=== PATIENT | female | born 1930 | race Caucasian/White ===

== ENCOUNTER 2017-01-19 06:49 | Observation (INO) | payer MEDICARE, OTHER ==
[~2017-01-19] VITALS: Ht 160 cm; Wt 58.8 kg
[~2017-01-19 06:49] MED LIST: /DILT60TAB PO; /MOXI40TA PO; /WARF25TA PO; ALB2.5NEB INH; BUDE180INH INH; BYST10TA PO; BYST20TA PO; CART120C PO; DOXY100T16 PO; EUCECRE3 TOP; FURO20TA2 PO; FURO40TA2 PO; HYDR7.5T30 PO; LASI20TA PO; LASI40TA PO; LASIX PO; LEVA250T PO; LEVA500T PO; LEVOTHYROXINE PO; MICR10CA PO; POTA20VL PO; PRAD150C PO; PRED10TA PO; PRED10TA2 PO; PRIL20TA2 PO; PROA1AER INH; PROAAER IN; SING10TA32 PO; SYNT75TA PO; TYLE325T5 PD; TYLE325T5 PO; ULTR50TA PO; WARF5TAB66 PO; XARE20TA PO
[2017-01-19] MEDS ORDERED: SYMB80INH INH (07:20)
[2017-01-19] MEDS ORDERED: XARE20TA PO (07:20)
[2017-01-19] MEDS ORDERED: ALBUTEROL SULFATE 2.5 MG/0.5 ML INH NEB SOLN NEB ONE (07:30)
[2017-01-19] MEDS ORDERED: IPRATROPIUM 0.5MG/ALBUTEROL 2.5MG INH SOL UD 3ML (DUONEB)(J7620) NEB ONE (07:30)
[2017-01-19] MEDS ORDERED: methylPREDNISolone INJ 125 MG/2 ML VIAL (J2930) IV ONE (07:30)
[2017-01-19 07:41] LABS: BASO # 0.1 K/mm3 (0.0-0.2); BASO % 0.9 % (0.0-1.0); EOS # 1.5 K/mm3 (0.0-0.50); LARGE UNSTAINED CELL # 0.1 K/mm3 (0.0-0.4); LARGE UNSTAINED CELL % 1.3 % (0.0-4.0); LYMPH # 0.8 K/mm3 (1.5-4.5); LYMPH % 10.7 % (24.0-44.0); MEAN CORPUSCULAR HEMOGLOBIN 25.9 pg (27.0-33.0); MEAN CORPUSCULAR HGB CONC 31.5 g/dl (32.0-36.5); MEAN CORPUSCULAR VOLUME 82.2 fl (80.0-96.0); MONO # 0.3 K/mm3 (0.0-0.8); MONO % 4.9 % (0.0-5.0); NEUTROPHILS # 4.1 K/mm3 (1.8-7.7); NEUTROPHILS % 60.2 % (36.0-66.0); PLATELET COUNT, AUTOMATED 213 k/mm3 (150-450); RED CELL DISTRIBUTION WIDTH 15.4 % (11.5-14.5); WHITE BLOOD COUNT 6.9 K/mm3 (4.0-10.0)
[2017-01-19 08:00] LABS: CALCIUM LEVEL 8.8 MG/DL (8.8-10.2); CREATININE FOR GFR 0.98 MG/DL (0.55-1.02); GLOMERULAR FILTRATION RATE 57.3 (>32); POTASSIUM SERUM 3.5 MEQ/L (3.5-5.1)
--- NOTE | 2017-01-19 08:46 | REP ---
Portable chest, 01/19/2017, 20, 03:00 a.m., single AP view, patient sitting: Comparison is 09/02/2015. There is chronic cardiomegaly. Lung reid are clear. The khoa, mediastinum, and bony thorax are unremarkable. Impression: Chronic cardiomegaly. No acute cardiopulmonary findings. Signed by Familia Leahy MD 01/19/2017 08:38 A
[2017-01-19] MEDS ORDERED: FUROSEMIDE 80 MG TAB PO SCH (09:00)
[2017-01-19] MEDS ORDERED: FURO40TA2 PO (09:19)
[2017-01-19] MEDS ORDERED: FURO1TAB15 PO (09:19)
[2017-01-19] MEDS ORDERED: ALB2.5NEB INH (09:19)
[2017-01-19] MEDS ORDERED: ALBUTEROL SULFATE 2.5 MG/0.5 ML INH NEB SOLN NEB PRN (10:45)
[2017-01-19] MEDS ORDERED: ACETAMINOPHEN TAB 650MG DOSE (2X325MG) PO PRN (10:45)
[2017-01-19] MEDS ORDERED: ONDANSETRON 4MG/2ML VIAL (J2405) IV PRN (10:45)
[2017-01-19] MEDS ORDERED: BISACODYL 10 MG SUPP PR PRN (10:45)
[2017-01-19] MEDS ORDERED: BUDESONIDE 0.5 MG/2 ML INHALATION SUSPENSION INH ONE (11:15)
[2017-01-19 12:25] VITALS: BP 138/79
--- NOTE | 2017-01-19 13:26 | HPE ---
DATE OF ADMISSION: 01/19/2017 PRIMARY CARE PROVIDER: Dr. Buckley TRANSFORMER BUILDER: Dr. Roberts CHIEF COMPLAINT: Increasing shortness of breath, wheezing, cough for the past three days. PAST MEDICAL HISTORY: 1. Asthma. 2. Atrial fibrillation 3. Congestive heart failure. 4. Hypothyroidism. 5. Aortic stenosis. 6. Chronic anemia. 7. Pulmonary hypertension. HISTORY OF PRESENT ILLNESS: This is an 86-year-old female who lives at home with her daughter, who has been feeling sick for the past seven days, mostly had some cough, cold, congestion and some difficulty in breathing, for which inhaler and nebulizer was helping; however, for the past three days, it has worsened and she felt that her nebulizers and inhalers were no longer helping. She was also feeling extremely week and tired and her family noted her to be sleeping more, so she was brought to the emergency room for evaluation. In the emergency department (ED), patient was found to be tachypneic and breathing at around 24-26, could not talk in full sentences, had to break for breath after about five or six words. Though she was not hypoxic on presentation, however, after ambulation, she became very symptomatic and could hardly talk. Patient had an x-ray done in the emergency room, which did not show any acute cardiopulmonary process. Patient's brain natriuretic peptide (BNP) was normal and there were no signs of fluid overload. Patient was diagnosed with asthma exacerbation and admitted for observation. Patient received Solu-Medrol and nebulizers in the emergency room, with some improvement of her symptoms; however, they were still not back to baseline. PAST SURGICAL HISTORY: 1. Hysterectomy. 2. Ear surgery. 3. Left hip replacement. ALLERGIES: No known drug allergies. HOME MEDICATIONS: - diltiazem 120 mg daily - Xarelto 20 mg daily - Synthroid 75 mcg daily - Lasix 40 mg and 80 mg on alternate days - albuterol sulfate inhaler every 6 hours as needed for shortness of breath - albuterol sulfate nebulizer four times a day SOCIAL HISTORY: Patient does not smoke, was never a smoker. Does not abuse alcohol or recreational drugs. FAMILY HISTORY: Nothing significant. REVIEW OF SYSTEMS: Patient denied any fever or chills. Denied any chest pain. Denied any abdominal pain, nausea, vomiting or diarrhea. Does have cough and bringing up mucoid and yellow-colored phlegm. Does have shortness of breath and wheezing. PHYSICAL EXAMINATION: VITAL SIGNS: Temperature 96.8, pulse 100, respiratory rate 16, blood pressure 1336/72, pulse oximetry 94% on room air. GENERAL: Patient awake, alert, oriented times three. Is a little hard of hearing. In no acute distress. HEENT: Normocephalic, atraumatic. Moist mucous membranes. Anicteric eyes. CHEST: Bilateral diffuse wheezing. Good breath sounds. CARDIOVASCULAR: S2, S2. Irregular. No rub, murmur or gallop appreciated. ABDOMEN: Soft, nontender. Bowel sounds present. EXTREMITIES: 1-2+ bipedal edema, but seems to be improving. There are chronic venous stasis changes. LABORATORY DATA: WBC 6.9, hemoglobin 9.9, platelets 213. Sodium 141, potassium 3.5, chloride 103, bicarbonate 30, BUN 26, creatinine 0.9, glucose 119, lactic acid 0.9. Cardiac enzymes are negative. Brain natriuretic peptide (BNP) 129. RADIOLOGY: A chest x-ray was reviewed; does not have any acute cardiopulmonary process. Shows chronic cardiomegaly. ASSESSMENT AND PLAN: This is an 86-year-old female admitted for asthma exacerbation. PLAN: 1. For asthma exacerbation, we will continue with albuterol nebulizers and methylprednisone. 2. Atrial fibrillation. We will continue with diltiazem and Xarelto. Rate is controlled. 3. Congestive heart failure, most probably diastolic. Has good ejection fraction in the last echocardiogram reviewed. We will continue with Lasix 40 mg and 80 mg on alternate days. 4. Aortic stenosis. Stable. 5. Pulmonary hypertension. Chronic, stable. We will continue with diuresis. 6. Hypothyroidism. We will continue with Synthroid. 7. Deep venous thrombosis (DVT) prophylaxis. Patient is on Xarelto.
[2017-01-19 14:00] VITALS: BP 113/71
[2017-01-19] MEDS: methylPREDNISolone INJ 40 MG/1 ML VIAL (J2920) IV SCH ×2 (17:08→23:57)
[2017-01-19 17:29] VITALS: BP 113/71
[2017-01-19] MEDS: IPRATROPIUM 0.5MG/ALBUTEROL 2.5MG INH SOL UD 3ML (DUONEB)(J7620) NEB SCH (17:29)
[2017-01-19] MEDS ORDERED: RIVAROXABAN 20 MG TAB (XARELTO) PO SCH (18:00)
--- NOTE | 2017-01-19 19:32 | ECGEPIP ---
Stationary ECG Study [facility] - ED Test Date: 2017-01-19 Pat Name: JOSIAH MARTÍNEZ Department: Room: [place] [address] Gender: F Tip Bander: alvaro : 1930 Requested By: FABIOLA Garcia Order Number: [id number] Reading MD: Merna Thomson Measurements Intervals [place] Rate: 98 P: RI: 0 QRS: 71 QRSD: 86 T: -21 QT: 360 QTc: 460 Interpretive Statements ATRIAL FIBRILLATION WITH ABERRANT CONDUCTION OR VENTRICULAR PREMATURE COMPLEXES LOW QRS VOLTAGE IN EXTREMITY LEADS ANTEROSEPTAL MYOCARDIAL INFARCTION, PROBABLY OLD SIMILAR 10/13/15 Electronically Signed On 01-19-2017 19:31:51 EDT by Merna Thomson
[2017-01-19 20:21] VITALS: BP 115/80
[2017-01-19] MEDS: SENOKOT S TAB PO SCH (20:21)
[2017-01-19 22:00] VITALS: BP 115/80
[2017-01-20] MEDS: BUDESONIDE 0.5 MG/2 ML INHALATION SUSPENSION INH SCH ×2 (00:10→07:46)
[2017-01-20] MEDS: IPRATROPIUM 0.5MG/ALBUTEROL 2.5MG INH SOL UD 3ML (DUONEB)(J7620) NEB SCH ×2 (00:10→07:46)
[2017-01-20 06:00] VITALS: BP 122/75
[2017-01-20] MEDS ORDERED: LEVOTHYROXINE 75MCG TABLET (0.075MG) PO SCH (06:00)
[2017-01-20 06:10] LABS: EOS % 0.2 % (0.0-3.0); LARGE UNSTAINED CELL % 0.2 % (0.0-4.0); LYMPH # 0.4 K/mm3 (1.5-4.5); LYMPH % 3.9 % (24.0-44.0); MEAN CORPUSCULAR HEMOGLOBIN 25.9 pg (27.0-33.0); MEAN CORPUSCULAR HGB CONC 31.6 g/dl (32.0-36.5); MEAN CORPUSCULAR VOLUME 82.1 fl (80.0-96.0); MONO # 0.2 K/mm3 (0.0-0.8); MONO % 1.9 % (0.0-5.0); NEUTROPHILS # 9.3 K/mm3 (1.8-7.7); NEUTROPHILS % 93.7 % (36.0-66.0); PLATELET COUNT, AUTOMATED 237 k/mm3 (150-450); RED CELL DISTRIBUTION WIDTH 15.5 % (11.5-14.5); WHITE BLOOD COUNT 9.9 K/mm3 (4.0-10.0)
[2017-01-20 06:41] LABS: CALCIUM LEVEL 8.7 MG/DL (8.8-10.2); CREATININE FOR GFR 1.1 MG/DL (0.55-1.02); GLOMERULAR FILTRATION RATE 50.1 (>32); POTASSIUM SERUM 3.2 MEQ/L (3.5-5.1)
[2017-01-20] MEDS ORDERED: POTASSIUM CHLORIDE 10 MEQ SR TABLET PO ONE (07:45)
[2017-01-20 07:47] VITALS: O2SAT 96
[2017-01-20] MEDS: methylPREDNISolone INJ 40 MG/1 ML VIAL (J2920) IV SCH (08:22)
[2017-01-20] MEDS: SENOKOT S TAB PO SCH (08:22)
[2017-01-20] MEDS ORDERED: FUROSEMIDE 40 MG TAB PO SCH (09:00)
[2017-01-20] MEDS ORDERED: BUDE0.5S6 INH (10:32)
[2017-01-20] MEDS ORDERED: PRED20TA PO (10:33)
--- NOTE | 2017-01-24 08:00 | DSES ---
DATE OF ADMISSION: 01/19/2017 DATE OF DISCHARGE: 01/20/2017 PRIMARY CARE PROVIDER: Dr. Buckley ENVIRONMENTAL LAWYER: Dr. Roberts DISCHARGE DIAGNOSES: Asthma exacerbation. Atrial fibrillation. Congestive heart failure. Hypothyroidism. Aortic stenosis. Chronic anemia. Pulmonary hypertension. Diastolic congestive heart failure with preserved systolic function. Hepatic cyst. DISCHARGE MEDICATIONS: - albuterol sulfate nebulizer 1 such four times a day as needed shortness of breath - budesonide inhalation by nebulizer 0.5 mcg twice a day - prednisone 40 mg by mouth daily for 4 days - diltiazem 120 mg every evening - furosemide 80 mg and 40 mg on alternate days - Synthroid 75 mcg daily - Xarelto 20 mg daily - albuterol MDI two puffs inhalation every 6 hours as needed shortness of breath HOSPITAL COURSE: This is an 86-year-old female, presented to the hospital with a 1 week history of feeling sick at home with cough, cold, congestion, and then worsening difficulty of breathing for the past 3 days. In the emergency room, she was diagnosed with asthma exacerbation. She received multiple nebulizers and intravenous (IV) steroid; however, still continued to be tachypneic on mild exertion and unable to complete talking in full sentences, so the patient was admitted under the hospitalist's service for observation. Patient was continued with IV steroids for 24 hours with frequent nebulizations. . Patient's symptoms improved significantly. The patient, on the day of discharge had stable vitals, functionally was at baseline with mostly resolved symptoms, so the patient was discharged home. PHYSICAL EXAMINATION: VITAL SIGNS: Temperature 98.7, pulse 90, respiratory rate 18, blood pressure 122/75, pulse oximetry 96% on room air. GENERAL: Patient awake, alert, oriented times three. Sitting up in bed, in no acute distress. HEENT: Normocephalic, atraumatic. Moist mucous membranes. Anicteric eyes. CHEST: There is mild bilateral wheezing present; however, there is very good air entry. CARDIOVASCULAR: S2, S2. Irregular rate, normal. There is a short systolic murmur present. ABDOMEN: Soft, nontender. Bowel sounds present. EXTREMITIES: No edema. LABORATORY DATA: WBC 9.9, hemoglobin 10.5, platelets 237. Sodium 139, potassium 3.2, replaced, chloride 101, bicarbonate 28, BUN 24, creatinine 1.1, glucose 152, calcium 8.7, BNP 129, lactic 0.9. Chest x-ray; cardiomegaly no acute cardiopulmonary findings. DISPOSITION: Patient is discharged home in stable condition. DISCHARGE INSTRUCTIONS: Patient to follow with primary care provider in 1 week, regular diet, activity as tolerated. MTDD
== END 2017-01-20 12:30 | disposition home or self-care (01) ==
LOC: M ED 07:50 → M ED INP 10:38 → M MSPAV 12:19
PROVIDERS: ADMIT Internal Medicine Nephrology; ATTEND Internal Medicine Nephrology
DX: J45.901 Unspecified asthma with (acute) exacerbation (principal); I48.91 Unspecified atrial fibrillation; I50.32 Chronic diastolic (congestive) heart failure; E03.9 Hypothyroidism, unspecified; I35.0 Nonrheumatic aortic (valve) stenosis; D53.9 Nutritional anemia, unspecified; I27.0 Primary pulmonary hypertension; K76.89 Other specified diseases of liver; Z79.899 Other long term (current) drug therapy; Z79.01 Long term (current) use of anticoagulants
CPT/HCPCS: 36415; 71010; 80048; 82550; 82553; 83605; 83880; 84484; 85025; 93005; 93041; 94640; 94760; 96374; 96376; 99285; G0378; J2920; J2930

== ENCOUNTER 2017-04-22 18:12 | Inpatient (IN) | payer OTHER, MEDICARE ==
[~2017-04-22] VITALS: Ht 160 cm; Wt 55.3 kg
[~2017-04-22 18:12] MED LIST changes: +BUDE0.5S6 INH; +FURO80TA2 PO; +LEVA1TAB PO; +LEVA1TAB2 PO; -LEVA250T PO; -LEVA500T PO; +PRED20TA PO; -PROA1AER INH; +PROAAER10 INH; +SYMB80INH INH
[2017-04-22] MEDS ORDERED: FUROSEMIDE 40 MG/4 ML VIAL (J1940) IV ONE (18:30)
[2017-04-22] MEDS ORDERED: methylPREDNISolone INJ 125 MG/2 ML VIAL (J2930) IV ONE (18:30)
[2017-04-22] MEDS ORDERED: POTA20TA6 (18:32)
[2017-04-22] MEDS ORDERED: ALBU17IN (18:32)
[2017-04-22 18:42] LABS: BASO % 0.5 % (0.0-1.0); EOS # 0.7 K/mm3 (0.0-0.50); EOS % 7.4 % (0.0-3.0); LARGE UNSTAINED CELL # 0.1 K/mm3 (0.0-0.4); LARGE UNSTAINED CELL % 0.9 % (0.0-4.0); LYMPH # 0.7 K/mm3 (1.5-4.5); MEAN CORPUSCULAR HEMOGLOBIN 26.3 pg (27.0-33.0); MEAN CORPUSCULAR HGB CONC 31.4 g/dl (32.0-36.5); MEAN CORPUSCULAR VOLUME 83.7 fl (80.0-96.0); MONO # 0.5 K/mm3 (0.0-0.8); MONO % 5.1 % (0.0-5.0); NEUTROPHILS # 7.3 K/mm3 (1.8-7.7); NEUTROPHILS % 79.1 % (36.0-66.0); PLATELET COUNT, AUTOMATED 337 k/mm3 (150-450); RED CELL DISTRIBUTION WIDTH 15.3 % (11.5-14.5); WHITE BLOOD COUNT 9.2 K/mm3 (4.0-10.0)
[2017-04-22] MEDS: IPRATROPIUM 0.5MG/ALBUTEROL 2.5MG INH SOL UD 3ML (DUONEB)(J7620) NEB PRN ×3 (18:49→19:04)
[2017-04-22 18:52] LABS: ABG BASE EXCESS 0.5 (-2.0-2.0); ABG HCO3 24.5 MEQ/L (22.0-26.0); ABG PARTIAL PRESSURE O2 76.6 mmHg (75.0-100.0); ABG STANDARD HCO3 24.9 MEQ/L (22.0-26.0); ABG TOTAL CO2 25.6 MEQ/L (23.0-31.0); ABG pH (ARTERIAL) 7.438 UNITS (7.350-7.450)
--- NOTE | 2017-04-22 19:01 | REP ---
Clinical: Cough and dyspnea. Comparison: 01/19/2017. Findings: Stable cardiomegaly. Rounded opacity in the superior mediastinum likely represents thyroid gland. The lung reid demonstrate chronic changes without acute consolidation, effusion, or pneumothorax. Skeletal structures are intact. Impression: Chronic stable cardiomegaly and interstitial changes. No acute cardiopulmonary process appreciated. Signed by Virgil Mckinnon MD 04/22/2017 06:53 P
[2017-04-22 19:27] LABS: ANION GAP 9 MEQ/L (8-16); BLOOD UREA NITROGEN 20 MG/DL (7-18); CARBON DIOXIDE LEVEL 26 MEQ/L (21-32); CHLORIDE LEVEL 103 MEQ/L (98-107); CREATININE FOR GFR 0.88 MG/DL (0.55-1.02); FREE T4 1.38 NG/DL (0.76-1.46); GLOMERULAR FILTRATION RATE > 60.0 (>32); GLUCOSE, FASTING 135 MG/DL (83-110); POTASSIUM SERUM 4.2 MEQ/L (3.5-5.1); SODIUM LEVEL 138 MEQ/L (136-145)
[2017-04-22] MEDS ORDERED: TYLE500T78 PO (20:32)
[2017-04-22] MEDS ORDERED: ALBU83IN INH ×2 (20:32)
[2017-04-22] MEDS ORDERED: ACETAMINOPHEN TAB 650MG DOSE (2X325MG) PO PRN (20:45)
[2017-04-22] MEDS: RIVAROXABAN 20 MG TAB (XARELTO) PO SCH (21:02)
[2017-04-22] MEDS: AZITHROMYCIN INJ 500 MG, VIAL MATE ADAPTER 1 EACH in D5W 250 ML IV SCH (22:14)
--- NOTE | 2017-04-22 22:20 | REPUSA ---
Clinical history: Pain, swelling. Findings: The common femoral, superficial femoral, popliteal, and other deep venous structures compre ss normally and demonstrate normal color Doppler flow. Normal venous waveforms with augmentation are seen. Impression: No evidence of deep vein thrombosis in the femoral popliteal venous system.
[2017-04-22 23:15] VITALS: BP 107/79
[2017-04-22] MEDS: cefTRIAXone SOD 2 GM in D5W MINI-BAG PLUS 50 ML IV SCH (23:36)
[2017-04-23] VITALS (10 sets, daily range): BP systolic 118–151; BP diastolic 73–96
[2017-04-23] MEDS: LEVALBUTEROL 1.25 MG/0.5 ML CONCENTRATE NEB INH PRN ×3 (04:58→20:15)
[2017-04-23] MEDS: LEVOTHYROXINE 75MCG TABLET (0.075MG) PO SCH (05:58)
[2017-04-23] MEDS: methylPREDNISolone INJ 125 MG/2 ML VIAL (J2930) IV SCH ×2 (05:58→17:03)
[2017-04-23] MEDS ORDERED: HEPARIN SOD (PORCINE) 5000 UNITS/ML VIAL SC SCH (06:00)
[2017-04-23 07:24] LABS: MEAN CORPUSCULAR HEMOGLOBIN 25.8 pg (27.0-33.0); MEAN CORPUSCULAR HGB CONC 31.1 g/dl (32.0-36.5); RED CELL DISTRIBUTION WIDTH 15.3 % (11.5-14.5); WHITE BLOOD COUNT 5.4 K/mm3 (4.0-10.0)
[2017-04-23 07:49] LABS: ANION GAP 8 MEQ/L (8-16); BLOOD UREA NITROGEN 21 MG/DL (7-18); CALCIUM LEVEL 8.8 MG/DL (8.8-10.2); CARBON DIOXIDE LEVEL 28 MEQ/L (21-32); CHLORIDE LEVEL 101 MEQ/L (98-107); CREATININE FOR GFR 0.82 MG/DL (0.55-1.02); GLOMERULAR FILTRATION RATE > 60.0 (>32); GLUCOSE, FASTING 157 MG/DL (83-110); SODIUM LEVEL 137 MEQ/L (136-145)
--- NOTE | 2017-04-23 08:14 | HPE ---
DATE OF ADMISSION: 04/22/2017 PRIMARY CARE PROVIDER: Dr. Buckley OUTPATIENT POULTRY FEED SUPERVISOR: Dr. Roberts HISTORY OF PRESENT ILLNESS: This patient is an 86-year-old female with a past medical history significant for asthma, atrial fibrillation with rapid ventricular response (RVR), diastolic congestive heart failure, hypothyroidism, aortic stenosis, chronic anemia, and pulmonary hypertension who presented to [facility] on 04/22/2017 with acute worsening of shortness of breath. The patient stated that since one week ago the patient started to notice having increased shortness of breath, initially most significant during exertion. However, the breathing symptoms continued to get worse. At approximately 4:00 p.m. today, the patient had severe shortness of breath that she could not maintain her normal respiration and the patient was brought to the emergency room for further evaluation. For the past week, the patient also noted to have an increased cough and also noted to have yellowish sputum production which is not normal for her. The patient denies any recent sick contact. Denied any fever or chills. The patient also noted to have increased bilateral lower extremity swelling and generalized ache. The patient has been having difficulty with ambulation due to bilateral lower extremity achy discomfort. Denies any associated symptoms. ALLERGIES: No known drug allergies. PAST MEDICAL HISTORY: 1. Asthma. 2. Atrial fibrillation with rapid ventricular response (RVR). 3. Diastolic congestive heart failure. 4. Hypothyroidism. 5. Aortic stenosis. 6. Chronic anemia. 7. Pulmonary hypertension. PAST SURGICAL HISTORY: 1. Hysterectomy. 2. Left hip replacement. SOCIAL HISTORY: Denies smoking. Denies recreational drug use. Denies alcohol use. The patient is a full code. HOME MEDICATIONS: - Tylenol 100 mg by mouth every six hours as needed - albuterol two puff inhalation four times a day as needed - albuterol nebulizer 2.5 mg inhalation four times a day - diltiazem 120 mg by mouth every evening - Lasix 40 mg by mouth every two days alternating with 80 mg - Lasix 80 mg by mouth every two days alternating with 40 mg - Synthroid 75 mcg by mouth daily - Xarelto 20 mg by mouth every evening REVIEW OF SYSTEMS: GENERAL: Denied any fever or chills. HEENT: No vision changes. No auditory changes. CARDIOVASCULAR: Denied any chest pain. Complains about palpitation with rapid heart rate RESPIRATORY: The patient does have progressive worsening shortness of breath since a week ago and had acute worsening since 4 p.m. today. Having increased wheeze, increased cough, and also new yellowish sputum production. GASTROINTESTINAL (GI): No nausea. No vomiting. No diarrhea. MUSCULOSKELETAL: Worsening bilateral lower extremity swelling and some generalized ache which interferes with her normal ambulation. NEUROLOGICAL: No numbness. No tingling. OBJECTIVE: VITAL SIGNS: Temperature is 98, pulse is 154, respirations 24, blood pressure is 132/86, pulse oximetry is 95% with two liters nasal cannula. GENERAL: Mild to moderate distress secondary to respiratory distress, alert and oriented times three. HEENT: Normocephalic, atraumatic. Extraocular motor grossly intact. CARDIOVASCULAR: Irregularly irregular, tachycardic. Heart rate running between 140 and 160 at the time of examination. RESPIRATORY: Significant wheezes throughout, positive crackles noted most significant bilateral base. ABDOMEN: Soft, nontender, nondistended. Bowel sounds present. EXTREMITIES: 3+ pitting edema bilaterally. No sign of cyanosis. LABORATORY DATA: WBC 9.2, hemoglobin 10.6, hematocrit 33.9, platelet count is 337. Sodium is 138, potassium 4.2, chloride is 103, carbon dioxide 26, BUN 20, creatinine 0.88, GFR greater than 60, fasting glucose 135, lactic acid 1.6, calcium 9, total CK is 116, troponin I is 0.03, BNP is 439, TSH 4.6, free T4 is 1.38. ABG shows pH of 7.438, pCO2 is 37, pO2 is 76.7, HCO3 is 24.5. MICROBIOLOGY: Blood cultures are pending times two sets. IMAGING STUDIES: Chest x-ray shows chronic stable cardiomegaly and interstitial changes. No acute cardiopulmonary process appreciated. ASSESSMENT AND PLAN: 1. Acute respiratory failure, most likely secondary to congestive heart failure (CHF) exacerbation combined with asthma exacerbation. The patient will be admitted to the progressive care unit (PCU) under inpatient status. The patient had one extra dose of IV Lasix in the emergency room. We will monitor input and output and daily weights. The patient will be on fluid restriction. For the patient's asthma exacerbation, the patient will be on the IV Solu-Medrol. We will obtain the respiratory panel and sputum culture to rule out any viral or bacterial cause of the patient's asthma exacerbation. Empirically, the patient will be placed on Rocephin and azithromycin. 2. Diastolic congestive heart failure. Currently, the patient is in fluid overload and we will continue with the diuresis. 3. Asthma exacerbation. Treatment as above. 4. Hypothyroidism, on Synthroid. Normal free T4. Continue the current dose. 5. History of chronic anemia. Continue monitoring hemoglobin and hematocrit. 6. Atrial fibrillation with rapid ventricular response (RVR). The patient's atrial fibrillation is not controlled. The emergency room has contacted Dr. Solares and one urgent dose of Cardizem was give IV. Due to acute respiratory distress, the patient missed her home Cardizem for the past 24 hours. We will resume her home medications. Also, the patient will be monitored on telemetry. The patient will continue on Xarelto. 7. Bilateral lower extremity swelling with discomfort, most likely secondary to congestive heart failure exacerbation. We will follow with bilateral lower extremity Doppler. 8. Deep vein thrombosis (DVT) prophylaxis. The patient is on Xarelto. MTDD
[2017-04-23] MEDS ORDERED: FUROSEMIDE 40 MG TAB PO SCH (09:00)
[2017-04-23] MEDS: FUROSEMIDE 80 MG TAB PO SCH (09:03)
[2017-04-23] MEDS: cefTRIAXone SOD 2 GM in D5W MINI-BAG PLUS 50 ML IV SCH ×2 (10:28→23:27)
--- NOTE | 2017-04-23 10:38 | IPN ---
DATE: 04/23/2017 Ms. Lee is complaining of palpitations this morning. No complaints of chest pain. She does have shortness of breath, but her major complaint is uncomfortable sensation of her heart beating in her chest. She has been tachycardic overnight. Currently, temperature is 97.5, pulse 124, respiratory rate 26, blood pressure 140/90, 92% on 2 liters. Negative fluid status of -850 yesterday. She is awake, appropriately interactive, somewhat anxious. Daughter at bedside. Mucous membranes are moist. Neck is supple. Breathing is symmetrical. I:E ratio is 1:4. Poor aeration throughout. Some upper airway sounds are noted. HEART: Regular rate and rhythm. Tachycardic. ABDOMEN: Soft, doughy, nontender. EXTREMITIES: No significant lower extremities edema. White count 5.4, hemoglobin 10.5, platelets of 305, BUN 21, creatinine 0.82, TSH is 4.6 with a free T4 of 1.38. Respiratory panel is pending. Blood culture pending. Lower extremity Doppler negative. ASSESSMENT: This is an 86-year-old with atrial fibrillation with rapid ventricular response and potential acute hypoxic respiratory failure, most likely related to chronic obstructive pulmonary disease (COPD) plus/minus decompensated congestive heart failure (CHF). PLAN: 1. The patient has atrial fibrillation with rapid ventricular response and is given another IV dose of Cardizem, given oral along with it in an attempt to control her heart rate. Beta blockade in this setting would be fraught with peril. We will add digoxin to the Cardizem should rate not be easily controlled. 2. The patient has chronic obstructive pulmonary disease (COPD)/asthma exacerbation. Steroids, aggressive pulmonary toilet. She is on Xopenex in an attempt to limit her tachycardia, which may or may not be useful. Respiratory panel is pending. The patient is on empiric antibiotics. 3. The patient was treated for decompensated diastolic congestive heart failure (CHF). Currently there is no further role for diuresis. The patient would appear to be euvolemic. 4. The patient has a history of hypothyroidism. TSH and free T4 are acceptable at the current setting. 5. The patient has chronic anemia. 6. The patient has atrial fibrillation and is on Xarelto for anticoagulation. 7. Deep vein thrombosis (DVT) prophylaxis. Xarelto. MTDD
--- NOTE | 2017-04-23 10:42 | ECGEPIP ---
Stationary ECG Study [facility] Test Date: 2017-04-23 Pat Name: JOSIAH MARTÍNEZ Department: Room: [place] [address] Gender: F Carburetor Mechanic: : 1930 Requested By: KT Orosco Order Number: [id number] Reading MD: Kt Orosco Measurements Intervals [place] Rate: 125 P: MA: 0 QRS: 68 QRSD: 85 T: 0 QT: 318 QTc: 459 Interpretive Statements ATRIAL FIBRILLATION WITH RAPID VENTRICULAR RESPONSE WITH ABERRANT CONDUCTION OR VENTRICULAR PREMATURE COMPLEXES LOW QRS VOLTAGE IN EXTREMITY LEADS ANTEROSEPTAL MYOCARDIAL INFARCTION, OF INDETERMINATE AGE Rate decreased from 04-22-17 tracing Electronically Signed On 04-23-2017 10:42:37 EDT by Kt Orosco
[2017-04-23] MEDS: RIVAROXABAN 20 MG TAB (XARELTO) PO SCH (17:03)
[2017-04-23] MEDS: AZITHROMYCIN INJ 500 MG, VIAL MATE ADAPTER 1 EACH in D5W 250 ML IV SCH (21:57)
[2017-04-23] MEDS ORDERED: FUROSEMIDE 20 MG/2 ML VIAL (J1940) IV ONE (23:45)
[2017-04-24] VITALS: BP 115/85
[2017-04-24] MEDS: LEVALBUTEROL 1.25 MG/0.5 ML CONCENTRATE NEB INH PRN (00:09)
[2017-04-24 04:00] VITALS: BP 120/60
[2017-04-24 05:53] LABS: MEAN CORPUSCULAR HEMOGLOBIN 26.2 pg (27.0-33.0); MEAN CORPUSCULAR HGB CONC 32.5 g/dl (32.0-36.5); MEAN CORPUSCULAR VOLUME 80.6 fl (80.0-96.0); RED CELL DISTRIBUTION WIDTH 15.1 % (11.5-14.5); WHITE BLOOD COUNT 9.4 K/mm3 (4.0-10.0)
[2017-04-24 06:09] LABS: ANION GAP 10 MEQ/L (8-16); BLOOD UREA NITROGEN 29 MG/DL (7-18); CALCIUM LEVEL 8.2 MG/DL (8.8-10.2); CARBON DIOXIDE LEVEL 29 MEQ/L (21-32); CHLORIDE LEVEL 97 MEQ/L (98-107); CREATININE FOR GFR 0.88 MG/DL (0.55-1.02); GLOMERULAR FILTRATION RATE > 60.0 (>32); GLUCOSE, FASTING 138 MG/DL (83-110); POTASSIUM SERUM 3.5 MEQ/L (3.5-5.1); SODIUM LEVEL 136 MEQ/L (136-145)
[2017-04-24] MEDS: methylPREDNISolone INJ 125 MG/2 ML VIAL (J2930) IV SCH ×2 (06:28→17:09)
[2017-04-24] MEDS: LEVOTHYROXINE 75MCG TABLET (0.075MG) PO SCH (06:29)
--- NOTE | 2017-04-24 07:12 | ECGEPIP ---
Stationary ECG Study [facility] - ED Test Date: 2017-04-22 Pat Name: JOSIAH MARTÍNEZ Department: Room: [place] [address] Gender: F Senior Project Coordinator: leslie : 1930 Requested By: Henri Dimas Order Number: [id number] Reading MD: Merna Thomson Measurements Intervals [place] Rate: 151 P: [place]: 0 QRS: 86 QRSD: 80 T: -11 QT: 267 QTc: 424 Interpretive Statements ATRIAL FIBRILLATION WITH RAPID VENTRICULAR RESPONSE LOW QRS VOLTAGE IN EXTREMITY LEADS NSTTW ABNORMALITY ANTEROSEPTAL MYOCARDIAL INFARCTION, PROBABLY OLD INCREASED RATE 01/19/17 Electronically Signed On 04-24-2017 7:12:30 EDT by Merna Thomson
[2017-04-24] MEDS: FUROSEMIDE 80 MG TAB PO SCH (08:25)
[2017-04-24 08:27] VITALS: BP 114/82
[2017-04-24] MEDS ORDERED: FUROSEMIDE 80 MG TAB PO SCH (09:00)
[2017-04-24] MEDS: IPRATROPIUM 0.5MG/ALBUTEROL 2.5MG INH SOL UD 3ML (DUONEB)(J7620) NEB SCH ×3 (10:25→19:39)
[2017-04-24] MEDS: cefTRIAXone SOD 2 GM in D5W MINI-BAG PLUS 50 ML IV SCH ×2 (10:29→22:29)
[2017-04-24 12:00] VITALS: BP 118/76
--- NOTE | 2017-04-24 12:51 | IPN ---
DATE: 04/24/2017 Ms. Lee is feeling better today. She is breathing a little more easily, did not sleep well last night though. Has been coughing. PHYSICAL EXAMINATION: VITAL SIGNS: Temperature 98, pulse 86, respiratory rate 22, blood pressure 114/82, 97% on 3 liters. Input and output notable for a negative fluid balance of -1790, Body Mass Index (BMI) of 22.8. She is awake, appropriately interactive , sitting in a chair at bedside. Daughter is sitting on the bed. Mucous membranes are moist. Neck is supple. She is relatively thin appearing. Breathing is symmetrical. I:E ratio is 1:4. Diffuse polyphonic wheeze, improved aeration from yesterday. HEART: Regular rate and rhythm. Rate controlled. She has multiple premature ventricular contractions (PVCs) on monitor. ABDOMEN: Soft, doughy, nontender. EXTREMITIES: No lower extremity edema. White count 9.4, hemoglobin 9.5, platelets of 317, BUN 29, creatinine 0.88. Respiratory panel grew human rhinovirus/enterovirus. Sputum is pending. ASSESSMENT: This is an 86-year-old with atrial fibrillation with rapid ventricular response and acute hypoxia, most likely related to chronic obstructive pulmonary disease (COPD) with or without decompensated congestive heart failure (CHF) and found to have likely viral etiology. PLAN: 1. The patient has atrial fibrillation with rapid ventricular response, relatively regular on monitor. At this time, there is a lot of noise on her telemetry and she does have PVC. Rate is well controlled with Cardizem. 2. The patient has chronic obstructive pulmonary disease (COPD)/asthma exacerbation, viral etiology. Continue steroids, aggressive pulmonary toilet. At this point, I have liberalized her respiratory therapy as her rate is controlled and breathing is improving. The patient is on empiric antibiotics. I think that if her sputum is negative that we can likely discontinue those based on the fact that she has positive respiratory panel 3. The patient has congestive heart failure (CHF), which appears to be compensated at this point. She had received diuresis earlier in her stay. 4. The patient has a history of hypothyroidism. 5. The patient has chronic anemia. 6. The patient has atrial fibrillation and has been on Xarelto for anticoagulation. 7. Deep vein thrombosis (DVT) prophylaxis. Xarelto. MTDD
[2017-04-24] MEDS: RIVAROXABAN 20 MG TAB (XARELTO) PO SCH (17:09)
[2017-04-24] MEDS ORDERED: SLF 3 ML SYR IV PRN (18:45)
[2017-04-24 20:00] VITALS: BP 110/81
[2017-04-24] MEDS: AZITHROMYCIN INJ 500 MG, VIAL MATE ADAPTER 1 EACH in D5W 250 ML IV SCH (22:15)
[2017-04-24] MEDS: SLF 3 ML SYR IV SCH (22:17)
[2017-04-25] VITALS: BP 114/69
[2017-04-25] MEDS: ALBUTEROL SULFATE 2.5 MG/0.5 ML INH NEB SOLN INH PRN ×2 (00:59→03:33)
[2017-04-25 04:00] VITALS: BP 128/62
[2017-04-25] MEDS: methylPREDNISolone INJ 125 MG/2 ML VIAL (J2930) IV SCH ×2 (05:35→18:10)
[2017-04-25] MEDS: LEVOTHYROXINE 75MCG TABLET (0.075MG) PO SCH (05:37)
[2017-04-25] MEDS: SLF 3 ML SYR IV SCH ×3 (05:51→20:15)
[2017-04-25] MEDS: IPRATROPIUM 0.5MG/ALBUTEROL 2.5MG INH SOL UD 3ML (DUONEB)(J7620) NEB SCH ×4 (07:01→19:54)
[2017-04-25 07:36] VITALS: BP 112/70
[2017-04-25] MEDS: FUROSEMIDE 80 MG TAB PO SCH (08:48)
[2017-04-25 09:05] LABS: MEAN CORPUSCULAR HGB CONC 32.2 g/dl (32.0-36.5); MEAN CORPUSCULAR VOLUME 80.8 fl (80.0-96.0); RED CELL DISTRIBUTION WIDTH 15.2 % (11.5-14.5); WHITE BLOOD COUNT 9.6 K/mm3 (4.0-10.0)
[2017-04-25 09:22] LABS: CALCIUM LEVEL 8.5 MG/DL (8.8-10.2); CREATININE FOR GFR 0.96 MG/DL (0.55-1.02); GLOMERULAR FILTRATION RATE 58.7 (>32); POTASSIUM SERUM 3.2 MEQ/L (3.5-5.1)
[2017-04-25] MEDS ORDERED: POTASSIUM CHLORIDE 10 MEQ SR TABLET PO ONE (11:15)
[2017-04-25] MEDS: cefTRIAXone SOD 2 GM in D5W MINI-BAG PLUS 50 ML IV SCH (11:44)
[2017-04-25 12:00] VITALS: BP 106/66
[2017-04-25] MEDS: CEFDINIR 300 MG CAP (OMNICEF) PO SCH ×2 (13:35→20:15)
[2017-04-25] MEDS: AZITHROMYCIN 250 MG TAB PO SCH (13:35)
[2017-04-25 14:05] VITALS: BP 99/58
[2017-04-25] MEDS: RIVAROXABAN 20 MG TAB (XARELTO) PO SCH (18:10)
--- NOTE | 2017-04-25 18:22 | IPN ---
DATE: 04/25/2017 Ms. Lee is feeling better today. She has no complaints of pain, chest pain, is still short of breath, has been out of bed. Temperature is 97.4, pulse 83, respiratory rate 20, blood pressure 106/66, 93% on room air. Input and output are notable for a negative fluid balance of -920. Body Mass Index (BMI) 23. She is awake, appropriately interactive. Mucous membranes are moist. Neck is supple. Breathing is symmetrical. I:E ratio is 1:4. Heart is distant sounding. Radial pulses 2+. Abdomen is soft, doughy, nontender. LABORATORY DATA: White count 9.6, hemoglobin 10.3. BUN 33, creatinine 0.96, potassium 3.2. ASSESSMENT: This is an 86-year-old with atrial fibrillation and rapid ventricular response related to acute hypoxia and chronic obstructive pulmonary disease (COPD) exacerbation with or without decompensated congestive heart failure with a viral etiology for her COPD exacerbation. PLAN: 1. For atrial fibrillation with rapid ventricular response (RVR), the patient's rate is well-controlled. She is relatively regular on my examination. Continue to monitor her clinically. 2. The patient has chronic obstructive pulmonary disease (COPD)/asthma exacerbation with viral etiology. Continue with steroids, aggressive pulmonary toilet. We have focused her antibiotics to oral at this point based on the severity of her presentation. We can likely discontinue them when sputum is negative. 3. The patient has congestive heart failure, which appears to be compensated. 4. The patient has hypothyroidism. 5. The patient has chronic anemia. 6. The patient has atrial fibrillation and is on Xarelto for anticoagulation. 7. Deep vein thrombosis (DVT) prophylaxis is Xarelto.
[2017-04-25 22:00] VITALS: BP 109/66
[2017-04-26] MEDS: methylPREDNISolone INJ 125 MG/2 ML VIAL (J2930) IV SCH ×2 (05:43→18:56)
[2017-04-26] MEDS: SLF 3 ML SYR IV SCH ×3 (05:43→22:10)
[2017-04-26] MEDS: LEVOTHYROXINE 75MCG TABLET (0.075MG) PO SCH (05:44)
[2017-04-26] MEDS: ALBUTEROL SULFATE 2.5 MG/0.5 ML INH NEB SOLN INH PRN (05:46)
[2017-04-26 06:00] VITALS: BP 114/67
[2017-04-26 06:19] LABS: CALCIUM LEVEL 8.2 MG/DL (8.8-10.2); CREATININE FOR GFR 0.98 MG/DL (0.55-1.02); GLOMERULAR FILTRATION RATE 57.3 (>32); POTASSIUM SERUM 3.1 MEQ/L (3.5-5.1)
[2017-04-26 06:25] LABS: MEAN CORPUSCULAR HEMOGLOBIN 25.8 pg (27.0-33.0); MEAN CORPUSCULAR HGB CONC 31.4 g/dl (32.0-36.5); RED CELL DISTRIBUTION WIDTH 15.2 % (11.5-14.5)
[2017-04-26] MEDS ORDERED: POTASSIUM CHLORIDE 10 MEQ SR TABLET PO ONE ×2 (06:30→07:15)
[2017-04-26] MEDS: IPRATROPIUM 0.5MG/ALBUTEROL 2.5MG INH SOL UD 3ML (DUONEB)(J7620) NEB SCH ×4 (07:41→20:47)
[2017-04-26] MEDS: FUROSEMIDE 80 MG TAB PO SCH (09:58)
[2017-04-26] MEDS: CEFDINIR 300 MG CAP (OMNICEF) PO SCH (09:59)
[2017-04-26] MEDS: AZITHROMYCIN 250 MG TAB PO SCH (09:59)
[2017-04-26 14:00] VITALS: BP 88/54
[2017-04-26] MEDS ORDERED: SODIUM CHLORIDE 0.9% 1000 ML IV ONE (15:15)
[2017-04-26 18:30] VITALS: BP 134/64
--- NOTE | 2017-04-26 18:44 | IPN ---
DATE: 04/26/2017 Ms. Lee is feeling much better today. She is not short of breath. Unfortunately, last evening she did pass some bright red blood with urine, which was more than the previous day. Has been coughing. The cough has improved. Temperature is 98, pulse 84, respiratory rate 18, blood pressure this afternoon is 88/54, 95% on room air with systolic 90, which is lower than it has been previously. Intake and output notable for a negative fluid balance of -350. White cell count 8, hemoglobin 9.5, platelets of 300. Sodium 139, potassium 3.1, BUN 33, creatinine 0.98. ASSESSMENT: This is an 86-year-old with presentation for atrial fibrillation with rapid ventricular response (RVR) in the setting of chronic obstructive pulmonary disease (COPD) exacerbation. PLAN: 1. RVR. Rate has improved, and she is regular on exam today. Would benefit from continued rate control, but blood pressure is somewhat low. For the moment we will discontinue her Lasix. She does have congestive heart failure, which appears to be compensated. At this point, she is probably dry. We will give her some intravenous (IV) fluid. 2. Patient has asthma exacerbation, viral etiology. At this point could likely discontinue her antibiotics. 3. Patient has hypothyroidism. 4. Patient has chronic anemia. 5. Patient's family is at bedside. Case is discussed.
[2017-04-26 22:00] VITALS: BP 120/91
[2017-04-27] MEDS: SLF 3 ML SYR IV SCH ×3 (05:49→21:38)
[2017-04-27] MEDS: methylPREDNISolone INJ 125 MG/2 ML VIAL (J2930) IV SCH ×2 (05:49→17:34)
[2017-04-27] MEDS: LEVOTHYROXINE 75MCG TABLET (0.075MG) PO SCH (05:49)
[2017-04-27 06:00] VITALS: BP 132/60
[2017-04-27 06:17] LABS: MEAN CORPUSCULAR HEMOGLOBIN 26.2 pg (27.0-33.0); MEAN CORPUSCULAR HGB CONC 32.7 g/dl (32.0-36.5); MEAN CORPUSCULAR VOLUME 80.2 fl (80.0-96.0); RED CELL DISTRIBUTION WIDTH 14.9 % (11.5-14.5); WHITE BLOOD COUNT 7.2 K/mm3 (4.0-10.0)
[2017-04-27 06:27] LABS: CALCIUM LEVEL 7.8 MG/DL (8.8-10.2); CREATININE FOR GFR 0.99 MG/DL (0.55-1.02); GLOMERULAR FILTRATION RATE 56.6 (>32); POTASSIUM SERUM 2.7 MEQ/L (3.5-5.1)
[2017-04-27] MEDS: IPRATROPIUM 0.5MG/ALBUTEROL 2.5MG INH SOL UD 3ML (DUONEB)(J7620) NEB SCH ×4 (08:23→19:42)
[2017-04-27] MEDS ORDERED: POTASSIUM CHLORIDE 10 MEQ SR TABLET PO ONE ×2 (09:00→12:00)
[2017-04-27 14:00] VITALS: BP 99/62
--- NOTE | 2017-04-27 16:34 | IPN ---
DATE: 04/27/2017 Ms. Lee has been feeling well overnight. She did have low blood pressure noted yesterday which has resolved. Unfortunately, overnight, she was noted to have elevated heart rate. She had an EKG done which showed her to be in sinus rhythm. Intake and output notable for a positive fluid balance of 390. No bowel movements noted yesterday. Body mass index 21.4. She is awake, appropriately interactive, pleasantly conversant, has many family members at bedside. Mucous membranes are moist. Neck is supple. Breathing is symmetrical. I:E ratio is 1:3. Decreased aeration. Scattered polyphonic wheeze. Heart is in a regular rate and rhythm, is not tachycardic. Abdomen is soft, doughy, nontender. LABORATORY DATA: White cell count 7.2, hemoglobin 10.2, and platelets of 305. Potassium 2.7, creatinine 0.99. ASSESSMENT: This is an 86-year-old who presented with atrial fibrillation with rapid ventricular response in the setting of chronic obstructive pulmonary disease (COPD) exacerbation. PLAN: 1. Rapid ventricular response (RVR). The patient is in sinus rhythm. She is not anticoagulated. She did experience some hematuria. She is in sinus rhythm, pushed into atrial fibrillation with RVR based on a respiratory illness. It is unclear to me that she would actually benefit from anticoagulation. 2. The patient has an asthma exacerbation with a viral etiology. Sputum likely represents either colonizers or insignificant findings. Continue with aggressive pulmonary toilet and steroids as ordered. 3. The patient has hypothyroidism. 4. The patient has chronic anemia. 5. The patient's family is at bedside.
[2017-04-27 22:00] VITALS: BP 126/84
[2017-04-28 00:19] VITALS: BP 132/89
[2017-04-28] MEDS: LEVOTHYROXINE 75MCG TABLET (0.075MG) PO SCH (05:46)
[2017-04-28] MEDS: methylPREDNISolone INJ 125 MG/2 ML VIAL (J2930) IV SCH (05:47)
[2017-04-28] MEDS: SLF 3 ML SYR IV SCH ×2 (05:47→13:45)
[2017-04-28 06:00] VITALS: BP 140/78
[2017-04-28 06:13] LABS: MEAN CORPUSCULAR HEMOGLOBIN 25.1 pg (27.0-33.0); MEAN CORPUSCULAR HGB CONC 30.6 g/dl (32.0-36.5); RED CELL DISTRIBUTION WIDTH 14.8 % (11.5-14.5); WHITE BLOOD COUNT 8.6 K/mm3 (4.0-10.0)
[2017-04-28 06:21] LABS: ANION GAP 9 MEQ/L (8-16); BLOOD UREA NITROGEN 33 MG/DL (7-18); CARBON DIOXIDE LEVEL 32 MEQ/L (21-32); CHLORIDE LEVEL 101 MEQ/L (98-107); CREATININE FOR GFR 0.93 MG/DL (0.55-1.02); GLOMERULAR FILTRATION RATE > 60.0 (>32); GLUCOSE, FASTING 126 MG/DL (83-110); POTASSIUM SERUM 3.8 MEQ/L (3.5-5.1); SODIUM LEVEL 142 MEQ/L (136-145)
[2017-04-28] MEDS: IPRATROPIUM 0.5MG/ALBUTEROL 2.5MG INH SOL UD 3ML (DUONEB)(J7620) NEB SCH ×3 (07:12→15:36)
[2017-04-28 08:53] VITALS: BP 129/85
[2017-04-28 08:55] VITALS: BP 129/85
--- NOTE | 2017-04-28 15:05 | IPN ---
DATE: 04/28/2017 Ms. Lee is feeling better today. She has not been out of bed very much, but is breathing easier. Still coughing. Temperature 97.5, pulse 97, respiration 18, blood pressure 129/85, 93% on room air. Intake and output notable for a positive fluid balance of 660. No bowel movements noted yesterday. Awake, appropriately interactive. Mucous membranes are moist. Neck is supple. Breathing is symmetrical. I:E ratio is 1:4. Speaking in complete sentences. No accessory muscle use. Scattered polyphonic wheeze with some upper airway noises noted. Heart is in a regular rate and rhythm. Abdomen is soft, doughy, nontender. LABORATORY DATA: White cell count 8.2, hemoglobin 10.2, BUN 33, creatinine 0.93. ASSESSMENT: An 86-year-old who atrial fibrillation with rapid ventricular response (RVR) which is paroxysmal and resolving in the setting of chronic obstructive pulmonary disease (COPD) exacerbation. PLAN: 1. Rapid ventricular response (RVR). The patient is currently in a regular rhythm. She is not anticoagulated. She was experiencing hematuria, it is unclear to me whether or not she needs to be anticoagulated at all. 2. The patient has an asthma exacerbation with a viral etiology. Patient is improving, but has yet to pass physical therapy. 3. The patient has hypothyroidism. 4. The patient has chronic anemia. 5. The patient's family is at bedside.
[2017-04-28] MEDS ORDERED: PRED10TA2 PO (15:13)
[2017-04-28 16:00] VITALS: BP 135/81
--- NOTE | 2017-04-28 16:01 | DSES ---
DATE OF ADMISSION: 04/22/2017 DATE OF DISCHARGE: SPECIALISTS: No specialists involved in her care. COMPLICATIONS: No complications during her stay. PROCEDURES: No procedures performed during her stay. DISCHARGE DIAGNOSIS: Chronic obstructive pulmonary disease (COPD) exacerbation related to human rhinovirus and Enterovirus viral infection. SECONDARY DIAGNOSES: 1. Atrial fibrillation with rapid ventricular rate. 2. Acute on chronic diastolic CHF on admission, treated with IV Lasix 3. Hypothyroidism. 4. Chronic anemia. 5. Atrial fibrillation, on Xarelto for anticoagulation. 6. Hematuria from traumatic Mercer catheter placement. SUMMARY OF PRESENTATION: This is an 86-year-old who presented with atrial fibrillation with RVR, COPD exacerbation and was found to have a viral etiology. Was treated empirically with antibiotics until cultures were negative. Improved slowly during the course of her stay. Did go on to develop some hematuria from Mercer catheter. Xarelto was held, which is being held on the day of discharge. On the day of discharge, she is feeling well. She is breathing more easily. She feels much closer to her baseline and she has passed physical therapy (PT). Temperature 97.5, pulse 97, respiratory rate 18, blood pressure 129/85, 93% on room air. Please see today's progress note for condition at discharge. DISCHARGE INSTRUCTIONS: Include the following: Followup with Dr. Buckley within 1 week. Diet and activity as tolerated. MEDICATIONS: Include: - prednisone taper starting at 40 mg twice a day for 2 days and dropping by half every 2 days - Tylenol as needed for pain - albuterol as needed for shortness of breath - diltiazem 120 mg XR by mouth every evening - Lasix alternating doses as written, 40 and 80 - Synthroid 75 mcg daily Recommend restarting Xarelto on 05/05/2017. MTDD
== END 2017-04-28 16:55 | disposition home or self-care (01) | DRG 190 ==
LOC: M ED 18:12 → M ED INP 20:39 → M PCU 04-23 14:39 → M MSPAV 04-25 14:00
PROVIDERS: ADMIT Internal Medicine; ATTEND Internal Medicine
DX: J44.1 Chronic obstructive pulmonary disease with (acute) exacerbation (principal); I50.33 Acute on chronic diastolic (congestive) heart failure; J45.901 Unspecified asthma with (acute) exacerbation; B97.89 Other viral agents as the cause of diseases classified elsewhere; B97.10 Unspecified enterovirus as the cause of diseases classified elsewhere; I11.0 Hypertensive heart disease with heart failure; I48.0 Paroxysmal atrial fibrillation; E03.9 Hypothyroidism, unspecified; R31.9 Hematuria, unspecified; I35.0 Nonrheumatic aortic (valve) stenosis; D64.9 Anemia, unspecified; R09.02 Hypoxemia; I27.2 Other secondary pulmonary hypertension; Z96.642 Presence of left artificial hip joint; Z90.710 Acquired absence of both cervix and uterus; Z79.01 Long term (current) use of anticoagulants; Z79.899 Other long term (current) drug therapy

== ENCOUNTER → 2017-06-27 | Outpatient (CLI) | payer OTHER ==
[~2017-06-27] MED LIST changes: +ALBU17IN; +ALBU83IN INH; +POTA20TA6; +TYLE500T78 PO
[2017-06-27 13:32] LABS: BASO # 0.1 10^3/uL (0.0-0.2); BASO % 0.8 % (0.0-1.0); EOS # 0.4 10^3/uL (0.0-0.50); EOS % 4.3 % (0.0-3.0); IMMATURE GRANULOCYTE % 0.3 % (0-0); LYMPH # 1.2 10^3/uL (1.5-4.5); LYMPH % 13.2 % (24.0-44.0); MEAN CORPUSCULAR HEMOGLOBIN 26.6 pg (27.0-33.0); MEAN CORPUSCULAR HGB CONC 30.5 g/dl (32.0-36.5); MONO # 0.7 10^3/uL (0.0-0.8); MONO % 7.4 % (0.0-5.0); NEUTROPHILS # 6.5 10^3/uL (1.8-7.7); PLATELET COUNT, AUTOMATED 252 10^3/uL (150-450); RED CELL DISTRIBUTION WIDTH 18.9 % (11.5-14.5); WHITE BLOOD COUNT 8.8 10^3/uL (4.0-10.0)
[2017-06-27 14:37] LABS: ALBUMIN 2.8 GM/DL (3.2-5.2); ALBUMIN/GLOBULIN RATIO 0.85 (1.00-1.93); ALKALINE PHOSPHATASE 108 U/L (45-117); ALT/SGPT 12 U/L (12-78); ANION GAP 7 MEQ/L (8-16); AST/SGOT 17 U/L (7-37); BILIRUBIN,TOTAL 0.3 MG/DL (0.2-1.0); BLOOD UREA NITROGEN 19 MG/DL (7-18); CALCIUM LEVEL 8.4 MG/DL (8.8-10.2); CARBON DIOXIDE LEVEL 32 MEQ/L (21-32); CHLORIDE LEVEL 101 MEQ/L (98-107); CREATININE FOR GFR 0.75 MG/DL (0.55-1.02); GLOMERULAR FILTRATION RATE > 60.0 (>32); GLUCOSE, FASTING 90 MG/DL (83-110); POTASSIUM SERUM 3.8 MEQ/L (3.5-5.1); SODIUM LEVEL 140 MEQ/L (136-145); THYROXINE (T4) 12.2 UG/DL (4.5-12.0); TOTAL PROTEIN 6.1 GM/DL (6.4-8.2)
== END ==
LOC: M WUC 09:51
PROVIDERS: ATTEND Family Medicine
DX: D64.9 Anemia, unspecified (principal)

== ENCOUNTER 2017-09-21 19:20 | Inpatient (IN) | payer OTHER ==
[2017-09-21 20:08] LABS: BASO # 0.1 10^3/uL (0.0-0.2); BASO % 1.4 % (0.0-1.0); EOS % 13.5 % (0.0-3.0); HEMATOCRIT 38.9 % (36.0-47.0); HEMOGLOBIN 12.1 g/dl (12.0-16.0); IMMATURE GRANULOCYTE % 0.3 % (0-3.0); LYMPH # 1.2 10^3/uL (1.5-4.5); LYMPH % 15.5 % (24.0-44.0); MEAN CORPUSCULAR HGB CONC 31.1 g/dl (32.0-36.5); MEAN CORPUSCULAR VOLUME 83.5 fl (80.0-96.0); MONO # 0.6 10^3/uL (0.0-0.8); MONO % 7.2 % (0.0-5.0); NEUTROPHILS # 4.7 10^3/uL (1.8-7.7); NEUTROPHILS % 62.1 % (36.0-66.0); PLATELET COUNT, AUTOMATED 232 10^3/uL (150-450); RED BLOOD COUNT 4.66 10^6/uL (4.00-5.40); RED CELL DISTRIBUTION WIDTH 15.9 % (11.5-14.5); WHITE BLOOD COUNT 7.6 10^3/uL (4.0-10.0)
[2017-09-21] MEDS: IPRATROPIUM 0.5MG/ALBUTEROL 2.5MG INH SOL UD 3ML (DUONEB)(J7620) NEB ×4 (20:10→23:20)
[2017-09-21] MEDS: dexameTHASONE 20 MG/5 ML VIAL (J1100) IV (20:12)
[2017-09-21 20:18] LABS: ANION GAP 7 MEQ/L (8-16); BLOOD UREA NITROGEN 22 MG/DL (7-18); CALCIUM LEVEL 9.1 MG/DL (8.8-10.2); CARBON DIOXIDE LEVEL 31 MEQ/L (21-32); CHLORIDE LEVEL 99 MEQ/L (98-107); CREATININE FOR GFR 0.89 MG/DL (0.55-1.30); GLOMERULAR FILTRATION RATE > 60.0 (>32); GLUCOSE, FASTING 113 MG/DL (70-100); POTASSIUM SERUM 3.7 MEQ/L (3.5-5.1); SODIUM LEVEL 137 MEQ/L (136-145)
[2017-09-21 22:43] LABS: INFLUENZA A AMPLIFICATION NEGATIVE (NEGATIVE); INFLUENZA B AMPLIFICATION NEGATIVE (NEGATIVE)
[2017-09-22] MEDS: IPRATROPIUM 0.5MG/ALBUTEROL 2.5MG INH SOL UD 3ML (DUONEB)(J7620) NEB (00:45)
[2017-09-22] MEDS ORDERED: ACETAMINOPHEN TAB 650MG DOSE (2X325MG) PO (00:45)
[2017-09-22] MEDS ORDERED: IPRATROPIUM 0.5MG/ALBUTEROL 2.5MG INH SOL UD 3ML (DUONEB)(J7620) NEB (00:45)
[2017-09-22] MEDS ORDERED: SLF 3 ML SYR IV (02:45)
[2017-09-22] MEDS: METOPROLOL 5 MG/5 ML VIAL IV (02:48)
[2017-09-22] MEDS: DOXYCYCLINE HYCLATE 100 MG in D5W MINI-BAG PLUS 100 ML IV ×2 (03:06→15:37)
[2017-09-22] MEDS: methylPREDNISolone INJ 40 MG/1 ML VIAL (J2920) IV ×3 (03:06→17:23)
[2017-09-22] MEDS ORDERED: LEVALBUTEROL 1.25 MG/0.5 ML CONCENTRATE NEB INH (04:15)
[2017-09-22] MEDS: LEVALBUTEROL 1.25 MG/0.5 ML CONCENTRATE NEB INH ×4 (05:03→19:30)
[2017-09-22] MEDS: SLF 3 ML SYR IV ×3 (06:07→21:46)
[2017-09-22] MEDS: LEVOTHYROXINE 100MCG TABLET (0.1MG) PO (06:07)
[2017-09-22] MEDS: diltiaZEM 125 MG in NS 100 ML IV (08:25)
[2017-09-22] MEDS: FUROSEMIDE 40 MG TAB PO (08:25)
[2017-09-22] MEDS: FERROUS GLUCONATE 324 MG TAB PO (08:25)
[2017-09-22 09:00] LABS: HEMATOCRIT 34.8 % (36.0-47.0); HEMOGLOBIN 10.8 g/dl (12.0-16.0); MEAN CORPUSCULAR HEMOGLOBIN 25.6 pg (27.0-33.0); MEAN CORPUSCULAR VOLUME 82.5 fl (80.0-96.0); PLATELET COUNT, AUTOMATED 193 10^3/uL (150-450); RED BLOOD COUNT 4.22 10^6/uL (4.00-5.40); RED CELL DISTRIBUTION WIDTH 15.7 % (11.5-14.5); WHITE BLOOD COUNT 3.1 10^3/uL (4.0-10.0)
[2017-09-22 09:27] LABS: ANION GAP 9 MEQ/L (8-16); BLOOD UREA NITROGEN 20 MG/DL (7-18); CALCIUM LEVEL 8.7 MG/DL (8.8-10.2); CARBON DIOXIDE LEVEL 29 MEQ/L (21-32); CHLORIDE LEVEL 100 MEQ/L (98-107); CREATININE FOR GFR 0.85 MG/DL (0.55-1.30); GLOMERULAR FILTRATION RATE > 60.0 (>32); GLUCOSE, FASTING 170 MG/DL (70-100); POTASSIUM SERUM 4.1 MEQ/L (3.5-5.1); SODIUM LEVEL 138 MEQ/L (136-145)
[2017-09-22] MEDS: RIVAROXABAN 20 MG TAB (XARELTO) PO (21:36)
[2017-09-23] MEDS: LEVALBUTEROL 1.25 MG/0.5 ML CONCENTRATE NEB INH ×4 (01:20→18:19)
[2017-09-23] MEDS: methylPREDNISolone INJ 40 MG/1 ML VIAL (J2920) IV ×3 (02:25→18:01)
[2017-09-23] MEDS: DOXYCYCLINE HYCLATE 100 MG in D5W MINI-BAG PLUS 100 ML IV (02:26)
[2017-09-23] MEDS: LEVOTHYROXINE 100MCG TABLET (0.1MG) PO (05:47)
[2017-09-23] MEDS: SLF 3 ML SYR IV ×3 (05:48→20:55)
[2017-09-23 06:05] LABS: HEMATOCRIT 31.1 % (36.0-47.0); HEMOGLOBIN 9.7 g/dl (12.0-16.0); MEAN CORPUSCULAR HEMOGLOBIN 25.3 pg (27.0-33.0); MEAN CORPUSCULAR HGB CONC 31.2 g/dl (32.0-36.5); MEAN CORPUSCULAR VOLUME 81.2 fl (80.0-96.0); PLATELET COUNT, AUTOMATED 188 10^3/uL (150-450); RED BLOOD COUNT 3.83 10^6/uL (4.00-5.40); RED CELL DISTRIBUTION WIDTH 15.8 % (11.5-14.5); WHITE BLOOD COUNT 9.9 10^3/uL (4.0-10.0)
[2017-09-23 06:17] LABS: ANION GAP 8 MEQ/L (8-16); BLOOD UREA NITROGEN 30 MG/DL (7-18); CALCIUM LEVEL 8.2 MG/DL (8.8-10.2); CARBON DIOXIDE LEVEL 29 MEQ/L (21-32); CHLORIDE LEVEL 102 MEQ/L (98-107); CREATININE FOR GFR 0.89 MG/DL (0.55-1.30); GLOMERULAR FILTRATION RATE > 60.0 (>32); GLUCOSE, FASTING 158 MG/DL (70-100); POTASSIUM SERUM 3.6 MEQ/L (3.5-5.1); SODIUM LEVEL 139 MEQ/L (136-145)
[2017-09-23 06:24] LABS: MAGNESIUM LEVEL 2.5 MG/DL (1.8-2.4)
[2017-09-23] MEDS: DIGOXIN 0.25 MG TAB PO ×2 (09:01→10:42)
[2017-09-23] MEDS: FERROUS GLUCONATE 324 MG TAB PO (09:01)
[2017-09-23] MEDS: FUROSEMIDE 40 MG TAB PO (09:01)
[2017-09-23] MEDS: RIVAROXABAN 20 MG TAB (XARELTO) PO (20:55)
[2017-09-24] MEDS: LEVALBUTEROL 1.25 MG/0.5 ML CONCENTRATE NEB INH ×2 (02:00→07:28)
[2017-09-24] MEDS: methylPREDNISolone INJ 40 MG/1 ML VIAL (J2920) IV (02:01)
[2017-09-24 05:41] LABS: HEMATOCRIT 30.4 % (36.0-47.0); HEMOGLOBIN 9.3 g/dl (12.0-16.0); MEAN CORPUSCULAR HEMOGLOBIN 25.4 pg (27.0-33.0); MEAN CORPUSCULAR HGB CONC 30.6 g/dl (32.0-36.5); MEAN CORPUSCULAR VOLUME 83.1 fl (80.0-96.0); PLATELET COUNT, AUTOMATED 171 10^3/uL (150-450); RED BLOOD COUNT 3.66 10^6/uL (4.00-5.40); RED CELL DISTRIBUTION WIDTH 15.8 % (11.5-14.5); WHITE BLOOD COUNT 9.1 10^3/uL (4.0-10.0)
[2017-09-24 05:58] LABS: ANION GAP 6 MEQ/L (8-16); BLOOD UREA NITROGEN 38 MG/DL (7-18); CALCIUM LEVEL 7.8 MG/DL (8.8-10.2); CARBON DIOXIDE LEVEL 30 MEQ/L (21-32); CHLORIDE LEVEL 104 MEQ/L (98-107); GLUCOSE, FASTING 141 MG/DL (70-100); POTASSIUM SERUM 3.8 MEQ/L (3.5-5.1); SODIUM LEVEL 140 MEQ/L (136-145)
[2017-09-24] MEDS: SLF 3 ML SYR IV (06:13)
[2017-09-24] MEDS: LEVOTHYROXINE 100MCG TABLET (0.1MG) PO (06:13)
[2017-09-24] MEDS: FUROSEMIDE 40 MG TAB PO (09:01)
[2017-09-24] MEDS: predniSONE 20 MG TAB PO (09:01)
[2017-09-24] MEDS: FERROUS GLUCONATE 324 MG TAB PO (09:01)
== END 2017-09-24 12:25 | disposition home or self-care (01) | DRG 189 ==
LOC: M ED INP 09-22 00:32 → M ED 19:20 → M PCU 09-22 02:04
DX: J96.01 Acute respiratory failure with hypoxia (principal); J45.901 Unspecified asthma with (acute) exacerbation; I50.32 Chronic diastolic (congestive) heart failure; I48.2 Chronic atrial fibrillation; E03.9 Hypothyroidism, unspecified; Z90.710 Acquired absence of both cervix and uterus; Z96.642 Presence of left artificial hip joint; Z79.899 Other long term (current) drug therapy; Z79.01 Long term (current) use of anticoagulants

== ENCOUNTER → 2017-10-24 | Outpatient (REF) | payer OTHER ==
[2017-10-24 17:06] LABS: BASO # 0.1 10^3/uL (0.0-0.2); BASO % 0.9 % (0.0-1.0); EOS # 0.1 10^3/uL (0.0-0.50); EOS % 1.9 % (0.0-3.0); HEMATOCRIT 35.9 % (36.0-47.0); HEMOGLOBIN 10.9 g/dl (12.0-16.0); IMMATURE GRANULOCYTE % 0.4 % (0-3.0); LYMPH # 1.1 10^3/uL (1.5-4.5); LYMPH % 15.9 % (24.0-44.0); MEAN CORPUSCULAR HEMOGLOBIN 25.5 pg (27.0-33.0); MEAN CORPUSCULAR HGB CONC 30.4 g/dl (32.0-36.5); MEAN CORPUSCULAR VOLUME 84.1 fl (80.0-96.0); MONO # 0.6 10^3/uL (0.0-0.8); MONO % 9.4 % (0.0-5.0); NEUTROPHILS # 4.9 10^3/uL (1.8-7.7); NEUTROPHILS % 71.5 % (36.0-66.0); PLATELET COUNT, AUTOMATED 264 10^3/uL (150-450); RED BLOOD COUNT 4.27 10^6/uL (4.00-5.40); RED CELL DISTRIBUTION WIDTH 16.9 % (11.5-14.5); WHITE BLOOD COUNT 6.8 10^3/uL (4.0-10.0)
[2017-10-24 17:32] LABS: ANION GAP 8 MEQ/L (8-16); BLOOD UREA NITROGEN 17 MG/DL (7-18); CALCIUM LEVEL 8.3 MG/DL (8.8-10.2); CARBON DIOXIDE LEVEL 32 MEQ/L (21-32); CHLORIDE LEVEL 100 MEQ/L (98-107); GLOMERULAR FILTRATION RATE > 60.0 (>32); GLUCOSE, FASTING 73 MG/DL (70-100); IRON (FE) 41 UG/DL (50-170); SODIUM LEVEL 140 MEQ/L (136-145); THYROID STIMULATING HORMONE 0.469 uIU/ML (0.358-3.740)
== END ==
LOC: M SFHCCLAY 13:18
DX: D64.9 Anemia, unspecified (principal); E03.9 Hypothyroidism, unspecified; I48.91 Unspecified atrial fibrillation
CPT/HCPCS: 83540

== ENCOUNTER → 2018-07-09 | Outpatient (REF) | payer OTHER ==
[2018-07-09 11:47] LABS: BASO # 0.1 10^3/uL (0.0-0.2); BASO % 1.2 % (0.0-1.0); HEMATOCRIT 30.8 % (36.0-47.0); HEMOGLOBIN 9.1 g/dl (12.0-15.5); IMMATURE GRANULOCYTE % 0.3 % (0-3.0); LYMPH % 13.3 % (24.0-44.0); MEAN CORPUSCULAR HEMOGLOBIN 23.6 pg (27.0-33.0); MEAN CORPUSCULAR HGB CONC 29.5 g/dl (32.0-36.5); MONO # 0.5 10^3/uL (0.0-0.8); NEUTROPHILS # 4.3 10^3/uL (1.8-7.7); NEUTROPHILS % 57.4 % (36.0-66.0); PLATELET COUNT, AUTOMATED 250 10^3/uL (150-450); RED BLOOD COUNT 3.85 10^6/uL (4.00-5.40); RED CELL DISTRIBUTION WIDTH 16.6 % (11.5-14.5); WHITE BLOOD COUNT 7.5 10^3/uL (4.0-10.0)
[2018-07-09 12:12] LABS: POSITIVE DIFF POS FLAG
[2018-07-09 12:13] LABS: EOS # 1.6 10^3/uL (0.0-0.50); EOS % 20.8 % (0.0-3.0)
[2018-07-09 14:24] LABS: ALBUMIN 3.5 GM/DL (3.2-5.2); ALBUMIN/GLOBULIN RATIO 1.06 (1.00-1.93); ALKALINE PHOSPHATASE 121 U/L (45-117); ALT/SGPT 16 U/L (12-78); ANION GAP 5 MEQ/L (8-16); AST/SGOT 17 U/L (7-37); BILIRUBIN,TOTAL 0.7 MG/DL (0.2-1.0); BLOOD UREA NITROGEN 22 MG/DL (7-18); CALCIUM LEVEL 8.5 MG/DL (8.8-10.2); CARBON DIOXIDE LEVEL 34 MEQ/L (21-32); CHLORIDE LEVEL 101 MEQ/L (98-107); GLOMERULAR FILTRATION RATE 55.8 (>32); GLUCOSE, FASTING 104 MG/DL (70-100); IRON (FE) 28 UG/DL (50-170); POTASSIUM SERUM 3.4 MEQ/L (3.5-5.1); SODIUM LEVEL 140 MEQ/L (136-145); THYROID STIMULATING HORMONE 0.806 uIU/ML (0.358-3.740); TOTAL PROTEIN 6.8 GM/DL (6.4-8.2)
== END ==
LOC: M SFHCCLAY 07:48
DX: D64.9 Anemia, unspecified (principal); E03.9 Hypothyroidism, unspecified; Z23 Encounter for immunization
CPT/HCPCS: 83540

== ENCOUNTER 2018-08-05 16:00 | Inpatient (IN) | payer OTHER ==
[~2018-08-05] VITALS: Ht 165.1 cm; Wt 55.6 kg
[~2018-08-05 16:00] MED LIST changes: +AZIT500T2; +FERR325T16 PO; -LASI20TA PO; +LASI20TA3 PO; +LASI40TA9 PO; -LEVA1TAB PO; +LEVA250T13 PO; +LEVO100T5 PO
--- NOTE | 2018-08-05 16:44 | REP ---
CT brain without contrast: History: Head injury. Patient on Xarelto. No comparison study. Findings: Preliminary digital commercial loan closer radiograph is unremarkable. The patient appears to be edentulous. Bone window settings demonstrate partial opacification of the ethmoid air cells bilaterally consistent with paranasal sinus disease. The other visualized paranasal sinuses are clear. Vascular calcifications noted in the distal carotid arteries bilaterally. No skull fractures seen. No significant scalp hematoma is noted. There is no evidence of intracranial hemorrhage. There is moderate diffuse volume loss. Periventricular low density pattern in the supratentorial brain is seen consistent with small vessel atherosclerotic disease. This is fairly extensive. There is no evidence of acute infarction. No hemorrhage, mass, extra-axial fluid collection or midline shift is seen. Impression: Diffuse moderate atrophy and small vessel changes. Vascular calcification. No acute intracranial abnormality. Electronically Signed by Kilo Hammer MD 08/05/2018 05:07 P
[2018-08-05] MEDS: IPRATROPIUM 0.5MG/ALBUTEROL 2.5MG INH SOL UD 3ML (DUONEB)(J7620) NEB PRN ×3 (17:02→17:17)
[2018-08-05 17:03] LABS: BASO # 0.1 10^3/uL (0.0-0.2); BASO % 0.8 % (0.0-1.0); EOS # 0.3 10^3/uL (0.0-0.50); EOS % 4.4 % (0.0-3.0); HEMATOCRIT 33.4 % (36.0-47.0); HEMOGLOBIN 10.2 g/dl (12.0-15.5); LYMPH # 0.8 10^3/uL (1.5-4.5); MEAN CORPUSCULAR HEMOGLOBIN 24.5 pg (27.0-33.0); MEAN CORPUSCULAR HGB CONC 30.5 g/dl (32.0-36.5); MEAN CORPUSCULAR VOLUME 80.1 fl (80.0-96.0); MONO # 0.6 10^3/uL (0.0-0.8); MONO % 7.8 % (0.0-5.0); NEUTROPHILS # 5.8 10^3/uL (1.8-7.7); NEUTROPHILS % 76.5 % (36.0-66.0); PLATELET COUNT, AUTOMATED 213 10^3/uL (150-450); RED BLOOD COUNT 4.17 10^6/uL (4.00-5.40); WHITE BLOOD COUNT 7.5 10^3/uL (4.0-10.0)
[2018-08-05 17:15] LABS: BLOOD UREA NITROGEN 15 MG/DL (7-18); CALCIUM LEVEL 8.4 MG/DL (8.8-10.2); CARBON DIOXIDE LEVEL 32 MEQ/L (21-32); CHLORIDE LEVEL 96 MEQ/L (98-107); CPK CREATINE PHOSPHOKINASE 84 U/L (26-192); CREATININE FOR GFR 0.89 MG/DL (0.55-1.30); GLOMERULAR FILTRATION RATE > 60.0 (>32); GLUCOSE, FASTING 117 MG/DL (70-100); MB/CK RELATIVE INDEX 2.02 (< OR =4); NT-PRO BNP 3700 PG/ML (<450); POTASSIUM SERUM 3.1 MEQ/L (3.5-5.1); SODIUM LEVEL 134 MEQ/L (136-145); THYROID STIMULATING HORMONE 0.236 uIU/ML (0.358-3.740); THYROXINE (T4) 14.9 UG/DL (4.5-12.0); TROPONIN I 0.03 NG/ML (< 0.10)
--- NOTE | 2018-08-05 17:28 | REP ---
Clinical: Cough and dyspnea. Comparison: 09/21/2017. Findings: Stable cardiomegaly and diffuse chronic interstitial changes. No focal consolidation, effusion, or pneumothorax. Skeletal structures intact. Impression: Cardiomegaly and chronic interstitial changes. Electronically Signed by Virgil Mckinnon MD 08/05/2018 05:19 P
[2018-08-05] MEDS ORDERED: FUROSEMIDE 40 MG/4 ML VIAL (J1940) IV ONE (17:45)
[2018-08-05] MEDS ORDERED: ALBUTEROL 90 MCG/ACT 8GM HFA INHALER INH PRN (19:30)
[2018-08-05] MEDS ORDERED: RIVAROXABAN 20 MG TAB (XARELTO) PO SCH (21:00)
[2018-08-06] VITALS (7 sets, daily range): BP systolic 109–126; BP diastolic 57–73
[2018-08-06] MEDS: ACETAMINOPHEN TAB 650MG DOSE (2X325MG) PO PRN ×2 (00:13→21:15)
--- NOTE | 2018-08-06 04:52 | ECGEPIP ---
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
[2018-08-06 05:59] LABS: BASO % 0.3 % (0.0-1.0); EOS # 0.1 10^3/uL (0.0-0.50); EOS % 1.8 % (0.0-3.0); HEMOGLOBIN 8.9 g/dl (12.0-15.5); LYMPH # 0.6 10^3/uL (1.5-4.5); LYMPH % 8.6 % (24.0-44.0); MEAN CORPUSCULAR HGB CONC 30.7 g/dl (32.0-36.5); MEAN CORPUSCULAR VOLUME 78.2 fl (80.0-96.0); MONO # 0.5 10^3/uL (0.0-0.8); MONO % 6.5 % (0.0-5.0); NEUTROPHILS # 6.1 10^3/uL (1.8-7.7); NEUTROPHILS % 82.4 % (36.0-66.0); PLATELET COUNT, AUTOMATED 165 10^3/uL (150-450); RED BLOOD COUNT 3.71 10^6/uL (4.00-5.40); WHITE BLOOD COUNT 7.4 10^3/uL (4.0-10.0)
[2018-08-06] MEDS ORDERED: LEVOTHYROXINE 100MCG TABLET (0.1MG) PO SCH (06:00)
[2018-08-06 06:29] LABS: BLOOD UREA NITROGEN 14 MG/DL (7-18); CALCIUM LEVEL 7.8 MG/DL (8.8-10.2); CARBON DIOXIDE LEVEL 33 MEQ/L (21-32); CHLORIDE LEVEL 95 MEQ/L (98-107); CREATININE FOR GFR 0.88 MG/DL (0.55-1.30); GLOMERULAR FILTRATION RATE > 60.0 (>32); GLUCOSE, FASTING 110 MG/DL (70-100); MAGNESIUM LEVEL 2.1 MG/DL (1.8-2.4); POTASSIUM SERUM 2.4 MEQ/L (3.5-5.1); SODIUM LEVEL 135 MEQ/L (136-145)
[2018-08-06] MEDS ORDERED: POTASSIUM CHLORIDE 10 MEQ SR TABLET PO ONE ×2 (07:00→11:30)
[2018-08-06] MEDS: KCL 10MEQ/100ML SWI (KRUN) 10 MEQ in APPROPRIATE DILUENT 1 EA IV SCH ×2 (07:05→08:19)
--- NOTE | 2018-08-06 07:13 | HPE ---
DATE OF ADMISSION: 08/05/2018 This is an 87-year-old female with past medical history of chronic diastolic heart failure, chronic atrial fibrillation, hypothyroidism, aortic stenosis who presents to the emergency room after having a fall at home. Daughter got her back up and then realized she was not acting herself so she was brought to ER for evaluation. CT head did not show any acute intracranial bleed or mass effect. However upon questioning, the ER attending found out that the patient has been short of breath for roughly a week and no paroxysmal nocturnal dyspnea or paroxysmal nocturnal orthopnea. She has been having TV dinners though, although has been taking her medications at the same time. She sees Dr. Roberts as an outpatient for cardiology. Was given 40 of Lasix and she felt much better. Chest x-ray did show cephalization consistent for congestive heart failure (CHF). First troponin was negative. 12-lead EKG showed no acute ST abnormality. She will be admitted for further management. Patient currently has no chest pain or shortness of breath or diaphoresis or palpitations. PAST MEDICAL HISTORY: Asthma. Chronic atrial fibrillation. History of chronic diastolic heart failure. Hypothyroidism. Aortic stenosis. PAST SURGICAL HISTORY: Hysterectomy. Left hip replacement. She has no known drug allergies. FAMILY HISTORY: Noncontributory. SOCIAL HISTORY: Patient denies tobacco, alcohol, elicit drugs. MEDICATIONS AT HOME: - albuterol inhaled as needed - diltiazem 120 mg orally in the evening - Lasix 40 mg orally every 2 days and then Lasix 80 mg orally on alternate days - Synthroid 100 mcg orally daily - Xarelto 20 mg orally in the evening REVIEW OF SYSTEMS: Negative of all ten major systems except for what is mentioned in the history of present illness. VITALS: Blood pressure is 139/84, heart rate is 97 and regular, respiratory rate is 17, temperature 98.5, oxygen saturation 98% on room air. Head: Atraumatic, normocephalic. Neck supple. No jugular venous distention. Lungs: Clear to auscultation. S1, S2 audible. No murmurs appreciated. Abdomen: Soft, positive bowel sounds, no edema. Skin: Intact. Neurological examination: Patient awake and alert times three. LABS: Sodium 134, potassium 3.1, chloride 96, CO2 32. BUN 15, creatinine 0.89. TSH 0.236, troponin 0.03 first set. WBC is 7.5, hemoglobin 10.2, hematocrit 33.4, platelets are 213,000. IMPRESSION: 1. Acute diastolic heart failure. 2. Debility. 3. Hyperkalemia. PLAN: Patient will be admitted to the progressive care unit (PCU). We will get a second troponin to rule out acute coronary syndrome. I will also get a TSH level. Dr. Roberts has been informed and will be seeing the patient in the morning. I want to continue the Lasix IV at 60 mg daily and will order an echocardiogram for the morning. Otherwise continue all of her other pre-admission medications.
[2018-08-06] MEDS: POTASSIUM CHLORIDE 10 MEQ SR TABLET PO SCH (08:19)
[2018-08-06] MEDS ORDERED: FUROSEMIDE 100 MG/10 ML VIAL (J1940) IV SCH (09:00)
[2018-08-06] MEDS ORDERED: ISOVUE-370 76% 100ML VIAL (Q9967) As Ordered ONE (09:48)
--- NOTE | 2018-08-06 10:22 | REP ---
CT study of the cervical spine without contrast: History: Neck pain after a fall. Technique: Helical scanning is acquired and overlapping 2 mm high resolution axial images were generated and reviewed at bone and soft tissue window settings. Coronal and sagittal multiplanar re-formations images are generated. CT findings: There is no evidence of cervical spine element fracture. No skull base fracture is seen. Cervical vertebral body heights are preserved. There is reversal of the normal cervical lordosis. A degenerative grade 1, the millimeter C3-4 spondylolisthesis is seen due to degenerative disc and facet disease. Alignment is otherwise normal. Facet joints are normally aligned bilaterally at each cervical level on multiplanar re-formations images. There is no evidence of intraspinal or paraspinal hematoma. No extra vertebral abnormality is seen. There is fairly advanced degenerative disc disease at C4-5, C5-6 and C6-7. There is osteoarthritis at the articulation between the dens and the anterior arch of C1 and there is cyst formation within the left lateral aspect of the dens. There is a levoconvex curve in the cervical spine on the coronal MPR images. Impression: Fairly advanced degenerative spondylosis changes, otherwise negative CT study of the cervical spine without contrast. No fracture seen. Electronically Signed by Kilo Hammer MD 08/06/2018 10:14 A
--- NOTE | 2018-08-06 10:28 | REP ---
Clinical: Abnormal weight loss. Rule out malignancy. Technique: Axial contrast enhanced images from the lung bases to the pubic symphysis using oral and 100 ml Isovue intravenous contrast material with coronal and sagittal re-formations. Findings: Lung bases demonstrate cardiomegaly with chronic interstitial changes and mild basilar atelectasis (right greater than left). Liver demonstrates scattered hypodensities compatible with cysts including a large cyst dominating the left lobe which measures approximately 13.6 x 10.0 x 11.7 cm and demonstrating element of mass effect on the upper abdomen. Spleen, pancreas, and bilateral adrenal glands are normal. Gallbladder demonstrates small layering gallstones without wall thickening or pericholecystic fluid. Kidneys demonstrate cortical atrophic changes and scattered scarring without perinephric stranding or hydronephrosis. The enteric system is without obstruction or acute inflammatory process. Diverticulosis noted without acute diverticulitis. Evaluation of the pelvis is limited due to metallic streak artifact from left hip prosthesis and a Mercer catheter in collapsed bladder is identified along with suspected prior hysterectomy. No ascites. No free air. No adenopathy. Atherosclerotic changes of the aorta and vasculature noted without aneurysm. Musculoskeletal structures demonstrate degenerative changes without focal osseous abnormality. Impression: 1. Multiple hepatic cysts including a single significantly enlarged cyst dominating the liver and left lobe causing some element of mass effect on the abdomen. 2. Chronic renal disease. 3. Cholelithiasis. 4. Diverticulosis without acute diverticulitis. Electronically Signed by Virgil Mckinnon MD 08/06/2018 10:20 A
--- NOTE | 2018-08-06 10:31 | REP ---
Clinical: Abnormal weight loss. Rule out malignancy. Technique: Axial contrast enhanced images from the thoracic inlet to the upper abdomen coronal and sagittal re-formations using 100 ml Isovue 370 intravenous contrast material. Comparison: 07/19/2013. Findings: Atherosclerotic changes to the thoracic aorta and coronary arteries noted along with cardiomegaly. No evidence for aortic aneurysm or dissection. No pericardial effusion. Lung reid demonstrate age-related interstitial changes along with minimal lingular scarring and mild bibasilar atelectasis (right greater than left). No discrete focal consolidation, significant nodule or mass lesion. No pleural effusion. No pneumothorax. Tracheobronchial tree is patent. No significant adenopathy identified. The surrounding musculoskeletal structures demonstrate age-related changes without focal osseous abnormality. Limited upper abdomen demonstrates markedly enlarged left hepatic cyst incompletely evaluated but measuring at least 13.2 cm transverse diameter. Impression: 1. Atherosclerotic disease and cardiomegaly. 2. Minimal bibasilar atelectasis (right greater than left) 3. No further acute mediastinal or pleuroparenchymal process. 4. Markedly enlarged hepatic cyst measuring greater than 13.2 cm transverse diameter. Electronically Signed by Virgil Mckinnon MD 08/06/2018 10:23 A
[2018-08-06] MEDS: ALBUTEROL SULFATE 2.5 MG/0.5 ML INH NEB SOLN INH PRN (12:27)
[2018-08-06] MEDS: ALBUTEROL SULFATE 2.5 MG/0.5 ML INH NEB SOLN NEB SCH ×2 (12:41→20:40)
--- NOTE | 2018-08-06 16:20 | IPNPDOC ---
Text Note Date of Service The patient was seen on 08/06/18. NOTE Subjective: Patient family notes a mechanical fall 3 days ago. Patient has since been confused. Had mild neck pain after the fall. Had slurred speech as well. No dysuria. No Shortness of breath. No chest pain. Objective: Vitals: (see below) General: No acute distress, laying comfortably in bed. HEENT: Moist mucous membranes. Neck: No JVD or lymphadenopathy Cardiac: RRR, No murmurs Pulm: Clear to auscultation b/l. No wheezing, rhonchi Abd: NT/ND + BS Ext: No edema or cyanosis Neuro: Strength 5/5 BUE and BLE. CN 2-12 intact. F to N intact Alert and oriented to person only. Labs (see below) Images: CT head on 08/06/18 Impression: Diffuse moderate atrophy and small vessel changes. Vascular calcification. No acute intracranial abnormality. Assessment/Plan 1. Altered mental status- ? Etiology. Patient did have left her lab abnormalities with hypokalemia, as well as elevated T4 on levothyroxin. Potassium replaced, and Synthroid was decreased. We will rule out CVA with MRI brain. If MRI negative and symptoms persist, discussed with family who are agreeable to a lumbar puncture at that time. In the meantime, we'll hold patient's Xarelto. 2. Fever 102.1. no source of infection at this time. Blood cultures sent. Chest x-ray with no infiltrate. We will continue to monitor. Respiratory panel negative. No leukocytosis. 3. History of chronic atrial fibrillation on Xarelto. Rate controlled. 4. History of aortic stenosis - will need outpatient follow-up. 5. Acute decompensated diastolic heart failure. Compensated at this time. We'll hold diuretics at this time. Denies dyspnea. 6. Deconditioning- physical therapy consulted. 7. Hypokalemia- replaced DVT prophy: SCDs Overall prognosis guarded. VS,Fishbone, I+O VS, Fishbone, I+O Laboratory Tests 08/05/18 16:15 Red Blood Count 4.17, Mean Corpuscular Volume 80.1, Mean Corpuscular Hemoglobin 24.5 L, Mean Corpuscular Hemoglobin Concent 30.5 L, Red Cell Distribution Width 17.7 H, Neutrophils (%) (Auto) 76.5 H, Lymphocytes (%) (Auto) 10.0 L, Monocytes (%) (Auto) 7.8 H, Eosinophils (%) (Auto) 4.4 H, Basophils (%) (Auto) 0.8, Neutrophils # (Auto) 5.8, Lymphocytes # (Auto) 0.8 L, Monocytes # (Auto) 0.6, Eosinophils # (Auto) 0.3, Basophils # (Auto) 0.1, Calcium Level 8.4 L, Total Creatine Kinase 84 08/06/18 05:29 Red Blood Count 3.71 L, Mean Corpuscular Volume 78.2 L, Mean Corpuscular Hemoglobin 24.0 L, Mean Corpuscular Hemoglobin Concent 30.7 L, Red Cell Distribution Width 17.6 H, Neutrophils (%) (Auto) 82.4 H, Lymphocytes (%) (Auto) 8.6 L, Monocytes (%) (Auto) 6.5 H, Eosinophils (%) (Auto) 1.8, Basophils (%) (Auto) 0.3, Neutrophils # (Auto) 6.1, Lymphocytes # (Auto) 0.6 L, Monocytes # (Auto) 0.5, Eosinophils # (Auto) 0.1, Basophils # (Auto) 0.0, Calcium Level 7.8 L Vital Signs Date Time Temp Pulse Resp B/P (MAP) Pulse Ox O2 Delivery O2 Flow Rate FiO2 08/06/18 12:00 98.2 101 18 115/68 (84) 95 Room Air I&O- Last 24 Hours up to 6 AM 08/06/18 06:00 Intake Total 360 ml Output Total 330 ml Balance 30 ml ALEX KEN MD Aug 06, 2018 16:20
[2018-08-06 19:01] LABS: HEMATOCRIT 31.5 % (36.0-47.0); HEMOGLOBIN 9.5 g/dl (12.0-15.5); MEAN CORPUSCULAR HEMOGLOBIN 24.2 pg (27.0-33.0); MEAN CORPUSCULAR HGB CONC 30.2 g/dl (32.0-36.5); MEAN CORPUSCULAR VOLUME 80.2 fl (80.0-96.0); PLATELET COUNT, AUTOMATED 186 10^3/uL (150-450); RED BLOOD COUNT 3.93 10^6/uL (4.00-5.40); WHITE BLOOD COUNT 6.7 10^3/uL (4.0-10.0)
--- NOTE | 2018-08-06 19:15 | REP ---
MRI brain without contrast: History: Confusion. Slurred speech. Rule out CVA. Technique: Axial and sagittal imaging planes are utilized for T1 and T2-weighted scans. Sequences include spin-echo, fast spin echo, FLAIR, and diffusion weighted sequences. MRI findings: No bony calvarial lesion is seen. Craniocervical junction is unremarkable. No intraorbital abnormality is seen. There is mucosal thickening in the ethmoid air cells bilaterally and a mucous retention cyst is seen in the right maxillary sinus. There is diffuse moderate cerebral atrophy. Periventricular white matter hyperintensity is seen diffusely consistent with small vessel changes. Diffusion weighted images demonstrate several areas of restricted diffusion in the distribution of the left superior cerebellar artery with foci of restricted diffusion in the left katy, and the left superior cerebellum. These are consistent with foci of acute ischemia. There is no evidence to suggest intracranial hemorrhage. No restricted diffusion is seen above the tentorium. Impression: Multiple foci of restricted diffusion in the left side of the katy and in the left superior cerebellar hemisphere consistent with acute ischemia. No hemorrhage is seen. Advanced diffuse atrophy and small vessel changes. Electronically Signed by Kilo Hammer MD 08/06/2018 07:23 P
[2018-08-06 19:46] LABS: ALBUMIN 2.7 GM/DL (3.2-5.2); BILIRUBIN,TOTAL 0.5 MG/DL (0.2-1.0); CALCIUM LEVEL 8.2 MG/DL (8.8-10.2); GLOMERULAR FILTRATION RATE 55.8 (>32); MAGNESIUM LEVEL 2.2 MG/DL (1.8-2.4); POTASSIUM SERUM 4.2 MEQ/L (3.5-5.1); TOTAL PROTEIN 6.7 GM/DL (6.4-8.2)
[2018-08-06] MEDS: ROSUVASTATIN 10 MG TAB (CRESTOR) PO SCH (21:14)
--- NOTE | 2018-08-06 23:31 | ECHO ---
DATE OF PROCEDURE: 08/06/2018 REFERRING PROVIDER: Dr. Abdias Kyle PATIENT LOCATION: Room 3229. REASON FOR THE ECHOCARDIOGRAM: 1. Congestive heart failure. 2. Atrial fibrillation. 2D MEASUREMENTS: IVS: 1.5 cm LV: 3.4 cm LA: 4.3 cm Aorta: 2.9 cm IVC: Not well visualized. DOPPLER MEASUREMENTS: Peak velocity across the aortic valve: 3.4 m/s Peak velocity across the LVOT: 0.82 m/s Peak gradient across the aortic valve: 45 mmHg Mean gradient across the aortic valve: 27 mmHg Mitral E: 1.4 Maximum tricuspid valve velocity: 2.8 m/s 2D COMMENTS: 1. Normal left ventricular size with moderately increased left ventricular wall thickness. Left ventricular systolic function is normal, estimated at 60-65%. 2. Mildly enlarged left atrium. The right atrium also is enlarged, moderate. Normal right ventricle. There were findings consistent with right ventricular hypertrophy. 3. The atrial septum appeared to be normal without evidence of defect or shunt. 4. Normal aortic root. 5. Trace pericardial effusion noted; no evidence of cardiac tamponade. 6. Mildly to moderately calcified aortic valve with decrease in leaflet excursion. Mildly calcified mitral annulus with normal anterior mitral valve leaflet motion. Normal tricuspid valve and pulmonic valve. The proximal pulmonary artery branches were not well visualized. 7. The inferior vena cava was not well visualized. DOPPLER: It detects trace aortic regurgitation, mild to moderate mitral regurgitation, moderate tricuspid regurgitation. The calculated pulmonary artery systolic pressure varied between 30 to 40 mmHg. Assessment of the left ventricular diastolic function was limited in view of the underlying atrial fibrillation. IMPRESSION: 1. Normal global left ventricular systolic function. 2. Aortic valve sclerosis with trace aortic regurgitation and probably moderate aortic stenosis. 3. Mitral annulus calcification with mildly enlarged left atrium and mild to moderate mitral regurgitation. 4. Moderate tricuspid regurgitation with mild pulmonary hypertension and dilated right atrium. Assessment of the pulmonary artery pressure is probably underestimated. 5. Trace pericardial effusion; no evidence of cardiac tamponade. 6. Not mentioned above, a liver cyst was noted and this was compared with prior echocardiogram; no remarkable changes. MTDD
[2018-08-07 04:45] VITALS: BP 108/78
[2018-08-07 04:52] LABS: APPEARANCE, URINE HAZY (CLEAR); BACTERIA, URINE AUTO NEGATIVE (NEGATIVE); BILIRUBIN, URINE AUTO NEGATIVE (NEGATIVE); BLOOD, URINE BLOOD 2+ (NEGATIVE); COLOR, URINE YELLOW (YELLOW); GLUCOSE, URINE (UA) AUTO NEGATIVE (NEGATIVE); KETONE, URINE AUTO NEGATIVE (NEGATIVE); LEUKOCYTE ESTERASE, URINE AUTO TRACE (NEGATIVE); NITRITE, URINE AUTO NEGATIVE (NEGATIVE); PROTEIN, URINE AUTO 2+ mg/dL (NEGATIVE); RBC, URINE AUTO TNTC /HPF (0-3); SPECIFIC GRAVITY URINE AUTO 1.049 (1.002-1.035); SQUAMOUS EPITHELIAL CELL UR AU 0 /HPF (0-6); WBC, URINE AUTO 13 /HPF (0-3)
[2018-08-07 05:54] VITALS: BP 120/72
[2018-08-07] MEDS: ACETAMINOPHEN TAB 650MG DOSE (2X325MG) PO PRN (05:55)
[2018-08-07] MEDS: LEVOTHYROXINE 50MCG TABLET (0.05MG) PO SCH (05:55)
[2018-08-07 06:04] LABS: HEMATOCRIT 32.6 % (36.0-47.0); MEAN CORPUSCULAR HEMOGLOBIN 24.6 pg (27.0-33.0); MEAN CORPUSCULAR HGB CONC 30.7 g/dl (32.0-36.5); MEAN CORPUSCULAR VOLUME 80.1 fl (80.0-96.0); PLATELET COUNT, AUTOMATED 172 10^3/uL (150-450); RED BLOOD COUNT 4.07 10^6/uL (4.00-5.40); WHITE BLOOD COUNT 8.3 10^3/uL (4.0-10.0)
[2018-08-07 06:28] LABS: BLOOD UREA NITROGEN 15 MG/DL (7-18); CALCIUM LEVEL 8.4 MG/DL (8.8-10.2); CARBON DIOXIDE LEVEL 28 MEQ/L (21-32); CHLORIDE LEVEL 100 MEQ/L (98-107); CREATININE FOR GFR 0.84 MG/DL (0.55-1.30); GLOMERULAR FILTRATION RATE > 60.0 (>32); GLUCOSE, FASTING 106 MG/DL (70-100); MAGNESIUM LEVEL 2.4 MG/DL (1.8-2.4); POTASSIUM SERUM 4.4 MEQ/L (3.5-5.1); SODIUM LEVEL 136 MEQ/L (136-145)
[2018-08-07] MEDS ORDERED: DIGOXIN INJ 0.5 MG/2 ML AMP (J1160) IV ONE (06:45)
[2018-08-07] MEDS: ALBUTEROL SULFATE 2.5 MG/0.5 ML INH NEB SOLN NEB SCH ×3 (07:30→20:24)
[2018-08-07 08:00] VITALS: BP 102/60
[2018-08-07 08:12] LABS: CK-MB VALUE MASS < 1.0 NG/ML (<3.6); CPK CREATINE PHOSPHOKINASE 49 U/L (26-192); MB/CK RELATIVE INDEX 2.04 (< OR =4); TROPONIN I 0.04 NG/ML (< 0.10)
--- NOTE | 2018-08-07 09:23 | REP ---
MR angiography the brain without contrast: History: CVA. Technique: 3-D [id number] MR angiography of the brain is acquired in the usual fashion and maximal intensity projection images were generated in rotational format about the vertical and horizontal axes. In addition, source axial T1-weighted images are viewed in cine mode. MR angiographic findings: The distal vertebral arteries are patent and co-dominant. Basilar artery is a little tortuous but widely patent. 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 This is a segmental duplication variant. The duplicated segments rejoining into a single posterior cerebral artery. There is no evidence of stenosis or occlusion on MR angiographic images. The distal internal carotid arteries are unremarkable. Anterior and middle cerebral arteries appear intact. There is no visible mason aneurysm or arteriovenous malformation. 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 Otherwise negative MR angiography the brain. Electronically Signed by Kilo Hammer MD 08/07/2018 09:14 A
--- NOTE | 2018-08-07 09:34 | REP ---
CAROTID ULTRASOUND: Real-time ultrasound evaluation and duplex Doppler interrogation of the extracranial carotid vasculature is performed. There is mild to moderate plaquing and narrowing in both carotid bulbs extending into the internal and external carotid arteries. Luminal narrowing is less than 50%. There is no evidence of hemodynamically significant stenosis of either internal carotid artery. Normal flow velocities are seen. The vertebral arteries demonstrate normal direction of flow. RIGHT LEFT Peak systolic velocity ICA 47.8 cm/s 49.8 cm/s End diastolic velocity ICA 9.9 cm/s 24.5 cm/s Peak systolic velocity CCA 51.3 cm/s 44.4 cm/s Peak systolic velocity ECA 98.5 cm/s 37.6 cm/s ICA/CCA ratio 0.93 1.12 IMPRESSION: Bilateral luminal narrowing of the internal carotid arteries less than 50%. No evidence of hemodynamically significant stenosis. Arrhythmia incidentally noted. Electronically Signed by Familia Tello MD 08/07/2018 09:25 A
[2018-08-07] MEDS: cefTRIAXone SOD 1 GM in D5W MINI-BAG PLUS 50 ML IV SCH (09:56)
--- NOTE | 2018-08-07 09:56 | ECGEPIP ---
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
[2018-08-07] MEDS: POTASSIUM CHLORIDE 10 MEQ SR TABLET PO SCH (09:57)
[2018-08-07] MEDS: ASPIRIN 81 MG ENTERIC TAB PO SCH (09:57)
[2018-08-07] MEDS ORDERED: SLF 3 ML SYR IV PRN (10:45)
[2018-08-07 12:00] VITALS: BP 100/57
[2018-08-07] MEDS ORDERED: DIGOXIN INJ 0.5 MG/2 ML AMP (J1160) IV STA (13:17)
--- NOTE | 2018-08-07 13:23 | IPNPDOC ---
Subjective Date Seen The patient was seen on 08/07/18. Subjective Chief Complaint/HPI ams General: Reports: Fatigue; Denies: Chills, Night Sweats, Malaise Constitutional: Denies: Weakness ENT: Denies: Head Aches Skin: Denies: Rash Pulmonary: Denies: Dyspnea, Cough Cardiovascular: Denies: Chest Pain, Palpitations Gastrointestinal: Denies: Nausea, Vomiting, Abdominal Pain, Diarrhea, Constipation Genitourinary: Denies: Dysuria Musculoskeletal: Reports: Neck Pain Neurological: Reports: Weakness Psych: Reports: Mood Normal Objective Physical Examination General Exam: Positive: Alert, Cooperative, No Acute Distress Eye Exam: Positive: PERRLA, Conjunctiva & lids normal, EOMI; Negative: Sclera icteric ENT Exam: Positive: Pharynx Normal, Other ENT (white film on lips and mouth suggestive of oral candidiasis ) Neck Exam: Positive: Supple Chest Exam: Positive: Clear to auscultation, Normal air movement; Negative: Rales, Rhonchi, Wheezing, Diminished Heart Exam: Positive: Rate Normal, Normal S1, Normal S2; Negative: Gallops, Murmurs Abdomen Exam: Positive: Normal bowel sounds, Soft; Negative: Tenderness, Hepatospenomegaly Extremity Exam: Positive: Normal pulses, Other (Strenght 5/5 BUE/BLE); Negative: Clubbing, Cyanosis, Edema, Tenderness, Swelling Psych Exam: Negative: Oriented x 3 (orientated only to person, not place or time ) Assessment /Plan Assessment 1. Altered mental status- secondary to acute ischemic stroke -patient is orientated to person, thinks she is at [facility] and the year is 2079. She is eating her breakfast and is alert. 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 Otherwise negative MR angiography the brain. -neuro checks q4h -patient on telemetry chronic a. fib rates into 140's continues on diltiazem, cardiology has been consulted, appreciate their help -bedside swallow eval pending 2. Fever 100.4 today -second u/a suspicious for infection, urine cx pending -second set blood cultures pending, first set blood cx neg -no neck pain/stiffness, will hold on spinal tap as less likely meningitis -cxr with no infiltrate, ct chest without intra-thoracic source of infection as well as ct ab/pelvis except for liver cyst as discussed below -resp. 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 [id number] cm, 2012 ct showed cyst was 10.5x9 cm has grown, may warrant further work up 3. History of chronic atrial fibrillation -Was on Xarelto, patient continues to have rates into 140's overnight, card iology has been consulted, appreciate their help, patient continues on diltiazem and we will give one additional dose of digoxin .25 now -likely tachycardia secondary to stroke and concomitant UTI 4. History of aortic stenosis -will need outpatient follow-up 5. Acute decompensated diastolic heart failure -appears euvolemic on exam - Compensated at this time -holding diuretics at this time -patient is not dyspneic 6. Deconditioning -patient will need PT 7. Hypokalemia -4.4 today -has been replaced 8. Oral thrush -patient will be given magic mouthwash 9. DVT prophy - SCDs Overall prognosis guarded. Plan/VTE VTE Prophylaxis Ordered?: Yes VS, I&O, 24H, Fishbone Vital Signs/I&O Vital Signs Date Time Temp Pulse Resp B/P (MAP) Pulse Ox O2 Delivery O2 Flow Rate FiO2 08/07/18 08:00 97.8 91 18 102/60 (74) 97 Nasal Cannula 1.0 I&O- Last 24 Hours up to 6 AM 08/07/18 05:59 Intake Total 960 ml Output Total 1275 ml Balance -315 ml Laboratory Data 24H LABS Laboratory Tests 2 08/06/18 18:41: Nucleated Red Blood Cells % (auto) 0.0, Anion Gap 7L, Glomerular Filtration Rate 55.8, Blood Urea Nitrogen 14, Creatinine 1.00, Sodium Level 135L, Potassium Level 4.2#, Chloride Level 98, Carbon Dioxide Level 30, Calcium Level 8.2L, Aspartate Amino Transf (AST/SGOT) 17, Alanine Aminotransferase (ALT/SGPT) 11L, Alkaline Phosphatase 106, Total Bilirubin 0.5, Total Protein 6.7, Albumin 2.7L, Magnesium Level 2.2, Albumin/Globulin Ratio 0.68L 08/07/18 04:25: Urine Appearance HAZY, Urine Color YELLOW, Urine pH 7.0, Urine Specific [place] 1.049, Urine Protein 2+H, Urine Glucose (UA) NEGATIVE, Urine Ketones NEGATIVE, Urine Urobilinogen 4.0H, Urine Bilirubin NEGATIVE, Urine Leukocyte Esterase TRACEH, Urine Blood 2+H, Urine Nitrite NEGATIVE, Urine WBC (Auto) 13H, Urine RBC (Auto) TNTCH, Urine Hyaline Casts (Auto) 0, Urine Bacteria (Auto) NEGATIVE, Urine Squamous Epithelial Cells 0, Urine Sperm (Auto) 08/07/18 05:45: Nucleated Red Blood Cells % (auto) 0.0, Anion Gap 8, Glomerular Filtration Rate > 60.0, Blood Urea Nitrogen 15, Creatinine 0.84, Sodium Level 136, Potassium Level 4.4, Chloride Level 100, Carbon Dioxide Level 28, Calcium Level 8.4L, Magnesium Level 2.4, Total Creatine Kinase 49, Creatine Kinase MB < 1.0, Creatine Kinase MB Relative Index 2.04, Troponin I 0.04 08/07/18 10:17: C-Reactive Protein, Quantitative 6.56H CBC/BMP Laboratory Tests 08/06/18 18:41 Red Blood Count 3.93 L, Mean Corpuscular Volume 80.2, Mean Corpuscular Hemoglobin 24.2 L, Mean Corpuscular Hemoglobin Concent 30.2 L, Red Cell Distribution Width 18.0 H, Calcium Level 8.2 L, Aspartate Amino Transf (AST/SGOT) 17, Alanine Aminotransferase (ALT/SGPT) 11 L, Alkaline Phosphatase 106, Total Bilirubin 0.5, Total Protein 6.7, Albumin 2.7 L 08/07/18 05:45 Red Blood Count 4.07, Mean Corpuscular Volume 80.1, Mean Corpuscular Hemoglobin 24.6 L, Mean Corpuscular Hemoglobin Concent 30.7 L, Red Cell Distribution Width 17.9 H, Calcium Level 8.4 L, Total Creatine Kinase 49 Microbiology Microbiology 12/28/18 Blood Culture, Received Pending 08/07/18 Blood Culture, Received Pending 08/05/18 Blood Culture - Preliminary, Resulted No growth after 24 hours . All specim... 08/05/18 Blood Culture - Preliminary, Resulted No growth after 24 hours . All specim... 08/06/18 Respiratory Virus Panel (PCR) (PACO) - Final, Complete 08/07/18 Urine Culture, Received Pending GME ATTESTATION GME ATTESTATION My faculty preceptor for this patient encounter was physically present during the encounter and was fully available. All aspects of the patient interview, examination, medical decision making process, and medical care plan development were reviewed and approved by the faculty preceptor. The faculty preceptor is aware and concurs with the plan as stated in the body of this note and will attest to such by his/her cosignature. ELIZA ASHRAF DO Aug 07, 2018 13:23 ALEX KEN MD Aug 20, 2018 20:51
[2018-08-07] MEDS ORDERED: MAGIC MOUTHWASH SUSPENSION BTL SS PRN (13:30)
[2018-08-07] MEDS: SLF 3 ML SYR IV SCH ×2 (14:00→21:12)
--- NOTE | 2018-08-07 15:14 | NUR ---
Pt seen this date for clinical swallow evaluation d/t CVA. Pt presented without s/s of aspiration/penetration with thin liquids, puree, soft texture and dry cracker. Nursing reports that she is tolerating her meds whole in puree assist. Please continue regular solids and thin liquids. Speech therapy services are not warranted at this time. Addendum: 08/07/18 at 1515 by VINNY BRYAN [facility] Amended: Links added.
[2018-08-07 16:00] VITALS: BP 100/58
[2018-08-07] MEDS: NYSTATIN 500,000 U/5 ML SUSP UDC SS SCH ×2 (16:00→21:07)
[2018-08-07] MEDS: RIVAROXABAN 20 MG TAB (XARELTO) PO SCH (19:21)
[2018-08-07 20:00] VITALS: BP 102/60
[2018-08-07] MEDS: ROSUVASTATIN 10 MG TAB (CRESTOR) PO SCH (21:07)
[2018-08-08] VITALS (7 sets, daily range): BP systolic 100–116; BP diastolic 58–68
[2018-08-08] MEDS: ALBUTEROL SULFATE 2.5 MG/0.5 ML INH NEB SOLN NEB SCH ×3 (01:11→21:10)
[2018-08-08 05:24] LABS: HEMATOCRIT 29.3 % (36.0-47.0); HEMOGLOBIN 8.9 g/dl (12.0-15.5); MEAN CORPUSCULAR HEMOGLOBIN 24.5 pg (27.0-33.0); MEAN CORPUSCULAR HGB CONC 30.4 g/dl (32.0-36.5); MEAN CORPUSCULAR VOLUME 80.7 fl (80.0-96.0); PLATELET COUNT, AUTOMATED 173 10^3/uL (150-450); RED BLOOD COUNT 3.63 10^6/uL (4.00-5.40); WHITE BLOOD COUNT 6.2 10^3/uL (4.0-10.0)
[2018-08-08] MEDS: SLF 3 ML SYR IV SCH ×3 (05:32→21:57)
[2018-08-08] MEDS: LEVOTHYROXINE 50MCG TABLET (0.05MG) PO SCH (05:32)
[2018-08-08 05:45] LABS: BLOOD UREA NITROGEN 18 MG/DL (7-18); CALCIUM LEVEL 7.9 MG/DL (8.8-10.2); CARBON DIOXIDE LEVEL 28 MEQ/L (21-32); CHLORIDE LEVEL 103 MEQ/L (98-107); CREATININE FOR GFR 0.77 MG/DL (0.55-1.30); GLOMERULAR FILTRATION RATE > 60.0 (>32); GLUCOSE, FASTING 94 MG/DL (70-100); MAGNESIUM LEVEL 2.1 MG/DL (1.8-2.4); POTASSIUM SERUM 4.8 MEQ/L (3.5-5.1); SODIUM LEVEL 135 MEQ/L (136-145)
[2018-08-08] MEDS: ALBUTEROL SULFATE 2.5 MG/0.5 ML INH NEB SOLN INH PRN (07:18)
--- NOTE | 2018-08-08 08:45 | CR ---
DATE OF CONSULTATION: 08/07/2018 REFERRING PHYSICIAN: Dr. Dameon Peng REASON FOR CONSULTATION: Imbalance and falls. HISTORY OF PRESENT ILLNESS: Ava Lee is a 87-year-old woman with history of chronic diastolic heart failure, atrial fibrillation, aortic valvular stenosis who came to emergency department after she fell at home on [address]. Her daughter helped her to get back up and realized that she was not acting herself. She had slurred speech. She felt dizzy and off balance. She has a walker at home which she uses periodically. She denies any headache, neck or back pain. She denies any dysphagia, dysarthria, diplopia or urinary incontinence. After she fell she felt as if her legs were not cooperating. She also felt shortness of breath. She was brought to [facility] for further evaluation. Her MRI scan of the brain was reviewed and showed a left posterior, lateral pontine and left superior cerebellar ischemic acute stroke. MRA brain was unremarkable except a normal variant of [employer]. Carotid ultrasound showed less than 50% bilateral carotid artery stenosis. PAST MEDICAL HISTORY: Asthma, atrial fibrillation, diastolic heart failure, hypothyroidism, aortic valvular stenosis. Hysterectomy, left hip replacement. ALLERGIES: None. FAMILY HISTORY: Noncontributory. SOCIAL HISTORY: She denies smoking, alcohol or illicit drugs. HOME MEDICATIONS: Xarelto 20 mg by mouth daily, Synthroid 1 mcg by mouth daily, Lasix 40 mg every 2 days and 80 mg on alternate days, albuterol inhaler, diltiazem extended release 120 mg by mouth daily. REVIEW OF SYSTEMS All systems were reviewed and found to be noncontributory except as mentioned history present illness. PHYSICAL EXAMINATION: Blood pressure 139/84, 97% saturation on room air. Heart rate 97, respiratory 17, temperature 98.5. Heart irregularly irregular. Lungs clear to auscultation. Abdomen soft, nontender, nondistended. No pedal edema. No musculoskeletal abnormalities. No rash. No signs of meningeal irritation. No tremor or dysmetria. The patient is awake, alert, oriented to place, person and year. Normal speech comprehension and repetition. Extraocular muscles are intact. Recent and distant memory is intact. No facial weakness. Tongue and uvula are midline. 5/5 strength in all four extremities. Deep tendon reflexes are 1+ throughout. Gait is unsteady and slightly ataxic. ASSESSMENT: 1. Left posterior, lateral pontine and left superior cerebellar acute ischemic stroke. 2. Less than 50% carotid artery stenosis. 3. Atrial fibrillation. PLAN: 1. Check fasting lipid profile. 2. Aspirin 81 mg by mouth daily and continue Xarelto 20 mg by mouth daily. 3. Crestor 20 mg by mouth daily and this dose can be adjusted based on her, LDL and HDL. 4. Physical and occupational therapy. 5. Follow with our office in 1 month after hospital discharge. ANNIKA
[2018-08-08] MEDS: NYSTATIN 500,000 U/5 ML SUSP UDC SS SCH ×3 (08:48→21:57)
[2018-08-08] MEDS: ASPIRIN 81 MG ENTERIC TAB PO SCH (08:48)
[2018-08-08] MEDS: cefTRIAXone SOD 1 GM in D5W MINI-BAG PLUS 50 ML IV SCH (08:48)
[2018-08-08] MEDS: DIGOXIN 0.125 MG TAB PO SCH (08:48)
[2018-08-08] MEDS: POTASSIUM CHLORIDE 10 MEQ SR TABLET PO SCH (08:49)
--- NOTE | 2018-08-08 15:31 | IPNPDOC ---
Subjective Date Seen The patient was seen on 08/08/18. Subjective Chief Complaint/HPI . General: Reports: Fatigue; Denies: Chills Constitutional: Reports: Weakness Pulmonary: Denies: Dyspnea, Cough Cardiovascular: Denies: Chest Pain, Palpitations Gastrointestinal: Denies: Nausea, Vomiting Genitourinary: Denies: Dysuria Neurological: Reports: Weakness; Denies: Numbness, Incoordination, Change in speech, Confusion Psych: Reports: Mood Normal Objective Physical Examination General Exam: Positive: Alert, Cooperative, No Acute Distress Eye Exam: Positive: PERRLA, Conjunctiva & lids normal, EOMI; Negative: Sclera icteric ENT Exam: Positive: Pharynx Normal, Other ENT (white film on lips and mouth suggestive of oral candidiasis seems improved today) Neck Exam: Positive: Supple Chest Exam: Positive: Clear to auscultation, Normal air movement; Negative: Rales, Rhonchi, Wheezing, Diminished Heart Exam: Positive: Rate Normal, Normal S1, Normal S2; Negative: Gallops, Murmurs Abdomen Exam: Positive: Normal bowel sounds, Soft; Negative: Tenderness, Hepatospenomegaly Extremity Exam: Positive: Normal pulses; Negative: Clubbing, Cyanosis, Edema, Tenderness, Swelling Neuro Exam: Positive: Normal Speech, Strength at 5/5 X4 ext, Normal Tone, Sensation Intact, Cranial Nerves 3-12 NL, Reflexes 2+ (b/l upper and lower ex termities) Psych Exam: Positive: Mental status NL; Negative: Oriented x 3 (orientated only to person & place, thinks its August and dinner time, does know she is at [facility] in [facility]) Assessment /Plan Assessment 1. Altered mental status- secondary to acute ischemic stroke -patient is orientated to person and place, but thinks its dinner time and August, seems improved from one day ago -MRI did demonstrate left sided katy and superior cerebellar ischemic stroke -Patient did have a stroke while on xarelto, xarelto had been held due to possibility of spinal tap for febrile workup-resumed now -Neurology has been consulted, appreciate their help-xarelto resumed, continue with aspirin 81 mg daily and current statin therapy-lipid panel pending -allow permissive hypertension -carotid u/s demonstrated less than 50 % stenosis b/l no hemodynamically significant stenosis -MRA brain showed Segmental duplication, aka fenestration, 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 Otherwise negative MR angiography the brain. -neuro checks q4h -patient on telemetry chronic a. fib rates into 140's continues on diltiazem but now also digoxin added as per cardiology- appreciate their help, rates seem more controlled now -bedside swallow eval ordered 2. Fever 100.4 over 24 hours ago -second u/a suspicious for infection, urine cx pending -second set blood cultures neg, first set blood cx neg -no neck pain/stiffness, will hold on spinal tap as less likely meningitis -cxr with no infiltrate, ct chest without intra-thoracic source of infection as well as ct ab/pelvis except for liver cyst as discussed below -resp. 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 [id number] cm, 2012 ct showed cyst was 10.5x9 cm has grown, may warrant further work up outpt 3. History of chronic atrial fibrillation -Was on Xarelto, patients rates seem more controlled, cardiology has been consulted and scheduled digoxin, appreciate their help, patient continues on diltiazem -likely tachycardia secondary to stroke and concomitant UTI 4. History of aortic stenosis -will need outpatient follow-up 5. Acute decompensated diastolic heart failure -appears euvolemic on exam - Compensated at this time -holding diuretics -patient is not dyspneic 6. Deconditioning/weakness -patient will need PT 7. Hypokalemia -resolved -4.8 today -has been replaced 8. Oral thrush -patient continues on nystatin swish/swallow 9. DVT prophy - SCDs Plan/VTE VTE Prophylaxis Ordered?: Yes VS, I&O, 24H, Fishbone Vital Signs/I&O Vital Signs Date Time Temp Pulse Resp B/P (MAP) Pulse Ox O2 Delivery O2 Flow Rate FiO2 08/08/18 13:21 90 116/68 08/08/18 12:00 98.2 18 98 Room Air 08/07/18 08:00 1.0 I&O- Last 24 Hours up to 6 AM 08/08/18 05:59 Intake Total 290 ml Output Total 350 ml Balance -60 ml Laboratory Data 24H LABS Laboratory Tests 2 08/08/18 04:56: Nucleated Red Blood Cells % (auto) 0.0, Anion Gap 4L, Glomerular Filtration Rate > 60.0, Blood Urea Nitrogen 18, Creatinine 0.77, Sodium Level 135L, Potassium Level 4.8, Chloride Level 103, Carbon Dioxide Level 28, Calcium Level 7.9L, Magnesium Level 2.1 CBC/BMP Laboratory Tests 08/08/18 04:56 Red Blood Count 3.63 L, Mean Corpuscular Volume 80.7, Mean Corpuscular Hemoglobin 24.5 L, Mean Corpuscular Hemoglobin Concent 30.4 L, Red Cell Distribution Width 17.8 H, Calcium Level 7.9 L Microbiology Microbiology 08/07/18 Blood Culture - Preliminary, Resulted No growth after 24 hours . All specim... 08/07/18 Blood Culture - Preliminary, Resulted No growth after 24 hours . All specim... 08/05/18 Blood Culture - Preliminary, Resulted No Growth after 48 hours. All Specime... 08/05/18 Blood Culture - Preliminary, Resulted No Growth after 48 hours. All Specime... 08/06/18 Respiratory Virus Panel (PCR) (PACO) - Final, Complete 08/07/18 Urine Culture, Received Pending GME ATTESTATION GME ATTESTATION My faculty preceptor for this patient encounter was physically present during the encounter and was fully available. All aspects of the patient interview, examination, medical decision making process, and medical care plan development were reviewed and approved by the faculty preceptor. The faculty preceptor is aware and concurs with the plan as stated in the body of this note and will a ttest to such by his/her cosignature. ELIZA ASHRAF DO Aug 08, 2018 15:30
[2018-08-08] MEDS: RIVAROXABAN 20 MG TAB (XARELTO) PO SCH (17:00)
--- NOTE | 2018-08-08 21:29 | CR ---
DATE OF CONSULTATION: 08/06/2018 REFERRING PROVIDER: Dr. Peng REASON FOR CONSULTATION: Atrial fibrillation, congestive heart failure. 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 Has been doing fairly well, but for about 1 week prior to the hospitalization she had developed increasing weakness, and she has not been eating. She also has been leaning to the right side and has developed altered mental status. She was brought to the emergency room (ER). Then she was admitted for further management and monitoring. Cardiology consult was called in view of her underlying atrial fibrillation, and she was found to have findings consistent with congestive heart failure. When I saw Mrs. Ava Lee on the evening of 08/06/2018, she was supine in bed in no acute distress at rest, and her mental status seems to be holding its own. Four of her children were at bedside. Patient's history was not quite reliable, because she was confused. She denied any chest pain, shortness of breath, palpitations, pedal edema. She denied any headache or neck pain. She did, however, complain of shortness of breath. There was no report of vomiting, diarrhea, melena, or hematemesis. There was no polydipsia or polyuria. mentioned above, according to one of her daughters who sees her regularly, she has been getting weaker, and her mental status has been deteriorating. She also has had a couple falls but no loss of consciousness. There is no report of vomiting or diarrhea. 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 There is no history of obstructive coronary artery disease (CAD), myocardial infarction, prior history of cerebrovascular accident (CVA)/transient ischemic attack (TIA), liver disease. She does have underlying chronic kidney disease, but that was thought to be related to her medications, and this readily improved after cutting back on her diuretics. PAST SURGICAL HISTORY: Positive for: 1. Bladder suspension surgery. 2. Partial hysterectomy. 3. In 2013 she had left hip replacement at [facility]. FAMILY HISTORY: Noncontributory. SOCIAL HISTORY: Patient currently lives alone, but her children check on her regularly. She does not smoke or abuse alcohol. ALLERGIES: There are no known drug allergies. HOME MEDICATIONS: - Xarelto 20 mg by mouth daily - levothyroxine 100 mcg by mouth daily - Lasix 40 mg tablet one tablet in the morning and two tablets in the evening - Celebrex as needed for arthritis, 200 mg daily - Cartia XT 120 mg by mouth daily - ProAir HFA 108 one puff four times a day as needed PHYSICAL EXAMINATION: Patient is alert and oriented in no acute distress at rest. VITAL SIGNS: When I saw her revealed a blood pressure of 109/65 with a pulse 94, respirations 18, and the maximum temperature was 102.6 degrees Fahrenheit with an oxygen saturation of 96% on room air. She had a negative fluid balance of 230 mL. HEAD: Atraumatic. NECK: Supple. No jugular venous distention (JVD) appreciated. LUNGS: Revealed minimal crackles at the bases. HEART: Revealed irregularly irregular heart sounds without gallops. The point of maximal impulse (PMI) is displaced inferiorly. There is no rub. There is a systolic murmur, grade 1-2 over 6, at the lower left sternal border without any significant radiation. ABDOMEN: Unremarkable. EXTREMITIES: Reveal trace bilateral pedal and lower leg edema. NEUROLOGIC: Grossly did not reveal any focal deficit, but the right upper extremity seems to be slightly weaker. LABORATORY DATA: CBC on 08/06/2018 revealed a WBC of 6.7, hemoglobin 9.5, hematocrit 31.5, and platelets 186,000. On admission, hemoglobin and hematocrit were 10.2 and 33.4, respectively. BMP on 08/06/2018 revealed a sodium of 135, potassium 4.2, chloride 98, CO2 of 30, BUN 14, creatinine 1.0, GFR 55.8, fasting glucose 128, calcium 8.2, and magnesium 2.2. Liver enzymes revealed a total bilirubin of 0.5, AST 17, ALT 11, alkaline phosphatase 106, total protein 6.7, albumin 2.7. During the morning, serum potassium was 2.4, and on admission it was 3.1. Serum proBNP on admission was 2700. Serum troponin has been negative. Thyroid function tests revealed a TSH of 0.2 with a T4 of 14.6. Electrocardiogram on admission, 08/05/2018, in the ER revealed atrial fibrillation at 83 basic metabolic panel, low-voltage QRS complexes within the limb leads, and possible prior septal infarct. Electrocardiogram on 08/06/2018 revealed an left ventricular ejection fraction (LVEF) estimated at 60-65% with a mildly enlarged left atrium. The right atrium also was enlarged, and there was a maximum velocity across the aortic valve of 3.4 meter per second. Trace pericardial effusion was noted. Moderate mitral regurgitation also noted. CT of the head on admission revealed diffuse moderate atrophy, otherwise no acute disease process. Vascular calcification noted. Chest x-ray on admission revealed cardiomegaly and chronic interstitial changes. MRI of the brain on 08/06/2018 revealed multiple foci of restriction diffusion in the left side of katy and the left superior cerebral hemisphere, consistent with acute ischemia. No bleeding. There was advanced diffuse atrophy and small-vessel changes. Chest CT of 08/06/2018 revealed atherosclerotic disease and cardiomegaly and bibasilar atelectasis. No acute disease process. IMPRESSION: 1. Congestive heart failure, diastolic in nature. Patient seems to be compensated at this present time without any acute manifestation of heart failure after her initial treatment during this hospitalization. Will continue current management with diuretics and control of her atrial fibrillation. We need to monitor closely her BUN, creatinine, and serum potassium. 2. Atrial fibrillation has been chronic and persistent. Currently not on the Xarelto but on aspirin. She was febrile in the ER, and the initial thought was to proceed with a spinal tap, and for this reason the Xarelto was discontinued. The MRI of the brain done today revealed findings consistent with cerebrovascular accident (CVA) that is new for her, and neurology consult is pending. 3. Hypertension, under control. 4. Hypothyroidism, and this is being addressed. Her Synthroid was decreased. 5. Fever in the setting of nausea and poor appetite. Most likely related to an urinary tract infection (UTI) and probably urosepsis. Urinalysis reported in the chart was benign, and this will be repeated. It was ordered for her with a culture and sensitivity (C and S). 6. Altered mental status, and this is being addressed. It is probably related to her UTI/urosepsis. 7. Acute ischemia, multiple foci on the left side of the katy and in the left superior cerebral hemisphere, currently on aspirin, and neurology consult is pending. It was a pleasure to participate in the care of Mrs. Ava Lee for her underlying cardiac condition. I will continue to monitor along with you in the hospital. Because her heart rate was under control and her blood pressure was running low, I have changed her Cardizem from long-acting form at 120 mg by mouth daily to short-acting Cardizem at 30 mg by mouth every 8 hours.
[2018-08-08] MEDS: ROSUVASTATIN 10 MG TAB (CRESTOR) PO SCH (21:56)
[2018-08-09] VITALS: BP 130/70
[2018-08-09 04:00] VITALS: BP 130/80
[2018-08-09 05:26] LABS: CHOLESTEROL LEVEL 133 MG/DL (<200); CHOLESTEROL RISK RATIO 3.594 (<5); HDL CHOLESTEROL 37 MG/DL (>40); LDL CHOLESTEROL 81 MG/DL (<100); NON-HDL-C 96 MG/DL; TRIGLYCERIDES LEVEL 75 MG/DL (<150)
[2018-08-09] MEDS: LEVOTHYROXINE 50MCG TABLET (0.05MG) PO SCH (05:43)
[2018-08-09] MEDS: SLF 3 ML SYR IV SCH ×3 (05:44→21:43)
[2018-08-09] MEDS: ALBUTEROL SULFATE 2.5 MG/0.5 ML INH NEB SOLN NEB SCH ×2 (07:12→20:22)
[2018-08-09 08:00] VITALS: BP 115/68
[2018-08-09 08:40] LABS: BASO # 0.1 10^3/uL (0.0-0.2); BASO % 1.2 % (0.0-1.0); EOS # 0.9 10^3/uL (0.0-0.50); EOS % 14.3 % (0.0-3.0); HEMATOCRIT 29.6 % (36.0-47.0); LYMPH # 1.3 10^3/uL (1.5-4.5); LYMPH % 20.6 % (24.0-44.0); MEAN CORPUSCULAR HEMOGLOBIN 24.5 pg (27.0-33.0); MEAN CORPUSCULAR HGB CONC 30.4 g/dl (32.0-36.5); MEAN CORPUSCULAR VOLUME 80.4 fl (80.0-96.0); MONO # 0.6 10^3/uL (0.0-0.8); MONO % 9.4 % (0.0-5.0); NEUTROPHILS # 3.3 10^3/uL (1.8-7.7); NEUTROPHILS % 54.2 % (36.0-66.0); PLATELET COUNT, AUTOMATED 196 10^3/uL (150-450); RED BLOOD COUNT 3.68 10^6/uL (4.00-5.40); WHITE BLOOD COUNT 6.1 10^3/uL (4.0-10.0)
[2018-08-09] MEDS: NYSTATIN 500,000 U/5 ML SUSP UDC SS SCH ×3 (09:44→20:29)
[2018-08-09] MEDS: ASPIRIN 81 MG ENTERIC TAB PO SCH (09:44)
[2018-08-09] MEDS: POTASSIUM CHLORIDE 10 MEQ SR TABLET PO SCH (09:44)
[2018-08-09] MEDS: DIGOXIN 0.125 MG TAB PO SCH (09:45)
[2018-08-09] MEDS: cefTRIAXone SOD 1 GM in D5W MINI-BAG PLUS 50 ML IV SCH (09:45)
[2018-08-09 09:58] LABS: ALBUMIN 2.4 GM/DL (3.2-5.2); ALT/SGPT 13 U/L (12-78); BILIRUBIN,TOTAL 0.3 MG/DL (0.2-1.0); BLOOD UREA NITROGEN 13 MG/DL (7-18); CALCIUM LEVEL 8.3 MG/DL (8.8-10.2); CARBON DIOXIDE LEVEL 25 MEQ/L (21-32); CHLORIDE LEVEL 104 MEQ/L (98-107); CREATININE FOR GFR 0.76 MG/DL (0.55-1.30); GLOMERULAR FILTRATION RATE > 60.0 (>32); GLUCOSE, FASTING 88 MG/DL (70-100); POTASSIUM SERUM 5.2 MEQ/L (3.5-5.1); SODIUM LEVEL 137 MEQ/L (136-145); TOTAL PROTEIN 6.1 GM/DL (6.4-8.2)
[2018-08-09 12:00] VITALS: BP 123/71
--- NOTE | 2018-08-09 12:06 | IPNPDOC ---
Text Note Date of Service The patient was seen on 08/09/18. NOTE Subjective: Feels well today. Denies CP/SOB/palpitations. No N/V/Abd pain. Objective: Vitals: (see below) General: No acute distress, laying comfortably in bed. HEENT: Moist mucous membranes. Neck: No JVD or lymphadenopathy Cardiac: RRR, No murmurs Pulm: Clear to auscultation b/l. No wheezing, rhonchi Abd: NT/ND + BS Ext: No edema or cyanosis Neuro: Strength 5/5 BUE and BLE. CN 2-12 intact. F to N intact Alert and oriented Labs (see below) Images: CT head on 08/06/18 Impression: Diffuse moderate atrophy and small vessel changes. Vascular calcification. No acute intracranial abnormality. Assessment/Plan 1. Acute CVA - on ASA/xarleto per neuro. cont statin. No focal neuro deficits on exam today. No CP/SOB. Feels well. PT on board. 2. UTI - improved. Cont Abx. 3. History of chronic atrial fibrillation on Xarelto. Rate controlled. 4. History of aortic stenosis - will need outpatient follow-up. 5. H/o diastolic heart failure. Compensated at this time. We'll hold diuretics at this time. Denies dyspnea. 6. Deconditioning- physical therapy consulted. 7. Hyperkalemia - d/c K supplementation DVT prophy: SCDs Overall prognosis guarded. VS,Fishbone, I+O VS, Fishbone, I+O Laboratory Tests 08/09/18 04:27 Red Blood Count 3.68 L, Mean Corpuscular Volume 80.4, Mean Corpuscular Hemoglobin 24.5 L, Mean Corpuscular Hemoglobin Concent 30.4 L, Red Cell Distribution Width 17.8 H, Neutrophils (%) (Auto) 54.2, Lymphocytes (%) (Auto) 20.6 L, Monocytes (%) (Auto) 9.4 H, Eosinophils (%) (Auto) 14.3 H, Basophils (%) (Auto) 1.2 H, Neutrophils # (Auto) 3.3, Lymphocytes # (Auto) 1.3 L, Monocytes # (Auto) 0.6, Eosinophils # (Auto) 0.9 H, Basophils # (Auto) 0.1, Calcium Level 8.3 L, Aspartate Amino Transf (AST/SGOT) 22, Alanine Aminotransferase (ALT/SGPT) 13, Alkaline Phosphatase 95, Total Bilirubin 0.3, Triglycerides Level 75, LDL Cholesterol 81, Total Protein 6.1 L, Albumin 2.4 L Vital Signs Date Time Temp Pulse Resp B/P (MAP) Pulse Ox O2 Delivery O2 Flow Rate FiO2 08/09/18 09:45 70 08/09/18 08:00 97.9 20 115/68 (84) 96 Room Air 08/07/18 08:00 1.0 I&O- Last 24 Hours up to 6 AM 08/09/18 06:00 Intake Total 360 ml Output Total 570 ml Balance -210 ml ALEX KEN MD Aug 09, 2018 12:06
[2018-08-09 14:32] LABS: BLOOD UREA NITROGEN 13 MG/DL (7-18); CALCIUM LEVEL 8.4 MG/DL (8.8-10.2); CARBON DIOXIDE LEVEL 26 MEQ/L (21-32); CHLORIDE LEVEL 106 MEQ/L (98-107); CREATININE FOR GFR 0.79 MG/DL (0.55-1.30); GLOMERULAR FILTRATION RATE > 60.0 (>32); GLUCOSE, FASTING 117 MG/DL (70-100); POTASSIUM SERUM 5.6 MEQ/L (3.5-5.1); SODIUM LEVEL 137 MEQ/L (136-145)
[2018-08-09 16:00] VITALS: BP 109/60
[2018-08-09] MEDS ORDERED: SOD POLYSTYRENE SULFONATE SUSP 15 GM/60 ML UD PO ONE (17:00)
[2018-08-09] MEDS: RIVAROXABAN 20 MG TAB (XARELTO) PO SCH (18:52)
[2018-08-09] MEDS: ROSUVASTATIN 10 MG TAB (CRESTOR) PO SCH (20:29)
[2018-08-09 20:40] VITALS: BP 124/78
[2018-08-10 06:00] VITALS: BP 126/72
[2018-08-10] MEDS: LEVOTHYROXINE 50MCG TABLET (0.05MG) PO SCH (06:10)
[2018-08-10] MEDS: SLF 3 ML SYR IV SCH ×3 (06:10→21:35)
[2018-08-10 06:24] LABS: HEMATOCRIT 31.2 % (36.0-47.0); HEMOGLOBIN 9.4 g/dl (12.0-15.5); MEAN CORPUSCULAR HEMOGLOBIN 24.5 pg (27.0-33.0); MEAN CORPUSCULAR HGB CONC 30.1 g/dl (32.0-36.5); MEAN CORPUSCULAR VOLUME 81.3 fl (80.0-96.0); PLATELET COUNT, AUTOMATED 223 10^3/uL (150-450); RED BLOOD COUNT 3.84 10^6/uL (4.00-5.40); WHITE BLOOD COUNT 6.8 10^3/uL (4.0-10.0)
[2018-08-10 07:00] LABS: ALBUMIN 2.3 GM/DL (3.2-5.2); ALT/SGPT 16 U/L (12-78); BILIRUBIN,TOTAL 0.3 MG/DL (0.2-1.0); BLOOD UREA NITROGEN 14 MG/DL (7-18); CALCIUM LEVEL 7.9 MG/DL (8.8-10.2); CARBON DIOXIDE LEVEL 24 MEQ/L (21-32); CHLORIDE LEVEL 108 MEQ/L (98-107); CREATININE FOR GFR 0.83 MG/DL (0.55-1.30); GLOMERULAR FILTRATION RATE > 60.0 (>32); GLUCOSE, FASTING 78 MG/DL (70-100); POTASSIUM SERUM 5.3 MEQ/L (3.5-5.1); SODIUM LEVEL 137 MEQ/L (136-145); TOTAL PROTEIN 6.1 GM/DL (6.4-8.2)
[2018-08-10] MEDS: ALBUTEROL SULFATE 2.5 MG/0.5 ML INH NEB SOLN NEB SCH ×3 (08:05→22:22)
[2018-08-10] MEDS: NYSTATIN 500,000 U/5 ML SUSP UDC SS SCH ×3 (08:12→20:19)
[2018-08-10] MEDS: CEFDINIR 300 MG CAP (OMNICEF) PO SCH ×2 (08:12→20:19)
[2018-08-10] MEDS: DIGOXIN 0.125 MG TAB PO SCH (08:13)
[2018-08-10] MEDS: ASPIRIN 81 MG ENTERIC TAB PO SCH (08:13)
[2018-08-10] MEDS ORDERED: SOD POLYSTYRENE SULFONATE SUSP 15 GM/60 ML UD PO ONE (09:00)
[2018-08-10 14:00] VITALS: BP 129/77
--- NOTE | 2018-08-10 16:37 | IPNPDOC ---
Subjective Date Seen The patient was seen on 08/10/18. Subjective Chief Complaint/HPI . General: Reports: Fatigue; Denies: Chills, Night Sweats Constitutional: Reports: Weakness Pulmonary: Denies: Dyspnea, Cough Cardiovascular: Denies: Chest Pain, Palpitations, Edema, Lt Headedness Gastrointestinal: Denies: Nausea, Vomiting, Abdominal Pain, Diarrhea, Constipation Neurological: Reports: Weakness Psych: Reports: Mood Normal Objective Physical Examination General Exam: Positive: Alert, Cooperative, No Acute Distress Eye Exam: Positive: PERRLA, Conjunctiva & lids normal, EOMI; Negative: Sclera icteric ENT Exam: Positive: Pharynx Normal Neck Exam: Positive: Supple Chest Exam: Positive: Clear to auscultation, Normal air movement; Negative: Rales, Rhonchi, Wheezing, Diminished Heart Exam: Positive: Rate Normal, Normal S1, Normal S2; Negative: Gallops, Murmurs Abdomen Exam: Positive: Normal bowel sounds, Soft; Negative: Tenderness, Hepatospenomegaly Extremity Exam: Positive: Normal pulses; Negative: Clubbing, Cyanosis, Edema, Tenderness, Swelling Neuro Exam: Positive: Normal Speech, Strength at 5/5 X4 ext, Normal Tone, Sensation Intact, Cranial Nerves 3-12 NL, Reflexes 2+ (b/l upper and lower extermities) Psych Exam: Positive: Mental status NL Assessment /Plan Assessment 1. Altered mental status- secondary to acute ischemic stroke -patient appears back to baseline mentation -MRI did demonstrate left sided katy and superior cerebellar ischemic stroke -Patient did have a stroke while on xarelto, xarelto had been held due to possibility of spinal tap for febrile workup-however this has since been resumed -Neurology has been consulted, appreciate their help-c/w xarelto, continue with aspirin 81 mg daily and current statin therapy-lipid panel WNL no change in statin therapy at this time -carotid u/s demonstrated less than 50 % stenosis b/l no hemodynamically signi ficant stenosis -MRA brain showed Segmental duplication, aka fenestration, 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 Otherwise negative MR angiography the brain. -neuro checks q4h -s/p chronic a. fib rates into 140's-rate controlled now, c/w diltiazem & digoxin added as per cardiology- appreciate their help -bedside swallow eval ordered 2. past fever 100.4 -second u/a suspicious for infection, urine cx neg -second set blood cultures neg, first set blood cx neg -no neck pain/stiffness, spinal tap held as less likely meningitis -cxr with no infiltrate, ct chest without intra-thoracic source of infection as well as ct ab/pelvis except for liver cyst as discussed below -resp. 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 13.3d51x14.7 cm, 2012 ct showed cyst was 10.5x9 cm has grown, may warrant further work up outpt 3. History of chronic atrial fibrillation -C/w Xarelto, patients rates more controlled, cardiology has been consulted and scheduled digoxin, appreciate their help, patient continues on diltiazem -likely tachycardia was secondary to stroke and concomitant UTI 4. History of aortic stenosis -will need outpatient follow-up 5. Acute decompensated diastolic heart failure -appears euvolemic on exam - Compensated at this time -holding diuretics -patient is not dyspneic 6. Deconditioning/weakness -patient will need to continue to work with PT on gait 7. Hypokalemia -resolved -5.3 today -had been replaced 8. Oral thrush -improved -patient continues on nystatin swish/swallow 9. DVT prophy - SCDs Plan/VTE VTE Prophylaxis Ordered?: Yes VS, I&O, 24H, Fishbone Vital Signs/I&O Vital Signs Date Time Temp Pulse Resp B/P (MAP) Pulse Ox O2 Delivery O2 Flow Rate FiO2 08/10/18 14:46 61 129/77 08/10/18 14:00 97.8 20 97 Room Air 08/07/18 08:00 1.0 I&O- Last 24 Hours up to 6 AM 08/10/18 06:00 Intake Total 300 ml Output Total 550 ml Balance -250 ml Laboratory Data 24H LABS Laboratory Tests 2 08/10/18 05:55: Nucleated Red Blood Cells % (auto) 0.0, Anion Gap 5L, Glomerular Filtration Rate > 60.0, Blood Urea Nitrogen 14, Creatinine 0.83, Sodium Level 137, Potassium Level 5.3H, Chloride Level 108H, Carbon Dioxide Level 24, Calcium Level 7.9L, Aspartate Amino Transf (AST/SGOT) 24, Alanine Aminotransferase (ALT/SGPT) 16, Alkaline Phosphatase 101, Total Bilirubin 0.3, Total Protein 6.1L, Albumin 2.3L, Albumin/Globulin Ratio 0.61L CBC/BMP Laboratory Tests 08/10/18 05:55 Red Blood Count 3.84 L, Mean Corpuscular Volume 81.3, Mean Corpuscular Hemoglobin 24.5 L, Mean Corpuscular Hemoglobin Concent 30.1 L, Red Cell Distribution Width 17.7 H, Calcium Level 7.9 L, Aspartate Amino Transf (AST/SGOT) 24, Alanine Aminotransferase (ALT/SGPT) 16, Alkaline Phosphatase 101, Total Bilirubin 0.3, Total Protein 6.1 L, Albumin 2.3 L Microbiology Microbiology 08/07/18 Blood Culture - Preliminary, Resulted No Growth after 72 hours. All specime... 08/07/18 Blood Culture - Preliminary, Resulted No Growth after 72 hours. All specime... 08/05/18 Blood Culture - Preliminary, Resulted No Growth after 72 hours. All specime... 08/05/18 Blood Culture - Preliminary, Resulted No Growth after 72 hours. All specime... 08/06/18 Respiratory Virus Panel (PCR) (PACO) - Final, Complete 08/07/18 Urine Culture - Final, Complete GME ATTESTATION GME ATTESTATION My faculty preceptor for this patient encounter was physically present during the encounter and was fully available. All aspects of the patient interview, examination, medical decision making process, and medical care plan development were reviewed and approved by the faculty preceptor. The faculty preceptor is aware and concurs with the plan as stated in the body of this note and will attest to such by his/her cosignature. ELIZA ASHRAF DO Aug 10, 2018 16:37
[2018-08-10] MEDS: RIVAROXABAN 20 MG TAB (XARELTO) PO SCH (17:10)
[2018-08-10 20:00] VITALS: BP 112/61
[2018-08-10] MEDS: ROSUVASTATIN 10 MG TAB (CRESTOR) PO SCH (20:20)
[2018-08-11 04:00] VITALS: BP 124/62
[2018-08-11] MEDS: ALBUTEROL SULFATE 2.5 MG/0.5 ML INH NEB SOLN INH PRN (05:10)
[2018-08-11] MEDS: LEVOTHYROXINE 50MCG TABLET (0.05MG) PO SCH (05:57)
[2018-08-11] MEDS: SLF 3 ML SYR IV SCH ×3 (05:58→22:00)
[2018-08-11 07:14] LABS: HEMATOCRIT 30.3 % (36.0-47.0); MEAN CORPUSCULAR HEMOGLOBIN 24.1 pg (27.0-33.0); MEAN CORPUSCULAR HGB CONC 29.7 g/dl (32.0-36.5); PLATELET COUNT, AUTOMATED 236 10^3/uL (150-450); RED BLOOD COUNT 3.74 10^6/uL (4.00-5.40); WHITE BLOOD COUNT 6.2 10^3/uL (4.0-10.0)
[2018-08-11 07:19] LABS: ALBUMIN 2.4 GM/DL (3.2-5.2); ALT/SGPT 17 U/L (12-78); BILIRUBIN,TOTAL 0.3 MG/DL (0.2-1.0); BLOOD UREA NITROGEN 14 MG/DL (7-18); CARBON DIOXIDE LEVEL 26 MEQ/L (21-32); CHLORIDE LEVEL 109 MEQ/L (98-107); CREATININE FOR GFR 0.69 MG/DL (0.55-1.30); GLOMERULAR FILTRATION RATE > 60.0 (>32); GLUCOSE, FASTING 80 MG/DL (70-100); POTASSIUM SERUM 4.6 MEQ/L (3.5-5.1); SODIUM LEVEL 140 MEQ/L (136-145); TOTAL PROTEIN 5.5 GM/DL (6.4-8.2)
[2018-08-11] MEDS: ALBUTEROL SULFATE 2.5 MG/0.5 ML INH NEB SOLN NEB SCH ×3 (07:37→21:11)
[2018-08-11] MEDS: ASPIRIN 81 MG ENTERIC TAB PO SCH (08:18)
[2018-08-11] MEDS: CEFDINIR 300 MG CAP (OMNICEF) PO SCH ×2 (08:18→21:10)
[2018-08-11] MEDS: NYSTATIN 500,000 U/5 ML SUSP UDC SS SCH ×3 (08:18→21:09)
[2018-08-11] MEDS: DIGOXIN 0.125 MG TAB PO SCH (08:18)
--- NOTE | 2018-08-11 11:19 | IPNPDOC ---
Subjective Date Seen The patient was seen on 08/11/18. Subjective Chief Complaint/HPI . General: Reports: Fatigue; Denies: Chills Constitutional: Reports: Weakness Pulmonary: Denies: Dyspnea, Cough Cardiovascular: Denies: Chest Pain, Palpitations Gastrointestinal: Denies: Nausea, Vomiting Neurological: Reports: Weakness Psych: Reports: Mood Normal Objective Physical Examination General Exam: Positive: Alert, Cooperative, No Acute Distress Eye Exam: Positive: PERRLA, Conjunctiva & lids normal, EOMI; Negative: Sclera icteric ENT Exam: Positive: Pharynx Normal Neck Exam: Positive: Supple Chest Exam: Positive: Clear to auscultation, Normal air movement; Negative: Rales, Rhonchi, Wheezing, Diminished Heart Exam: Positive: Rate Normal, Normal S1, Normal S2; Negative: Gallops, Murmurs Abdomen Exam: Positive: Normal bowel sounds, Soft; Negative: Tenderness, Hepatospenomegaly Extremity Exam: Positive: Normal pulses; Negative: Clubbing, Cyanosis, Edema, Tenderness, Swelling Neuro Exam: Positive: Normal Speech, Strength at 5/5 X4 ext, Normal Tone, Sensation Intact, Cranial Nerves 3-12 NL, Reflexes 2+ (b/l upper and lower extermities) Psych Exam: Positive: Mental status NL Assessment /Plan Assessment 1. Altered mental status- secondary to acute ischemic stroke -patient appears back to baseline mentation-son is at bedside today and agrees she is at her baseline or very close to it -MRI did demonstrate left sided katy and superior cerebellar ischemic stroke -Patient did have a stroke while on xarelto, xarelto had been held due to possibility of spinal tap for febrile workup-however this has since been resumed -Neurology has been consulted, appreciate their help-c/w xarelto, continue with aspirin 81 mg daily and current statin therapy-lipid panel WNL no change in statin therapy at this time -carotid u/s demonstrated less than 50 % stenosis b/l no hemodynamically signi ficant stenosis -MRA brain showed Segmental duplication, aka fenestration, 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 Otherwise negative MR angiography the brain. -neuro checks q4h -s/p chronic a. fib rates into 140's-rate controlled now, c/w diltiazem & digoxin added as per cardiology- appreciate their help -bedside swallow eval ordered -no deficits again on neurological exam today 2. past fever 100.4 -second u/a suspicious for infection, urine cx neg -second set blood cultures neg, first set blood cx neg -no neck pain/stiffness, spinal tap held as less likely meningitis -cxr with no infiltrate, ct chest without intra-thoracic source of infection as well as ct ab/pelvis except for liver cyst as discussed below -resp. 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 [id number] cm, 2013 ct showed cyst was 10.5x9 cm has grown, may warrant further work up outpt 3. History of chronic atrial fibrillation -C/w Xarelto, patients rates more controlled, cardiology has been consulted and scheduled digoxin, appreciate their help, patient continues on diltiazem -likely tachycardia was secondary to stroke and concomitant UTI 4. History of aortic stenosis -will need outpatient follow-up 5. Acute decompensated diastolic heart failure -appears euvolemic on exam - Compensated at this time -holding diuretics -patient is not dyspneic 6. Deconditioning/weakness -patient will need to continue to work with PT on gait-worked with them today, still needs to work with them 7. Hypokalemia -resolved -4.6 today -had been replaced 8. Oral thrush -improved -patient continues on nystatin swish/swallow 9. DVT prophy - SCDs Plan/VTE VTE Prophylaxis Ordered?: Yes VS, I&O, 24H, Fishbone Vital Signs/I&O Vital Signs Date Time Temp Pulse Resp B/P (MAP) Pulse Ox O2 Delivery O2 Flow Rate FiO2 08/11/18 08:18 70 08/11/18 05:57 122/66 08/11/18 04:00 98.2 18 96 Room Air 08/07/18 08:00 1.0 I&O- Last 24 Hours up to 6 AM 08/11/18 06:00 Intake Total 540 ml Output Total 650 ml Balance -110 ml Laboratory Data 24H LABS Laboratory Tests 2 08/11/18 06:23: Nucleated Red Blood Cells % (auto) 0.0, Anion Gap 5L, Glomerular Filtration Rate > 60.0, Blood Urea Nitrogen 14, Creatinine 0.69, Sodium Level 140, Potassium Level 4.6, Chloride Level 109H, Carbon Dioxide Level 26, Calcium Level 8.0L, Aspartate Amino Transf (AST/SGOT) 26, Alanine Aminotransferase (ALT/SGPT) 17, Alkaline Phosphatase 104, Total Bilirubin 0.3, Total Protein 5.5L, Albumin 2.4L, Albumin/Globulin Ratio 0.77L CBC/BMP Laboratory Tests 08/11/18 06:23 Red Blood Count 3.74 L, Mean Corpuscular Volume 81.0, Mean Corpuscular Hemoglobin 24.1 L, Mean Corpuscular Hemoglobin Concent 29.7 L, Red Cell Distribution Width 17.6 H, Calcium Level 8.0 L, Aspartate Amino Transf (AST/SGOT) 26, Alanine Aminotransferase (ALT/SGPT) 17, Alkaline Phosphatase 104, Total Bilirubin 0.3, Total Protein 5.5 L, Albumin 2.4 L Microbiology Microbiology 08/07/18 Blood Culture - Preliminary, Resulted No Growth after 72 hours. All specime... 08/07/18 Blood Culture - Preliminary, Resulted No Growth after 72 hours. All specime... 08/05/18 Blood Culture - Final, Complete NO GROWTH AFTER 5 DAYS 08/05/18 Blood Culture - Final, Complete NO GROWTH AFTER 5 DAYS 08/06/18 Respiratory Virus Panel (PCR) (PACO) - Final, Complete 08/07/18 Urine Culture - Final, Complete GME ATTESTATION GME ATTESTATION My faculty preceptor for this patient encounter was physically present during the encounter and was fully available. All aspects of the patient interview, examination, medical decision making process, and medical care plan development were reviewed and approved by the faculty preceptor. The faculty preceptor is aware and concurs with the plan as stated in the body of this note and will attest to such by his/her cosignature. ELIZA ASHRAF DO Aug 11, 2018 11:19
[2018-08-11 13:30] VITALS: BP_SYST 101; BP_SYST 99; BP_DIAS 70
[2018-08-11 14:46] VITALS: BP 114/63
[2018-08-11] MEDS: RIVAROXABAN 20 MG TAB (XARELTO) PO SCH (17:06)
[2018-08-11 20:20] VITALS: BP 115/60
[2018-08-11] MEDS: ROSUVASTATIN 10 MG TAB (CRESTOR) PO SCH (21:10)
[2018-08-12 04:00] VITALS: BP 124/65
[2018-08-12] MEDS: LEVOTHYROXINE 50MCG TABLET (0.05MG) PO SCH (05:27)
[2018-08-12] MEDS: SLF 3 ML SYR IV SCH ×3 (05:28→21:05)
[2018-08-12 06:26] LABS: HEMATOCRIT 29.4 % (36.0-47.0); MEAN CORPUSCULAR HEMOGLOBIN 24.4 pg (27.0-33.0); MEAN CORPUSCULAR HGB CONC 30.6 g/dl (32.0-36.5); MEAN CORPUSCULAR VOLUME 79.7 fl (80.0-96.0); PLATELET COUNT, AUTOMATED 244 10^3/uL (150-450); RED BLOOD COUNT 3.69 10^6/uL (4.00-5.40); WHITE BLOOD COUNT 7.3 10^3/uL (4.0-10.0)
[2018-08-12 06:48] LABS: ALBUMIN 2.4 GM/DL (3.2-5.2); ALT/SGPT 18 U/L (12-78); BILIRUBIN,TOTAL 0.3 MG/DL (0.2-1.0); BLOOD UREA NITROGEN 15 MG/DL (7-18); CALCIUM LEVEL 7.9 MG/DL (8.8-10.2); CARBON DIOXIDE LEVEL 26 MEQ/L (21-32); CHLORIDE LEVEL 107 MEQ/L (98-107); CREATININE FOR GFR 0.78 MG/DL (0.55-1.30); GLOMERULAR FILTRATION RATE > 60.0 (>32); GLUCOSE, FASTING 80 MG/DL (70-100); POTASSIUM SERUM 4.5 MEQ/L (3.5-5.1); SODIUM LEVEL 138 MEQ/L (136-145); TOTAL PROTEIN 5.9 GM/DL (6.4-8.2)
--- NOTE | 2018-08-12 08:19 | IPN ---
DATE: 08/07/2018 Mrs. Ava Lee was seen in the morning prior to undergoing MRA of the brain and also in the evening. When I saw her, she was doing better and it seemed that her mental status has improved. One of her children, a daughter, was at bedside. She appears to be more alert and awake. She denies any chest pain, dizziness, shortness of breath, palpitations. Her heart rate was going fast earlier today, and we have been giving her IV dose of digoxin, which is keeping it under control. She was seen by neurology, and she was restarted on the Xarelto and a baby aspirin was added. There is no report of bleeding. PHYSICAL EXAMINATION: Patient is alert and oriented, in no acute distress at rest, and her vital signs when I saw her on that evening revealed a blood pressure 102/60 with a pulse of 91, respirations 18, and her maximum temperature was 98.6 degrees Fahrenheit with an oxygen saturation of 93% on room air. Examination of the head: Atraumatic. Neck is supple; no jugular venous distension (JVD). The lungs did not reveal any wheezing or crackles. The heart examination revealed an irregularly irregular heart sound without gallops. The point of maximal impulse (PMI) is displaced inferiorly. There is no rub. I could not appreciate any murmurs. Abdomen is unremarkable. Extremities revealed trace bilateral lower leg edema. Neurological examination is negative for focal deficit. LABS: BMP on 08/07/2018 revealed a sodium of 136, potassium 4.0, chloride 100, CO2 of 28, BUN 15, creatinine 0.84, GFR more than 60, fasting glucose 106, calcium 8.5, serum magnesium 2.4. Serum troponin is negative. CBC on 08/07/2018 revealed a WBC of 8.3, hemoglobin 10.0, hematocrit 32.6, and platelets 172,000. Urinalysis on 08/07/2018 revealed +2 protein, +2 blood, trace leukocyte esterase, WBCs and RBCs also noted. Blood cultures have been negative. Urine culture is pending. Respiratory virus panel is negative. Telemetry revealed atrial fibrillation with a controlled ventricular rate. Carotid Doppler on 08/07/2018 revealed less than 50% stenosis in the internal carotid arteries. MRA of the brain was a negative study. Mrs. Ava Larson seems to be stable from a cardiac point of view with controlled atrial fibrillation, on digoxin and Cardizem. She is back on the Xarelto, and I have decreased her aspirin to 81 mg by mouth daily. She also was started on a statin with Crestor, and she will continue the same. Her mental status has improved significantly. Her thyroid supplement is being addressed; this was decreased on hospitalization. She is also on antibiotics for a urinary tract infection (UTI). She will now benefit from physical therapy, and this was discussed with her daughter as well as with her hospitalist.
[2018-08-12] MEDS: ALBUTEROL SULFATE 2.5 MG/0.5 ML INH NEB SOLN NEB SCH ×3 (08:40→20:00)
--- NOTE | 2018-08-12 09:14 | IPNPDOC ---
Subjective Date Seen The patient was seen on 08/12/18. Subjective Chief Complaint/HPI . General: Reports: Fatigue; Denies: Chills Constitutional: Reports: Weakness Pulmonary: Denies: Dyspnea, Cough Cardiovascular: Denies: Chest Pain, Palpitations Gastrointestinal: Denies: Nausea, Vomiting Neurological: Reports: Weakness Psych: Reports: Mood Normal Objective Physical Examination General Exam: Positive: Alert, Cooperative, No Acute Distress Eye Exam: Positive: PERRLA, Conjunctiva & lids normal, EOMI; Negative: Sclera icteric ENT Exam: Positive: Pharynx Normal Neck Exam: Positive: Supple Chest Exam: Positive: Clear to auscultation, Normal air movement; Negative: Rales, Rhonchi, Wheezing, Diminished Heart Exam: Positive: Rate Normal, Normal S1, Normal S2; Negative: Gallops, Murmurs Abdomen Exam: Positive: Normal bowel sounds, Soft; Negative: Tenderness, Hepatospenomegaly Extremity Exam: Positive: Normal pulses; Negative: Clubbing, Cyanosis, Edema, Tenderness, Swelling Neuro Exam: Positive: Normal Speech, Strength at 5/5 X4 ext, Normal Tone, Sensation Intact, Cranial Nerves 3-12 NL, Reflexes 2+ (b/l upper and lower extermities) Psych Exam: Positive: Mental status NL Assessment /Plan Assessment 1. Altered mental status- secondary to acute ischemic stroke -patient is back to baseline mentation-son who was at bedside yesterday agreed -MRI did demonstrate left sided katy and superior cerebellar ischemic stroke -Patient did have a stroke while on xarelto, xarelto had been held due to possibility of spinal tap for febrile workup-however this has since been resumed -Neurology has been consulted, appreciate their help-c/w xarelto, continue with aspirin 81 mg daily and current statin therapy-lipid panel WNL no change in statin therapy at this time -carotid u/s demonstrated less than 50 % stenosis b/l no hemodynamically significant stenosis -MRA brain showed Segmental duplication, aka fenestration, 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 Otherwise negative MR angiography the brain. -neuro checks q4h -s/p chronic a. fib rates into 140's-rate controlled now, c/w diltiazem & digoxin added as per cardiology- appreciate their help -no deficits again on neurological exam today 2. past fever 100.4 -second u/a suspicious for infection, urine cx neg -second set blood cultures neg, first set blood cx neg -no neck pain/stiffness, spinal tap held as less likely meningitis -cxr with no infiltrate, ct chest without intra-thoracic source of infection as well as ct ab/pelvis except for liver cyst as discussed below -resp. 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 [id number] cm, 2012 ct showed cyst was 10.5x9 cm has grown, may warrant further work up outpt 3. History of chronic atrial fibrillation -C/w Xarelto, patients rates controlled, cardiology has been consulted and scheduled digoxin, appreciate their help, patient continues on diltiazem -likely tachycardia was secondary to stroke and concomitant UTI 4. History of aortic stenosis -will need outpatient follow-up 5. Acute decompensated diastolic heart failure -appears euvolemic on exam - Compensated at this time -holding diuretics -patient is not dyspneic 6. Deconditioning/weakness -patient will need to continue to work with PT on gait-worked with them today, still needs to work with them-likely d/c tomorrow if cleared by PT 7. Hypokalemia -resolved -4.5 today -had been replaced 8. Oral thrush -improved -patient continues on nystatin swish/swallow 9. DVT prophy - SCDs Plan/VTE VTE Prophylaxis Ordered?: Yes VS, I&O, 24H, Fishbone Vital Signs/I&O Vital Signs Date Time Temp Pulse Resp B/P (MAP) Pulse Ox O2 Delivery O2 Flow Rate FiO2 08/12/18 05:28 77 125/62 08/12/18 04:00 99.0 19 94 Room Air 08/07/18 08:00 1.0 I&O- Last 24 Hours up to 6 AM 08/12/18 05:59 Intake Total 540 ml Output Total 425 ml Balance 115 ml Laboratory Data 24H LABS Laboratory Tests 2 08/12/18 06:16: Nucleated Red Blood Cells % (auto) 0.0, Anion Gap 5L, Glomerular Filtration Rate > 60.0, Blood Urea Nitrogen 15, Creatinine 0.78, Sodium Level 138, Potassium Le lurdes 4.5, Chloride Level 107, Carbon Dioxide Level 26, Calcium Level 7.9L, Aspartate Amino Transf (AST/SGOT) 23, Alanine Aminotransferase (ALT/SGPT) 18, Alkaline Phosphatase 107, Total Bilirubin 0.3, Total Protein 5.9L, Albumin 2.4L, Albumin/Globulin Ratio 0.69L CBC/BMP Laboratory Tests 08/12/18 06:16 Red Blood Count 3.69 L, Mean Corpuscular Volume 79.7 L, Mean Corpuscular Hemo globin 24.4 L, Mean Corpuscular Hemoglobin Concent 30.6 L, Red Cell Distribution Width 17.2 H, Calcium Level 7.9 L, Aspartate Amino Transf (AST/SGOT) 23, Alanine Aminotransferase (ALT/SGPT) 18, Alkaline Phosphatase 107, Total Bilirubin 0.3, Total Protein 5.9 L, Albumin 2.4 L Microbiology Microbiology 08/07/18 Blood Culture - Preliminary, Resulted No Growth after 72 hours. All specime... 08/07/18 Blood Culture - Preliminary, Resulted No Growth after 72 hours. All specime... 08/05/18 Blood Culture - Final, Complete NO GROWTH AFTER 5 DAYS 08/05/18 Blood Culture - Final, Complete NO GROWTH AFTER 5 DAYS 08/06/18 Respiratory Virus Panel (PCR) (PACO) - Final, Complete 08/07/18 Urine Culture - Final, Complete GME ATTESTATION GME ATTESTATION My faculty preceptor for this patient encounter was physically present during the encounter and was fully available. All aspects of the patient interview, examination, medical decision making process, and medical care plan development were reviewed and approved by the faculty preceptor. The faculty preceptor is aware and concurs with the plan as stated in the body of this note and will attest to such by his/her cosignature. ELIZA ASHRAF DO Aug 12, 2018 09:14
[2018-08-12] MEDS: DIGOXIN 0.125 MG TAB PO SCH (09:17)
[2018-08-12] MEDS: NYSTATIN 500,000 U/5 ML SUSP UDC SS SCH ×3 (09:17→21:04)
[2018-08-12] MEDS: ASPIRIN 81 MG ENTERIC TAB PO SCH (09:17)
[2018-08-12 09:30] VITALS: BP 121/58
[2018-08-12 12:00] VITALS: BP 125/65
[2018-08-12] MEDS: RIVAROXABAN 20 MG TAB (XARELTO) PO SCH (17:49)
[2018-08-12 20:00] VITALS: BP 106/58
[2018-08-12] MEDS: ROSUVASTATIN 10 MG TAB (CRESTOR) PO SCH (21:05)
[2018-08-12 22:00] VITALS: BP 106/58
[2018-08-12] MEDS: ALBUTEROL SULFATE 2.5 MG/0.5 ML INH NEB SOLN INH PRN (23:27)
[2018-08-13 04:00] VITALS: BP 119/64
[2018-08-13] MEDS: LEVOTHYROXINE 50MCG TABLET (0.05MG) PO SCH (05:24)
[2018-08-13] MEDS: SLF 3 ML SYR IV SCH ×2 (05:27→13:51)
[2018-08-13] MEDS: ALBUTEROL SULFATE 2.5 MG/0.5 ML INH NEB SOLN INH PRN (05:52)
[2018-08-13 06:42] LABS: HEMOGLOBIN 8.7 g/dl (12.0-15.5); MEAN CORPUSCULAR HEMOGLOBIN 24.3 pg (27.0-33.0); PLATELET COUNT, AUTOMATED 241 10^3/uL (150-450); RED BLOOD COUNT 3.58 10^6/uL (4.00-5.40); WHITE BLOOD COUNT 7.3 10^3/uL (4.0-10.0)
[2018-08-13 07:07] LABS: ALBUMIN 2.4 GM/DL (3.2-5.2); ALT/SGPT 16 U/L (12-78); BILIRUBIN,TOTAL 0.3 MG/DL (0.2-1.0); BLOOD UREA NITROGEN 10 MG/DL (7-18); CARBON DIOXIDE LEVEL 25 MEQ/L (21-32); CHLORIDE LEVEL 106 MEQ/L (98-107); CREATININE FOR GFR 0.77 MG/DL (0.55-1.30); GLOMERULAR FILTRATION RATE > 60.0 (>32); GLUCOSE, FASTING 84 MG/DL (70-100); POTASSIUM SERUM 4.2 MEQ/L (3.5-5.1); SODIUM LEVEL 139 MEQ/L (136-145); TOTAL PROTEIN 5.9 GM/DL (6.4-8.2)
[2018-08-13] MEDS: ALBUTEROL SULFATE 2.5 MG/0.5 ML INH NEB SOLN NEB SCH ×2 (07:54→13:42)
[2018-08-13] MEDS: NYSTATIN 500,000 U/5 ML SUSP UDC SS SCH ×2 (08:51→16:07)
[2018-08-13] MEDS: DIGOXIN 0.125 MG TAB PO SCH (08:52)
[2018-08-13] MEDS: ASPIRIN 81 MG ENTERIC TAB PO SCH (08:52)
--- NOTE | 2018-08-13 09:19 | IPNPDOC ---
Subjective Date Seen The patient was seen on 08/13/18. Subjective Chief Complaint/HPI . General: Reports: Fatigue; Denies: Chills, Night Sweats Constitutional: Reports: Weakness Cardiovascular: Denies: Chest Pain, Palpitations Gastrointestinal: Denies: Nausea, Vomiting Genitourinary: Denies: Dysuria Neurological: Reports: Weakness Psych: Reports: Mood Normal Objective Physical Examination General Exam: Positive: Alert, Cooperative, No Acute Distress Eye Exam: Positive: PERRLA, Conjunctiva & lids normal, EOMI; Negative: Sclera icteric ENT Exam: Positive: Pharynx Normal Neck Exam: Positive: Supple Chest Exam: Positive: Clear to auscultation, Normal air movement; Negative: Rales, Rhonchi, Wheezing, Diminished Heart Exam: Positive: Rate Normal, Normal S1, Normal S2; Negative: Gallops, Murmurs Abdomen Exam: Positive: Normal bowel sounds, Soft; Negative: Tenderness, Hepatospenomegaly Extremity Exam: Positive: Normal pulses; Negative: Clubbing, Cyanosis, Edema, Tenderness, Swelling Neuro Exam: Positive: Normal Speech, Strength at 5/5 X4 ext, Normal Tone, Sensation Intact, Cranial Nerves 3-12 NL, Reflexes 2+ (b/l upper and lower exter mities) Psych Exam: Positive: Mental status NL Assessment /Plan Assessment 1. Altered mental status- secondary to acute ischemic stroke -patient states she feels a bit weak today all over, fatigued -patient is back to her baseline mentation-son who was at bedside two days ago agreed -MRI did demonstrate left sided katy and superior cerebellar ischemic stroke -Patient did have a stroke while on xarelto, xarelto had been held due to possi bility of spinal tap for febrile workup-however this has since been resumed -Neurology has been consulted, appreciate their help-c/w xarelto, continue with aspirin 81 mg daily and current statin therapy-lipid panel WNL no change in statin therapy at this time -carotid u/s demonstrated less than 50 % stenosis b/l no hemodynamically significant stenosis -MRA brain showed Segmental duplication, aka fenestration, 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 Otherwise negative MR angiography the brain. -neuro checks q4h -s/p chronic a. fib rates into 140's-rate controlled now, c/w diltiazem & digoxin added as per cardiology- appreciate their help -no deficits again on neurological exam today 2. past fever 100.4 -second u/a suspicious for infection, urine cx neg -second set blood cultures neg, first set blood cx neg -no neck pain/stiffness, spinal tap held as less likely meningitis -cxr with no infiltrate, ct chest without intra-thoracic source of infection as well as ct ab/pelvis except for liver cyst as discussed below -resp. 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 [id number] cm, 2013 ct showed cyst was 10.5x9 cm has grown, may warrant further work up outpt 3. History of chronic atrial fibrillation -C/w Xarelto, patients rates controlled, cardiology has been consulted and scheduled digoxin, appreciate their help, patient continues on diltiazem -likely tachycardia was secondary to stroke and concomitant UTI 4. History of aortic stenosis -will need outpatient follow-up 5. Acute decompensated diastolic heart failure -appears euvolemic on exam - Compensated at this time -holding diuretics -patient is not dyspneic 6. Deconditioning/weakness -patient will need to continue to work with PT on gait-worked with them today, still needs to work with them-likely d/c tomorrow if cleared by PT-PT last note recommended at least 2-3 more PT sessions 7. Hypokalemia -resolved -4.2 today -had been replaced 8. Oral thrush -resolved -patient continues on nystatin swish/swallow 9. DVT prophy - SCDs Plan/VTE VTE Prophylaxis Ordered?: Yes VS, I&O, 24H, [facility] Vital Signs/I&O Vital Signs Date Time Temp Pulse Resp B/P (MAP) Pulse Ox O2 Delivery O2 Flow Rate FiO2 08/13/18 08:52 76 08/13/18 05:25 119/64 08/13/18 04:00 96.7 18 94 Room Air 08/07/18 08:00 1.0 I&O- Last 24 Hours up to 6 AM 08/13/18 06:00 Intake Total 780 ml Output Total 1250 ml Balance -470 ml Laboratory Data 24H LABS Laboratory Tests 2 08/13/18 06:25: Nucleated Red Blood Cells % (auto) 0.0, Anion Gap 8, Glomerular Filtration Rate > 60.0, Blood Urea Nitrogen 10, Creatinine 0.77, Sodium Level 139, Potassium Level 4.2, Chloride Level 106, Carbon Dioxide Level 25, Calcium Level 8.0L, Aspartate Amino Transf (AST/SGOT) 22, Alanine Aminotransferase (ALT/SGPT) 16, Alkaline Phosphatase 112, Total Bilirubin 0.3, Total Protein 5.9L, Albumin 2.4L, Albumin/Globulin Ratio 0.69L CBC/BMP Laboratory Tests 08/13/18 06:25 Red Blood Count 3.58 L, Mean Corpuscular Volume 81.0, Mean Corpuscular Hemoglobin 24.3 L, Mean Corpuscular Hemoglobin Concent 30.0 L, Red Cell Distribution Width 17.5 H, Calcium Level 8.0 L, Aspartate Amino Transf (AST /SGOT) 22, Alanine Aminotransferase (ALT/SGPT) 16, Alkaline Phosphatase 112, Total Bilirubin 0.3, Total Protein 5.9 L, Albumin 2.4 L Microbiology Microbiology 08/07/18 Blood Culture - Final, Complete NO GROWTH AFTER 5 DAYS 08/07/18 Blood Culture - Final, Complete NO GROWTH AFTER 5 DAYS 08/05/18 Blood Culture - Final, Complete NO GROWTH AFTER 5 DAYS 08/05/18 Blood Culture - Final, Complete NO GROWTH AFTER 5 DAYS 08/06/18 Respiratory Virus Panel (PCR) (PACO) - Final, Complete 08/07/18 Urine Culture - Final, Complete GME ATTESTATION GME ATTESTATION My faculty preceptor for this patient encounter was physically present during the encounter and was fully available. All aspects of the patient interview, examination, medical decision making process, and medical care plan development were reviewed and approved by the faculty preceptor. The faculty preceptor is a blanchard and concurs with the plan as stated in the body of this note and will attest to such by his/her cosignature. ELIZA ASHRAF DO Aug 13, 2018 09:19
[2018-08-13 12:30] VITALS: BP 134/71
[2018-08-13 13:56] VITALS: BP 134/71
[2018-08-13] MEDS ORDERED: DIGO0.12 PO (15:22)
[2018-08-13] MEDS ORDERED: ASPI81TAEC PO (15:22)
[2018-08-13] MEDS ORDERED: DILT30TA PO (15:22)
[2018-08-13] MEDS ORDERED: LEVO50TA5 PO (15:22)
[2018-08-13] MEDS ORDERED: LASI40TA9 PO (15:22)
[2018-08-13] MEDS ORDERED: CRES10TA32 PO (15:22)
[2018-08-13 16:28] LABS: FERRITIN 71 NG/ML (8-252); IRON (FE) 22 UG/DL (50-170); PERCENT SATURATION 9.8 % (13.2-45.0); TOTAL IRON BINDING CAPACITY 224 UG/DL (250-450)
--- NOTE | 2018-08-14 09:43 | DS.PDOC ---
Discharge Summary General Date of Admission Aug 05, 2018 at 21:30 Date of Discharge 08/13/17 Discharge Summary PROCEDURES PERFORMED DURING STAY: None ADMITTING DIAGNOSES: . 1. Acute diastolic heart failure. 2. Debility. 3. Hyperkalemia. DISCHARGE DIAGNOSES: 1. 1. Altered mental status- secondary to acute ischemic stroke 2. past fever 100.4 3. History of chronic atrial fibrillation 4. History of aortic stenosis 5. Acute decompensated diastolic heart failure 6. Deconditioning/weakness 7. Hypokalemia 8. Oral thrush COMPLICATIONS/CHIEF COMPLAINT: Congestive Heart Failure. HISTORY OF PRESENT ILLNESS: Patient admitted on 08/05/18 with the complaint of fall at home and SOB with some slurred speech. HOSPITAL COURSE: During the course of the patients hospital stay she had undergone MRI, which had shown ischemic area in the left side of the katy and superior cerebellar hemisphere. She was seen by neurology, and maintained on aspirin, home xarelto and statin therapy. She was also seen by cardiology in house for uncontrolled atrial fibrillation rates, and started on digoxin in addition to cardizem which did end up working well for her rate control The patient did well during her stay and was seen and worked with physical therapy to work on her gait dysfunction. She was eventually cleared by PT for safe discharge home. DISCHARGE MEDICATIONS: Please see below. ALLERGIES: Please see below. PHYSICAL EXAMINATION ON DISCHARGE: VITAL SIGNS: Please see below. GENERAL: pleasant, NAD, sitting in bedside chair HEENT: EOMI, nares patent b/l, moist mucus membranes NECK: supple CARDIOVASCULAR EXAMINATION: normal s1 and s2., no murmurs, rubs or gallops RESPIRATORY EXAMINATION: CTA b/l, no rales, rhonchi or wheezing ABDOMINAL EXAMINATION: soft, non distended, nabsx4, no distension, no rebound no guarding, no hepatosplenomegaly, no pain to palpitation EXTREMITIES: no cyanosis, swelling or mottling SKIN: intact NEUROLOGICAL EXAMINATION: without focal deficit PSYCHIATRIC EXAMINATION: affect is appropriate LABORATORY DATA: Please see below. IMAGING: HEAD CT 08.05.18 Impression: Diffuse moderate atrophy and small vessel changes. Vascular calcification. No acute intracranial abnormality. CXR 08.05.18 Impression: Cardiomegaly and chronic interstitial changes. C-spine CT 08.06.18 Impression: Fairly advanced degenerative spondylosis changes, otherwise negative CT study of the cervical spine without contrast. No fracture seen. [facility] MRI 08.06.18 Impression: Multiple foci of restricted diffusion in the left side of the katy and in the left superior cerebellar hemisphere consistent with acute ischemia. No hemorrhage is seen. Advanced diffuse atrophy and small vessel changes. Chest CT 08.06.18 Impression: 1. Atherosclerotic disease and cardiomegaly. 2. Minimal bibasilar atelectasis (right greater than left) 3. No further acute mediastinal or pleuroparenchymal process. 4. Markedly enlarged hepatic cyst measuring greater than 13.2 cm transverse diameter. Ab/pelvis CT 08.06.18 Impression: 1. Multiple hepatic cysts including a single significantly enlarged cyst dominating the liver and left lobe causing some element of mass effect on the abdomen. 2. Chronic renal disease. 3. Cholelithiasis. 4. Diverticulosis without acute diverticulitis. Vascular u/s carotid duplex 08.07.18 IMPRESSION: Bilateral luminal narrowing of the internal carotid arteries less than 50%. No evidence of hemodynamically significant stenosis. Arrhythmia incidentally noted. 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 Otherwise negative MR angiography the brain. PROGNOSIS: stable ACTIVITY: As tolerated DIET: regular DISCHARGE PLAN: home DISPOSITION: Home Health Service. DISCHARGE INSTRUCTIONS: 1. follow up with pcp and neurology within 7-10 days of d/c. DISCHARGE CONDITION: Stable TIME SPENT ON DISCHARGE: Greater than 45 minutes. Vital Signs/I&Os Vital Signs Date Time Temp Pulse Resp B/P (MAP) Pulse Ox O2 Delivery O2 Flow Rate FiO2 08/13/18 13:56 64 134/71 08/13/18 12:30 98.4 18 98 Room Air I&O- Last 24 Hours up to 6 AM 08/14/18 06:00 Intake Total 300 ml Output Total 200 ml Balance 100 ml Microbiology Microbiology 08/07/18 Blood Culture - Final, Complete NO GROWTH AFTER 5 DAYS 08/07/18 Blood Culture - Final, Complete NO GROWTH AFTER 5 DAYS 08/05/18 Blood Culture - Final, Complete NO GROWTH AFTER 5 DAYS 08/05/18 Blood Culture - Final, Complete NO GROWTH AFTER 5 DAYS 08/06/18 Respiratory Virus Panel (PCR) (PACO) - Final, Complete 08/07/18 Urine Culture - Final, Complete Discharge Medications Scheduled (Digoxin) 125 Mcg Tab, 0.125 MG PO DAILY Aspirin (Aspirin EC) 81 Mg Tabec, 81 MG PO DAILY Diltiazem HCl (Diltiazem HCl) 30 Mg Tab, 30 MG PO Q8H Furosemide (Lasix) 40 Mg Tab, 40 MG PO DAILY Levothyroxine Sodium (Synthroid) 50 Mcg Tab, 50 MCG PO DAILY@0600 Rivaroxaban (Xarelto) 20 Mg Tab, 20 MG PO QPM, (Reported) Rosuvastatin (Crestor) 10 Mg Tab, 20 MG PO QHS Scheduled PRN Albuterol Sulfate (Proair Hfa) 108 Mcg/Act Aer, 2 PUFFS INH QID PRN for SHORTNESS OF BREATH, (Reported) Albuterol Sulfate (Albuterol Sulfate) 2.5 Mg/3 Ml Nebu, 1 INH INH QID PRN for SHORTNESS OF BREATH, (Reported) Allergies Coded Allergies: No Known Drug Allergy (Verified Allergy, Unknown, 09/21/17) GME ATTESTATION GME ATTESTATION My faculty preceptor for this patient encounter was physically present during the encounter and was fully available. All aspects of the patient interview, examination, medical decision making process, and medical care plan development were reviewed and approved by the faculty preceptor. The faculty preceptor is aware and concurs with the plan as stated in the body of this note and will attest to such by his/her cosignature. ELIZA ASHRAF DO Aug 14, 2018 09:43
== END 2018-08-13 16:29 | disposition home health service (06) | DRG 64 ==
LOC: M ED 16:00 → M ED INP 21:30 → M PCU 23:54 → M MS4PR 08-09 20:40
PROVIDERS: ADMIT Internal Medicine; ATTEND Internal Medicine Nephrology
DX: I63.542 Cerebral infarction due to unspecified occlusion or stenosis of left cerebellar artery (principal); I50.33 Acute on chronic diastolic (congestive) heart failure; B37.0 Candidal stomatitis; I48.1 Persistent atrial fibrillation; R50.9 Fever, unspecified; R53.81 Other malaise; E87.6 Hypokalemia; I48.2 Chronic atrial fibrillation; E87.5 Hyperkalemia; E03.9 Hypothyroidism, unspecified; I35.0 Nonrheumatic aortic (valve) stenosis; J45.909 Unspecified asthma, uncomplicated; Z96.642 Presence of left artificial hip joint; Z90.710 Acquired absence of both cervix and uterus; Z79.01 Long term (current) use of anticoagulants; Z79.899 Other long term (current) drug therapy

== ENCOUNTER → 2019-01-25 | Outpatient (REF) | payer MEDICARE ==
[~2019-01-25] MED LIST changes: -/DILT60TAB PO; -/MOXI40TA PO; -/WARF25TA PO; +ASPI81TAEC PO; +AVEL1TAB2 PO; +COUM1TAB18 PO; +CRES10TA PO; +DIGO0.12 PO; +DILT1TAB12 PO; +DILT30TA PO; +LEVO50TA5 PO; -POTA20VL PO; +POTA2INJ30 PO; -PRAD150C PO; +PRAD150C6 PO; +PRED-351 PO; -PRED10TA PO
[2019-01-26 12:00] LABS: BASO # 0.1 10^3/uL (0.0-0.2); BASO % 0.9 % (0.0-1.0); EOS # 0.8 10^3/uL (0.0-0.50); EOS % 9.7 % (0.0-3.0); HEMATOCRIT 32.7 % (36.0-47.0); HEMOGLOBIN 9.8 g/dl (12.0-15.5); LYMPH # 1.2 10^3/uL (1.5-4.5); LYMPH % 14.1 % (24.0-44.0); MEAN CORPUSCULAR HEMOGLOBIN 25.5 pg (27.0-33.0); MEAN CORPUSCULAR VOLUME 85.2 fl (80.0-96.0); MONO # 0.6 10^3/uL (0.0-0.8); MONO % 6.9 % (0.0-5.0); NEUTROPHILS # 5.7 10^3/uL (1.8-7.7); NEUTROPHILS % 67.9 % (36.0-66.0); PLATELET COUNT, AUTOMATED 217 10^3/uL (150-450); RED BLOOD COUNT 3.84 10^6/uL (4.00-5.40); WHITE BLOOD COUNT 8.5 10^3/uL (4.0-10.0)
[2019-01-26 12:35] LABS: ALBUMIN 3.3 GM/DL (3.2-5.2); BILIRUBIN,TOTAL 0.4 MG/DL (0.2-1.0); CREATININE FOR GFR 1.02 MG/DL (0.55-1.30); GLOMERULAR FILTRATION RATE 54.4 (>32); POTASSIUM SERUM 3.8 MEQ/L (3.5-5.1); THYROID STIMULATING HORMONE 6.47 uIU/ML (0.358-3.740); TOTAL PROTEIN 6.8 GM/DL (6.4-8.2)
== END ==
LOC: M SFHCCLAY 15:50
PROVIDERS: ATTEND Family Medicine
DX: D64.9 Anemia, unspecified (principal); E03.9 Hypothyroidism, unspecified; I50.32 Chronic diastolic (congestive) heart failure
CPT/HCPCS: 80053; 83540; 84443; 85025; G0463

== ENCOUNTER 2019-05-10 09:08 | Inpatient (IN) | payer MEDICARE ==
[~2019-05-10] VITALS: Ht 160 cm; Wt 52.3 kg
[2019-05-10] MEDS ORDERED: IPRATROPIUM 0.5MG/ALBUTEROL 2.5MG INH SOL UD 3ML (DUONEB)(J7620) NEB ONE ×2 (09:45→13:45)
[2019-05-10 10:06] LABS: VENOUS BASE EXCESS 7.1 (-2.0-2.0); VENOUS HCO3 33.2 MEQ/L (23.0-27.0); VENOUS O2 SATURATION 83.6 % (60.0-80.0); VENOUS PARTIAL PRESSURE CO2 55.4 mmHg (38.0-50.0); VENOUS PARTIAL PRESSURE O2 52.4 mmHg (30.0-50.0); VENOUS PH 7.395 UNITS (7.330-7.430); VENOUS STANDARD HCO3 30.7 MEQ/L; VENOUS TOTAL CO2 34.9 MEQ/L (24.0-28.0)
[2019-05-10 10:12] LABS: BASO # 0.1 10^3/uL (0.0-0.2); EOS # 0.4 10^3/uL (0.0-0.5); EOS % 5.6 % (0.0-3.0); HEMATOCRIT 30.9 % (36.0-47.0); LYMPH # 0.5 10^3/uL (1.5-5.0); LYMPH % 6.8 % (24.0-44.0); MEAN CORPUSCULAR HEMOGLOBIN 23.6 pg (27.0-33.0); MEAN CORPUSCULAR HGB CONC 29.1 g/dl (32.0-36.5); MEAN CORPUSCULAR VOLUME 80.9 fl (80.0-96.0); MONO # 0.6 10^3/uL (0.0-0.8); MONO % 8.9 % (0.0-5.0); NEUTROPHILS # 5.5 10^3/uL (1.5-8.5); NEUTROPHILS % 77.6 % (36.0-66.0); PLATELET COUNT, AUTOMATED 189 10^3/uL (150-450); RED BLOOD COUNT 3.82 10^6/uL (4.00-5.40); WHITE BLOOD COUNT 7.1 10^3/uL (4.0-10.0)
[2019-05-10 10:27] LABS: INR 1.31
[2019-05-10] MEDS ORDERED: ELIQ2.5T PO (10:53)
[2019-05-10] MEDS ORDERED: FURO40TA2 (10:53)
[2019-05-10] MEDS ORDERED: LEVO112T2 PO (10:53)
[2019-05-10] MEDS ORDERED: ROSU20TA5 PO (10:53)
--- NOTE | 2019-05-10 10:55 | REP ---
Portable chest x-ray: Single view. History: Dyspnea and cough. Comparison chest x-ray: August 05, 2018. Findings: EKG monitoring electrodes overlie the chest. The heart is markedly enlarged unchanged from the comparison study. Pleural angles are sharp. No infiltrate is seen. Pulmonary vasculature is not increased. There is no evidence of pulmonary edema. Impression: Marked cardiomegaly again noted. Otherwise no acute disease. Electronically Signed by Kilo Hammer MD 05/10/2019 11:47 A
[2019-05-10 10:57] LABS: ALBUMIN 3.3 GM/DL (3.2-5.2); ALT/SGPT 14 U/L (12-78); BILIRUBIN,DIRECT 0.2 MG/DL (0.0-0.2); BILIRUBIN,TOTAL 0.6 MG/DL (0.2-1.0); BLOOD UREA NITROGEN 20 MG/DL (7-18); CALCIUM LEVEL 8.6 MG/DL (8.8-10.2); CARBON DIOXIDE LEVEL 34 MEQ/L (21-32); CHLORIDE LEVEL 99 MEQ/L (98-107); CK-MB VALUE MASS 2.4 NG/ML (<3.6); CPK CREATINE PHOSPHOKINASE 71 U/L (26-192); CREATININE FOR GFR 0.87 MG/DL (0.55-1.30); GLOMERULAR FILTRATION RATE > 60.0 (>32); GLUCOSE, FASTING 104 MG/DL (70-100); MB/CK RELATIVE INDEX 3.38 (< OR =4); NT-PRO BNP 4991 PG/ML (<450); POTASSIUM SERUM 3.1 MEQ/L (3.5-5.1); SODIUM LEVEL 138 MEQ/L (136-145); THYROID STIMULATING HORMONE 0.055 uIU/ML (0.358-3.740); THYROXINE (T4) 16.5 UG/DL (4.5-12.0); TOTAL PROTEIN 6.2 GM/DL (6.4-8.2)
[2019-05-10] MEDS ORDERED: TUSSICAPS ER 10/8MG CAPSULE PO ONE (12:45)
[2019-05-10 12:52] LABS: TROPONIN I 0.14 NG/ML (< 0.10)
[2019-05-10] MEDS ORDERED: POTASSIUM CHLORIDE 10 MEQ SR TABLET PO ONE (13:00)
[2019-05-10] MEDS ORDERED: ISOVUE-370 76% 100ML VIAL (Q9967) As Ordered ONE (13:20)
[2019-05-10] MEDS ORDERED: predniSONE 20 MG TAB PO ONE (14:45)
[2019-05-10 15:19] LABS: CK-MB VALUE MASS 2.8 NG/ML (<3.6); MB/CK RELATIVE INDEX 3.78 (< OR =4); TROPONIN I 0.14 NG/ML (< 0.10)
[2019-05-10 16:25] VITALS: O2SAT 91
[2019-05-10] MEDS ORDERED: DIGO0.12 PO (17:12)
[2019-05-10] MEDS ORDERED: ASPI-161 PO (17:12)
--- NOTE | 2019-05-10 17:14 | REP ---
CT of the chest with IV contrast, CT pulmonary angiography: Comparison is 08/06/2018. There are no emboli in the pulmonary trunk or central pulmonary arteries. There are no pulmonary artery lobe or segment branch emboli. There are no infiltrates. No pleural effusions. There are no masses or nodules. The cardiac size is enlarged. There is no mediastinal, hilar or axillary lymph node enlargement. The thoracic aorta is unremarkable except for calcified atheroma. There is calcified atheroma in the coronary arteries. Upper abdomen: There is a large cyst occupying almost the entire left lobe of the liver, similar to the prior study. This cyst today measures up to 13.1 cm transversely by 8.0 cm AP. Previously this cyst measured 13.2 cm transversely. There is no adrenal mass. Impression: There are no pulmonary emboli. There are no acute cardiopulmonary findings. There is cardiomegaly, unchanged. Large hepatic cyst, unchanged. Electronically Signed by Familia Leahy MD 05/10/2019 05:06 P
[2019-05-10] MEDS ORDERED: ACETAMINOPHEN TAB 650MG DOSE (2X325MG) PO PRN (17:15)
[2019-05-10] MEDS ORDERED: IPRATROPIUM 0.5MG/ALBUTEROL 2.5MG INH SOL UD 3ML (DUONEB)(J7620) NEB PRN (17:30)
--- NOTE | 2019-05-10 17:52 | HPEPDOC ---
General Date of Admission 05/10/2019 Date of Service: May 10, 2019 Chief Complaint The patient is a 88-year-old female Who presented to the ER with complaints that she is breath History of Present Illness Patient is an 88-year-old female with PMHx of A. fib (on Eliquis), Possible CHF, Hx of CVA (07/2018), DLP, Hypothyroidism, Pulmonary HTN, COPD (not on Home O2), who presents to the ER with complaint of short of breath. Patient has reported that her shortness of breath started yesterday and progressed into today. She notes that she has an associated productive cough with mucus production described as yellowish to light orange without any blood tinge. Patient denies chest pain but does report palpitations with movement. Patient denies nausea, vomiting, abdominal pain, consultation, diarrhea, or urinary discomfort. Patient has not expense any fevers or chills with the last 2 weeks. . She denies any lower extremity swelling, however, does report a prior history of this in the past. Patient reports a poor appetite and has reported a weight loss of approximately 13 pounds over the last 2-3 weeks. Patient does not have a history of heart attacks, but has reported history of stroke last year. Home Medications Scheduled Albuterol Sulf (Albuterol Sulfate) 2.5 Mg/3 Ml Nebu, 1 INH INH QID, (Reported) Apixaban (Eliquis) 2.5 Mg Tablet, 2.5 MG PO BID, (Reported) Aspirin (Aspirin EC) 81 Mg Tablet.dr, 81 MG PO DAILY, (Reported) Digoxin (Digoxin) 125 Mcg Tablet, 125 MCG PO DAILY, (Reported) Levothyroxine Sodium (Levothyroxine Sodium) 112 Mcg Tablet, 112 MCG PO DAILY, (Reported) Rosuvastatin Calcium (Rosuvastatin Calcium) 20 Mg Tablet, 20 MG PO DAILY, (Reported) Scheduled PRN Albuterol Sulfate (Proair Hfa) 108 Mcg/Act Aer, 2 PUFFS INH QID PRN for SHORTNESS OF BREATH, (Reported) Miscellaneous Medications Furosemide (Furosemide) 40 Mg Tablet, (Reported) Allergies Coded Allergies: No Known Allergies (Unverified , 05/10/19) Past Medical History Medical History A. 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 Bilateral upper and lower lung reid. No evidence of rhonchi or crackles - Abdomen: Soft, Non-distended, Non-tender - Extremities: No lower extremity edema, No calf tenderness - Neuro: No focal motor or sensory deficit - Skin: No visible rashes Laboratory Data Labs 24H Laboratory Tests 2 05/10/19 09:34: Immature Granulocyte % (Auto) 0.1, White Blood Count 7.1, Red Blood Count 3.82L, Hemoglobin 9.0L, Hematocrit 30.9L, Mean Corpuscular Volume 80.9, Mean Corpuscu lar Hemoglobin 23.6L, Mean Corpuscular Hemoglobin Concent 29.1L, Red Cell Distribution Width 17.0H, Platelet Count 189, Neutrophils (%) (Auto) 77.6H, Lymphocytes (%) (Auto) 6.8L, Monocytes (%) (Auto) 8.9H, Eosinophils (%) (Auto) 5.6H, Basophils (%) (Auto) 1.0, Neutrophils # (Auto) 5.5, Lymphocytes # (Auto) 0.5L, Monocytes # (Auto) 0.6, Eosinophils # (Auto) 0.4, Basophils # (Auto) 0.1, Nucleated Red Blood Cells % (auto) 0.0, Blood Gas Bicarbonate Standard 30.7, Venous Blood pH 7.395, Venous Blood Partial Pressure CO2 55.4H, Venous Blood Partial Pressure O2 52.4H, Venous Blood Total Carbon Dioxide 34.9H, Venous Blood HCO3 33.2H, Venous Blood Oxygen Saturation 83.6H, Venous Blood Base Excess 7.1H, Anion Gap 5L, Glomerular Filtration Rate > 60.0, Lactic Acid Level 1.1, Calcium Level 8.6L, Aspartate Amino Transf (AST/SGOT) 17, Alanine Aminotransferase (ALT/SGPT) 14, Alkaline Phosphatase 98, Total Bilirubin 0.6, Direct Bilirubin 0.2, Total Creatine Kinase 71, Creatine Kinase MB 2.4, Creatine Kinase MB Relative Index 3.38, Troponin I 0.14H, PW-Orf-U-Type Natriuretic Peptide 4991H, Total Protein 6.2L, Albumin 3.3, Albumin/Globulin Ratio 1.14, Thyroid Stimulating Hormone (TSH) 0.055L, Thyroxine (T4) 16.5H, Digoxin Level 1.0 05/10/19 09:59: Prothrombin Time 16.0H, Prothromb Time International Ratio 1.31 05/10/19 14:37: Total Creatine Kinase 74, Creatine Kinase MB 2.8, Creatine Kinase MB Relative Index 3.78, Troponin I 0.14H CBC/BMP Laboratory Tests 05/10/19 09:34 Red Blood Count 3.82 L, Mean Corpuscular Volume 80.9, Mean Corpuscular Hemoglobin 23.6 L, Mean Corpuscular Hemoglobin Concent 29.1 L, Red Cell Distribution Width 17.0 H, Neutrophils (%) (Auto) 77.6 H, Lymphocytes (%) (Auto) 6.8 L, Monocytes (%) (Auto) 8.9 H, Eosinophils (%) (Auto) 5.6 H, Basophils (%) (Auto) 1.0, Neutrophils # (Auto) 5.5, Lymphocytes # (Auto) 0.5 L, Monocytes # (Auto) 0.6, Eosinophils # (Auto) 0.4, Basophils # (Auto) 0.1 Microbiology Microbiology 05/10/19 Respiratory Virus Panel (PCR) (PACO) - Final, Complete Human Rhinovirus/Enterovirus 05/10/19 Blood Culture, Received Pending Echocardiogram - ECHO 07/2018: 1. Normal global left ventricular systolic function. 2. Aortic valve sclerosis with trace aortic regurgitation and probably moderate aortic stenosis. 3. Mitral annulus calcification with mildly enlarged left atrium and mild to moderate mitral regurgitation. 4. Moderate tricuspid regurgitation with mild pulmonary hypertension and dilated right atrium. Assessment of the pulmonary artery pressure is probably underestimated. 5. Trace pericardial effusion; no evidence of cardiac tamponade. 6. Not mentioned above, a liver cyst was noted and this was compared with prior echocardiogram; no remarkable changes. RAD Interpretation STUDY: CXR (- CXR 05/10: Marked cardiomegaly again noted. Otherwise no acute disease.) STUDY: CT Chest (- CTA Chest 05/10: There are no pulmonary emboli. There are no acute cardiopulmonary findings. There is cardiomegaly, unchanged. Large hepatic cyst, unchanged.) Plan / VTE VTE Prophylaxis Ordered?: Yes Plan Plan Short of breath - likely 2/2 acute exacerbation of COPD - likely 2/2 Rhinovirus - Patient has presented to the emergency room with a one-day history of shortness of breath, associate with a productive cough - His ago reveals diffuse wheezing at bilateral lung reid - Respiratory panel. 05/10: Positive for rhinovirus - Venous blood gas noted with mild elevation of PCO2; PTH is within normal limits - CXR / CTA without any infiltrates / emboli - Will start DuoNeb and Solu-Medrol Elevated troponin - Currently patient denies any chest pain or palpitations. She notes that her shortness of breath has improved from the point arrival to the emergency room - Troponin was elevated at 934; repeat at 1437 was the same - Well continue to trend troponin - EKG was reviewed and does indicate some ischemic change - Discussed EKG findings with Dr. Solares; prior EKGs from 02/2019 revealed deep T-wave inversions in leads V4-6 and down-slopping ST segment depressions - Will continue to trend EKGs - c/w telemetry monitoring A. fib - Digoxin level was noted to be appropriate - c/w rate / rhythm control with Digoxin - c/w full anticoagulation with Eliquis) Compensated CHF, Possibly diastolic / Pulmonary HTN - Currently, patient does not exhibit any signs of fluid overload - BNP is noted to be elevated - Imaging is without any signs of fluid overload - ECHO 07/2018: noted above; preserved EF, unable to evaluate diastolic function - Will verify and continue with diuretic therapy Hx of CVA (07/2018) - c/w ASA 81 and Rosuvastatin DLP - c/w Rosuvastatin Hypothyroidism - Thyroid function was appreciated; TSH suppressed - Will reduce dose of levothyroxine DVT prophylaxis - c/w full anticoagulation with MARYANN Shaw MD May 10, 2019 17:51
[2019-05-10] MEDS ORDERED: methylPREDNISolone INJ 125 MG/2 ML VIAL (J2930) IV ONE (18:00)
[2019-05-10 20:24] VITALS: BP 165/83
--- NOTE | 2019-05-10 20:54 | ECGEPIP ---
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
[2019-05-10] MEDS ORDERED: SLF 3 ML SYR IV PRN (21:00)
--- NOTE | 2019-05-10 21:01 | ECGEPIP ---
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
[2019-05-10] MEDS: IPRATROPIUM 0.5MG/ALBUTEROL 2.5MG INH SOL UD 3ML (DUONEB)(J7620) NEB SCH (21:10)
[2019-05-10] MEDS: APIXABAN 2.5 MG TAB (ELIQUIS) PO SCH (21:16)
[2019-05-10] MEDS: SLF 3 ML SYR IV SCH (21:17)
[2019-05-10 21:40] LABS: CK-MB VALUE MASS 2.8 NG/ML (<3.6); MB/CK RELATIVE INDEX 3.46 (< OR =4); TROPONIN I 0.13 NG/ML (< 0.10)
[2019-05-10 23:59] VITALS: BP 135/78
[2019-05-11] MEDS ORDERED: methylPREDNISolone INJ 40 MG/1 ML VIAL (J2920) IV SCH (02:00)
[2019-05-11 03:24] LABS: HEMATOCRIT 28.8 % (36.0-47.0); HEMOGLOBIN 8.5 g/dl (12.0-15.5); LYMPH % 5.7 % (24.0-44.0); MEAN CORPUSCULAR HEMOGLOBIN 23.6 pg (27.0-33.0); MEAN CORPUSCULAR HGB CONC 29.5 g/dl (32.0-36.5); MONO # 0.1 10^3/uL (0.0-0.8); MONO % 1.4 % (0.0-5.0); NEUTROPHILS # 3.9 10^3/uL (1.5-8.5); NEUTROPHILS % 92.7 % (36.0-66.0); PLATELET COUNT, AUTOMATED 184 10^3/uL (150-450); WHITE BLOOD COUNT 4.2 10^3/uL (4.0-10.0)
[2019-05-11 03:28] LABS: LYMPH # 0.2 10^3/uL (1.5-5.0)
[2019-05-11 03:57] LABS: CK-MB VALUE MASS 2.6 NG/ML (<3.6); CPK CREATINE PHOSPHOKINASE 59 U/L (26-192); MB/CK RELATIVE INDEX 4.41 (< OR =4); TROPONIN I 0.11 NG/ML (< 0.10)
[2019-05-11 04:00] VITALS: BP 132/65
[2019-05-11 04:42] LABS: BLOOD UREA NITROGEN 21 MG/DL (7-18); CALCIUM LEVEL 8.6 MG/DL (8.8-10.2); CARBON DIOXIDE LEVEL 31 MEQ/L (21-32); CHLORIDE LEVEL 102 MEQ/L (98-107); CREATININE FOR GFR 0.84 MG/DL (0.55-1.30); GLOMERULAR FILTRATION RATE > 60.0 (>32); GLUCOSE, FASTING 168 MG/DL (70-100); MAGNESIUM LEVEL 2.5 MG/DL (1.8-2.4); POTASSIUM SERUM 3.7 MEQ/L (3.5-5.1); SODIUM LEVEL 141 MEQ/L (136-145)
[2019-05-11] MEDS: SLF 3 ML SYR IV SCH ×3 (06:07→21:28)
[2019-05-11] MEDS: LEVOTHYROXINE 88MCG TABLET (0.088 MG) PO SCH (06:07)
[2019-05-11] MEDS: IPRATROPIUM 0.5MG/ALBUTEROL 2.5MG INH SOL UD 3ML (DUONEB)(J7620) NEB SCH ×4 (07:17→21:04)
[2019-05-11] MEDS: ROSUVASTATIN 10 MG TAB (CRESTOR) PO SCH (07:59)
[2019-05-11] MEDS: ASPIRIN 81 MG ENTERIC TAB PO SCH (07:59)
[2019-05-11 08:00] VITALS: BP 143/91
[2019-05-11] MEDS: DIGOXIN 0.125 MG TAB PO SCH (08:00)
[2019-05-11] MEDS: APIXABAN 2.5 MG TAB (ELIQUIS) PO SCH ×2 (08:00→21:28)
[2019-05-11 12:00] VITALS: BP 122/58
--- NOTE | 2019-05-11 12:25 | IPNPDOC ---
Text Note Date of Service The patient was seen on 05/11/19. NOTE Subjective: Patient is an 88-year-old female with PMHx of A. fib (on Eliquis), Possible CHF, Hx of CVA (07/2018), DLP, Hypothyroidism, Pulmonary HTN, COPD (not on Home O2), who presents to the ER with complaint of short of breath. Patient has reported that her shortness of breath started yesterday and progressed into today. She notes that she has an associated productive cough with mucus production described as yellowish to light orange without any blood tinge. Patient denies chest pain but does report palpitations with movement. Patient was seen and examined at the bedside. Notes that she is feeling significantly better. She reports no significant SOB, CP or palpitations. Denies N/V, abdominal pain, diarrhea or dysuria. Still reports wheezing. Objective: Vitals (See below) General: Lying in bed, no acute distress, comfortable, AAOx3 HEENT: NC, AT CVS: RRR, +S1S2 Lungs: Fair air entry b/l, + wheezing b/l, no rhonchi / rales Abdomen: Soft, ND, NT Extremities: No evidence of LE edema, - Calf tenderness Imaging: - ECHO 07/2018: 1. Normal global left ventricular systolic function. 2. Aortic valve sclerosis with trace aortic regurgitation and probably moderate aortic stenosis. 3. Mitral annulus calcification with mildly enlarged left atrium and mild to moderate mitral regurgitation. 4. Moderate tricuspid regurgitation with mild pulmonary hypertension and dilated right atrium. Assessment of the pulmonary artery pressure is probably underestimated. 5. Trace pericardial ef fusion; no evidence of cardiac tamponade. 6. Not mentioned above, a liver cyst was noted and this was compared with prior echocardiogram; no remarkable changes. - CXR 05/10: Marked cardiomegaly again noted. Otherwise no acute disease. - CTA Chest 05/10: There are no pulmonary emboli. There are no acute cardiopulmonary findings. There is cardiomegaly, unchanged. Large hepatic cyst, unchanged. Assessment and plan: Short of breath - likely 2/2 acute exacerbation of COPD - likely 2/2 Rhinovirus - Clinically patient reports improvement in breathing - Physical with persistent wheezing noted - Respiratory panel. 05/10: Positive for rhinovirus - Venous blood gas noted with mild elevation of PCO2; PTH is within normal limits - CXR / CTA without any infiltrates / emboli - c/w DuoNeb and Solu-Medrol; will reduce dose and frequency Elevated troponin - Denies CP, SOB or palpitations - Troponin has remained stable - highest at 0.14 - EKG was reviewed and does indicate some ischemic change - Discussed EKG findings with Dr. Solares; prior EKGs from 02/2019 revealed deep T-wave inversions in leads V4-6 and down-slopping ST segment depressions - c/w telemetry monitoring A. fib - Digoxin level was noted to be appropriate - c/w rate / rhythm control with Digoxin - c/w full anticoagulation with Eliquis Compensated CHF, Possibly diastolic / Pulmonary HTN - Currently, patient does not exhibit any signs of fluid overload - BNP is noted to be elevated - Imaging is without any signs of fluid overload - ECHO 07/2018: noted above; preserved EF, unable to evaluate diastolic function - c/w diuretic therapy Hx of CVA (07/2018) - c/w ASA 81 and Rosuvastatin DLP - c/w Rosuvastatin Hypothyroidism - Thyroid function was appreciated; TSH suppressed - c/w reduced dose of levothyroxine DVT prophylaxis - c/w full anticoagulation with Eliquis VS,Fishbone, I+O VS, Fishbone, I+O Laboratory Tests 05/11/19 03:17 Red Blood Count 3.60 L, Mean Corpuscular Volume 80.0, Mean Corpuscular Hemoglobin 23.6 L, Mean Corpuscular Hemoglobin Concent 29.5 L, Red Cell Distribution Width 16.8 H, Neutrophils (%) (Auto) 92.7 H, Lymphocytes (%) (Auto) 5.7 L, Monocytes (%) (Auto) 1.4, Eosinophils (%) (Auto) 0.0, Basophils (%) (Auto) 0.0, Neutrophils # (Auto) 3.9, Lymphocytes # (Auto) 0.2 L, Monocytes # (Auto) 0.1, Eosinophils # (Auto) 0.0, Basophils # (Auto) 0.0, Calcium Level 8.6 L, Total Creatine Kinase 59 Vital Signs Date Time Temp Pulse Resp B/P (MAP) Pulse Ox O2 Delivery O2 Flow Rate FiO2 05/11/19 08:00 97.0 86 20 143/91 (108) 96 05/10/19 19:54 Room Air I&O- Last 24 Hours up to 6 AM 05/11/19 06:00 Intake Total 120 ml Output Total 230 ml Balance -110 ml MARYANN FERREIRA MD May 11, 2019 12:25
[2019-05-11] MEDS: methylPREDNISolone INJ 40 MG/1 ML VIAL (J2920) IV SCH (14:15)
[2019-05-11 16:00] VITALS: BP 129/86
[2019-05-11 20:00] VITALS: BP 128/84
[2019-05-12] VITALS: BP 120/59
--- NOTE | 2019-05-12 00:29 | ECGEPIP ---
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
[2019-05-12] MEDS: methylPREDNISolone INJ 40 MG/1 ML VIAL (J2920) IV SCH (03:21)
[2019-05-12 04:00] VITALS: BP 122/58
[2019-05-12] MEDS: SLF 3 ML SYR IV SCH ×2 (05:22→12:45)
[2019-05-12] MEDS: LEVOTHYROXINE 88MCG TABLET (0.088 MG) PO SCH (05:22)
[2019-05-12 05:38] LABS: BASO % 0.1 % (0.0-1.0); HEMATOCRIT 28.2 % (36.0-47.0); HEMOGLOBIN 8.5 g/dl (12.0-15.5); LYMPH # 0.3 10^3/uL (1.5-5.0); LYMPH % 2.7 % (24.0-44.0); MEAN CORPUSCULAR HEMOGLOBIN 23.8 pg (27.0-33.0); MEAN CORPUSCULAR HGB CONC 30.1 g/dl (32.0-36.5); MONO # 0.5 10^3/uL (0.0-0.8); MONO % 4.1 % (0.0-5.0); NEUTROPHILS # 11.6 10^3/uL (1.5-8.5); NEUTROPHILS % 92.5 % (36.0-66.0); PLATELET COUNT, AUTOMATED 202 10^3/uL (150-450); RED BLOOD COUNT 3.57 10^6/uL (4.00-5.40); WHITE BLOOD COUNT 12.5 10^3/uL (4.0-10.0)
[2019-05-12 05:53] LABS: CALCIUM LEVEL 8.6 MG/DL (8.8-10.2); CREATININE FOR GFR 0.94 MG/DL (0.55-1.30); GLOMERULAR FILTRATION RATE 59.8 (>32); MAGNESIUM LEVEL 2.6 MG/DL (1.8-2.4); POTASSIUM SERUM 3.6 MEQ/L (3.5-5.1)
[2019-05-12 07:49] VITALS: BP 145/78
[2019-05-12] MEDS: DIGOXIN 0.125 MG TAB PO SCH (07:59)
[2019-05-12] MEDS: ROSUVASTATIN 10 MG TAB (CRESTOR) PO SCH (07:59)
[2019-05-12] MEDS: ASPIRIN 81 MG ENTERIC TAB PO SCH (07:59)
[2019-05-12] MEDS: APIXABAN 2.5 MG TAB (ELIQUIS) PO SCH (07:59)
[2019-05-12] MEDS: IPRATROPIUM 0.5MG/ALBUTEROL 2.5MG INH SOL UD 3ML (DUONEB)(J7620) NEB SCH ×2 (08:17→11:50)
[2019-05-12] MEDS ORDERED: FLUBLOK(EGG FREE)(QUAD)INFLUENZA VACC 0.5ML SYRINGE (90682)18YRS&OLDER IM ONE (09:00)
[2019-05-12] MEDS ORDERED: FUROSEMIDE 40 MG TAB PO SCH (09:00)
[2019-05-12] MEDS ORDERED: PRED10TA2 PO (10:08)
[2019-05-12] MEDS ORDERED: SYNT88TA2 PO (10:08)
--- NOTE | 2019-05-12 11:08 | DS.PDOC ---
Discharge Summary General Date of Admission May 10, 2019 at 17:12 Date of Discharge 05/12/2019 Discharge Summary PROCEDURES PERFORMED DURING STAY: [None]. ADMITTING DIAGNOSES / DISCHARGE DIAGNOSES: Short of breath - likely 2/2 acute exacerbation of COPD - likely 2/2 Rhinovirus Elevated troponin - possibly 2/2 demand ischemia (NSTEMI Type II) A. fib Compensated CHF, Possibly diastolic / Pulmonary HTN Hx of CVA (07/2018) DLP Hypothyroidism DVT prophylaxis COMPLICATIONS/CHIEF COMPLAINT: Shortness Of Breath HISTORY OF PRESENT ILLNESS: Patient is an 88-year-old female with PMHx of A. fib (on Eliquis), Possible CHF, Hx of CVA (07/2018), DLP, Hypothyroidism, Pulmonary HTN, COPD (not on Home O2), who presents to the ER with complaint of short of breath. Patient has reported that her shortness of breath started yesterday and progressed into today. She notes that she has an associated productive cough with mucus production described as yellowish to light orange without any blood tinge. Patient denies chest pain but does report palpitations with movement. HOSPITAL COURSE: Short of breath - likely 2/2 acute exacerbation of COPD - likely 2/2 Rhinovirus - Patient reports that her breathing is doing significantly better, has cleared evaluation - Physical with improvement in wheezing noted - Respiratory panel. 05/10: Positive for rhinovirus - Venous blood gas noted with mild elevation of PCO2; PTH is within normal limits - CXR / CTA without any infiltrates / emboli - Will start Prednisone and continue with the taper as an outpatient; s/p Solumedrol - c/w DuoNeb and Solu-Medrol Elevated troponin - possibly 2/2 demand ischemia (NSTEMI Type II) - Denies CP, SOB or palpitations - Troponin has remained stable - highest at 0.14 - EKG was reviewed and does indicate some ischemic change - Discussed EKG findings with Dr. Solares; prior EKGs from 02/2019 revealed deep T-wave inversions in leads V4-6 and down-slopping ST segment depressions - c/w telemetry monitoring - c/w ASA 81 A. fib - Digoxin level was noted to be appropriate - c/w rate / rhythm control with Digoxin - c/w full anticoagulation with Eliquis Compensated CHF, Possibly diastolic / Pulmonary HTN - Currently, patient does not exhibit any signs of fluid overload - BNP is noted to be elevated - Imaging is without any signs of fluid overload - ECHO 07/2018: noted above; preserved EF, unable to evaluate diastolic function - c/w diuretic therapy Hx of CVA (07/2018) - c/w ASA 81 and Rosuvastatin DLP - c/w Rosuvastatin Hypothyroidism - Thyroid function was appreciated; TSH suppressed - c/w reduced dose of levothyroxine - will continue with reduced dose as an outpatient DVT prophylaxis - c/w full anticoagulation with Eliquis DISCHARGE MEDICATIONS: Please see below. ALLERGIES: Please see below. PHYSICAL EXAMINATION ON DISCHARGE: Vitals (See below) General: Lying in bed, no acute distress, comfortable, AAOx3 HEENT: NC, AT CVS: +S1S2 Lungs: Fair air entry b/l, appreciable rhonchi or crackles. Mild wheezing appreciated bilaterally Abdomen: Soft, nondistended and nontender Extremities: LE are without any edema, - Calf tenderness LABORATORY DATA: Please see below. IMAGING: - ECHO 07/2018: 1. Normal global left ventricular systolic function. 2. Aortic valve sclerosis with trace aortic regurgitation and probably moderate aortic stenosis. 3. Mitral annulus calcification with mildly enlarged left atrium and mild to moderate mitral regurgitation. 4. Moderate tricuspid regurgitation with mild pulmonary hypertension and dilated right atrium. Assessment of the pulmonary artery pressure is probably underestimated. 5. Trace pericardial effusion; no evidence of cardiac tamponade. 6. Not mentioned above, a liver cyst was noted and this was compared with prior echocardiogram; no remarkable changes. - CXR 05/10: Marked cardiomegaly again noted. Otherwise no acute disease. - CTA Chest 05/10: There are no pulmonary emboli. There are no acute cardiopulmonary findings. There is cardiomegaly, unchanged. Large hepatic cyst, unchanged. ACTIVITY: [As tolerated]. DISCHARGE PLAN: Please follow-up with Dr. Panfilo Buckley and Dr. Roberts within the next 7 days Remain compliant with treatment plan and medications Return to the ER if you experience any problems DISPOSITION: Home DISCHARGE CONDITION: [Stable]. TIME SPENT ON DISCHARGE: 35 minutes Vital Signs/I&Os Vital Signs Date Time Temp Pulse Resp B/P (MAP) Pulse Ox O2 Delivery O2 Flow Rate FiO2 05/12/19 08:17 Room Air 05/12/19 07:59 84 05/12/19 07:49 97.5 18 145/78 (100) 95 I&O- Last 24 Hours up to 6 AM 05/12/19 06:00 Intake Total 750 ml Output Total 550 ml Balance 200 ml Laboratory Data Labs 24H Laboratory Tests 2 05/12/19 05:22: Immature Granulocyte % (Auto) 0.6, White Blood Count 12.5H, Red Blood Count 3.57L, Hemoglobin 8.5L, Hematocrit 28.2L, Mean Corpuscular Volume 79.0L, Mean Corpuscular Hemoglobin 23.8L, Mean Corpuscular Hemoglobin Concent 30.1L, Red Cell Distribution Width 17.1H, Platelet Count 202, Neutrophils (%) (Auto) 92.5H, Lymphocytes (%) (Auto) 2.7L, Monocytes (%) (Auto) 4.1, Eosinophils (%) (Auto) 0.0, Basophils (%) (Auto) 0.1, Neutrophils # (Auto) 11.6H, Lymphocytes # (Auto) 0.3L, Monocytes # (Auto) 0.5, Eosinophils # (Auto) 0.0, Basophils # (Auto) 0.0, Nucleated Red Blood Cells % (auto) 0.0, Anion Gap 6L, Glomerular Filtration Rate 59.8, Blood Urea Nitrogen 28H, Creatinine 0.94, Sodium Level 138, Potassium Level 3.6, Chloride Level 102, Carbon Dioxide Level 30, Calcium Level 8.6L, Magnesium Level 2.6H CBC/BMP Laboratory Tests 05/12/19 05:22 Red Blood Count 3.57 L, Mean Corpuscular Volume 79.0 L, Mean Corpuscular Hemoglobin 23.8 L, Mean Corpuscular Hemoglobin Concent 30.1 L, Red Cell Distribution Width 17.1 H, Neutrophils (%) (Auto) 92.5 H, Lymphocytes (%) (Auto) 2.7 L, Monocytes (%) (Auto) 4.1, Eosinophils (%) (Auto) 0.0, Basophils (%) (Auto) 0.1, Neutrophils # (Auto) 11.6 H, Lymphocytes # (Auto) 0.3 L, Monocytes # (Auto) 0.5, Eosinophils # (Auto) 0.0, Basophils # (Auto) 0.0, Calcium Level 8.6 L Microbiology Microbiology 05/10/19 Respiratory Virus Panel (PCR) (PACO) - Final, Complete Human Rhinovirus/Enterovirus 05/10/19 Blood Culture - Preliminary, Resulted No Growth after 48 hours. All Specime... Discharge Medications Scheduled Albuterol Sulf (Albuterol Sulfate) 2.5 Mg/3 Ml Nebu, 1 INH INH QID, (Reported) Apixaban (Eliquis) 2.5 Mg Tablet, 2.5 MG PO BID, (Reported) Aspirin (Aspirin EC) 81 Mg Tablet.dr, 81 MG PO DAILY, (Reported) Digoxin (Digoxin) 125 Mcg Tablet, 125 MCG PO DAILY, (Reported) Levothyroxine Sodium (Synthroid) 88 Mcg Tablet, 88 MCG PO DAILY@06 Prednisone (Prednisone) 10 Mg Tablet, 10 MG PO TAPER Take 4 tabs daily x 3 days, then 3 tabs daily x 3 days, then 2 tabs daily x 3 days, then 1 tab daily x 3 days and stop Rosuvastatin Calcium (Rosuvastatin Calcium) 20 Mg Tablet, 20 MG PO DAILY, (Reported) Scheduled PRN Albuterol Sulfate (Proair Hfa) 108 Mcg/Act Aer, 2 PUFFS INH QID PRN for SHORTNESS OF BREATH, (Reported) Miscellaneous Medications Furosemide (Furosemide) 40 Mg Tablet, (Reported) Allergies Coded Allergies: No Known Allergies (Unverified , 05/10/19) MARYANN FERREIRA MD May 12, 2019 11:08
== END 2019-05-12 12:53 | disposition home or self-care (01) | DRG 190 ==
LOC: M ED 09:08 → M ED INP 17:12 → M PCU 20:03
PROVIDERS: ADMIT Internal Medicine; ATTEND Internal Medicine
DX: J44.1 Chronic obstructive pulmonary disease with (acute) exacerbation (principal); I21.A1 Myocardial infarction type 2; I50.32 Chronic diastolic (congestive) heart failure; I48.91 Unspecified atrial fibrillation; E03.9 Hypothyroidism, unspecified; I27.20 Pulmonary hypertension, unspecified; E78.5 Hyperlipidemia, unspecified; B34.8 Other viral infections of unspecified site; Z86.73 Personal history of transient ischemic attack (TIA), and cerebral infarction without residual deficits; Z79.01 Long term (current) use of anticoagulants; Z79.82 Long term (current) use of aspirin; Z79.899 Other long term (current) drug therapy; Z96.642 Presence of left artificial hip joint; Z98.41 Cataract extraction status, right eye; Z98.42 Cataract extraction status, left eye; Z90.710 Acquired absence of both cervix and uterus; Z87.891 Personal history of nicotine dependence

== ENCOUNTER → 2019-05-27 | Outpatient (REF) | payer MEDICARE ==
[~2019-05-27] MED LIST changes: +ASPI-161 PO; -AZIT500T2; +AZIT500T5; -DOXY100T16 PO; +DOXY100T27 PO; +ELIQ2.5T PO; +FURO40TA2; +LEVO112T2 PO; +ROSU20TA5 PO; +SYNT88TA2 PO
[2019-05-27 12:16] LABS: BASO % 0.2 % (0.0-1.0); EOS # 0.1 10^3/uL (0.0-0.5); EOS % 0.7 % (0.0-3.0); HEMATOCRIT 36.2 % (36.0-47.0); HEMOGLOBIN 10.9 g/dl (12.0-15.5); LYMPH # 0.9 10^3/uL (1.5-5.0); LYMPH % 9.7 % (24.0-44.0); MEAN CORPUSCULAR HGB CONC 30.1 g/dl (32.0-36.5); MEAN CORPUSCULAR VOLUME 79.7 fl (80.0-96.0); MONO # 0.7 10^3/uL (0.0-0.8); NEUTROPHILS # 7.9 10^3/uL (1.5-8.5); PLATELET COUNT, AUTOMATED 245 10^3/uL (150-450); RED BLOOD COUNT 4.54 10^6/uL (4.00-5.40); WHITE BLOOD COUNT 9.7 10^3/uL (4.0-10.0)
[2019-05-27 12:40] LABS: FOLATE 9.1 NG/ML (>5.4)
== END ==
LOC: M SFHCCLAY 08:17
PROVIDERS: ATTEND Family Medicine
DX: D64.9 Anemia, unspecified (principal)

== ENCOUNTER 2019-06-09 15:38 | Inpatient (IN) | payer MEDICARE ==
[~2019-06-09] VITALS: Ht 162.6 cm; Wt 54.1 kg
[~2019-06-09 15:38] MED LIST changes: -FURO40TA2
[2019-06-09] MEDS ORDERED: NS 500 ML IV ONE ×2 (16:30→18:15)
[2019-06-09 17:01] LABS: BASO % 0.2 % (0.0-1.0); EOS % 0.1 % (0.0-3.0); HEMATOCRIT 41.5 % (36.0-47.0); HEMOGLOBIN 12.7 g/dl (12.0-15.5); LYMPH # 0.5 10^3/uL (1.5-5.0); LYMPH % 5.3 % (24.0-44.0); MEAN CORPUSCULAR HEMOGLOBIN 24.6 pg (27.0-33.0); MEAN CORPUSCULAR HGB CONC 30.6 g/dl (32.0-36.5); MEAN CORPUSCULAR VOLUME 80.3 fl (80.0-96.0); MONO # 0.8 10^3/uL (0.0-0.8); MONO % 8.1 % (0.0-5.0); NEUTROPHILS # 8.3 10^3/uL (1.5-8.5); NEUTROPHILS % 85.9 % (36.0-66.0); PLATELET COUNT, AUTOMATED 229 10^3/uL (150-450); RED BLOOD COUNT 5.17 10^6/uL (4.00-5.40); WHITE BLOOD COUNT 9.6 10^3/uL (4.0-10.0)
[2019-06-09 17:27] LABS: INFLUENZA A AMPLIFICATION NEGATIVE (NEGATIVE); INFLUENZA B AMPLIFICATION NEGATIVE (NEGATIVE)
[2019-06-09 17:49] LABS: ALBUMIN 3.1 GM/DL (3.2-5.2); BILIRUBIN,DIRECT 0.3 MG/DL (0.0-0.2); BILIRUBIN,TOTAL 0.8 MG/DL (0.2-1.0); CALCIUM LEVEL 8.2 MG/DL (8.8-10.2); CK-MB VALUE MASS 15.2 NG/ML (<3.6); CREATININE FOR GFR 2.84 MG/DL (0.55-1.30); DIGOXIN LEVEL 2.5 NG/ML (0.5-2.0); GLOMERULAR FILTRATION RATE 16.7 (>32); MB/CK RELATIVE INDEX 10.78 (< OR =4); POTASSIUM SERUM 2.8 MEQ/L (3.5-5.1); THYROID STIMULATING HORMONE 0.107 uIU/ML (0.358-3.740); TROPONIN I 2.57 NG/ML (< 0.10)
--- NOTE | 2019-06-09 17:56 | REP ---
Portable chest x-ray: Sitting AP view. History: Dyspnea and cough. Comparison chest x-ray: May 10, 2019. Findings: There is moderate to marked cardiomegaly again noted unchanged. EKG electrodes are seen. Pulmonary vasculature is not increased. No pleural effusion seen. Impression: Moderate to marked cardiomegaly. Otherwise no acute disease. Electronically Signed by Kilo Hammer MD 06/09/2019 06:01 P
[2019-06-09] MEDS ORDERED: POTASSIUM CHLORIDE 10 MEQ SR TABLET PO ONE (18:30)
[2019-06-09] MEDS ORDERED: SYNT88TA2 PO (18:44)
[2019-06-09] MEDS ORDERED: FURO40TA2 PO (18:44)
[2019-06-09] MEDS ORDERED: COMMENTS (18:58)
[2019-06-09] MEDS ORDERED: ACETAMINOPHEN TAB 650MG DOSE (2X325MG) PO PRN (19:15)
[2019-06-09] MEDS: KCL 40MEQ in NS 1000ML 1,000 ML IV SCH (19:50)
[2019-06-09] MEDS: ALBUTEROL SULFATE 2.5 MG/0.5 ML INH NEB SOLN INH SCH (20:00)
[2019-06-09] MEDS ORDERED: HEPARIN DRIP 25,000 UNITS in IV 1 EA IV SCH (20:14)
[2019-06-09] MEDS ORDERED: HEPARIN SOD (PORCINE) 5000 UNITS/ML VIAL IV STA (20:14)
--- NOTE | 2019-06-09 20:14 | HPEPDOC ---
General Date of Admission Jun 09, 2019 at 18:19 Date of Service: Jun 09, 2019 Primary Care Physician: Panfilo Buckley Chief Complaint The patient is a 88-year-old female admitted with a reason for visit of Afib Chronic Diastolic Heart Failure Hypokalemia. Source: Patient, Family, Old records Exam Limitations: No limitations Timing/Duration: Week(s), Getting worse Severity: Severe Associated Symptoms: Loss of appetite History of Present Illness This is an 88-year-old female who was brought into the hospital by family out of concern for her lack of eating and drinking. This has actually been going on for quite some time. She has become weaker and weaker and is intolerant of ambulation today. They state she did not drink anything today until she came to the ER. The patient denies any nausea, vomiting or abdominal pain. She does not have difficulty swallowing and has not had any choking episodes. She states that at times her mouth is dry. She states that she simply does not have an appetite. Family member states that at times she makes comments about "getting fat". Family notes a weight loss, at least over the past year of about 23 pounds. Although the patient was not eating and drinking, she was taking her medications fairly consistently. Home Medications Scheduled Albuterol Sulf (Albuterol Sulfate) 2.5 Mg/3 Ml Nebu, 1 INH INH QID, (Reported) Apixaban (Eliquis) 2.5 Mg Tablet, 2.5 MG PO DAILY, (Reported) Digoxin (Digoxin) 125 Mcg Tablet, 125 MCG PO DAILY, (Reported) AFTERNOON Furosemide (Furosemide) 40 Mg Tablet, 40 MG PO Q2D, (Reported) Furosemide (Furosemide) 40 Mg Tablet, 80 MG PO Q2D, (Reported) alternate with 40mg Levothyroxine Sodium (Synthroid) 88 Mcg Tablet, 88 MCG PO DAILY, (Reported) Rosuvastatin Calcium (Rosuvastatin Calcium) 20 Mg Tablet, 20 MG PO QPM, (Reported) Scheduled PRN Albuterol Sulfate (Proair Hfa) 108 Mcg/Act Aer, 2 PUFFS INH QID PRN for SHORTNESS OF BREATH, (Reported) Miscellaneous Medications [Comments] , (Reported) PT'S DAUGHTER DOES MEDS AND SEEMS CONFUSED ABOUT THE MEDICATIONS THE PT IS ON. WHEN ASKED DIRECTLY DAUGHTER STATES THAT ELIQUIS IS GIVEN DAILY NOT TWICE A DAY. PT'S LAST HEALTH CLINIC FOLLOW UP STATES SHE TAKES DILTIAZEM BUT PT'S DAUGHTER SAYS SHE WAS TAKEN OFF THAT MEDICATION. Allergies Coded Allergies: No Known Allergies (Unverified , 05/10/19) Past Medical History Medical History Past medical history includes chronic atrial fibrillation, chronic diastolic congestive heart failure with pulmonary hypertension, history of stroke, dyslipidemia, hypothyroidism, COPD, iron deficiency anemia Surgical History Surgical history includes tonsillectomy, hysterectomy, left total hip arthroplasty, bilateral cataract surgery Family History There is paternal history of alcoholism. Maternal history of psychotic disorder associated with organic brain injury, then there are multiple family members with Alzheimer's. Social History * Smoker: former Smoker (the patient has a 24-bcmm-grbz history. 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 A-FIB/CHADSVASC A-FIB History Current/History of A-Fib/PAF?: Yes Current PO Anticoag Therapy: Yes (Eliquis) Review of Systems Other systems 10 system review is otherwise negative except as stated in the HPI; the patient is not forthcoming and family knowledge is limited. Physical Examination General Exam: Positive: Alert, Other (the patient states she is nervous about being asked questions. She is visibly cachectic and has bitemporal wasting.) Eye Exam: Positive: PERRLA, Conjunctiva & lids normal, EOMI; Negative: Sclera icteric ENT Exam: Positive: Other ENT (lip, oral and teeth mucosa are all dry) Neck Exam: Positive: Supple, Other (cervical strap muscles are predominant); Negative: JVD, thyromegaly Chest Exam: Positive: Clear to auscultation, Normal air movement Heart Exam: Positive: Rate Normal, Regular Rhythm, Normal S1, Normal S2; Negative: Murmurs, Rubs Telemetry: Positive: No significant arrhythmia Abdomen Exam: Positive: Normal bowel sounds, Soft; Negative: Tenderness, Hepatospenomegaly Extremity Exam: Positive: Normal pulses, Other (she does have 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 hands and fingers); Negative: Clubbing, Cyanosis, Edema Skin Exam: Positive: Other skin issue (skin is extremely dry and loose) Neuro Exam: Positive: Normal Speech, Cranial Nerves 3-12 NL Psych Exam: Positive: Anxiety, Oriented x 3, Other (cognition, judgment and insight are impaired) Vital Signs Vital Signs Date Time Temp Pulse Resp B/P (MAP) Pulse Ox O2 Delivery O2 Flow Rate FiO2 06/09/19 19:43 60 18 106/58 (74) 99 Room Air Laboratory Data Labs 24H Laboratory Tests 2 06/09/19 16:43: Immature Granulocyte % (Auto) 0.4, Neutrophils (%) (Auto) 85.9H, Lymphocytes (%) (Auto) 5.3L, Monocytes (%) (Auto) 8.1H, Eosinophils (%) (Auto) 0.1, Basophils (%) (Auto) 0.2, Neutrophils # (Auto) 8.3, Lymphocytes # (Auto) 0.5L, Monocytes # (Auto) 0.8, Eosinophils # (Auto) 0.0, Basophils # (Auto) 0.0, Nucleated Red Blood Cells % (auto) 0.0, Anion Gap 13, Glomerular Filtration Rate 16.7L, Calcium Level 8.2L, Total Bilirubin 0.8, Direct Bilirubin 0.3H, Aspartate Amino Transf (AST/SGOT) 53H, Alanine Aminotransferase (ALT/SGPT) 21, Alkaline Phosphatase 124H, Total Creatine Kinase 141, Creatine Kinase MB 15.2H, Creatine Kinase MB Relative Index 10.78H, Troponin I 2.57*H, Total Protein 6.0L, Albumin 3.1L, Albumin/Globulin Ratio 1.07, Thyroid Stimulating Hormone (TSH) 0.107L, Digoxin Level 2.5H 06/09/19 16:46: Influenza Type A (RT-PCR) NEGATIVE, Influenza Type B (RT-PCR) NEGATIVE CBC/BMP Laboratory Tests 06/09/19 16:43 Assessment/Plan 1. Acute kidney injury The patient has a creatinine of 2.84. This likely represents prerenal azotemia from poor fluid intake while continuing to take her diuretics. Patient will be aggressively hydrated with normal saline. Her diuretics of course will be held. 2. Hypokalemia. This is also likely due to her poor fluid intake while continuing to take her diuretics. Her diuretics are held and potassium will be given intravenously with her IV fluids. She has already had an oral dose of 40 mEq that she swallowed with some difficulty. 3. Elevated troponin. Troponin is 2.57. The patient has not had any symptoms such as chest pain and has no EKG changes. 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 Roberts, who stopped her daily aspirin and her Cardizem. The patient is on digoxin for rate control. She has some dig toxicity from poor intake and diuretics and so her digoxin will be held for now. Her heart rate will not tolerate beta byron. We can start a heparin drip for now and monitor her troponins. 4. Hypothyroidism. We will check thyroid studies as hypo-or hyperthyroidism could be contributory to her current condition. 5. Malnutrition. This is protein calorie malnutrition, which I would classify as severe. We will have her assessed as soon as possible by nutrition services. Plan / VTE VTE Prophylaxis Ordered?: No VTE Exclusion Mechanical Proph: Other (she is already on Eliquis) VTE Exclusion Pharmacological: Other (she is already on Eliquis) Plan IVF: Initiate Diet: Continue Current Activity: Encourage Ambulation Therapy: PT, OT, Other Therapy (nutrition consult) Medications: Replete Electrolytes IV Diagnostics: Check Labs, Repeat Labs in AM Anticipated Discharge: [facility]fp NATHALIA RODRIGUEZ MD Jun 09, 2019 20:14
[2019-06-09] MEDS ORDERED: HEPARIN SOD (PORCINE) 5000 UNITS/ML VIAL IV PRN (20:15)
[2019-06-09 21:05] VITALS: BP 102/50
[2019-06-09] MEDS: ROSUVASTATIN 10 MG TAB (CRESTOR) PO SCH (22:33)
[2019-06-09] MEDS: HEPARIN DRIP 25,000 UNITS in IV 1 EA IV SCH (22:47)
[2019-06-10] VITALS (7 sets, daily range): BP systolic 86–108; BP diastolic 50–60
[2019-06-10] MEDS: KCL 40MEQ in NS 1000ML 1,000 ML IV SCH ×2 (05:33→16:11)
[2019-06-10 05:54] LABS: ALBUMIN 2.6 GM/DL (3.2-5.2); BILIRUBIN,TOTAL 0.6 MG/DL (0.2-1.0); CALCIUM LEVEL 7.5 MG/DL (8.8-10.2); CREATININE FOR GFR 2.42 MG/DL (0.55-1.30); FREE T4 2.17 NG/DL (0.76-1.46); GLOMERULAR FILTRATION RATE 20.1 (>32); MAGNESIUM LEVEL 2.6 MG/DL (1.8-2.4); THYROID STIMULATING HORMONE 0.072 uIU/ML (0.358-3.740); TOTAL PROTEIN 5.4 GM/DL (6.4-8.2); TROPONIN I 2.33 NG/ML (< 0.10)
[2019-06-10] MEDS ORDERED: LEVOTHYROXINE 88MCG TABLET (0.088 MG) PO SCH (06:00)
--- NOTE | 2019-06-10 06:58 | ECGEPIP ---
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
[2019-06-10] MEDS: ALBUTEROL SULFATE 2.5 MG/0.5 ML INH NEB SOLN INH SCH ×4 (07:02→20:00)
[2019-06-10] MEDS ORDERED: APIXABAN 2.5 MG TAB (ELIQUIS) PO SCH (09:00)
[2019-06-10 09:10] LABS: HEMATOCRIT 34.9 % (36.0-47.0); MEAN CORPUSCULAR HEMOGLOBIN 24.8 pg (27.0-33.0); MEAN CORPUSCULAR HGB CONC 30.7 g/dl (32.0-36.5); PLATELET COUNT, AUTOMATED 196 10^3/uL (150-450); RED BLOOD COUNT 4.31 10^6/uL (4.00-5.40); WHITE BLOOD COUNT 9.2 10^3/uL (4.0-10.0)
[2019-06-10 09:23] LABS: HEMOGLOBIN 10.7 g/dl (12.0-15.5)
--- NOTE | 2019-06-10 16:53 | ECGEPIP ---
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 Indeterminate QRS axis ANTEROSEPTAL MYOCARDIAL INFARCTION, OF INDETERMINATE AGE MARKED ST DEPRESSION, CONSIDER SUBENDOCARDIAL INJURY No PVCs compared with 06/09/2019 at 1640 hrs. Electronically Signed on 06-10-2019 16:52:58 EDT by Kt Banuelos
--- NOTE | 2019-06-10 17:12 | IPNPDOC ---
Text Note Date of Service The patient was seen on 06/10/19. NOTE SUBJECTIVE: Ms. Lee appears to be responding to IV hydration. She is more alert and conversant. She is producing urine. Patient was admitted with very poor intake of food and fluids and acute kidney injury. Patient is felt to have moderate to severe protein calorie malnutrition. OBJECTIVE: Please see vital signs below Physical exam: HENT: She has bitemporal wasting and sunken eyes, oral mucosa is now moist, she still has extremely prominent cervical strap muscles. Cardiovascular: Regular rate and rhythm. I do not appreciate a murmur today. Respiratory: Clear to auscultation with no cough. Abdomen: Soft and nondistended, nontender, bowel tones are present. Extremities: No peripheral edema or lesions, pulses are palpable, she has joint changes especially to her hands and fingers consistent with arthritis ASSESSMENT/PLAN: 1. Acute kidney injury. Creatinine has improved to 2.42 with IV hydration, which we will continue. Diuretics are held. 2. Hypokalemia. Serum potassium has increased from 2.8 to 3.0; she is receiving IV fluids containing 40 mEq of potassium chloride. We will add additional potassium chloride as needed. 3. Elevated troponin. Troponin was elevated to 2.57. It is now down to 2.33. The patient has not been at all symptomatic and has not had EKG changes. The patient has been placed on a heparin drip. If she continues with a downward trend we will stop the heparin drip. 4. Chronic atrial fibrillation. The patient is maintained on digoxin for rate control. She had mild dig toxicities. Her digoxin was held. We can likely resume it at this point. We will need to continue to check levels. She remains on chronic anticoagulation with Eliquis. 5. Hyperthyroidism The patient was thought to have hypothyroidism as she has been on levothyroxine for at least a year. TSH of 0.072 and free T4 of 2.17 are more consistent with hyperthyroidism. Plans are to stop her levothyroxine. She has not had typical symptoms. 6. Protein calorie malnutrition. Given her weight loss and physical appearances to be classified as severe. Patient has been assessed by nutrition services. We will attempt to meet her goal calorie requirement of 1600 per day. VS,Raeann, I+O VS, Fishbone, I+O Laboratory Tests 06/10/19 03:37 06/10/19 04:41 Vital Signs Date Time Temp Pulse Resp B/P (MAP) Pulse Ox O2 Delivery O2 Flow Rate FiO2 06/10/19 16:00 98.6 55 16 99/57 (71) 99 Room Air I&O- Last 24 Hours up to 6 AM 06/10/19 06:00 Intake Total 1620 ml Output Total 250 ml Balance 1370 ml NATHALIA RODRIGUEZ MD Jun 10, 2019 17:12
[2019-06-10] MEDS: ROSUVASTATIN 10 MG TAB (CRESTOR) PO SCH (20:43)
[2019-06-11] VITALS (7 sets, daily range): BP systolic 94–120; BP diastolic 52–55
[2019-06-11] MEDS: KCL 40MEQ in NS 1000ML 1,000 ML IV SCH ×3 (02:19→19:45)
[2019-06-11 06:29] LABS: CALCIUM LEVEL 7.7 MG/DL (8.8-10.2); POTASSIUM SERUM 3.6 MEQ/L (3.5-5.1); TROPONIN I 1.05 NG/ML (< 0.10)
[2019-06-11] MEDS: ALBUTEROL SULFATE 2.5 MG/0.5 ML INH NEB SOLN INH SCH ×4 (08:00→19:54)
[2019-06-11] MEDS: HEPARIN DRIP 25,000 UNITS in IV 1 EA IV SCH (10:29)
[2019-06-11] MEDS: ROSUVASTATIN 10 MG TAB (CRESTOR) PO SCH (19:45)
--- NOTE | 2019-06-11 19:45 | IPNPDOC ---
Text Note Date of Service The patient was seen on 06/11/19. NOTE SUBJECTIVE: Ms. Lee is responding to IV hydration. She is more alert and conversant. She is producing urine. Patient was admitted with very poor intake of food and fluids and acute kidney injury. Patient is felt to have moderate to severe protein calorie malnutrition. OBJECTIVE: Please see vital signs below Physical exam: HENT: She has bitemporal wasting, eyes are not as sunken, oral mucosa is now moist, she still has extremely prominent cervical strap muscles. Cardiovascular: Regular rate and rhythm. I do not appreciate a murmur today. Respiratory: Clear to auscultation with no cough. Abdomen: Soft and nondistended, nontender, bowel tones are present. Extremities: No peripheral edema or lesions, pulses are palpable, she has joint changes especially to her hands and fingers consistent with arthritis ASSESSMENT/PLAN: 1. Acute kidney injury. Creatinine has improved to 2.00 with IV hydration, which we will continue. Diuretics are held. 2. Hypokalemia. Serum potassium has increased from 3.0 to 3.6; she is receiving IV fluids containing 40 mEq of potassium chloride. We will add additional potassium chloride as needed. 3. Elevated troponin. Troponin was elevated to 2.57. It is now down to 1.05. The patient has not been at all symptomatic and has not had EKG changes. The patient has been placed on a heparin drip. If she continues with a downward trend we will stop the heparin drip. Nursing staff has been recording bradycardia down to a rate of 40. Recorded vital signs show heart rate ranging from 50-61. Case has been discussed with the cardiology service. We will continue to monitor. Patient remains asymptomatic 4. Chronic atrial fibrillation. The patient is maintained on digoxin for rate control. She had mild dig toxicity. Her digoxin was held. We can likely resume it at this point. We will need to continue to check levels. She remains on chronic anticoagulation with Eliquis. 5. Hyperthyroidism The patient was thought to have hypothyroidism as she has been on levothyroxine for at least a year. TSH of 0.072 and free T4 of 2.17 are more consistent with hyperthyroidism. Plans are to stop her levothyroxine. She has not had typical symptoms. 6. Protein calorie malnutrition. Given her weight loss and physical appearances to be classified as severe. Patient has been assessed by nutrition services. We will attempt to meet her go al calorie requirement of 1600 per day. She has been started on additional meal supplementation in the form of Ensure. VS,Fishbone, I+O VS, Fishbone, I+O Laboratory Tests 06/11/19 05:24 Vital Signs Date Time Temp Pulse Resp B/P (MAP) Pulse Ox O2 Delivery O2 Flow Rate FiO2 06/11/19 16:00 99.2 50 16 120/53 (75) 16 Room Air I&O- Last 24 Hours up to 6 AM 06/11/19 06:00 Intake Total 2650 ml Output Total 500 ml Balance 2150 ml NATHALIA RODRIGUEZ MD Jun 11, 2019 19:45
[2019-06-12 04:00] VITALS: BP 131/56
[2019-06-12] MEDS: KCL 40MEQ in NS 1000ML 1,000 ML IV SCH (05:40)
[2019-06-12 06:50] LABS: CALCIUM LEVEL 7.9 MG/DL (8.8-10.2); CREATININE FOR GFR 1.67 MG/DL (0.55-1.30); DIGOXIN LEVEL 2.1 NG/ML (0.5-2.0); GLOMERULAR FILTRATION RATE 30.8 (>32); POTASSIUM SERUM 4.6 MEQ/L (3.5-5.1); TROPONIN I 0.64 NG/ML (< 0.10)
[2019-06-12] MEDS: HEPARIN SOD (PORCINE) 5000 UNITS/ML VIAL IV PRN (07:52)
[2019-06-12 08:00] VITALS: BP 143/67
[2019-06-12] MEDS ORDERED: SLF 3 ML SYR IV PRN (08:00)
[2019-06-12] MEDS: ALBUTEROL SULFATE 2.5 MG/0.5 ML INH NEB SOLN INH SCH ×4 (08:00→20:00)
[2019-06-12 12:00] VITALS: BP 115/58
[2019-06-12] MEDS: SLF 3 ML SYR IV SCH ×2 (13:29→21:09)
[2019-06-12 16:00] VITALS: BP 112/78
--- NOTE | 2019-06-12 16:10 | IPNPDOC ---
Text Note Date of Service The patient was seen on 06/12/19. NOTE SUBJECTIVE: Ms. Lee remains medically stable. Her oral intake continues to improve daily. Patient was admitted with severe protein calorie malnutrition, hypokalemia and acute kidney injury due to prerenal azotemia from poor intake of fluids. OBJECTIVE: Please see vital signs below--weight today is 51.6 kg from 45.6 at admission. Physical exam: HENT: She has bitemporal wasting, eyes are not as sunken, oral mucosa is now moist, she still has extremely prominent cervical strap muscles. Cardiovascular: Regular rate and rhythm. I do not appreciate a murmur today. Respiratory: Clear to auscultation with no cough. Abdomen: Soft and nondistended, nontender, bowel tones are present. Extremities: No peripheral edema or lesions, pulses are palpable, she has joint changes especially to her hands and fingers consistent with arthritis Neuro: She is weak ASSESSMENT/PLAN: 1. Acute kidney injury. Creatinine has improved to 1.67 with IV hydration, which we will stop and see how she does on her own. Diuretics are held. 2. Hypokalemia. Serum potassium has increased from 3.6 - 4.6; she recently IV fluids containing 40 mEq of potassium chloride. These have now been stopped. 3. Elevated troponin. Troponin was elevated to 2.57. It is now down to 0.64. The patient has not been at all symptomatic and has not had EKG changes. The patient has been placed on a heparin drip. If she continues with a downward trend we will stop the heparin drip. Nursing staff has been recording bradycardia down to a rate of 40. Recorded vital signs show heart rate ranging from 57 - 68. Case has been discussed with the cardiology service; suspect there was lingering digoxin toxicity effect. We will continue to monitor. Patient remains asymptomatic. She likely does not require a pacemaker. 4. Chronic atrial fibrillation. The patient was maintained on digoxin for rate control. She had dig toxicity. Her digoxin was held. We will need to continue to check levels. She remains on chronic anticoagulation with Eliquis. 5. Hyperthyroidism The patient was thought to have hypothyroidism as she has been on levothyroxine for at least a year. TSH of 0.072 and free T4 of 2.17 are more consistent with hyperthyroidism. Plans are to stop her levothyroxine. She has not had typical symptoms. 6. Protein calorie malnutrition. Given her weight loss and physical appearance to be classified as severe. Patient has been assessed by nutrition services. We will attempt to meet her goal calorie requirement of 1600 per day. She has been started on additional meal supplementation in the form of Ensure. She has weight gain since admission, but this may be primarily water weight. VS,Fishbone, I+O VS, Fishbone, I+O Laboratory Tests 06/12/19 05:42 Vital Signs Date Time Temp Pulse Resp B/P (MAP) Pulse Ox O2 Delivery O2 Flow Rate FiO2 06/12/19 12:00 97.4 57 16 115/58 (77) 99 Room Air I&O- Last 24 Hours up to 6 AM 06/12/19 06:00 Intake Total 3054 ml Output Total 300 ml Balance 2754 ml NATHALIA RODRIGUEZ MD Jun 12, 2019 16:10
[2019-06-12 20:00] VITALS: BP 126/61
[2019-06-12] MEDS: ROSUVASTATIN 10 MG TAB (CRESTOR) PO SCH (20:32)
[2019-06-12 21:44] LABS: HEMATOCRIT 34.1 % (36.0-47.0); HEMOGLOBIN 9.7 g/dl (12.0-15.5); MEAN CORPUSCULAR HEMOGLOBIN 24.3 pg (27.0-33.0); MEAN CORPUSCULAR HGB CONC 28.4 g/dl (32.0-36.5); MEAN CORPUSCULAR VOLUME 85.3 fl (80.0-96.0); PLATELET COUNT, AUTOMATED 158 10^3/uL (150-450); WHITE BLOOD COUNT 9.3 10^3/uL (4.0-10.0)
[2019-06-12 23:59] VITALS: BP 112/60
[2019-06-13] MEDS: HEPARIN DRIP 25,000 UNITS in IV 1 EA IV SCH (03:46)
[2019-06-13] MEDS: HEPARIN SOD (PORCINE) 5000 UNITS/ML VIAL IV PRN (03:47)
[2019-06-13 04:00] VITALS: BP 116/55
[2019-06-13 04:06] LABS: CALCIUM LEVEL 7.6 MG/DL (8.8-10.2); CREATININE FOR GFR 1.44 MG/DL (0.55-1.30); DIGOXIN LEVEL 1.5 NG/ML (0.5-2.0); GLOMERULAR FILTRATION RATE 36.6 (>32); POTASSIUM SERUM 4.5 MEQ/L (3.5-5.1)
[2019-06-13] MEDS: SLF 3 ML SYR IV SCH ×3 (05:11→21:06)
[2019-06-13 05:57] LABS: MAGNESIUM LEVEL 2.1 MG/DL (1.8-2.4)
[2019-06-13] MEDS: ALBUTEROL SULFATE 2.5 MG/0.5 ML INH NEB SOLN INH SCH ×4 (07:14→20:00)
[2019-06-13 08:00] VITALS: BP 100/58
[2019-06-13] MEDS: APIXABAN 2.5 MG TAB (ELIQUIS) PO SCH (08:48)
[2019-06-13] MEDS: D5W/0.45% SODIUM CHLORIDE 1,000 ML IV SCH ×2 (08:49→20:01)
[2019-06-13 12:00] VITALS: BP 98/56
--- NOTE | 2019-06-13 15:01 | IPNPDOC ---
Text Note Date of Service The patient was seen on 06/13/19. NOTE SUBJECTIVE: The patient is eating what she can. It is more than what she was doing of admission. It is not yet at goal. She is tolerating her meal supplements. Patient was admitted with severe protein calorie malnutrition with hypoproteinemia, acute renal failure due to prerenal azotemia, hypokalemia and digoxin toxicity. OBJECTIVE: Please see vital signs below Physical exam: HENT: She has bitemporal wasting, eyes are not as sunken, oral mucosa is now moist, she has extremely prominent cervical strap muscles. Cardiovascular: Regular rate and rhythm. I do not appreciate a murmur today. Respiratory: Clear to auscultation with no cough. Abdomen: Soft and nondistended, nontender, bowel tones are present. Extremities: No peripheral edema or lesions, pulses are palpable, she has joint changes especially to her hands and fingers consistent with arthritis Neuro: She is weak, no tremor, she has walked with physical therapy but is limited by fatigue ASSESSMENT/PLAN: 1. Acute kidney injury. Creatinine has improved to 1.44. Diuretics remain held. 2. Hypokalemia. Serum potassium has increased from 3.6 - 4.6; she recently IV fluids containing 40 mEq of potassium chloride. These have now been stopped. 3. Elevated troponin. Troponin was elevated to 2.57. It is now down to 0.64. The patient has not been at all symptomatic and has not had EKG changes. The patient has been placed on a heparin drip. If she continues with a downward trend we will stop the heparin drip. Nursing staff has been recording bradycardia down to a rate of 40. Recorded vital signs show heart rate ranging from 57 - 68. Case has been discussed with the cardiology service; suspect there was lingering digoxin toxicity effect. Digoxin is now down to 1.5; toxicity is resolved. We will continue to monitor. Patient remains asymptomatic. She likely does not require a pacemaker. 4. Chronic atrial fibrillation. The patient was maintained on digoxin for rate control. She had dig toxicity. Her digoxin was held and is now 1.5. She continues with controlled rate; if her rate increases significantly. We will need to consider restarting digoxin or making use of an alternative agent. She remains on chronic anticoagulation with Eliquis. 5. Hyperthyroidism The patient was thought to have hypothyroidism as she has been on levothyroxine for at least a year. TSH of 0.072 and free T4 of 2.17 are more consistent with hyperthyroidism. We have stopped her levothyroxine. She has not had typical symptoms. 6. Protein calorie malnutrition. Given her weight loss and physical appearance to be classified as severe. Patient has been assessed by nutrition services. We will attempt to meet her goal calorie requirement of 1600 per day. She has been started on additional meal supplementation in the form of Ensure. She has weight gain since admission, but this may be primarily water weight. VS,Fishbone, I+O VS, Fishbone, I+O Laboratory Tests 06/12/19 21:31 06/13/19 02:57 Vital Signs Date Time Temp Pulse Resp B/P (MAP) Pulse Ox O2 Delivery O2 Flow Rate FiO2 06/13/19 12:00 98.2 69 20 98/56 (70) 97 Room Air I&O- Last 24 Hours up to 6 AM 06/13/19 06:00 Intake Total 548 ml Output Total 450 ml Balance 98 ml NATHALIA RODRIGUEZ MD Jun 13, 2019 15:01
[2019-06-13 16:00] VITALS: BP 102/58
[2019-06-13 20:00] VITALS: BP 125/60
[2019-06-13] MEDS: ROSUVASTATIN 10 MG TAB (CRESTOR) PO SCH (20:01)
[2019-06-13 23:59] VITALS: BP 127/67
[2019-06-14 04:00] VITALS: BP 132/60
[2019-06-14] MEDS: SLF 3 ML SYR IV SCH ×3 (05:01→20:21)
[2019-06-14 05:49] LABS: BLOOD UREA NITROGEN 18 MG/DL (7-18); CALCIUM LEVEL 7.6 MG/DL (8.8-10.2); CARBON DIOXIDE LEVEL 22 MEQ/L (21-32); CHLORIDE LEVEL 114 MEQ/L (98-107); CREATININE FOR GFR 1.25 MG/DL (0.55-1.30); GLOMERULAR FILTRATION RATE 43.1 (>32); GLUCOSE, FASTING 110 MG/DL (70-100); MAGNESIUM LEVEL 1.8 MG/DL (1.8-2.4); POTASSIUM SERUM 3.6 MEQ/L (3.5-5.1); SODIUM LEVEL 143 MEQ/L (136-145)
[2019-06-14] MEDS ORDERED: diphenhydrAMINE INJ 50MG/ML VIAL (J1200) IV STA (07:18)
[2019-06-14 07:58] LABS: ALBUMIN 2.2 GM/DL (3.2-5.2); ALT/SGPT 15 U/L (12-78); BILIRUBIN,DIRECT < 0.1 MG/DL (0.0-0.2); BILIRUBIN,TOTAL 0.3 MG/DL (0.2-1.0); FERRITIN 36 NG/ML (8-252); IRON (FE) 41 UG/DL (50-170); TOTAL PROTEIN 5.2 GM/DL (6.4-8.2)
[2019-06-14 08:00] VITALS: BP 129/69
[2019-06-14] MEDS: ALBUTEROL SULFATE 2.5 MG/0.5 ML INH NEB SOLN INH SCH ×4 (08:00→20:00)
[2019-06-14] MEDS: D5W/0.45% SODIUM CHLORIDE 1,000 ML IV SCH (08:20)
[2019-06-14] MEDS: APIXABAN 2.5 MG TAB (ELIQUIS) PO SCH (08:20)
--- NOTE | 2019-06-14 08:43 | CR ---
DATE OF SERVICE: 06/11/2019 DATE OF : 1930 AGE: 88 REFERRING PROVIDER: Neelima Mcdonald MD REASON FOR CONSULTATION: Abnormal telemetry, abnormal serum troponin. HISTORY OF PRESENT ILLNESS: 88-year-old woman well known by the practice and the last time she was seen was 03/05/2019 and was stable from a cardiac point of view. Because of low blood pressure, her Cardizem was tapered off and she was kept on digoxin to control her atrial fibrillation. She called the office, her daughter, on the day she went to the ER because of weakness, poor appetite and she was sent to the ER for further evaluation. She was admitted with acute kidney injury and her serum troponin was elevated and she was hypokalemic. She is also was found to have a serum digoxin on 2.5. She was admitted for further management and monitoring and started on IV fluids. On telemetry, she was found to have a less than 3 second pause. Cardiology consult was called. They were concerned that she might need a permanent pacemaker. When I saw Mrs. Ava Lee on the floor, she was laying supine in bed in acute distress at rest and a few family members were at bedside, her sons and a daughter. She denies any chest pain, palpitations, shortness of breath, orthopnea, pedal edema. She stated she is getting stronger and this was corroborated by the family that she is getting a little better. There is no report of bleeding. There is no cough. There is no abdominal pain. She did not have any nausea or vomiting. She did not have any vomiting or diarrhea and denies any nausea, but it is hard to tell because she was not eating well. There is no focal manifestation. PAST MEDICAL HISTORY: She has a past medical history positive for atrial fibrillation that has been permanent. 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 Chronic obstructive pulmonary disease (COPD). Hypothyroidism. Hypertension. Diastolic heart failure. There is no known history of obstructive coronary artery disease, myocardial infarction, cerebrovascular accident (CVA), transient ischemic attack (TIA), diabetes mellitus. She does have a history of anemia and prior history of chronic kidney disease (CKD) that has improved after readjusting her medications. PAST SURGICAL HISTORY: Positive for: Partial hysterectomy. Bladder suspension surgery. Left total hip replacement in 2013. FAMILY HISTORY: Noncontributory. SOCIAL HISTORY: The patient currently prior to coming here was living alone, but has multiple family members in town and they are very supportive. She does not smoke and she does not abuse alcohol. ALLERGIES: NO KNOWN DRUG ALLERGIES. MEDICATIONS PRIOR COMING TO THE HOSPITAL: - apixaban 2.5 mg by mouth twice a day - digoxin 125 mcg by mouth daily - albuterol as needed - Lasix 40 mg alternating with 80 mg every other day - levothyroxine 88 mcg by mouth daily - rosuvastatin 20 mg by mouth daily CURRENT MEDICATIONS: - IV heparin - normal saline - rosuvastatin 20 mg by mouth daily - Tylenol 650 mg every 6 hours as needed for mild pain or fever - albuterol as directed PHYSICAL EXAMINATION: The patient is alert and oriented and in no acute distress at rest. Her vital signs when I saw her revealed a blood pressure of 103/53 with a pulse of 65, respiration 16 and her maximum temperature was 99.3 degrees Fahrenheit with an oxygen saturation of 98% on room air. Examination head atraumatic. Neck is supple and no jugular venous distention (JVD) was appreciated. Lungs did not reveal any wheezing or crackles. Heart examination revealed an irregular without gallops. The point of maximal impulse (PMI) is not displaced. There is no rub. There is a systolic murmur grade 1-2/6 at the lower left sternal border and at the apex without any significant radiation. Abdomen was unremarkable. Extremities revealed no pedal edema. Neurological examination was limited but no focal deficit, the patient was able to move all of her extremities. LABORATORIES: CBC on 06/10/2019 revealed a WBC of 9.2, hemoglobin 10.7, hematocrit 34.9 and platelets 196,000. BMP on 06/11/2019 revealed a sodium of 142, potassium 3.6, chloride 110, CO2 25, BUN 41, creatinine 2.0, GFR 25, fasting glucose 109 and calcium 7.7. Serum magnesium on 06/10 was 2.6. Liver enzymes on 06/10 revealed an AST of 43 and ALT of 15. Serum troponin was 2.57 on admission, 2.49, 2.33 and today, 06/11/2019, 1.05. Serum digoxin on admission was 2.5. PTT on 06/11/2019 was 76.7. Influenza A and B was reported as negative. Electrocardiogram on admission revealed a supraventricular rate at 62 beats per minute, indeterminate axis, poor R wave progression and nonspecific ST-T abnormalities. Echocardiogram on 06/09/2019 was reported to be probably a junctional rhythm with underlying atrial fibrillation and indeterminate axis. Poor R wave progression was noted, also nonspecific ST-T abnormalities. Chest x-ray on 06/09/2019 revealed cardiomegaly, otherwise no acute disease process. Telemetry strips were reviewed. Pauses noted, but less than 3 seconds. IMPRESSION: 1. Atrial fibrillation. Heart rate is under control. She probably had some degree of dig toxicity and this was discontinued and I agree. I will recheck the level in the morning, 06/12/2019. At this present time, there is no need for permanent pacemaker implantation and this was discussed with the family members as well as the hospitalist covering. She will be monitored of the digoxin and if she becomes tachycardic will have to restart an AV blocking agent. Another time will make a determination about the pacemaker or not, if there is any indications. She is currently on IV heparin and she is being monitored. Her apixaban has been on hold. It will be restarted at one point. 2. Abnormal troponin. The patient denies any chest pain. This may be related to type 2 CO, but she probably had some underlying obstructive CAD. She will be monitored on current meds. She is on a statin and anticoagulation therapy. In the past, she was on a beta-byron, but it had to be discontinued and switched sent to a calcium channel byron because of exacerbation of COPD. There is no indication for an angiotension-converting enzyme (CARON) inhibitor or angiotension receptor blockers (ARB) at this present time in view of her underlying CKD and history of hypotension. 3. Hypertension. She can be monitored for now. Blood pressure seems to be good. Most recently, she was on a calcium channel byron with Cardizem and it had to be discontinued because of low blood pressure and weakness. 4. Status post acute kidney injury. This is improving with hydration. 5. Status post hypokalemia. 6. History of hypothyroidism. Levothyroxine is currently on hold because her current thyroid function profile was consistent with hyperthyroidism. It was a pleasure to participate the care of Mrs. Ava Lee for her underlying cardiac condition. I will continue to monitor her along with you as needed. She appears to be stable from a cardiac point of view. Please do not hesitate to call if you have any questions.
[2019-06-14 12:00] VITALS: BP 110/57
[2019-06-14] MEDS: PENCICLOVIR 1% CREAM 5GM TOP SCH ×6 (12:27→22:00)
[2019-06-14 16:00] VITALS: BP 115/61
[2019-06-14 19:49] VITALS: BP 102/50
[2019-06-14] MEDS: ROSUVASTATIN 10 MG TAB (CRESTOR) PO SCH (20:21)
--- NOTE | 2019-06-14 22:23 | IPNPDOC ---
Text Note Date of Service The patient was seen on 06/14/19. NOTE SUBJECTIVE: Was called to the patient's room out of concern for lip swelling. Her lips are not remarkably swollen but she is observed to have considerable cold sores. Patient was admitted with severe protein calorie malnutrition with cachexia. OBJECTIVE: Please see vital signs below Physical exam: OBJECTIVE: Please see vital signs below Physical exam: HENT: She has bitemporal wasting, eyes are not as sunken, oral mucosa is now moist, she has extremely prominent cervical strap muscles, she has herpetic lesions to her lower lip Cardiovascular: Regular rate and rhythm. I do not appreciate a murmur today. Respiratory: Clear to auscultation with no cough. Abdomen: Soft and nondistended, nontender, bowel tones are present. Extremities: Mild peripheral edema, pulses are palpable, she has joint changes especially to her hands and fingers consistent with arthritis Neuro: She is weak, no tremor, she has walked with physical therapy but is limited by fatigue ASSESSMENT/PLAN: 1. Acute kidney injury. Creatinine has improved to 1.25. Diuretics remain held. 2. Hypokalemia. Serum potassium is 3.6. Hypokalemia is resolved. 3. Elevated troponin. Troponin was elevated to 2.57. It is now down to 0.64. The patient has not been at all symptomatic and has not had EKG changes. The patient has been placed on a heparin drip. If she continues with a downward trend we will stop the heparin drip. Nursing staff has been recording bradycardia down to a rate of 40. Rec orded vital signs show heart rate ranging from 57 - 68. Case has been discussed with the cardiology service; suspect there was lingering digoxin toxicity effect. Digoxin is now down to 1.5; toxicity is resolved. We will continue to monitor. Patient remains asymptomatic. She likely does not require a pacemaker. Appreciate input and assistance from the cardiology service. 4. Chronic atrial fibrillation. The patient was maintained on digoxin for rate control. She had dig toxicity. Her digoxin was held and is now 1.5. She continues with controlled rate; if her rate increases significantly we will need to consider restarting digoxin or making use of an alternative agent. She remains on chronic anticoagulation with Eliquis. 5. Hyperthyroidism The patient was thought to have hypothyroidism as she has been on levothyroxine for at least a year. TSH of 0.072 and free T4 of 2.17 are more consistent with hyperthyroidism. We have stopped her levothyroxine. She has not had typical symptoms. 6. Protein calorie malnutrition. Given her weight loss and physical appearance to be classified as severe. Serum protein is 5.2 with a serum albumin of 2.2. She is also iron deficient with a serum iron of 41. Patient has been assessed by nutrition services. We will attempt to meet her goal calorie requirement of 1600 per day. She has been started on additional meal supplementation in the form of Ensure. She has weight gain since admission, but this may be primarily water weight. 7. Patient is receiving penciclovir for the herpetic lesions to her lip. VS,Fishbone, I+O VS, Fishbone, I+O Laboratory Tests 06/14/19 05:13 Vital Signs Date Time Temp Pulse Resp B/P (MAP) Pulse Ox O2 Delivery O2 Flow Rate FiO2 06/14/19 19:49 98.8 56 18 102/50 (67) 97 Room Air I&O- Last 24 Hours up to 6 AM 06/14/19 06:00 Intake Total 1815 ml Output Total 650 ml Balance 1165 ml NATHALIA RODRIGUEZ MD Jun 14, 2019 22:23
[2019-06-15] VITALS: BP 110/56
[2019-06-15] MEDS: PENCICLOVIR 1% CREAM 5GM TOP SCH ×13 (02:00→23:40)
[2019-06-15 04:00] VITALS: BP 120/60
[2019-06-15] MEDS: SLF 3 ML SYR IV SCH ×3 (05:06→20:38)
[2019-06-15 06:45] LABS: CALCIUM LEVEL 7.7 MG/DL (8.8-10.2); CREATININE FOR GFR 1.08 MG/DL (0.55-1.30); POTASSIUM SERUM 3.5 MEQ/L (3.5-5.1)
[2019-06-15] MEDS: ALBUTEROL SULFATE 2.5 MG/0.5 ML INH NEB SOLN INH SCH ×4 (08:00→20:00)
[2019-06-15 08:02] VITALS: BP 107/60
[2019-06-15] MEDS: APIXABAN 2.5 MG TAB (ELIQUIS) PO SCH ×2 (09:46→20:38)
[2019-06-15] MEDS: FERROUS SULFATE 325MG TAB PO SCH (09:47)
[2019-06-15] MEDS: POTASSIUM CHLORIDE 10 MEQ SR TABLET PO SCH (09:47)
[2019-06-15 12:00] VITALS: BP 101/54
[2019-06-15 16:00] VITALS: BP 131/66
--- NOTE | 2019-06-15 18:10 | IPNPDOC ---
Text Note Date of Service The patient was seen on 06/15/19. NOTE Subjective: No acute events overnight. Patient denies fever, chills, nausea, vomiting, palpitations, shortness of breath, diarrhea Objective: HEENT: She has bitemporal wasting, she has herpetic lesions to her lower lip Cardiovascular: Regular rate and rhythm. S1-S2. Respiratory: Clear to auscultation with no cough. Abdomen: Soft and nondistended, nontender, bowel tones are present. Extremities: Mild peripheral edema, pulses are palpable, she has joint changes especially to her hands and fingers consistent with arthritis Neuro: No focal deficiency, cranial nerves intact Assessment and plan Patient is 88 years old female with past medical history of atrial fibrillation, hypertension presented to the hospital with acute kidney injury and profound weakness. Patient was found to have elevated troponin and hypokalemia. Also patient was found to have elevated digoxin level of 2.5 Acute kidney injury. Improved Continue to monitor Hypokalemia. Improved Non-STEMI Continue cardioprotective medication Cardiology team follows patient Elevated troponin. Trended down Patient denies any chest pain Continue to monitor Chronic atrial fibrillation. The patient was maintained on digoxin for rate control. Digoxin was discontinued due to toxicity. Heart rate is under control for now. We'll restart AV blocking agents if patient became tachycardic Hyperthyroidism The patient was thought to have hypothyroidism as she has been on levothyroxine for at least a year. TSH of 0.072 and free T4 of 2.17 are more consistent with hyperthyroidism. We have stopped her levothyroxine. She has not had typical symptoms. Protein calorie malnutrition. Given her weight loss and physical appearance to be classified as severe. Serum protein is 5.2 with a serum albumin of 2.2. She is also iron deficient with a serum iron of 41. Patient has been assessed by nutrition services. We will attempt to meet her goal calorie requirement of 1600 per day. She has been started on additional meal supplementation in the form of Ensure. She has weight gain since admission, but this may be primarily water weight. Microcytic anemia Secondary to iron deficiency We'll check the stool for occult blood Iron supplementation Herpes oralis Patient is receiving penciclovir for the herpetic lesions to her lip. Hypertension Blood pressures under control for now VS,Fishbone, I+O VS, Fishbone, I+O Laboratory Tests 06/15/19 05:48 Vital Signs Date Time Temp Pulse Resp B/P (MAP) Pulse Ox O2 Delivery O2 Flow Rate FiO2 06/15/19 16:00 97.6 77 18 131/66 (87) 98 Room Air I&O- Last 24 Hours up to 6 AM 06/15/19 06:00 Intake Total 520 ml Output Total 1150 ml Balance -630 ml HIMANSHU STOREY DO Jun 15, 2019 18:10
[2019-06-15 19:17] LABS: CALCIUM LEVEL 7.8 MG/DL (8.8-10.2); CREATININE FOR GFR 1.12 MG/DL (0.55-1.30); GLOMERULAR FILTRATION RATE 48.9 (>32); POTASSIUM SERUM 3.7 MEQ/L (3.5-5.1)
[2019-06-15 20:00] VITALS: BP 110/60
[2019-06-15] MEDS: ROSUVASTATIN 10 MG TAB (CRESTOR) PO SCH (20:38)
[2019-06-15] MEDS: NYSTATIN 500,000 U/5 ML SUSP UDC SS SCH (20:38)
[2019-06-15] MEDS ORDERED: IRON POLYSAC (NIFEREX) 150 MG CAP PO SCH (21:00)
[2019-06-16 00:20] LABS: CALCIUM LEVEL 7.5 MG/DL (8.8-10.2); CREATININE FOR GFR 1.02 MG/DL (0.55-1.30); GLOMERULAR FILTRATION RATE 54.4 (>32); POTASSIUM SERUM 3.8 MEQ/L (3.5-5.1)
[2019-06-16] MEDS: PENCICLOVIR 1% CREAM 5GM TOP SCH ×11 (02:00→22:17)
[2019-06-16] MEDS: SLF 3 ML SYR IV SCH ×3 (05:00→22:17)
[2019-06-16 05:51] LABS: HEMATOCRIT 30.9 % (36.0-47.0); HEMOGLOBIN 9.3 g/dl (12.0-15.5); MEAN CORPUSCULAR HEMOGLOBIN 24.6 pg (27.0-33.0); MEAN CORPUSCULAR HGB CONC 30.1 g/dl (32.0-36.5); MEAN CORPUSCULAR VOLUME 81.7 fl (80.0-96.0); PLATELET COUNT, AUTOMATED 143 10^3/uL (150-450); RED BLOOD COUNT 3.78 10^6/uL (4.00-5.40); WHITE BLOOD COUNT 6.5 10^3/uL (4.0-10.0)
[2019-06-16 06:00] VITALS: BP 106/64
[2019-06-16 06:08] LABS: CALCIUM LEVEL 7.9 MG/DL (8.8-10.2); CREATININE FOR GFR 0.96 MG/DL (0.55-1.30); GLOMERULAR FILTRATION RATE 58.4 (>32); MAGNESIUM LEVEL 1.9 MG/DL (1.8-2.4); POTASSIUM SERUM 3.5 MEQ/L (3.5-5.1)
[2019-06-16 08:00] VITALS: BP 96/55
[2019-06-16] MEDS: ALBUTEROL SULFATE 2.5 MG/0.5 ML INH NEB SOLN INH SCH ×4 (08:00→20:00)
[2019-06-16] MEDS: APIXABAN 2.5 MG TAB (ELIQUIS) PO SCH ×2 (08:33→20:58)
[2019-06-16] MEDS: FERROUS SULFATE 325MG TAB PO SCH (08:33)
[2019-06-16] MEDS: NYSTATIN 500,000 U/5 ML SUSP UDC SS SCH ×2 (08:33→20:58)
[2019-06-16] MEDS: POTASSIUM CHLORIDE 10 MEQ SR TABLET PO SCH (08:33)
[2019-06-16 11:13] LABS: CREATININE FOR GFR 1.03 MG/DL (0.55-1.30); GLOMERULAR FILTRATION RATE 53.8 (>32); POTASSIUM SERUM 3.8 MEQ/L (3.5-5.1)
[2019-06-16 11:14] LABS: CALCIUM LEVEL 7.9 MG/DL (8.8-10.2)
[2019-06-16 12:00] VITALS: BP 123/66
--- NOTE | 2019-06-16 12:27 | IPNPDOC ---
Text Note Date of Service The patient was seen on 06/16/19. NOTE Subjective: No acute events overnight. Pt continues to have poor appetite Patient denies fever, chills, nausea, vomiting, palpitations, shortness of breath, diarrhea Objective: HEENT: She has bitemporal wasting, she has herpetic lesions to her lower lip Cardiovascular: Regular rate and rhythm. S1-S2. Respiratory: Clear to auscultation with no cough. Abdomen: Soft and nondistended, nontender, bowel tones are present. Extremities: Mild peripheral edema, pulses are palpable, she has joint changes especially to her hands and fingers consistent with arthritis Neuro: No focal deficiency, cranial nerves intact Assessment and plan Patient is 88 years old female with past medical history of atrial fibrillation, hypertension presented to the hospital with acute kidney injury and profound weakness. Patient was found to have elevated troponin and hypokalemia. Also patient was found to have elevated digoxin level of 2.5 Acute kidney injury Improved Continue to monitor Hypokalemia. Improved Non-STEMI Continue cardioprotective medication Cardiology team follows patient Elevated troponin. Trended down Patient denies any chest pain Continue to monitor Chronic atrial fibrillation. The patient was maintained on digoxin for rate control. Digoxin was discontinued due to toxicity. Heart rate is under control for now. We'll restart AV blocking agents if patient became tachycardic Hyperthyroidism The patient was thought to have hypothyroidism as she has been on levothyroxine for at least a year. TSH of 0.072 and free T4 of 2.17 are more consistent with hyperthyroidism. We have stopped her levothyroxine. She has not had typical symptoms. Protein calorie malnutrition. Given her weight loss and physical appearance to be classified as severe. Serum protein is 5.2 with a serum albumin of 2.2. She is also iron deficient with a serum iron of 41. Patient has been assessed by nutrition services. We will attempt to meet her goal calorie requirement of 1600 per day. She has been started on additional meal supplementation in the form of Ensure. Microcytic anemia Secondary to iron deficiency Stool was negative for occult blood Iron supplementation Herpes oralis Patient is receiving penciclovir for the herpetic lesions to her lip. Hypertension Blood pressures under control for now VS,Fishbone, I+O VS, Fishbone, I+O Laboratory Tests 06/15/19 18:30 06/15/19 23:54 06/16/19 05:24 06/16/19 10:22 Vital Signs Date Time Temp Pulse Resp B/P (MAP) Pulse Ox O2 Delivery O2 Flow Rate FiO2 06/16/19 08:00 98.1 79 20 96/55 (52) 97 Room Air I&O- Last 24 Hours up to 6 AM 06/16/19 06:00 Intake Total 540 ml Output Total 650 ml Balance -110 ml HIMANSHU STOREY DO Jun 16, 2019 12:27
[2019-06-16 18:00] VITALS: BP 98/53
[2019-06-16 19:40] LABS: CALCIUM LEVEL 7.9 MG/DL (8.8-10.2); CREATININE FOR GFR 1.05 MG/DL (0.55-1.30); GLOMERULAR FILTRATION RATE 52.7 (>32); POTASSIUM SERUM 3.6 MEQ/L (3.5-5.1)
[2019-06-16] MEDS: ROSUVASTATIN 10 MG TAB (CRESTOR) PO SCH (20:58)
[2019-06-16 22:00] VITALS: BP 119/63
[2019-06-17] MEDS: PENCICLOVIR 1% CREAM 5GM TOP SCH ×13 (00:14→23:53)
[2019-06-17 00:46] LABS: CALCIUM LEVEL 7.5 MG/DL (8.8-10.2); CREATININE FOR GFR 0.95 MG/DL (0.55-1.30); GLOMERULAR FILTRATION RATE 59.1 (>32); POTASSIUM SERUM 3.7 MEQ/L (3.5-5.1)
[2019-06-17 06:00] VITALS: BP 107/61
[2019-06-17 06:01] LABS: HEMATOCRIT 28.4 % (36.0-47.0); HEMOGLOBIN 8.6 g/dl (12.0-15.5); MEAN CORPUSCULAR HEMOGLOBIN 24.8 pg (27.0-33.0); MEAN CORPUSCULAR HGB CONC 30.3 g/dl (32.0-36.5); MEAN CORPUSCULAR VOLUME 81.8 fl (80.0-96.0); PLATELET COUNT, AUTOMATED 157 10^3/uL (150-450); RED BLOOD COUNT 3.47 10^6/uL (4.00-5.40); WHITE BLOOD COUNT 5.7 10^3/uL (4.0-10.0)
[2019-06-17] MEDS: SLF 3 ML SYR IV SCH ×3 (06:15→20:39)
[2019-06-17 06:25] LABS: CALCIUM LEVEL 7.4 MG/DL (8.8-10.2); CREATININE FOR GFR 0.95 MG/DL (0.55-1.30); GLOMERULAR FILTRATION RATE 59.1 (>32); MAGNESIUM LEVEL 1.9 MG/DL (1.8-2.4); POTASSIUM SERUM 3.4 MEQ/L (3.5-5.1)
[2019-06-17] MEDS: ALBUTEROL SULFATE 2.5 MG/0.5 ML INH NEB SOLN INH SCH ×4 (07:44→20:00)
[2019-06-17] MEDS: APIXABAN 2.5 MG TAB (ELIQUIS) PO SCH ×2 (09:35→20:38)
[2019-06-17] MEDS: POTASSIUM CHLORIDE 10 MEQ SR TABLET PO SCH (09:35)
[2019-06-17] MEDS: NYSTATIN 500,000 U/5 ML SUSP UDC SS SCH ×2 (09:35→20:38)
[2019-06-17] MEDS: FERROUS SULFATE 325MG TAB PO SCH (09:35)
[2019-06-17 13:13] LABS: CALCIUM LEVEL 7.7 MG/DL (8.8-10.2); CREATININE FOR GFR 0.98 MG/DL (0.55-1.30); POTASSIUM SERUM 3.5 MEQ/L (3.5-5.1)
[2019-06-17 14:00] VITALS: BP 94/54
--- NOTE | 2019-06-17 15:37 | IPNPDOC ---
Text Note Date of Service The patient was seen on 06/17/19. NOTE Subjective: No acute events overnight. Pt continues to have poor appetite. Tr ansferred to [facility] Patient denies fever, chills, nausea, vomiting, palpitations, shortness of breath, diarrhea Objective: HEENT: She has bitemporal wasting, she has herpetic lesions to her lower lip Cardiovascular: Regular rate and rhythm. S1-S2. Respiratory: Clear to auscultation with no cough. Abdomen: Soft and nondistended, nontender, bowel tones are present. Extremities: Mild peripheral edema, pulses are palpable, she has joint changes especially to her hands and fingers consistent with arthritis Neuro: No focal deficiency, cranial nerves intact Assessment and plan Patient is 88 years old female with past medical history of atrial fibrillation, hypertension presented to the hospital with acute kidney injury and profound weakness. Patient was found to have elevated troponin and hypokalemia. Also patient was found to have elevated digoxin level of 2.5 Acute kidney injury Improved Continue to monitor Hypokalemia. Improved Replaced Non-STEMI Continue cardioprotective medication Cardiology team follows patient Elevated troponin. Trended down Patient denies any chest pain Continue to monitor Chronic atrial fibrillation. The patient was maintained on digoxin for rate control. Digoxin was discontinued due to toxicity. Heart rate is under control for now. We'll restart AV blocking agents if patient became tachycardic Hyperthyroidism The patient was thought to have hypothyroidism as she has been on levothyroxine for at least a year. TSH of 0.072 and free T4 of 2.17 are more consistent with hyperthyroidism. We have stopped her levothyroxine. She has not had typical symptoms. Protein calorie malnutrition. Given her weight loss and physical appearance to be classified as severe. Serum protein is 5.2 with a serum albumin of 2.2. She is also iron deficient with a serum iron of 41. Patient has been assessed by nutrition services. We will attempt to meet her goal calorie requirement of 1600 per day. She has been started on additional meal supplementation in the form of Ensure. Microcytic anemia Secondary to iron deficiency Stool was negative for occult blood Iron supplementation Herpes oralis Patient is receiving penciclovir for the herpetic lesions to her lip. Hypertension Blood pressures under control for now VS,Fishbone, I+O VS, Fishbone, I+O Laboratory Tests 06/16/19 19:00 06/17/19 00:11 06/17/19 05:22 06/17/19 11:51 Vital Signs Date Time Temp Pulse Resp B/P (MAP) Pulse Ox O2 Delivery O2 Flow Rate FiO2 06/17/19 14:00 97.7 82 20 94/54 (86) 99 Room Air I&O- Last 24 Hours up to 6 AM 06/17/19 05:59 Intake Total 270 ml Output Total 0 ml Balance 270 ml HIMANSHU STOREY DO Jun 17, 2019 15:37
[2019-06-17] MEDS: ROSUVASTATIN 10 MG TAB (CRESTOR) PO SCH (20:38)
[2019-06-17 22:00] VITALS: BP 120/68
[2019-06-18] MEDS: PENCICLOVIR 1% CREAM 5GM TOP SCH ×5 (02:00→09:53)
[2019-06-18] MEDS: SLF 3 ML SYR IV SCH ×2 (05:18→14:00)
[2019-06-18 05:57] LABS: HEMOGLOBIN 8.4 g/dl (12.0-15.5); MEAN CORPUSCULAR HEMOGLOBIN 24.9 pg (27.0-33.0); MEAN CORPUSCULAR VOLUME 82.8 fl (80.0-96.0); PLATELET COUNT, AUTOMATED 167 10^3/uL (150-450); RED BLOOD COUNT 3.38 10^6/uL (4.00-5.40); WHITE BLOOD COUNT 5.2 10^3/uL (4.0-10.0)
[2019-06-18 06:00] VITALS: BP 103/57
[2019-06-18] MEDS: ALBUTEROL SULFATE 2.5 MG/0.5 ML INH NEB SOLN INH SCH ×3 (07:24→15:23)
[2019-06-18] MEDS ORDERED: MAGNESIUM CHLORIDE 64 MG TABCR (SLO MAG) PO SCH (09:00)
[2019-06-18] MEDS: APIXABAN 2.5 MG TAB (ELIQUIS) PO SCH (09:52)
[2019-06-18] MEDS: POTASSIUM CHLORIDE 10 MEQ SR TABLET PO SCH (09:52)
[2019-06-18] MEDS: NYSTATIN 500,000 U/5 ML SUSP UDC SS SCH (09:52)
[2019-06-18] MEDS: FERROUS SULFATE 325MG TAB PO SCH (09:52)
[2019-06-18 10:00] VITALS: BP 106/91
[2019-06-18] MEDS ORDERED: ELIQ2.5T PO (11:41)
[2019-06-18] MEDS ORDERED: NYST50SS SS (11:41)
[2019-06-18] MEDS ORDERED: FERR325T18 PO (11:41)
[2019-06-18] MEDS ORDERED: LEVO50TA5 PO (11:41)
--- NOTE | 2019-06-18 18:15 | DS.PDOC ---
Discharge Summary General Date of Admission Jun 09, 2019 at 18:19 Date of Discharge 06/18/19 Discharge Summary PROCEDURES PERFORMED DURING STAY: [None]. ADMITTING DIAGNOSES: Acute kidney injury Hypokalemia. Elevated troponin. Hypothyroidism Malnutrition. Non-STEMI Chronic atrial fibrillation. Microcytic anemia Herpes oralis Hypertension DISCHARGE DIAGNOSES: Acute kidney injury Hypokalemia. Elevated troponin. Hypothyroidism Malnutrition. Non-STEMI Chronic atrial fibrillation. Microcytic anemia Herpes oralis Hypertension COMPLICATIONS/CHIEF COMPLAINT: Afib Chronic Diastolic Heart Failure Hypokalemia. HISTORY OF PRESENT ILLNESS: This is an 88-year-old female who was brought into the hospital by family out of concern for her lack of eating and drinking. This has actually been going on for quite some time. She has become weaker and weaker and is intolerant of ambulation today. They state she did not drink anything today until she came to the ER. The patient denies any nausea, vomiting or abdom inal pain. She does not have difficulty swallowing and has not had any choking episodes. She states that at times her mouth is dry. She states that she simply does not have an appetite. Family member states that at times she makes comments about "getting fat". Family notes a weight loss, at least over the past year of about 23 pounds. Although the patient was not eating and drinking, she was taking her medications fairly consistently. HOSPITAL COURSE: During hospital stay the following issue addressed Acute kidney injury Prerenal Improved on IV hydration Continue to monitor Hypokalemia. Improved Replaced Non-STEMI Patient received heparin drip and conservative treatment With cardioprotective medication Elevated troponin. Trended down Patient denies any chest pain, no EKG changes Continue to monitor Chronic atrial fibrillation. The patient was maintained on digoxin for rate control. Digoxin was discontinued due to toxicity. Heart rate is under control for now. I defer restart of d igoxin to a financial legal assistant Hyperthyroidism The patient was thought to have hypothyroidism as she has been on levothyroxine for at least a year. TSH of 0.072 and free T4 of 2.17 are more consistent with hyperthyroidism. We have stopped her levothyroxine. She has not had typical symptoms. Recent need close follow-up with PCP and check thyroid panel. I reduced the dose of levothyroxine on discharge Protein calorie malnutrition. Given her weight loss and physical appearance to be classified as severe. Serum protein is 5.2 with a serum albumin of 2.2. She is also iron deficient with a serum iron of 41. Patient has been assessed by nutrition services. We will attempt to meet her goal calorie requirement of 1600 per day. She has been started on additional meal supplementation in the form of Ensure. Microcytic anemia Secondary to iron deficiency Stool was negative for occult blood Iron supplementation Herpes oralis Patient is receiving penciclovir for the herpetic lesions to her lip. Hypertension Blood pressures under control for now DISCHARGE MEDICATIONS: Please see below. ALLERGIES: Please see below. PHYSICAL EXAMINATION ON DISCHARGE: VITAL SIGNS: Please see below. HEENT: She has bitemporal wasting, she has herpetic lesions to her lower lip Cardiovascular: Regular rate and rhythm. S1-S2. Respiratory: Clear to auscultation with no cough. Abdomen: Soft and nondistended, nontender, bowel tones are present. Extremities: Mild peripheral edema, pulses are palpable, she has joint changes especially to her hands and fingers consistent with arthritis Neuro: No focal deficiency, cranial nerves intact LABORATORY DATA: Please see below. PROGNOSIS: Guarded ACTIVITY:As tolerated DIET: Cardiac DISCHARGE PLAN: Home with home health DISPOSITION: 06 Home Health Service. ITEMS TO FOLLOWUP ON ON OUTPATIENT: With PCP DISCHARGE CONDITION: Stable TIME SPENT ON DISCHARGE: Greater than 20 minutes. Vital Signs/I&Os Vital Signs Date Time Temp Pulse Resp B/P (MAP) Pulse Ox O2 Delivery O2 Flow Rate FiO2 06/18/19 10:00 97.7 71 19 106/91 (96) 98 Room Air I&O- Last 24 Hours up to 6 AM 06/18/19 05:59 Intake Total 490 ml Output Total 300 ml Balance 190 ml Laboratory Data Labs 24H Laboratory Tests 2 06/18/19 05:07: Nucleated Red Blood Cells % (auto) 0.0, Magnesium Level 1.7L CBC/BMP Laboratory Tests 06/18/19 05:07 Microbiology Microbiology 06/11/19 Stool Occult Blood (PACO) - Final, Complete 06/10/19 Stool Occult Blood (PACO) - Final, Complete Discharge Medications Scheduled Albuterol Sulf (Albuterol Sulfate) 2.5 Mg/3 Ml Nebu, 1 INH INH QID, (Reported) Apixaban (Eliquis) 2.5 Mg Tablet, 2.5 MG PO BID Ferrous Sulfate (Ferrous Sulfate) 325 Mg Tablet, 325 MG PO DAILY Furosemide (Furosemide) 40 Mg Tablet, 40 MG PO Q2D, (Reported) Furosemide (Furosemide) 40 Mg Tablet, 80 MG PO Q2D, (Reported) alternate with 40mg Levothyroxine Sodium (Levothyroxine Sodium) 50 Mcg Tablet, 50 MCG PO DAILY Nystatin (Nystatin Oral Susp) 100,000 Unit/1 Ml Oral.susp, 5 ML SS BID Rosuvastatin Calcium (Rosuvastatin Calcium) 20 Mg Tablet, 20 MG PO QPM, (Reported) Scheduled PRN Albuterol Sulfate (Proair Hfa) 108 Mcg/Act Aer, 2 PUFFS INH QID PRN for SHORTNESS OF BREATH, (Reported) Miscellaneous Medications [Comments] , (Reported) PT'S DAUGHTER DOES MEDS AND SEEMS CONFUSED ABOUT THE MEDICATIONS THE PT IS ON. WHEN ASKED DIRECTLY DAUGHTER STATES THAT ELIQUIS IS GIVEN DAILY NOT TWICE A DAY. PT'S LAST HEALTH CLINIC FOLLOW UP STATES SHE TAKES DILTIAZEM BUT PT'S DAUGHTER SAYS SHE WAS TAKEN OFF THAT MEDICATION. Allergies Coded Allergies: No Known Allergies (Unverified , 05/10/19) HIMANSHU STOREY DO Jun 18, 2019 18:15
== END 2019-06-18 15:20 | disposition home health service (06) | DRG 682 ==
LOC: M ED 15:38 → M ED INP 18:19 → M PCU 21:02 → M MSPAV 06-16 17:51
PROVIDERS: ADMIT Internal Medicine; ATTEND Internal Medicine
DX: N17.9 Acute kidney failure, unspecified (principal); E43 Unspecified severe protein-calorie malnutrition; I21.A1 Myocardial infarction type 2; I48.20 Chronic atrial fibrillation, unspecified; I50.32 Chronic diastolic (congestive) heart failure; R64 Cachexia; B00.89 Other herpesviral infection; R79.89 Other specified abnormal findings of blood chemistry; I11.0 Hypertensive heart disease with heart failure; I27.20 Pulmonary hypertension, unspecified; D50.9 Iron deficiency anemia, unspecified; E03.9 Hypothyroidism, unspecified; E87.6 Hypokalemia; E78.5 Hyperlipidemia, unspecified; E05.90 Thyrotoxicosis, unspecified without thyrotoxic crisis or storm; J44.9 Chronic obstructive pulmonary disease, unspecified; Z79.51 Long term (current) use of inhaled steroids; Z79.01 Long term (current) use of anticoagulants; Z79.899 Other long term (current) drug therapy; Z86.73 Personal history of transient ischemic attack (TIA), and cerebral infarction without residual deficits; Z90.49 Acquired absence of other specified parts of digestive tract; Z90.79 Acquired absence of other genital organ(s); Z96.642 Presence of left artificial hip joint; Z98.41 Cataract extraction status, right eye; Z98.42 Cataract extraction status, left eye; Z87.891 Personal history of nicotine dependence

== ENCOUNTER 2019-07-20 20:39 | Inpatient (IN) | payer MEDICARE ==
[~2019-07-20] VITALS: Ht 162.6 cm; Wt 43.3 kg
[~2019-07-20 20:39] MED LIST changes: +COMMENTS; -DIGO0.12 PO; +DIGO0.123 PO; +FERR325T18 PO; +NYST50SS SS
[2019-07-20 21:14] LABS: BASO % 0.5 % (0.0-1.0); EOS # 0.1 10^3/uL (0.0-0.5); EOS % 0.9 % (0.0-3.0); HEMATOCRIT 37.3 % (36.0-47.0); HEMOGLOBIN 11.3 g/dl (12.0-15.5); LYMPH # 1.2 10^3/uL (1.5-5.0); LYMPH % 13.7 % (24.0-44.0); MEAN CORPUSCULAR HEMOGLOBIN 26.2 pg (27.0-33.0); MEAN CORPUSCULAR HGB CONC 30.3 g/dl (32.0-36.5); MEAN CORPUSCULAR VOLUME 86.5 fl (80.0-96.0); MONO # 0.5 10^3/uL (0.0-0.8); MONO % 5.5 % (0.0-5.0); NEUTROPHILS # 6.7 10^3/uL (1.5-8.5); NEUTROPHILS % 79.2 % (36.0-66.0); PLATELET COUNT, AUTOMATED 215 10^3/uL (150-450); RED BLOOD COUNT 4.31 10^6/uL (4.00-5.40); WHITE BLOOD COUNT 8.5 10^3/uL (4.0-10.0)
[2019-07-20 21:26] LABS: INR 1.22; PROTHROMBIN TIME 15.1 SECONDS (11.8-14.0)
[2019-07-20 21:45] LABS: ALBUMIN 3.2 GM/DL (3.2-5.2); BILIRUBIN,DIRECT 0.4 MG/DL (0.0-0.2); BILIRUBIN,TOTAL 0.9 MG/DL (0.2-1.0); CK-MB VALUE MASS 1.9 NG/ML (<3.6); CREATININE FOR GFR 1.38 MG/DL (0.55-1.30); GLOMERULAR FILTRATION RATE 38.4 (>32); MB/CK RELATIVE INDEX 3.17 (< OR =4); POTASSIUM SERUM 2.2 MEQ/L (3.5-5.1); TOTAL PROTEIN 6.5 GM/DL (6.4-8.2); TROPONIN I 0.41 NG/ML (< 0.10)
[2019-07-20 22:36] LABS: MAGNESIUM LEVEL 2.5 MG/DL (1.8-2.4)
[2019-07-20] MEDS ORDERED: KCL 10MEQ/100ML SWI (KRUN) 10 MEQ in IV 1 EA IV ONE (23:00)
[2019-07-20] MEDS ORDERED: POTASSIUM CHLORIDE 10 MEQ SR TABLET PO ONE (23:00)
[2019-07-21 00:10] LABS: HEMATOCRIT 31.7 % (36.0-47.0); HEMOGLOBIN 9.8 g/dl (12.0-15.5); MEAN CORPUSCULAR HEMOGLOBIN 26.8 pg (27.0-33.0); MEAN CORPUSCULAR HGB CONC 30.9 g/dl (32.0-36.5); MEAN CORPUSCULAR VOLUME 86.6 fl (80.0-96.0); PLATELET COUNT, AUTOMATED 170 10^3/uL (150-450); RED BLOOD COUNT 3.66 10^6/uL (4.00-5.40); WHITE BLOOD COUNT 7.9 10^3/uL (4.0-10.0)
[2019-07-21 00:18] LABS: CK-MB VALUE MASS 2.1 NG/ML (<3.6); MB/CK RELATIVE INDEX 2.69 (< OR =4); TROPONIN I 0.33 NG/ML (< 0.10)
[2019-07-21] MEDS ORDERED: POTASSIUM CHLORIDE 10 MEQ SR TABLET PO ONE (01:30)
[2019-07-21] MEDS ORDERED: KCL 10MEQ/100ML SWI (KRUN) 10 MEQ in IV 1 EA IV ONE (01:30)
[2019-07-21] MEDS ORDERED: NS 1,000 ML IV SCH (01:45)
[2019-07-21] MEDS ORDERED: ACETAMINOPHEN TAB 650MG DOSE (2X325MG) PO PRN (01:45)
--- NOTE | 2019-07-21 01:49 | HPEPDOC ---
[facility] Medical History & Physical Date of Admission Jul 21, 2019 Date of Service: Jul 21, 2019 Primary Care Physician: Panfilo Buckley Attending Physician: ZORAN PRADO MD History and Physical TIME OF SERVICE: 1:50 a.m. CHIEF COMPLAINT: "[place] very weak" HISTORY OF PRESENT ILLNESS: The majority history was obtained from the patient's daughter. This is an 82 old female who reports that she came in because she "felt very weak" but could not provide additional details. The patient's daughter noticed her mother has been having more difficulty walking with her walker, has been short of breath when she walks, has had a very poor appetite, has lost a lot of weight, has had chest pain and has had dark stools for a few weeks. As a result of the weakness, the patient's daughters had to help her bathe. The patient has not had any dizziness, fevers, chills, vomiting, or diarrhea. She does admit to feeling cold. Per Dr. Wayne the patient's hemoglobin has dropped from her baseline of 11.3 to 9.8 and stool occult was positive; her potassium was also noted to be 2.2 .Sh e received potassium, chloride and IV fluids REVIEW OF SYSTEMS: 12 point review of systems negative except as listed in HPI PAST MEDICAL/ SURGICAL HISTORY: Atrial fibrillation. History of CVA COPD Chronic diastolic congestive heart failure. Pulmonary hypertension Dyslipidemia. Hypothyroidism. Iron deficiency anemia. Chronically elevated troponins Mitral and aortic valvular disease Severe Protein calorie malnutrition / possible history of eating disorder Status post tonsillectomy. Status post partial hysterectomy. 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 Status post bilateral cataract surgery SOCIAL HISTORY: Former smoker. FAMILY HISTORY: Alcoholism. Alzheimer's. Psychotic disorders listed with organic brain injury ALLERGIES: Please see below. HOME MEDICATIONS: Please see below. PHYSICAL EXAMINATION: VITAL SIGNS: Please see below. GEN: Cachectic/ NAD INTEGUMENT: not flushed/ not jaundice HEENT: normocephalic / atraumatic / lips acyanotic /mucus membranes dry/ sclera anicteric CVS: Heart rate irregularly irregular but not tachycardic/NMRG/ radial pulses intact / trace lower extremity edema LUNGS: able to speak full sentences without stopping to take a breath / no coughing / lungs are clear to auscultation bilaterally on room air ABDOMEN: abdomen is scaphoid/there are no masses or lesions / bowel sounds are active/ the abdomen is tympanic on percussion, soft & not tender with palpation MSK/EXTREMITIES: range of motion intact in all 4 extremities NEURO: CN 2-12 are grossly intact / speech is not dysarthric PSYCH: alert and oriented / able to understand and follow most commands LABORATORY DATA: See below. IMAGING: Chest x-ray shows cardiomegaly but is otherwise unremarkable MICROBIOLOGY: Please see below. ASSESSMENT: Ms. Lee is an 88 yr old with a past medical history of atrial fibrillation, history of CVA, COPD, has passed, pulmonary hypertension, dyslipidemia, hypothyroidism, iron deficiency anemia, chronically elevated troponin and severe protein calorie malnutrition, who will be admitted for management of hypokalemia and ALICE and evaluation of melena. PLAN: 1. Hypokalemia. Likely due to poor oral intake. Magnesium was within normal limits Plan: admitted to PCU/telemetry/Follow up repeat potassium and replete as needed. 2. Acute blood loss anemia/melena. She has a history of iron deficiency anemia. I was unable to track down. Pathology reports from prior colonoscopies. Type and screen has been ordered She is agreeable to colonoscopy. Plan: follow-up serial hemoglobin and iron panel/keep hemoglobin >7 / pending GI consult to determine if she needs in-pt vs out-pt c-scope will order clear liquid diet /hold oral iron 3. Acute Renal Failure Likely due to prerenal azotemia (dehydration, hemorrhage) Her baseline creatinine 0.98--> today it's 1.38 Her baseline GFR is around 57--> today is 38.4 Plan: monitor Is/Os/ f/u UA, and ulytes for FEUrea, IVF / if renal function does not improve, after hydration the daytime team and consider ordering a renal ultrasound 4. Weakness. Plan: Hold statin/PT eval 5 .Permanent Atrial fibrillation. Rate is controlled. Plan: Hold Elquis 4. History of CVA / Dyslipidemia Plan: Hold rosuvastatin as this can cause weakness, especially in the elderly 5. COPD Stable Plan: Continue with albuterol 6. Chronic diastolic congestive heart failure. / Pulmonary hypertension / Valvulopathy Plan: Continue Lasix as scheduled 7. Hypothyroidism. Plan: Continue levothyroxine 8. Severe Protein calorie malnutrition Her BMI is 14.3 This is been a long-standing program. Prior H&P's noted that her family members that she may have an eating disorder Plan: The daytime team may consider dietitian consult once the acute issues have been addressed DVT prophylaxis with SCDs. Disposition likely home after more than 2 midnight stay Vital Signs Vital Signs Date Time Temp Pulse Resp B/P (MAP) Pulse Ox O2 Delivery O2 Flow Rate FiO2 07/21/19 00:15 97.4 72 15 98/53 (68) 97 Room Air Laboratory Data Labs 24H Laboratory Tests 2 07/20/19 20:55: Immature Granulocyte % (Auto) 0.2, Neutrophils (%) (Auto) 79.2H, Lymphocytes (%) (Auto) 13.7L, Monocytes (%) (Auto) 5.5H, Eosinophils (%) (Auto) 0.9, Basophils (%) (Auto) 0.5, Neutrophils # (Auto) 6.7, Lymphocytes # (Auto) 1.2L, Monocytes # (Auto) 0.5, Eosinophils # (Auto) 0.1, Basophils # (Auto) 0.0, Nucleated Red Blood Cells % (auto) 0.0, Prothrombin Time 15.1H, Prothromb Time International Ratio 1.22, Anion Gap 8, Glomerular Filtration Rate 38.4, Calcium Level 9.0, Magnesium Level 2.5H, Total Bilirubin 0.9, Direct Bilirubin 0.4H, Aspartate Amino Transf (AST/SGOT) 29, Alanine Aminotransferase (ALT/SGPT) 18, Alkaline Phosphatase 90, Total Creatine Kinase 60, Creatine Kinase MB 1.9, Creatine Kinase MB Relative Index 3.17, Troponin I 0.41H, NW-Iqx-B-Type Natriuretic Peptide 8415H, Total Protein 6.5, Albumin 3.2, Albumin/Globulin Ratio 0.97L, Lipase 116 07/20/19 23:39: Nucleated Red Blood Cells % (auto) 0.0, Total Creatine Kinase 78, Creatine Kinase MB 2.1, Creatine Kinase MB Relative Index 2.69, Troponin I 0.33H CBC/BMP Laboratory Tests 07/20/19 20:55 07/20/19 23:39 Home Medications Scheduled Apixaban (Eliquis) 2.5 Mg Tablet, 2.5 MG PO BID Ferrous Sulfate (Ferrous Sulfate) 325 Mg Tablet, 325 MG PO DAILY Furosemide (Furosemide) 40 Mg Tablet, 40 MG PO Q2D Furosemide (Furosemide) 40 Mg Tablet, 80 MG PO Q2D Levothyroxine Sodium (Synthroid) 50 Mcg Tablet, 50 MCG PO DAILY Rosuvastatin Calcium (Rosuvastatin Calcium) 20 Mg Tablet, 20 MG PO QPM TAKES BEFORE DINNER Scheduled PRN Albuterol Sulf (Albuterol Sulfate) 2.5 Mg/3 Ml Nebu, 3 ML INH QID PRN for SHORTNESS OF BREATH Albuterol Sulfate (Proair Hfa) 108 Mcg/Act Aer, 2 PUFFS INH QID PRN for SHORTNESS OF BREATH Allergies Coded Allergies: No Known Allergies (Unverified , 07/20/19) A-FIB/CHADSVASC A-FIB History Current/History of A-Fib/PAF?: Yes Current PO Anticoag Therapy: No Treatment Treatment ordered: Holding Other (anemia) Other reason anticoagulant not: anemia ZORAN PRADO MD Jul 21, 2019 01:49
[2019-07-21] MEDS ORDERED: SYNT50TA PO (01:55)
[2019-07-21] MEDS ORDERED: ELIQ2.5T PO (01:55)
[2019-07-21] MEDS ORDERED: FERR1TAB8 PO (01:55)
[2019-07-21 02:17] LABS: PERCENT SATURATION 29.6 % (13.2-45.0)
[2019-07-21] MEDS ORDERED: ALBUTEROL SULFATE 2.5 MG/0.5 ML INH NEB SOLN INH PRN (03:30)
[2019-07-21] MEDS ORDERED: ALBUTEROL 90 MCG/ACT 8GM HFA INHALER INH PRN (03:30)
[2019-07-21 05:35] LABS: POTASSIUM SERUM 2.3 MEQ/L (3.5-5.1); TROPONIN I 0.32 NG/ML (< 0.10)
[2019-07-21] MEDS: LEVOTHYROXINE 50MCG TABLET (0.05MG) PO SCH (06:29)
--- NOTE | 2019-07-21 07:26 | ECGEPIP ---
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
--- NOTE | 2019-07-21 08:33 | REP ---
Portable chest x-ray: Single view. History: Chest pain. Comparison chest x-ray: June 09, 2019. Findings: Monitoring electrodes are seen. Moderate cardiomegaly is observed unchanged. There is diffuse osteoporosis. There is a mild linear density in the right base consistent with plate-like atelectasis. Lung redi are otherwise clear. No pleural effusion is seen. Pulmonary vasculature is not increased. Impression: Plate-like atelectasis right base. Moderate cardiomegaly. Otherwise no acute disease. Electronically Signed by Kilo Hammer MD 07/21/2019 08:24 A
[2019-07-21] MEDS: FUROSEMIDE 40 MG TAB PO SCH (10:02)
[2019-07-21 14:10] VITALS: BP 100/58
[2019-07-21 16:36] VITALS: BP 111/57
[2019-07-21 18:08] LABS: HEMOGLOBIN 9.7 g/dl (12.0-15.5); MEAN CORPUSCULAR HEMOGLOBIN 26.9 pg (27.0-33.0); MEAN CORPUSCULAR HGB CONC 31.3 g/dl (32.0-36.5); MEAN CORPUSCULAR VOLUME 85.9 fl (80.0-96.0); PLATELET COUNT, AUTOMATED 169 10^3/uL (150-450); RED BLOOD COUNT 3.61 10^6/uL (4.00-5.40); WHITE BLOOD COUNT 7.3 10^3/uL (4.0-10.0)
--- NOTE | 2019-07-21 18:08 | IPNPDOC ---
Text Note Date of Service The patient was seen on 07/21/19. NOTE Subjective: -Feels ok today, but not her baseline, feels weak -Otherwise no diarrhea or melena noted since admission Interim events: -consulted Dr. Roberts for troponinemia with now resolved chest pain over a few days and stable EKG -consulted GI given the history of melena and anemia though her Hgb appears at her baseline PHYSICAL EXAMINATION: VITAL SIGNS: Please see below. GEN: Cachectic, NAD INTEGUMENT: no jaundice, pale HEENT: NCAT, MMM, anicteric, pale CVS: Heart rate irregularly irregular but not tachycardic, no MRG LUNGS: able to speak full sentences without stopping to take a breath, CTAB ABDOMEN: abdomen is scaphoid, soft & not tender with palpation MSK/EXTREMITIES: range of motion intact in all 4 extremities NEURO: CN 2-12 are grossly intact, no dysarthria, moving all her extremities PSYCH: alert and oriented x 3 LABORATORY DATA: Reviewed IMAGING: Chest x-ray shows cardiomegaly but is otherwise unremarkable MICROBIOLOGY: Please see below. ASSESSMENT: Ms. Lee is an 88 yr old with a past medical history of atrial fibrillation, history of CVA, COPD, pulmonary hypertension, dyslipidemia, hypothyroidism, iron deficiency anemia, chronically elevated troponin and severe protein calorie malnutrition, who will be admitted for management of hypokalemia and ALICE and evaluation of melena. PLAN: 1. Troponinemia with recent history of chest pain and stable EKG: in the setting of known cardiac history and chronic elevated trops -consulted her sales assistant displays Dr. Roberts, with pending recs -No chest pain at this time 2. Hypokalemia. -Likely due to poor oral intake, repleted with pending PM BMP -Magnesium was within normal limits 3. Acute blood loss anemia/melena.: When I check her trend, it appears her baseline Hgb is ~9-9.5, so she is essentially at her baseline, and her melena looking stool might be a result of the iron supplementation that she is on. -Either way, at this time, the team has triggered a GI consult, will monitor for now until cardiology clears her for possibly colonoscopy -Has active type and screen -follow-up serial hemoglobin, goal hemoglobin >7 -switch diet to regular from clears at this time 4. Acute Renal Failure -Likely due to prerenal azotemia (dehydration, hemorrhage) -Her baseline creatinine 0.98--> most recent was 1.38, likely prerenal, will check now -hold home diuretics 5. Weakness. -Hold statin/PT eval 6 .Permanent Atrial fibrillation. -Rate is controlled. -Hold Elquis 7. History of CVA / Dyslipidemia -Hold rosuvastatin as this can cause weakness, especially in the elderly 8. COPD: stable -Continue with albuterol 9. Chronic diastolic congestive heart failure. / Pulmonary hypertension / Valvulopathy -hold home lasix at this time 10. Hypothyroidism. -continue levothyroxine 11. Severe Protein calorie malnutrition Her BMI is 14.3 -This is been a long-standing problem -Prior H&P's noted that her family members that she may have an eating disorder vs. failure to thrive -Will consult centrifugal machine tender DVT prophylaxis with SCDs. Disposition likely home after more than 2 midnight stay VS,Raeann, I+O VS, Raeann, I+O Laboratory Tests 07/20/19 20:55 07/20/19 23:39 07/21/19 04:47 Vital Signs Date Time Temp Pulse Resp B/P (MAP) Pulse Ox O2 Delivery O2 Flow Rate FiO2 07/21/19 16:36 97.5 93 17 111/57 (75) 97 Room Air I&O- Last 24 Hours up to 6 AM 07/21/19 06:00 Intake Total 100 ml Balance 100 ml DIXON ANSARI MD Jul 21, 2019 18:08
[2019-07-21 20:00] VITALS: BP 92/46
[2019-07-21 20:43] LABS: CREATININE FOR GFR 1.24 MG/DL (0.55-1.30); GLOMERULAR FILTRATION RATE 43.5 (>32)
[2019-07-21 20:44] LABS: CALCIUM LEVEL 7.9 MG/DL (8.8-10.2); POTASSIUM SERUM 2.5 MEQ/L (3.5-5.1)
[2019-07-21] MEDS ORDERED: POTASSIUM CHLORIDE 10% LIQ 20 MEQ/15 ML UDC PO ONE ×2 (22:00→23:00)
[2019-07-22] VITALS (7 sets, daily range): BP systolic 78–120; BP diastolic 51–68
[2019-07-22] MEDS ORDERED: POTASSIUM CHLORIDE 10% LIQ 20 MEQ/15 ML UDC PO ONE
[2019-07-22 02:12] LABS: CALCIUM LEVEL 8.3 MG/DL (8.8-10.2); CREATININE FOR GFR 1.38 MG/DL (0.55-1.30); GLOMERULAR FILTRATION RATE 38.4 (>32); MAGNESIUM LEVEL 2.1 MG/DL (1.8-2.4); POTASSIUM SERUM 4.1 MEQ/L (3.5-5.1)
[2019-07-22 05:35] LABS: HEMATOCRIT 30.4 % (36.0-47.0); HEMOGLOBIN 9.1 g/dl (12.0-15.5); MEAN CORPUSCULAR HEMOGLOBIN 26.5 pg (27.0-33.0); MEAN CORPUSCULAR HGB CONC 29.9 g/dl (32.0-36.5); MEAN CORPUSCULAR VOLUME 88.4 fl (80.0-96.0); PLATELET COUNT, AUTOMATED 159 10^3/uL (150-450); RED BLOOD COUNT 3.44 10^6/uL (4.00-5.40); WHITE BLOOD COUNT 6.4 10^3/uL (4.0-10.0)
[2019-07-22 05:54] LABS: CALCIUM LEVEL 7.7 MG/DL (8.8-10.2); CREATININE FOR GFR 1.28 MG/DL (0.55-1.30); GLOMERULAR FILTRATION RATE 41.9 (>32); MAGNESIUM LEVEL 2.1 MG/DL (1.8-2.4); POTASSIUM SERUM 3.9 MEQ/L (3.5-5.1)
[2019-07-22] MEDS: LEVOTHYROXINE 50MCG TABLET (0.05MG) PO SCH (06:35)
--- NOTE | 2019-07-22 08:30 | IPN ---
DATE: OF SERVICE: 07/22/2019 Mrs. Lee tells me that she is feeling fine. She has no specific complaints. Her daughter who is at bedside reported she had melena for about 5 or 6 days prior to presenting to the hospital. She has been quite anorexic and had minimal intake. The patient herself denies any dyspnea or chest pain today. Vital Signs: Blood pressure 153/91. Heart rate has been 70s to 90s. She is afebrile. Saturation is 94-97% on room air. Her fluid balance yesterday was about positive 1500 and she made about 650 of urine this morning. Weight is 46.9 kg. She is alert and oriented and mostly appropriate. I do not appreciate any jugular venous pulse (JVP) elevation. Lungs are reasonably clear. Heart exam reveals irregular rhythm. There is a blowing murmur at the apex about 2/6 intensity. Abdomen is soft, very cachectic. I do not appreciate any obvious masses. Extremities are free of edema. Laboratory-padilla, basic metabolic panel with sodium 141, potassium 3.9, BUN 10, creatinine 1.3, glucose 92. CBC reveals hemoglobin 9, hematocrit 30, platelet count 159,000. ASSESSMENT/PLAN: Mrs. Lee is an 88-year-old female who has chronic atrial fibrillation and congestive heart failure who presents with weakness and melena for several days. From a cardiac perspective, she seems to be reasonably well compensated. She had a minimal troponin elevation on admission of unclear significance. At this point, I would not have objections that she proceeds with colonoscopy and/or esophagogastroduodenoscopy (EGD) as felt appropriate.
[2019-07-22] MEDS ORDERED: NS 500 ML IV ONE (09:00)
[2019-07-22] MEDS ORDERED: FUROSEMIDE 40 MG TAB PO SCH (09:00)
[2019-07-22 11:36] LABS: APPEARANCE, URINE CLOUDY (CLEAR); BACTERIA, URINE AUTO 1+ (NEGATIVE); BILIRUBIN, URINE AUTO NEGATIVE (NEGATIVE); BLOOD, URINE BLOOD NEGATIVE (NEGATIVE); COLOR, URINE YELLOW (YELLOW); GLUCOSE, URINE (UA) AUTO NEGATIVE (NEGATIVE); KETONE, URINE AUTO NEGATIVE (NEGATIVE); LEUKOCYTE ESTERASE, URINE AUTO TRACE (NEGATIVE); MUCUS, URINE SMALL (NEGATIVE); NITRITE, URINE AUTO NEGATIVE (NEGATIVE); PROTEIN, URINE AUTO 2+ mg/dL (NEGATIVE); RBC, URINE AUTO 5 /HPF (0-3); SPECIFIC GRAVITY URINE AUTO 1.013 (1.002-1.035); SQUAMOUS EPITHELIAL CELL UR AU 1 /HPF (0-6); WBC, URINE AUTO 26 /HPF (0-3)
[2019-07-22 11:57] LABS: CREATININE,RANDOM URINE 61.7 MG/DL; SODIUM,RANDOM URINE 81 MEQ/L; UREA NITROGEN RANDOM URINE 223 MG/DL
--- NOTE | 2019-07-22 15:44 | IPNPDOC ---
Text Note Date of Service The patient was seen on 07/22/19. NOTE Subjective: -Feels the same, no complaints, feels weak -No reported hematochezia, melena, abdominal pain, dizziness, chest pain, palpitations, shortness of breath Interim events: -consulted Dr. Roberts for troponinemia with now resolved chest pain over a few days and stable EKG -consulted GI given the history of melena and anemia though her Hgb appears at her baseline, and is completely stable --> at this time will defer to outpatient follow up and focus on anorexia and weakness PHYSICAL EXAMINATION: VITAL SIGNS: Please see below. GEN: Cachectic, NAD INTEGUMENT: no jaundice, pale HEENT: NCAT, MMM, anicteric, pale CVS: Heart rate irregularly irregular but not tachycardic, no MRG LUNGS: able to speak full sentences without stopping to take a breath, CTAB ABDOMEN: abdomen is scaphoid, soft & not tender with palpation MSK/EXTREMITIES: range of motion intact in all 4 extremities NEURO: CN 2-12 are grossly intact, no dysarthria, moving all her extremities PSYCH: alert and oriented x 3 LABORATORY DATA: Reviewed K 3.9 Cr 1.28 Hgb 9.1 Hct 30.4 IMAGING: Chest x-ray shows cardiomegaly but is otherwise unremarkable MICROBIOLOGY: Please see below. ASSESSMENT: Ms. Lee is an 88 yr old with a past medical history of atrial fibrillation, history of CVA, COPD, pulmonary hypertension, dyslipidemia, hypothyroidism, iron deficiency anemia, chronically elevated troponin and severe protein calorie malnutrition, who was admitted for management of what initially appeared to be a GIB but unlikely and chronic troponinemia with a history of recent chest pain with a stable EKG with her current main issue being anorexia and deconditioning. PLAN: 1. Anorexia with malnutrition: There is concern for a long history of suspected eating disorder and she was admitted with hypoK and hypoCa likely 2/2 poor nutrition, as well as weakness and a BMI of 17.7. -Will consult dietary today -repleted lytes 2. Troponinemia with recent history of chest pain and stable EKG: in the setting of known cardiac history and chronic elevated trops -consulted her polysilicon preparation worker Dr. Roberts, with pending recs -No chest pain at this time, will monitor 3. Hypokalemia. -Likely due to poor oral intake, repleted 4. Suspected blood loss anemia/melena.: When I check her trend, it appears her baseline Hgb is ~9-9.5, so she is essentially at her baseline, and her melena looking stool might be a result of the iron supplementation that she is on. At this time her Hgb is stable and will defer GI consult to outpatient as this is not an acute care need at this time. -Has active type and screen -Daily hemoglobin, goal hemoglobin >7 -continue home Fe supplementation 5. Acute Renal Failure -Likely due to prerenal azotemia (dehydration, hemorrhage) -Her baseline creatinine 0.98--> most recent was 1.38, likely prerenal--> now 1.28 -continue to hold home diuretics until we establish degree of PO intake -strict I/Os 6. Weakness. -Hold statin -PT eval 7 .Permanent Atrial fibrillation. -Rate is controlled. -Hold Elquis 8. History of CVA / Dyslipidemia -Hold rosuvastatin as this can cause weakness, especially in the elderly 9. COPD: stable -Continue with albuterol 10. Chronic diastolic congestive heart failure. / Pulmonary hypertension / Valvulopathy -hold home lasix at this time 11. Hypothyroidism. -continue levothyroxine DVT prophylaxis with SCDs. Disposition: PT eval and potential placement VS,Raeann, I+O VS, Raeann, I+O Laboratory Tests 07/21/19 17:56 07/22/19 01:13 07/22/19 05:17 Vital Signs Date Time Temp Pulse Resp B/P (MAP) Pulse Ox O2 Delivery O2 Flow Rate FiO2 07/22/19 00:00 97.3 73 20 93/51 (65) 94 Room Air I&O- Last 24 Hours up to 6 AM 07/22/19 06:00 Intake Total 1680 ml Output Total 650 ml Balance 1030 ml DIXON ANSARI MD Jul 22, 2019 07:21
[2019-07-23 04:00] VITALS: BP 83/52
[2019-07-23] MEDS: LEVOTHYROXINE 50MCG TABLET (0.05MG) PO SCH (06:42)
[2019-07-23 08:00] VITALS: BP 98/42
[2019-07-23] MEDS: NS 1,000 ML IV SCH ×2 (08:56→19:29)
[2019-07-23] MEDS: FERROUS SULFATE 325MG TAB PO SCH (08:56)
[2019-07-23] MEDS: CALCIUM CARBONATE 500 MG CHEW U/D PO SCH (08:56)
[2019-07-23] MEDS: APIXABAN 2.5 MG TAB (ELIQUIS) PO SCH ×2 (08:57→20:16)
[2019-07-23] MEDS: FUROSEMIDE 40 MG TAB PO SCH (08:57)
[2019-07-23 12:00] VITALS: BP 92/54
--- NOTE | 2019-07-23 13:40 | IPNPDOC ---
Text Note Date of Service The patient was seen on 07/23/19. NOTE Subjective: -Tachycardic when she walks to the bathroom, with nursing yesterday evening reporting poor PO -No reported hematochezia, melena, abdominal pain, dizziness, chest pain, shortness of breath Interim events: -consulted Dr. Roberts for troponinemia with now resolved chest pain over a few days and stable EKG --> has chronic elevated trops --> cleared for scoping if it becomes necessary -had initially consulted GI given the history of melena and anemia but her Hgb is at baseline, and is completely stable --> decided to defer to outpatient follow up and focus on anorexia and weakness and essentially failure to thrive PHYSICAL EXAMINATION: VITAL SIGNS: Please see below. GEN: Cachectic, NAD INTEGUMENT: no jaundice, pale HEENT: NCAT, MMM, anicteric, pale CVS: Heart rate irregularly irregular but not tachycardic, no MRG LUNGS: able to speak full sentences without stopping to take a breath, CTAB ABDOMEN: abdomen is scaphoid, soft & not tender with palpation MSK/EXTREMITIES: range of motion intact in all 4 extremities NEURO: CN 2-12 are grossly intact, no dysarthria, moving all her extremities PSYCH: alert and oriented x 3 LABORATORY DATA: pending IMAGING: Chest x-ray showed cardiomegaly but is otherwise unremarkable MICROBIOLOGY: Please see below. ASSESSMENT: Ms. Lee is an 88 yr old with a past medical history of atrial fibrillation, history of CVA, COPD, pulmonary hypertension, dyslipidemia, hypothyroidism, iron deficiency anemia, chronically elevated troponin and severe protein calorie malnutrition, who was admitted for management of what initially appeared to be a GIB but unlikely and chronic troponinemia with a history of recent chest pain with a stable EKG with her current main issue being anorexia, deconditioning, essentially failure to thrive. PLAN: 1. Anorexia with malnutrition with failure to thrive: There is concern for a long history of suspected eating disorder and she was admitted with hypoK and hypoCa likely 2/2 poor nutrition, as well as weakness and a BMI of 17.7. -Dietary consulted, pending recs -replete lytes 2. Hypotension and tachycardia: 2/2 dehydration with poor PO -giving fluids, 1L NS @ 125cc/hr -monitor 2. Troponinemia with recent history of chest pain and stable EKG: in the setting of known cardiac history and chronic elevated trops -consulted her crowning inspector Dr. Roberts, to monitor, cleared for scoping if it becomes necessary -No chest pain at this time, will monitor 3. Hypokalemia, hypoCa -Due to poor oral intake, replete 4. Suspected blood loss anemia/melena.: When I check her trends, she is at her baseline Hgb of ~9-9. Reports of melena looking stool are likely a result of the iron supplementation that she is on. At this time her Hgb is stable and will defer GI consult to outpatient as this is not an acute care need at this time. -Has active type and screen -Daily hemoglobin, goal hemoglobin >7 -continue home Fe supplementation 5. Acute Renal Failure: Due prerenal azotemia (dehydration) -Now downtrending, continue to monitor -continue to hold home diuretics given PO intake -strict I/Os 6. Weakness. -Hold statin -PT eval 7 .Permanent Atrial fibrillation. -Rate is controlled. -Restart home eliquis 8. History of CVA / Dyslipidemia -Hold rosuvastatin as this can cause weakness, especially in the elderly 9. COPD: stable -Continue with albuterol 10. Chronic diastolic congestive heart failure. / Pulmonary hypertension / Valvulopathy -hold home lasix at this time 11. Hypothyroidism. -continue levothyroxine DVT prophylaxis with SCDs and restarting home eliquis Disposition: PT eval and potential placement VS,Fishbone, I+O VS, Fishbone, I+O Vital Signs Date Time Temp Pulse Resp B/P (MAP) Pulse Ox O2 Delivery O2 Flow Rate FiO2 07/23/19 04:00 97.0 68 16 83/52 (62) 92 Room Air I&O- Last 24 Hours up to 6 AM 07/23/19 06:00 Intake Total 940 ml Output Total 350 ml Balance 590 ml DIXON ANSARI MD Jul 23, 2019 08:03
[2019-07-23 16:00] VITALS: BP 100/70
[2019-07-23 20:00] VITALS: BP 118/60
[2019-07-24 04:00] VITALS: BP 111/65
[2019-07-24] MEDS: LEVOTHYROXINE 50MCG TABLET (0.05MG) PO SCH (06:09)
[2019-07-24 06:12] LABS: HEMATOCRIT 26.8 % (36.0-47.0); HEMOGLOBIN 8.3 g/dl (12.0-15.5); MEAN CORPUSCULAR HEMOGLOBIN 26.6 pg (27.0-33.0); MEAN CORPUSCULAR VOLUME 85.9 fl (80.0-96.0); PLATELET COUNT, AUTOMATED 147 10^3/uL (150-450); RED BLOOD COUNT 3.12 10^6/uL (4.00-5.40); WHITE BLOOD COUNT 5.7 10^3/uL (4.0-10.0)
[2019-07-24 06:48] LABS: BLOOD UREA NITROGEN 10 MG/DL (7-18); CALCIUM LEVEL 7.8 MG/DL (8.8-10.2); CARBON DIOXIDE LEVEL 29 MEQ/L (21-32); CHLORIDE LEVEL 107 MEQ/L (98-107); CREATININE FOR GFR 0.91 MG/DL (0.55-1.30); GLOMERULAR FILTRATION RATE > 60.0 (>32); GLUCOSE, FASTING 73 MG/DL (70-100); MAGNESIUM LEVEL 1.6 MG/DL (1.8-2.4); POTASSIUM SERUM 2.8 MEQ/L (3.5-5.1); SODIUM LEVEL 144 MEQ/L (136-145)
[2019-07-24 08:00] VITALS: BP 110/65
[2019-07-24] MEDS ORDERED: MAGNESIUM OXIDE 400 MG TAB (MAG-OX) PO ONE (08:00)
[2019-07-24] MEDS ORDERED: POTASSIUM CHLORIDE 10 MEQ SR TABLET PO ONE (08:00)
[2019-07-24] MEDS: APIXABAN 2.5 MG TAB (ELIQUIS) PO SCH ×2 (08:33→21:31)
[2019-07-24] MEDS: KCL 20MEQ IN 0.45NS 1000ML 1,000 ML IV SCH (08:33)
[2019-07-24] MEDS: FERROUS SULFATE 325MG TAB PO SCH (08:33)
[2019-07-24] MEDS: CALCIUM CARBONATE 500 MG CHEW U/D PO SCH (08:33)
--- NOTE | 2019-07-24 14:33 | IPNPDOC ---
Text Note Date of Service The patient was seen on 07/24/19. NOTE Subjective: -Feels ok this morning -No reported hematochezia, melena, abdominal pain, dizziness, chest pain, shortness of breath Interim events: -Got 1L of NS for dehydration, low BP and mild ALICE, now on fluids at 80cc/hr with 20meqK PHYSICAL EXAMINATION: VITAL SIGNS: Please see below. GEN: Cachectic, NAD INTEGUMENT: no jaundice, pale HEENT: NCAT, MMM, anicteric, pale CVS: Heart rate irregularly irregular but not tachycardic, no MRG LUNGS: able to speak full sentences without stopping to take a breath, CTAB ABDOMEN: abdomen is scaphoid, soft & not tender with palpation MSK/EXTREMITIES: range of motion intact in all 4 extremities NEURO: CN 2-12 are grossly intact, no dysarthria, moving all her extremities PSYCH: alert and oriented x 3 LABORATORY DATA: Reviewed WBC 5.7 Hgb 8.3 Hct 26.6 Platelets 147 Mag 1.6 K 2.8 Cr 0.91 IMAGING: Chest x-ray showed cardiomegaly but is otherwise unremarkable MICROBIOLOGY: Please see below. ASSESSMENT: Ms. Lee is an 88 yr old with a past medical history of atrial fibrillation, history of CVA, COPD, pulmonary hypertension, dyslipidemia, hypothyroidism, iron deficiency anemia, chronically elevated troponin and severe protein calorie malnutrition, who was admitted for management of what initially appeared to be a GIB but unlikely and chronic troponinemia with a history of recent chest pain with a stable EKG with her current main issue being anorexia, deconditioning, essentially failure to thrive. PLAN: 1. Anorexia with malnutrition with failure to thrive: There is concern for a long history of suspected eating disorder and she was admitted with hypoK and hypoCa likely 2/2 poor nutrition, as well as weakness and a BMI of 17.7. -Dietary consulted--> were told by patient that she had eaten poorly for 2 days or so --> unfortunately was minimizing the long standing issue --> will reconsult for calorie count and final recs. -replete lytes -will start mirtazapine 7.5 QHS tonight to augment appetite 2. Hypotension and tachycardia: 2/2 dehydration with poor PO -s/p 1L NS with resolution of hypotension -monitor 2. Troponinemia with recent history of chest pain and stable EKG: in the setting of known cardiac history and chronic elevated trops -consulted her dam tender Dr. Roberts, to monitor, cleared for scoping if it becomes necessary -No chest pain at this time, will monitor 3. Hypokalemia, hypoMag -Due to poor oral intake, repleted 4. Suspected blood loss anemia/melena.: When I check her trends, she is at her baseline Hgb of ~9-9. Reports of melena looking stool are likely a result of the iron supplementation that she is on. At this time her Hgb is stable and will defer GI consult to outpatient as this is not an acute care need at this time. -Has active type and screen -Daily hemoglobin, goal hemoglobin >7 -continue home Fe supplementation -Hgb dropped 1 point but likely dilutional after 1L NS, will monitor, no reported bleeding at this time 5. Acute Renal Failure: Due prerenal azotemia (dehydration) -Now downtrending, continue to monitor -continue to hold home diuretics given PO intake -strict I/Os 6. Weakness. -Hold statin -PT eval 7 .Permanent Atrial fibrillation. -Rate is controlled. -Restarted home eliquis --> monitor H/H 8. History of CVA / Dyslipidemia -Hold rosuvastatin as this can cause weakness, especially in the elderly 9. COPD: stable -Continue with albuterol 10. Chronic diastolic congestive heart failure. / Pulmonary hypertension / Valvulopathy -hold home lasix at this time 11. Hypothyroidism. -continue levothyroxine DVT prophylaxis with SCDs and restarting home eliquis Disposition: ongoing PT eval and potential placement VS,Fishbone, I+O VS, Fishbone, I+O Laboratory Tests 07/24/19 05:28 Vital Signs Date Time Temp Pulse Resp B/P (MAP) Pulse Ox O2 Delivery O2 Flow Rate FiO2 07/24/19 04:00 98.3 65 18 111/65 (80) 98 Room Air I&O- Last 24 Hours up to 6 AM 07/24/19 06:00 Intake Total 2240 ml Output Total 1150 ml Balance 1090 ml DIXON ANSARI MD Jul 24, 2019 09:30
[2019-07-24 16:00] VITALS: BP 118/60
[2019-07-24 20:02] VITALS: BP 96/60
[2019-07-24] MEDS: MIRTAZAPINE 7.5MG PER 1/2 TABLET PO SCH (21:32)
[2019-07-25] MEDS: KCL 20MEQ IN 0.45NS 1000ML 1,000 ML IV SCH (03:02)
[2019-07-25 06:00] VITALS: BP 113/72
[2019-07-25] MEDS: LEVOTHYROXINE 50MCG TABLET (0.05MG) PO SCH (06:01)
[2019-07-25 06:42] LABS: HEMATOCRIT 28.4 % (36.0-47.0); HEMOGLOBIN 8.7 g/dl (12.0-15.5); MEAN CORPUSCULAR HEMOGLOBIN 26.7 pg (27.0-33.0); MEAN CORPUSCULAR HGB CONC 30.6 g/dl (32.0-36.5); MEAN CORPUSCULAR VOLUME 87.1 fl (80.0-96.0); PLATELET COUNT, AUTOMATED 157 10^3/uL (150-450); RED BLOOD COUNT 3.26 10^6/uL (4.00-5.40)
[2019-07-25 07:09] LABS: CALCIUM LEVEL 7.7 MG/DL (8.8-10.2); CREATININE FOR GFR 1.03 MG/DL (0.55-1.30); GLOMERULAR FILTRATION RATE 53.8 (>32); MAGNESIUM LEVEL 1.9 MG/DL (1.8-2.4); POTASSIUM SERUM 3.9 MEQ/L (3.5-5.1)
[2019-07-25] MEDS: APIXABAN 2.5 MG TAB (ELIQUIS) PO SCH ×2 (08:52→19:57)
[2019-07-25] MEDS: CALCIUM CARBONATE 500 MG CHEW U/D PO SCH (08:52)
[2019-07-25] MEDS: FUROSEMIDE 40 MG TAB PO SCH (08:52)
[2019-07-25] MEDS: FERROUS SULFATE 325MG TAB PO SCH (08:52)
--- NOTE | 2019-07-25 11:09 | IPNPDOC ---
Text Note Date of Service The patient was seen on 07/25/19. NOTE Subjective: -Feels ok this morning -No reported hematochezia, melena, abdominal pain, dizziness, chest pain, shortness of breath Interim events: -Started her on mirtazapine 7.5 QHS after discussion about malnutrition and lack of appetite with the patient and family PHYSICAL EXAMINATION: VITAL SIGNS: Please see below. GEN: Cachectic, NAD INTEGUMENT: no jaundice, pale HEENT: NCAT, MMM, anicteric, pale CVS: Heart rate irregularly irregular but not tachycardic, no MRG LUNGS: able to speak full sentences without stopping to take a breath, CTAB ABDOMEN: abdomen is scaphoid, soft & not tender with palpation MSK/EXTREMITIES: range of motion intact in all 4 extremities NEURO: CN 2-12 are grossly intact, no dysarthria, moving all her extremities PSYCH: alert and oriented x 3 LABORATORY DATA: Reviewed WBC 6 Hgb 8.7 Hct 28.4 Platelets 157 Mag 1.9 K 3.9 Cr 1.07 IMAGING: no new imaging MICROBIOLOGY: Please see below. ASSESSMENT: Ms. Lee is an 88 yr old with a past medical history of atrial fibrillation, history of CVA, COPD, pulmonary hypertension, dyslipidemia, hypothyroidism, iron deficiency anemia, chronically elevated troponin and severe protein calorie ma lnutrition, who was admitted for management of what initially appeared to be a GIB but unlikely and chronic troponinemia with a history of recent chest pain with a stable EKG with her current main issue being anorexia, deconditioning, essentially failure to thrive. PLAN: 1. Anorexia with malnutrition with failure to thrive: There is concern for a long history of suspected eating disorder and she was admitted with hypoK and hypoCa likely 2/2 poor nutrition, as well as weakness and a BMI of 17.7. -Dietary consulted--> were told by patient that she had eaten poorly for 2 days or so --> unfortunately was minimizing the long standing issue --> will reconsult for calorie count and final recs. -replete lytes PRN -continue mirtazapine 7.5 QHS 2. Hypotension and tachycardia: 2/2 dehydration with poor PO -s/p 1L NS with resolution of hypotension -monitor 2. Troponinemia with recent history of chest pain and stable EKG: in the setting of known cardiac history and chronic elevated trops -consulted her resident athletic trainer Dr. Roberts, to monitor, cleared for scoping if it becomes necessary -No chest pain at this time, will monitor 3. Hypokalemia, hypoMag -Due to poor oral intake, repleted 4. Suspected blood loss anemia/melena.: When I check her trends, she is at her baseline Hgb of ~9-9. Reports of melena looking stool are likely a result of the iron supplementation that she is on. At this time her Hgb is stable and will defer GI consult to outpatient as this is not an acute care need at this time. -Has active type and screen -Daily hemoglobin, goal hemoglobin >7 -continue home Fe supplementation -Hgb dropped 1 point but likely dilutional after 1L NS, will monitor, no reported bleeding at this time, H/H stable 5. Acute Renal Failure: Due prerenal azotemia (dehydration), resolved -continue to monitor -continue to hold home diuretics given poor PO intake -strict I/Os 6. Weakness. -Hold statin -PT eval ongoing, likely STR 7 .Permanent Atrial fibrillation. -Rate is controlled. -Restarted home eliquis --> monitor H/H 8. History of CVA / Dyslipidemia -Hold rosuvastatin as this can cause weakness, especially in the elderly 9. COPD: stable -Continue with albuterol 10. Chronic diastolic congestive heart failure. / Pulmonary hypertension / Valvulopathy -hold home lasix at this time 11. Hypothyroidism. -continue levothyroxine DVT prophylaxis with SCDs and restarting home eliquis Disposition: ongoing PT eval, likely STR VS,Fishbone, I+O VS, Fishbone, I+O Laboratory Tests 07/25/19 05:09 Vital Signs Date Time Temp Pulse Resp B/P (MAP) Pulse Ox O2 Delivery O2 Flow Rate FiO2 07/25/19 06:00 97.6 61 20 113/72 (86) 98 Room Air I&O- Last 24 Hours up to 6 AM 07/25/19 06:00 Intake Total 860 ml Output Total 1350 ml Balance -490 ml DIXON ANSARI MD Jul 25, 2019 08:46
[2019-07-25 14:00] VITALS: BP 85/57
[2019-07-25] MEDS: MIRTAZAPINE 7.5MG PER 1/2 TABLET PO SCH (19:57)
[2019-07-25 22:00] VITALS: BP 102/64
[2019-07-26 05:48] LABS: HEMATOCRIT 27.9 % (36.0-47.0); HEMOGLOBIN 8.4 g/dl (12.0-15.5); MEAN CORPUSCULAR HEMOGLOBIN 26.6 pg (27.0-33.0); MEAN CORPUSCULAR HGB CONC 30.1 g/dl (32.0-36.5); MEAN CORPUSCULAR VOLUME 88.3 fl (80.0-96.0); PLATELET COUNT, AUTOMATED 133 10^3/uL (150-450); RED BLOOD COUNT 3.16 10^6/uL (4.00-5.40); WHITE BLOOD COUNT 5.1 10^3/uL (4.0-10.0)
[2019-07-26] MEDS: LEVOTHYROXINE 50MCG TABLET (0.05MG) PO SCH (05:55)
[2019-07-26 06:00] VITALS: BP 108/60
[2019-07-26 06:05] LABS: CALCIUM LEVEL 7.9 MG/DL (8.8-10.2); CREATININE FOR GFR 1.01 MG/DL (0.55-1.30); GLOMERULAR FILTRATION RATE 55.1 (>32); MAGNESIUM LEVEL 1.9 MG/DL (1.8-2.4); POTASSIUM SERUM 3.7 MEQ/L (3.5-5.1)
[2019-07-26] MEDS: APIXABAN 2.5 MG TAB (ELIQUIS) PO SCH ×2 (08:14→20:08)
[2019-07-26] MEDS: CALCIUM CARBONATE 500 MG CHEW U/D PO SCH (08:14)
[2019-07-26] MEDS: FERROUS SULFATE 325MG TAB PO SCH (08:14)
--- NOTE | 2019-07-26 12:45 | IPNPDOC ---
Text Note Date of Service The patient was seen on 07/26/19. NOTE Subjective: -No complaints this AM. No reported hematochezia, melena, abdominal pain, dizziness, chest pain, shortness of breath PHYSICAL EXAMINATION: VITAL SIGNS: Please see below. GEN: Cachectic, NAD INTEGUMENT: no jaundice, pale HEENT: NCAT, MMM, anicteric, pale CVS: Heart rate irregularly irregular but not tachycardic, no MRG LUNGS: able to speak full sentences without stopping to take a breath, CTAB ABDOMEN: abdomen is scaphoid, soft & not tender with palpation MSK/EXTREMITIES: range of motion intact in all 4 extremities NEURO: CN 2-12 are grossly intact, no dysarthria, moving all her extremities PSYCH: alert and oriented x 3 LABORATORY DATA: Reviewed. Stable and electrolytes wnl. See below IMAGING: no new imaging MICROBIOLOGY: Please see below. ASSESSMENT: Ms. Lee is an 88 yr old with a past medical history of atrial fibrillation, history of CVA, COPD, pulmonary hypertension, dyslipidemia, hypothyroidism, iron deficiency anemia, chronically elevated troponin and severe protein calorie malnutrition, who was admitted for management of what initially appeared to be a GIB but unlikely and chronic troponinemia with a history of recent chest pain with a stable EKG with her current main issue being anorexia, deconditioning, essentially failure to thrive. PLAN: 1. Anorexia with malnutrition with failure to thrive: There is concern for a long history of suspected eating disorder and she was admitted with hypoK and hypoCa likely 2/2 poor nutrition, as well as weakness and a BMI of 17.7. -Dietary consulted--> were told by patient that she had eaten poorly for 2 days or so --> unfortunately was minimizing the long standing issue --> will rec onsult for calorie count and final recs. -replete lytes PRN -continue mirtazapine 7.5 QHS 2. Hypotension and tachycardia: 2/2 dehydration with poor PO -s/p 1L NS with resolution of hypotension -monitor 2. Troponinemia with recent history of chest pain and stable EKG: in the setting of known cardiac history and chronic elevated trops -consulted her senior game developer Dr. Roberts, to monitor, cleared for scoping if it becomes necessary -No chest pain at this time, will monitor 3. Hypokalemia, hypoMag -Due to poor oral intake, repleted 4. Suspected blood loss anemia/melena.: When I check her trends, she is at her baseline Hgb of ~9-9. Reports of melena looking stool are likely a result of the iron supplementation that she is on. At this time her Hgb is stable and will defer GI consult to outpatient as this is not an acute care need at this time. -Has active type and screen -Daily hemoglobin, goal hemoglobin >7 -continue home Fe supplementation -Hgb dropped 1 point but likely dilutional after 1L NS, will monitor, no reported bleeding at this time, H/H stable 5. Acute Renal Failure: Due prerenal azotemia (dehydration), resolved -continue to monitor -continue to hold home diuretics given poor PO intake -strict I/Os 6. Weakness. -Hold statin -PT eval ongoing, likely STR 7 .Permanent Atrial fibrillation. -Rate is controlled. -Restarted home eliquis --> monitor H/H 8. History of CVA / Dyslipidemia -Hold rosuvastatin as this can cause weakness, especially in the elderly 9. COPD: stable -Continue with albuterol 10. Chronic diastolic congestive heart failure. / Pulmonary hypertension / Valvulopathy -hold home lasix at this time 11. Hypothyroidism. -continue levothyroxine DVT prophylaxis with SCDs and restarting home eliquis Disposition: ongoing PT eval, likely STR VS,Fishbone, I+O VS, Fishbone, I+O Laboratory Tests 07/26/19 05:28 Vital Signs Date Time Temp Pulse Resp B/P (MAP) Pulse Ox O2 Delivery O2 Flow Rate FiO2 07/26/19 06:00 97.2 88 17 108/60 (76) 98 Room Air I&O- Last 24 Hours up to 6 AM0 07/26/19 06:00 Intake Total 490 ml Output Total 1575 ml Balance -1085 ml DIXON ANSARI MD Jul 26, 2019 09:04
[2019-07-26 14:00] VITALS: BP 88/58
[2019-07-26] MEDS: MIRTAZAPINE 7.5MG PER 1/2 TABLET PO SCH (20:08)
[2019-07-26 22:00] VITALS: BP 88/57
[2019-07-27 06:00] VITALS: BP 90/57
[2019-07-27] MEDS: LEVOTHYROXINE 50MCG TABLET (0.05MG) PO SCH (06:06)
[2019-07-27 06:12] LABS: HEMATOCRIT 24.5 % (36.0-47.0); HEMOGLOBIN 7.8 g/dl (12.0-15.5); MEAN CORPUSCULAR HEMOGLOBIN 27.9 pg (27.0-33.0); MEAN CORPUSCULAR HGB CONC 31.8 g/dl (32.0-36.5); MEAN CORPUSCULAR VOLUME 87.5 fl (80.0-96.0); PLATELET COUNT, AUTOMATED 126 10^3/uL (150-450); WHITE BLOOD COUNT 4.8 10^3/uL (4.0-10.0)
[2019-07-27 06:36] LABS: CALCIUM LEVEL 7.9 MG/DL (8.8-10.2); CREATININE FOR GFR 0.98 MG/DL (0.55-1.30); MAGNESIUM LEVEL 1.9 MG/DL (1.8-2.4); POTASSIUM SERUM 3.7 MEQ/L (3.5-5.1)
[2019-07-27] MEDS: FUROSEMIDE 40 MG TAB PO SCH (08:24)
[2019-07-27] MEDS: CALCIUM CARBONATE 500 MG CHEW U/D PO SCH (08:24)
[2019-07-27] MEDS: APIXABAN 2.5 MG TAB (ELIQUIS) PO SCH ×2 (08:24→20:34)
[2019-07-27] MEDS: FERROUS SULFATE 325MG TAB PO SCH (08:24)
[2019-07-27 14:00] VITALS: BP 92/59
--- NOTE | 2019-07-27 14:32 | IPNPDOC ---
Text Note Date of Service The patient was seen on 07/27/19. NOTE Subjective: Patient was seen and examined at the bedside. Patient reports she denies any chest pain, shortness breath or palpitations. Denied nausea, vomiting, abdominal pain, constipation or diarrhea. Denies any urinary discomfort. Patient does report that her appetite has improved. Today she will be going for calorie count and will have a cognitive evaluation completed by occupational therapy. Objective: Vitals (See below) General: Lying in bed, no acute distress, comfortable, Awake / Alert HEENT: NC, AT CVS: +S1S2 Lungs: Fair air entry b/l, -w/r/r Abdomen: Soft, ND, NT Extremities: - Edema, - Calf tenderness Assessment and plan: Patient is an 88 yr old female with a past medical history of atrial fibrillation, history of CVA, COPD, pulmonary hypertension, dyslipidemia, hypothyroidism, iron deficiency anemia, chronically elevated troponin and severe protein calorie malnutrition, who was admitted for management of what initially appeared to be a GIB but unlikely and chronic troponin elevation with a history of recent chest pain with a stable EKG with her current main issue being anorexia, deconditioning, essentially failure to thrive. Anorexia with malnutrition with failure to thrive - There is concern for a long history of suspected eating disorder and she was admitted with hypoK and hypoCa - History of poor nutrition and weakness - Patient has a family history of Alzheimer's and has currently short term memory problems - BMI of 17.7. - Dietary has been consulted; calorie count today - Occupational therapy has been consulted; will perform cognitive evaluation today - c/w Mirtazapine for appetite enhancement s/p Hypotension and tachycardia - likely 2/2 hypovolemia - 2/2 dehydration with poor PO - s/p 1L NS with resolution of hypotension Elevated troponin - Has had a recent history of chest pain in the setting of known cardiac history and chronic elevated trops - Currently she denies any chest pain a - EKG without any ischemic chagnes - Cardiology was called on consultation s/p Electrolyte disfunction (Hypomagnesemia / Hypokalemia) - s/p supplementation Suspected blood loss anemia/melena - Baseline hemoglobin approximately runs at about 9 - Upon admission, patient's hemoglobin was slightly elevated. However, this can be hemoconcentration - H&H has remained stable; Hg this morning slightly low - will repeat later today - c/w home Ferrous sulfate Thrombocytopenia - No evidence of active bleed - Will continue to monitor s/p Acute Renal Failure - likely 2/2 prerenal etiology 2/2 dehydration - Diuretics have been resumed; q2days Weakness - possibly 2/2 poor nutrition, possibly 2/2 medications (Statin) - s/p statin - c/w physical therapy; likely will require placement Permanent Atrial fibrillation - Currently remains well controlled without any medications - c/w full anticoagulation with Eliquis History of CVA / Dyslipidemia - s/p rosuvastatin (re: weakness, especially in the elderly) COPD - No exacerbation at this time - c/w inhaled therapy as ordered Chronic diastolic congestive heart failure / Pulmonary hypertension / [place] vulopathy - Currently does not appear to have any signs of fluid overload - c/w Furosemide q2days Hypothyroidism - c/w levothyroxine DVT prophylaxis - c/w full anticoagulation with Eliquis Disposition: - Will likely need BARBARA placement - Awaiting calorie count VS,Fishbone, I+O VS, Fishbone, I+O Laboratory Tests 07/27/19 05:19 Vital Signs Date Time Temp Pulse Resp B/P (MAP) Pulse Ox O2 Delivery O2 Flow Rate FiO2 07/27/19 06:00 97.7 85 16 90/57 (68) 97 Room Air I&O- Last 24 Hours up to 6 AM 07/27/19 06:00 Intake Total 390 ml Output Total 525 ml Balance -135 ml MARYANN FERREIRA MD Jul 27, 2019 14:32
[2019-07-27 15:10] LABS: HEMATOCRIT 28.1 % (36.0-47.0); HEMOGLOBIN 8.6 g/dl (12.0-15.5)
[2019-07-27] MEDS: MIRTAZAPINE 7.5MG PER 1/2 TABLET PO SCH (20:34)
[2019-07-27 22:00] VITALS: BP 93/58
[2019-07-28] MEDS: LEVOTHYROXINE 50MCG TABLET (0.05MG) PO SCH (05:47)
[2019-07-28 06:00] VITALS: BP 95/60
[2019-07-28 06:56] LABS: HEMATOCRIT 23.7 % (36.0-47.0); HEMOGLOBIN 7.5 g/dl (12.0-15.5); MEAN CORPUSCULAR HEMOGLOBIN 27.4 pg (27.0-33.0); MEAN CORPUSCULAR HGB CONC 31.6 g/dl (32.0-36.5); MEAN CORPUSCULAR VOLUME 86.5 fl (80.0-96.0); PLATELET COUNT, AUTOMATED 122 10^3/uL (150-450); RED BLOOD COUNT 2.74 10^6/uL (4.00-5.40); WHITE BLOOD COUNT 4.7 10^3/uL (4.0-10.0)
[2019-07-28 07:20] LABS: CALCIUM LEVEL 7.9 MG/DL (8.8-10.2); CREATININE FOR GFR 0.96 MG/DL (0.55-1.30); GLOMERULAR FILTRATION RATE 58.4 (>32); POTASSIUM SERUM 3.2 MEQ/L (3.5-5.1)
[2019-07-28] MEDS: CALCIUM CARBONATE 500 MG CHEW U/D PO SCH (08:13)
[2019-07-28] MEDS: FERROUS SULFATE 325MG TAB PO SCH (08:13)
[2019-07-28] MEDS: APIXABAN 2.5 MG TAB (ELIQUIS) PO SCH ×2 (08:13→20:26)
[2019-07-28] MEDS: POTASSIUM CHLORIDE 10 MEQ SR TABLET PO SCH (08:15)
[2019-07-28] MEDS ORDERED: CALC200T15 PO (11:20)
[2019-07-28] MEDS ORDERED: KLOR10TA76 PO (11:20)
[2019-07-28] MEDS ORDERED: REME15TA PO (11:20)
--- NOTE | 2019-07-28 13:55 | IPNPDOC ---
Text Note Date of Service The patient was seen on 07/28/19. NOTE Subjective: Patient was seen and examined at the bedside. Patient is a bed available at [facility]. , Currently patient denies any chest pain, shortness of breath or palpitations. They reported that her appetite has improved over the course of the hospitalization. Physical therapy is continuing to work. Patient, however, she has not been cleared for discharge home and will wire further subacute rehabilitation prior to transition home. Objective: Vitals (See below) General: Lying in bed, no acute distress, comfortable, Awake / Alert HEENT: NC, AT CVS: +S1S2 Lungs: Fair air entry b/l, auscultation without any rhonchi, rales or wheezing Abdomen: Soft, nondistended, without tenderness Extremities: No evidence of edema, - Calf tenderness Assessment and plan: Patient is an 88 yr old female with a past medical history of atrial fibrillation, history of CVA, COPD, pulmonary hypertension, dyslipidemia, hypothyroidism, iron deficiency anemia, chronically elevated troponin and severe protein calorie malnutrition, who was admitted for management of what initially appeared to be a GIB but unlikely and chronic troponin elevation with a history of recent chest pain with a stable EKG with her current main issue being anorexia, deconditioning, essentially failure to thrive. Anorexia with malnutrition with failure to thrive - There is concern for a long history of suspected eating disorder and she was admitted with hypoK and hypoCa - History of poor nutrition and weakness - Patient has a family history of Alzheimer's and has currently short term memory problems - Clinically the patient has had improvement of her appetite over the last 48 hours - BMI of 17.7. - Dietary has been consulted; calorie count today - c/w Mirtazapine for appetite enhancement s/p Hypotension and tachycardia - likely 2/2 hypovolemia - 2/2 dehydration with poor PO - s/p 1L NS with resolution of hypotension Elevated troponin - Has had a recent history of chest pain in the setting of known cardiac history and chronic elevated trops - Currently she denies any chest pain a - EKG without any ischemic chagnes - Cardiology was called on consultation s/p Electrolyte disfunction (Hypomagnesemia / Hypokalemia) - s/p supplementation Suspected blood loss anemia/melena - Baseline hemoglobin approximately runs at about 9 - Upon admission, patient's hemoglobin was slightly elevated. However, this can be hemoconcentration - H&H has remained stable; Hg this morning slightly low - will repeat later today - c/w home Ferrous sulfate Thrombocytopenia - No evidence of active bleed - Will continue to monitor s/p Acute Renal Failure - likely 2/2 prerenal etiology 2/2 dehydration - Diuretics have been resumed; q2days Weakness - possibly 2/2 poor nutrition, possibly 2/2 medications (Statin) - s/p statin - c/w physical therapy; likely will require placement Permanent Atrial fibrillation - Currently remains well controlled without any medications - c/w full anticoagulation with Eliquis History of CVA / Dyslipidemia - s/p rosuvastatin (re: weakness, especially in the elderly) COPD - No exacerbation at this time - c/w inhaled therapy as ordered Chronic diastolic congestive heart failure / Pulmonary hypertension / Valvulopathy - Currently does not appear to have any signs of fluid overload - c/w Furosemide q2days Hypothyroidism - c/w levothyroxine DVT prophylaxis - c/w full anticoagulation with Eliquis Disposition: - Patient will be transition to [facility] - anticipate discharge tomorrow VSRaeann, I+O VS, Raeann, I+O Laboratory Tests 07/27/19 14:49 07/28/19 05:35 Vital Signs Date Time Temp Pulse Resp B/P (MAP) Pulse Ox O2 Delivery O2 Flow Rate FiO2 07/28/19 06:00 97.1 86 16 95/60 (72) 98 Room Air I&O- Last 24 Hours up to 6 AM 07/28/19 06:00 Intake Total 910 ml Output Total 1525 ml Balance -615 ml MARYANN FERREIRA MD Jul 28, 2019 13:55
[2019-07-28 14:00] VITALS: BP 97/60
[2019-07-28] MEDS: MIRTAZAPINE 7.5MG PER 1/2 TABLET PO SCH (20:26)
[2019-07-28 22:00] VITALS: BP 97/59
[2019-07-29] MEDS: LEVOTHYROXINE 50MCG TABLET (0.05MG) PO SCH (05:56)
[2019-07-29 06:00] VITALS: BP 98/62
[2019-07-29] MEDS: FERROUS SULFATE 325MG TAB PO SCH (08:50)
[2019-07-29] MEDS: CALCIUM CARBONATE 500 MG CHEW U/D PO SCH (08:50)
[2019-07-29] MEDS: FUROSEMIDE 40 MG TAB PO SCH (08:50)
[2019-07-29] MEDS: APIXABAN 2.5 MG TAB (ELIQUIS) PO SCH (08:51)
[2019-07-29] MEDS: POTASSIUM CHLORIDE 10 MEQ SR TABLET PO SCH (08:51)
[2019-07-29] MEDS ORDERED: POTASSIUM CHLORIDE 10 MEQ SR TABLET PO ONE ×2 (10:00→13:00)
[2019-07-29 10:11] LABS: HEMATOCRIT 28.6 % (36.0-47.0); HEMOGLOBIN 8.8 g/dl (12.0-15.5)
--- NOTE | 2019-07-29 10:45 | DS.PDOC ---
Discharge Summary General Date of Admission Jul 21, 2019 at 01:41 Date of Discharge 07/29/2019 Discharge Summary PROCEDURES PERFORMED DURING STAY: [None]. ADMITTING DIAGNOSES / DISCHARGE DIAGNOSES: Anorexia with malnutrition with failure to thrive s/p Hypotension and tachycardia - likely 2/2 hypovolemia - 2/2 dehydration with poor PO Elevated troponin s/p Electrolyte disfunction (Hypomagnesemia / Hypokalemia) Suspected blood loss anemia/melena Thrombocytopenia s/p Acute Renal Failure - likely 2/2 prerenal etiology 2/2 dehydration Weakness - possibly 2/2 poor nutrition, possibly 2/2 medications (Statin) Permanent Atrial fibrillation History of CVA / Dyslipidemia COPD Chronic diastolic congestive heart failure / Pulmonary hypertension / Valvulopathy s/p Hypokalemia Hypothyroidism DVT prophylaxis COMPLICATIONS/CHIEF COMPLAINT: Dark stools HISTORY OF PRESENT ILLNESS: Patient is an 88 yr old female with a past medical history of atrial fibrillation, history of CVA, COPD, pulmonary hypertension, dyslipidemia, hypothyroidism, iron deficiency anemia, chronically elevated troponin and severe protein calorie malnutrition, who was admitted for management of what initially appeared to be a GIB but unlikely and chronic troponin elevation with a history of recent chest pain with a stable EKG with her current main issue being anorexia, deconditioning, essentially failure to thrive. HOSPITAL COURSE: Anorexia with malnutrition with failure to thrive - There is concern for a long history of suspected eating disorder and she was admitted with hypoK and hypoCa - History of poor nutrition and weakness - Patient has a family history of Alzheimer's and has currently short term [place] problems - Clinically the patient has had improvement of her appetite over the last 48 hours - BMI of 17.7. - Dietary has been consulted; calorie count today - c/w Mirtazapine for appetite enhancement s/p Hypotension and tachycardia - likely 2/2 hypovolemia - 2/2 dehydration with poor PO - s/p 1L NS with resolution of hypotension Elevated troponin - Has had a recent history of chest pain in the setting of known cardiac history and chronic elevated trops - Currently she denies any chest pain a - EKG without any ischemic changes - Cardiology was called on consultation s/p Electrolyte disfunction (Hypomagnesemia / Hypokalemia) - s/p supplementation Suspected blood loss anemia/melena - Baseline hemoglobin approximately runs at about 9 - Upon admission, patient's hemoglobin was slightly elevated. However, this can be hemoconcentration - H&H has remained stable; Hg this morning slightly low - will repeat later today - c/w home Ferrous sulfate Thrombocytopenia - No evidence of active bleed - Will continue to monitor s/p Acute Renal Failure - likely 2/2 prerenal etiology 2/2 dehydration - Diuretics have been resumed; q2days Weakness - possibly 2/2 poor nutrition, possibly 2/2 medications (Statin) - s/p statin - c/w physical therapy; likely will require placement Permanent Atrial fibrillation - Currently remains well controlled without any medications - c/w full anticoagulation with Eliquis History of CVA / Dyslipidemia - s/p rosuvastatin (re: weakness, especially in the elderly) COPD - No exacerbation at this time - c/w inhaled therapy as ordered Chronic diastolic congestive heart failure / Pulmonary hypertension / Valvulopathy - Currently does not appear to have any signs of fluid overload - c/w Furosemide q2days s/p Hypokalemia - c/w supplementation Hypothyroidism - c/w levothyroxine DVT prophylaxis - c/w full anticoagulation with Eliquis DISCHARGE MEDICATIONS: Please see below. ALLERGIES: Please see below. PHYSICAL EXAMINATION ON DISCHARGE: Vitals (See below) General: Lying in bed, no acute distress, comfortable, Awake / Alert HEENT: NC, AT CVS: +S1S2 Lungs: Fair air entry b/l, auscultation without any rhonchi, rales or wheezing Abdomen: Soft, nondistended, without tenderness Extremities: No evidence of edema, - Calf tenderness LABORATORY DATA: Please see below. ACTIVITY: [As tolerated]. DISCHARGE PLAN: Follow-up with primary care provider within the next 7 days Remain compliant with treatment plan and medications Return to the ER if you experience any problems DISPOSITION: [facility] DISCHARGE CONDITION: [Stable]. TIME SPENT ON DISCHARGE: 34 minutes Vital Signs/I&Os Vital Signs Date Time Temp Pulse Resp B/P (MAP) Pulse Ox O2 Delivery O2 Flow Rate FiO2 07/29/19 06:00 97.3 73 16 98/62 (74) 94 Room Air I&O- Last 24 Hours up to 6 AM 07/29/19 06:00 Intake Total 1270 ml Output Total 450 ml Balance 820 ml Laboratory Data CBC/BMP Laboratory Tests 07/29/19 09:58 Discharge Medications Scheduled Apixaban (Eliquis) 2.5 Mg Tablet, 2.5 MG PO BID, (Reported) Calcium Carbonate (Calcium Carbonate) 200 Mg Tab.chew, 1,000 MG PO DAILY Ferrous Sulfate (Ferrous Sulfate) 325 Mg Tablet, 325 MG PO DAILY, (Reported) Furosemide (Furosemide) 40 Mg Tablet, 40 MG PO Q2D, (Reported) Levothyroxine Sodium (Synthroid) 50 Mcg Tablet, 50 MCG PO DAILY, (Reported) Mirtazapine (Remeron) 15 Mg Tablet, 7.5 MG PO QHS Potassium Chloride (Klor-Con M10) 10 Meq Tab.er.prt, 40 MEQ PO DAILY Rosuvastatin Calcium (Rosuvastatin Calcium) 20 Mg Tablet, 20 MG PO QPM, (Reported) TAKES BEFORE DINNER Scheduled PRN Albuterol Sulf (Albuterol Sulfate) 2.5 Mg/3 Ml Nebu, 3 ML INH QID PRN for SHORTNESS OF BREATH, (Reported) Albuterol Sulfate (Proair Hfa) 108 Mcg/Act Aer, 2 PUFFS INH QID PRN for SHORTNE SS OF BREATH, (Reported) Allergies Coded Allergies: No Known Allergies (Unverified , 07/20/19) MARYANN FERREIRA MD Jul 29, 2019 10:45
[2019-07-29 12:24] LABS: CALCIUM LEVEL 8.3 MG/DL (8.8-10.2); CREATININE FOR GFR 1.04 MG/DL (0.55-1.30); GLOMERULAR FILTRATION RATE 53.2 (>32); POTASSIUM SERUM 3.7 MEQ/L (3.5-5.1)
[2019-07-29 14:00] VITALS: BP 111/69
== END 2019-07-29 14:34 | DRG 377 ==
LOC: M ED 20:39 → M ED INP 07-21 01:41 → M PCU 07-21 14:11 → M MSPAV 07-24 20:00
PROVIDERS: ADMIT Internal Medicine; ATTEND Internal Medicine
DX: K92.1 Melena (principal); E43 Unspecified severe protein-calorie malnutrition; D62 Acute posthemorrhagic anemia; N17.9 Acute kidney failure, unspecified; I50.32 Chronic diastolic (congestive) heart failure; I48.21 Permanent atrial fibrillation; Z68.1 Body mass index [BMI] 19.9 or less, adult; E87.6 Hypokalemia; Z86.73 Personal history of transient ischemic attack (TIA), and cerebral infarction without residual deficits; E03.9 Hypothyroidism, unspecified; J44.9 Chronic obstructive pulmonary disease, unspecified; E86.0 Dehydration; E78.5 Hyperlipidemia, unspecified; I27.20 Pulmonary hypertension, unspecified; E83.42 Hypomagnesemia; Z79.82 Long term (current) use of aspirin; Z79.899 Other long term (current) drug therapy; I95.9 Hypotension, unspecified; D50.9 Iron deficiency anemia, unspecified

== ENCOUNTER → 2019-08-19 | Outpatient (CLI) | payer MEDICARE ==
[~2019-08-19] MED LIST changes: +CALC200T15 PO; +FERR1TAB8 PO; +KLOR10TA76 PO; +REME15TA PO; +SYNT50TA PO
--- NOTE | 2019-08-19 16:27 | REP ---
Chest x-ray: Two views. History: Shortness of breath. Comparison chest x-ray: July 20, 2019. Findings: There is moderate to marked cardiomegaly. Pulmonary vasculature is cephalized and congested. There are small bilateral pleural effusions. There is bibasilar plate-like atelectasis. Impression: CHF pattern with small bilateral effusions and vascular congestion. Bibasilar plate-like atelectasis. Marked cardiomegaly. Electronically Signed by Kilo Hammer MD 08/19/2019 06:31 P
== END ==
LOC: M CLY 15:29
PROVIDERS: ATTEND Family Medicine
DX: I51.7 Cardiomegaly (principal); J98.11 Atelectasis; R06.02 Shortness of breath
CPT/HCPCS: 71046; G0463

== ENCOUNTER 2020-05-04 08:28 | Inpatient (IN) | payer MEDICARE ==
[~2020-05-04] VITALS: Ht 162.6 cm; Wt 50.7 kg
[2020-05-04] MEDS ORDERED: TORS20TA2 PO (08:55)
--- NOTE | 2020-05-04 09:26 | REPVR ---
PROCEDURE INFORMATION: Exam: XR Chest, 1 View Exam date and time: 05/04/2020 8:40 AM Age: 89 years old Clinical indication: Shortness of breath; Additional info: Weakness TECHNIQUE: Imaging protocol: XR of the chest Views: 1 view. COMPARISON: [facility] PORTABLE CHEST X-RAY 07/20/2019 9:04 PM FINDINGS: Lungs: There is new airspace consolidation medially at the right lung base. Mild atelectasis is present at both lung bases. Pleural space: A small right pleural effusion has developed. The left costophrenic angle is sharp. No pneumothorax is identified. Heart/Mediastinum: The cardiomediastinal silhouette is fairly stable in appearance, with similar cardiomegaly. Bones/joints: Unremarkable. IMPRESSION: Medial right basilar airspace consolidation with small right pleural effusion. Electronically signed by: Luis Miguel Ferrera On 05/04/2020 09:26:23 AM
[2020-05-04] MEDS: NS 1,000 ML IV SCH ×2 (09:27→20:28)
[2020-05-04 09:28] LABS: VENOUS BASE EXCESS 3.4 (-2.0-2.0); VENOUS O2 SATURATION 63.6 % (60.0-80.0); VENOUS PARTIAL PRESSURE CO2 48.4 mmHg (38.0-50.0); VENOUS PARTIAL PRESSURE O2 36.6 mmHg (30.0-50.0); VENOUS PH 7.396 UNITS (7.330-7.430); VENOUS STANDARD HCO3 26.8 MEQ/L; VENOUS TOTAL CO2 30.5 MEQ/L (24.0-28.0)
[2020-05-04 09:37] LABS: BASO # 0.1 10^3/uL (0.0-0.2); BASO % 0.6 % (0.0-1.0); EOS # 0.1 10^3/uL (0.0-0.5); EOS % 0.9 % (0.0-3.0); HEMATOCRIT 35.4 % (36.0-47.0); HEMOGLOBIN 11.1 g/dl (12.0-15.5); LYMPH # 0.7 10^3/uL (1.5-5.0); MEAN CORPUSCULAR HEMOGLOBIN 28.2 pg (27.0-33.0); MEAN CORPUSCULAR HGB CONC 31.4 g/dl (32.0-36.5); MEAN CORPUSCULAR VOLUME 90.1 fl (80.0-96.0); MONO # 0.9 10^3/uL (0.0-0.8); MONO % 10.2 % (0.0-5.0); NEUTROPHILS % 80.1 % (36.0-66.0); PLATELET COUNT, AUTOMATED 195 10^3/uL (150-450); RED BLOOD COUNT 3.93 10^6/uL (4.00-5.40); WHITE BLOOD COUNT 8.7 10^3/uL (4.0-10.0)
[2020-05-04 10:29] LABS: ALBUMIN 3.2 GM/DL (3.2-5.2); BILIRUBIN,DIRECT 0.4 MG/DL (0.0-0.2); BILIRUBIN,TOTAL 1.4 MG/DL (0.2-1.0); CALCIUM LEVEL 8.6 MG/DL (8.8-10.2); CREATININE FOR GFR 0.97 MG/DL (0.55-1.30); GLOMERULAR FILTRATION RATE 57.6 (>32); POTASSIUM SERUM 3.5 MEQ/L (3.5-5.1); THYROID STIMULATING HORMONE 5.78 uIU/ML (0.358-3.740); TOTAL PROTEIN 6.4 GM/DL (6.4-8.2)
[2020-05-04] MEDS ORDERED: cefTRIAXone SOD 1 GM in D5W MINI-BAG PLUS 50 ML IV ONE (11:00)
[2020-05-04] MEDS ORDERED: DOXYCYCLINE HYCLATE 100 MG in D5W MINI-BAG PLUS 100 ML IV ONE (11:00)
[2020-05-04] MEDS ORDERED: LEVO75TA34 PO (11:55)
--- NOTE | 2020-05-04 11:57 | HPEPDOC ---
General Date of Admission 05/04/2020 Date of Service: May 04, 2020 Attending Physician: ROMI FERREIRA MD Chief Complaint The patient is a 89-year-old female with a PMHx significant for chronic afib on eliquis, hypothyroidism, CVA without any residual hemiparesis, was admitted for weakness and failure to thrive. Pt is a poor historian but states that she's been feeling weak for the past week. Her baseline status is that she can walk on her own without the assist of a walker or a cane a week prior. Today she states she feels good other than poor appetite and being overall weak. She denies any CP, SOB, cough, abdominal discomfort, fever, n/v/d. Patient's family has reported that they're unable to care for her at home and are seeking additional assistance. 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 Status post bilateral cataract surgery SOCIAL HISTORY: Former smoker FAMILY HISTORY: Alcoholism Alzheimer's Psychotic disorders listed with organic brain injury ALLERGIES: Please see below HOME MEDICATIONS: Please see below PHYSICAL EXAMINATION: VITAL SIGNS: Please see below GEN: Cachectic, NAD HEENT: Normocephalic / atraumatic / lips acyanotic /mucus membranes dry/ sclera anicteric CVS: Heart rate irregularly irregular, no tachycardia, m/g/r, 2+ pitting edema in b.l Lower extr, PMI nondisplaced LUNGS: No wheezing, rhonci, or rales heard ABDOMEN: abdomen is scaphoid/there are no masses or lesions / bowel sounds are active/ the abdomen is tympanic on percussion, soft & not tender with palpation MSK/EXTREMITIES: range of motion intact in all 4 extremities, no joint effusions or fractures NEURO: CN 2-12 are grossly intact SKIN: not flushed or jaundice; no clubbing, cyanosis PSYCH: alert and oriented, appropriate mood and affect LABORATORY DATA: See below. IMAGING: CXR: Medial right basilar airspace consolidation with small right pleural effusion MICROBIOLOGY: blood cx x2 pending results Home Medications Scheduled Apixaban (Eliquis) 2.5 Mg Tablet, 2.5 MG PO BID, (Reported) Ferrous Sulfate (Ferrous Sulfate) 325 Mg Tablet, 325 MG PO DAILY, (Reported) Levothyroxine Sodium (Levoxyl) 75 Mcg Tablet, 75 MCG PO DAILY, (Reported) Rosuvastatin Calcium (Rosuvastatin Calcium) 20 Mg Tablet, 20 MG PO QPM, (Reported) TAKES BEFORE DINNER Torsemide (Torsemide) 20 Mg Tablet, 20 MG PO DAILY, (Reported) Scheduled PRN Albuterol Sulf (Albuterol Sulfate) 2.5 Mg/3 Ml Nebu, 3 ML INH QID PRN for SHORTNESS OF BREATH, (Reported) Albuterol Sulfate (Proair Hfa) 108 Mcg/Act Aer, 2 PUFFS INH QID PRN for SHORTNESS OF BREATH, (Reported) Sennosides/Docusate Sodium (Senna Plus Tablet) 1 Each Tablet, 2 TAB PO BIDP PRN for CONSTIPATION Allergies Coded Allergies: No Known Allergies (Unverified , 07/20/19) A-FIB/CHADSVASC A-FIB History Current/History of A-Fib/PAF?: Yes Current PO Anticoag Therapy: Yes Vital Signs Vital Signs Date Time Temp Pulse Resp B/P (MAP) Pulse Ox O2 Delivery O2 Flow Rate FiO2 05/04/20 11:50 96 16 100 Room Air 05/04/20 11:40 113/84 (94) 05/04/20 08:46 98.1 Laboratory Data Labs 24H Laboratory Tests 2 05/04/20 09:19: Immature Granulocyte % (Auto) 0.2, Neutrophils (%) (Auto) 80.1H, Lymphocytes (%) (Auto) 8.0L, Monocytes (%) (Auto) 10.2H, Eosinophils (%) (Auto) 0.9, Basophils (%) (Auto) 0.6, Neutrophils # (Auto) 7.0, Lymphocytes # (Auto) 0.7L, Monocytes # (Auto) 0.9H, Eosinophils # (Auto) 0.1, Basophils # (Auto) 0.1, Nucleated Red Blood Cells % (auto) 0.0, Blood Gas Bicarbonate Standard 26.8, Venous Blood pH 7.396, Venous Blood Partial Pressure CO2 48.4, Venous Blood Partial Pressure O2 36.6, Venous Blood Total Carbon Dioxide 30.5H, Venous Blood HCO3 29.0H, Venous Blood Oxygen Saturation 63.6, Venous Blood Base Excess 3.4H, Anion Gap 4L, Glomerular Filtration Rate 57.6, Lactic Acid Level 1.4, Calcium Level 8.6L, Total Bilirubin 1.4H, Direct Bilirubin 0.4H, Aspartate Amino Transf (AST/SGOT) 25, Alanine Aminotransferase (ALT/SGPT) 23, Alkaline Phosphatase 85, Ammonia < 10, Total Protein 6.4, Albumin 3.2, Albumin/Globulin Ratio 1.0L, Thyroid Stimulating Hormone (TSH) 5.780H 05/04/20 09:24: POC Troponin I (Misc) 0.07 05/04/20 09:37: POC Glucose (Misc Panel) 84, POC Sodium (Misc Panel) 134L, POC Potassium (Misc Panel) 3.5, POC Chloride (Misc Panel) 91L, POC Total CO2 (Misc Panel) 28.0H, POC Blood Urea Nitrogen (Misc Panel 17, POC Ionized Calcium (Misc Panel) 4.2L, POC Creatinine (Misc Panel) 0.9, POC Hematocrit (Misc Panel) 37.0L 05/04/20 10:18: Urine Color YELLOW, Urine Appearance CLEAR, Urine pH 7.0, Urine Specific [place] 1.016, Urine Protein NEGATIVE, Urine Glucose (UA) NEGATIVE, Urine Ketones NEGATIVE, Urine Blood NEGATIVE, Urine Nitrite NEGATIVE, Urine Bilirubin NEGATIVE, Urine Urobilinogen 4.0H, Urine Leukocyte Esterase NEGATIVE, Urine WBC (Auto) 1, Urine RBC (Auto) 13H, Urine Hyaline Casts (Auto) 0, Urine Bacteria (Auto) NEGATIVE, Urine Squamous Epithelial Cells 0, Urine Mucus (Auto) SMALL, U rine Sperm (Auto) CBC/BMP Laboratory Tests 05/04/20 09:19 Microbiology Microbiology 05/04/20 Respiratory Virus Panel (PCR) (PACO), Received Pending 05/04/20 Blood Culture, Received Pending 05/04/20 Blood Culture, Received Pending Assessment/Plan This is an 89 y/o elderly female with PMHx of CVA, chronic afib on eliquis, hypothyroidism, who presented to the ER for generalized weakness x1 week and failure to thrive. Pt is a poor historian and is admitted for failure to thrive and PT and dietary is consulted. Plan / VTE VTE Prophylaxis Ordered?: Yes Plan Plan Suspected PNA - Clinically does not appear to have symptoms of pneumonia; no cough, shortness of breath or fevers - Remains hemodynamically stable and afebrile - No leukocytosis - Imaging noted above - Respiratory panel 05/04: Negative - Will check pro-calcitonin, sputum cultures and blood cultures - Patient has been started on ceftriaxone and doxycycline; will continue with the same - Will discontinue antibiotic therapy if pro-calcitonin is negative # Failure to thrive 2/2 to age related physical debility - Hx of anorexia- There's no concern for long hx of suspected eating disorder - Pt has a hx of poor nutrition and weakness - Dietary consulted-appreciate recommendations - PT consulted and will evaluation and treat - PFS on board for possible placement #Chronic diastolic CHF/ Pulmonary hypertension - received 1 L of fluids in ER #Chronic Afib - EKG reveals A. fib, consistent with prior EKGs - not on any rate / rhythm control medications - c/w eliquis #DLP - C/W statin #Hx of CVA without any residual - CN 2-12 intact; no weakness on exam - strength 4/5 throughout - Reflexes intact Hx of COPD - NO exacerbation at this time - Duonebs scheduled and PRN - titrate O2 saturation between 88-92% #Hypothyroidism: - C/W with levothyroxine DVT ppx: eliquis GI ppx: none IVF: none Diet: 2g Na diet Code status: Full Dispo: PT eval and treat for strengthening due to deconditioning. Dietary consult- patient is very thin and has loss of appetite GME ATTESTATION GME ATTESTATION My faculty preceptor for this patient encounter was physically present during the encounter and was fully available. All aspects of the patient interview, examination, medical decision making process, and medical care plan development were reviewed and approved by the faculty preceptor. The faculty preceptor is aware and concurs with the plan as stated in the body of this note and will attest to such by his/her cosignature. ATTENDING NOTE I, Romi Ferreira, have independently examined this patient and performed my own physical exam, as well as reviewed the documentation and edited where necessary. I have discussed in detail with the resident / student the findings and plan of treatment as documented by the resident / student and edited their note. I agree with their findings and treatment plan and have edited their documentation. I will continue to follow the patient during this hospital stay. Celestino Velásquez DO May 04, 2020 11:57 ROMI FERREIRA MD May 04, 2020 17:09
[2020-05-04] MEDS: ALBUTEROL SULFATE 2.5 MG/0.5 ML INH NEB SOLN INH SCH ×2 (12:00→15:14)
[2020-05-04 13:57] LABS: BLOOD UREA NITROGEN 16 MG/DL (7-18); CALCIUM LEVEL 8.5 MG/DL (8.8-10.2); CARBON DIOXIDE LEVEL 31 MEQ/L (21-32); CHLORIDE LEVEL 98 MEQ/L (98-107); GLOMERULAR FILTRATION RATE > 60.0 (>32); GLUCOSE, FASTING 106 MG/DL (70-100); POTASSIUM SERUM 3.8 MEQ/L (3.5-5.1); SODIUM LEVEL 134 MEQ/L (136-145)
[2020-05-04 14:20] VITALS: BP 109/73
[2020-05-04] MEDS: FERROUS SULFATE 325MG TAB PO SCH (15:10)
[2020-05-04] MEDS: LEVOTHYROXINE 75MCG TABLET (0.075MG) PO SCH (15:10)
[2020-05-04] MEDS: APIXABAN 2.5 MG TAB (ELIQUIS) PO SCH ×2 (15:10→20:27)
[2020-05-04] MEDS: ROSUVASTATIN 10 MG TAB (CRESTOR) PO SCH (20:28)
--- NOTE | 2020-05-04 20:53 | ECGEPIP ---
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
[2020-05-04 22:00] VITALS: BP 115/75
[2020-05-05] MEDS: DOXYCYCLINE HYCLATE 100 MG in D5W MINI-BAG PLUS 100 ML IV SCH ×2 (00:38→11:51)
[2020-05-05] MEDS: ALBUTEROL SULFATE 2.5 MG/0.5 ML INH NEB SOLN INH PRN (04:30)
[2020-05-05] MEDS: NS 1,000 ML IV SCH (05:01)
[2020-05-05] MEDS: LEVOTHYROXINE 75MCG TABLET (0.075MG) PO SCH (05:59)
[2020-05-05 06:00] VITALS: BP 119/75
[2020-05-05] MEDS: ALBUTEROL SULFATE 2.5 MG/0.5 ML INH NEB SOLN INH SCH ×4 (07:40→20:02)
--- NOTE | 2020-05-05 07:44 | IPNPDOC ---
Subjective Date Seen The patient was seen on 05/05/20. Subjective Chief Complaint/HPI Pt was seen at bedside this am. No acute events overnight. It was reported by nursing that daughter came in yesterday and stated she isnt capable to take care of the daughter any longer. Denies CP, SOB, abdominal pain, fever, n/v/d. ROS: All 12 points reviewed. See HPI for pertinent positives PHYSICAL EXAM: VITAL SIGNS: Please see below GEN: Cachectic, NAD HEENT: Normocephalic / atraumatic / lips acyanotic /mucus membranes dry/ sclera anicteric CVS: Heart rate irregularly irregular, no tachycardia, m/g/r, 2+ pitting edema in b.l Lower extr, PMI nondisplaced LUNGS: No wheezing, rhonci, or rales heard ABDOMEN: abdomen is scaphoid/there are no masses or lesions / bowel sounds are active/ the abdomen is tympanic on percussion, soft & not tender with palpation MSK/EXTREMITIES: range of motion intact in all 4 extremities, no joint effusions or fractures NEURO: CN 2-12 are grossly intact SKIN: not flushed or jaundice; no clubbing, cyanosis PSYCH: alert and oriented, appropriate mood and affect LABS: see below IMAGING: CXR: Medial right basilar airspace consolidation with small right pleural effusion Assessment /Plan Assessment This is an 89 y/o elderly female with PMHx of CVA, chronic afib on eliquis, hypothyroidism, who presented to the ER for generalized weakness x1 week and failure to thrive. Pt is a poor historian and is admitted for failure to thrive and PT and dietary is consulted. Plan/VTE VTE Prophylaxis Ordered?: Yes Plan Suspected PNA - Clinically does not appear to have symptoms of pneumonia; no cough, shortness of breath or fevers - Remains hemodynamically stable and afebrile - No leukocytosis - Imaging noted above - Respiratory panel 05/04: Negative - Will check pro-calcitonin, sputum cultures and blood cultures - Patient has been started on ceftriaxone and doxycycline; will continue with the same - Will discontinue antibiotic therapy if pro-calcitonin is negative # Failure to thrive 2/2 to age related physical debility - Hx of anorexia- There's no concern for long hx of suspected eating disorder - Pt has a hx of poor nutrition and weakness - Dietary consulted-appreciate recommendations - PT consulted and will evaluation and treat - PFS on board for possible placement #Chronic diastolic CHF/ Pulmonary hypertension - received 1 L of fluids in ER #Chronic Afib - EKG reveals A. fib, consistent with prior EKGs - not on any rate / rhythm control medications - c/w eliquis #DLP - C/W statin #Hx of CVA without any residual - CN 2-12 intact; no weakness on exam - strength 4/5 throughout - Reflexes intact Hx of COPD - NO exacerbation at this time - Duonebs scheduled and PRN - titrate O2 saturation between 88-92% #Hypothyroidism: - C/W with levothyroxine DVT ppx: eliquis GI ppx: none IVF: none Diet: 2g Na diet Code status: Full Dispo: Continue PT VS, I&O, 24H, Fishbone Vital Signs/I&O Vital Signs Date Time Temp Pulse Resp B/P (MAP) Pulse Ox O2 Delivery O2 Flow Rate FiO2 05/05/20 06:00 97.9 117 18 119/75 (90) 100 Room Air I&O- Last 24 Hours up to 6 AM 05/05/20 06:00 Intake Total 1620 ml Output Total 700 ml Balance 920 ml Laboratory Data 24H LABS Laboratory Tests 2 05/04/20 09:19: Immature Granulocyte % (Auto) 0.2, Neutrophils (%) (Auto) 80.1H, Lymphocytes (%) (Auto) 8.0L, Monocytes (%) (Auto) 10.2H, Eosinophils (%) (Auto) 0.9, Basophils (%) (Auto) 0.6, Neutrophils # (Auto) 7.0, Lymphocytes # (Auto) 0.7L, Monocytes # (Auto) 0.9H, Eosinophils # (Auto) 0.1, Basophils # (Auto) 0.1, Nucleated Red Blood Cells % (auto) 0.0, Blood Gas Bicarbonate Standard 26.8, Venous Blood pH 7.396, Venous Blood Partial Pressure CO2 48.4, Venous Blood Partial Pressure O2 36.6, Venous Blood Total Carbon Dioxide 30.5H, Venous Blood HCO3 29.0H, Venous Blood Oxygen Saturation 63.6, Venous Blood Base Excess 3.4H, Anion Gap 4L, Glomerular Filtration Rate 57.6, Lactic Acid Level 1.4, Calcium Level 8.6L, Total Bilirubin 1.4H, Direct Bilirubin 0.4H, Aspartate Amino Transf (AST/SGOT) 25, Alanine Aminotransferase (ALT/SGPT) 23, Alkaline Phosphatase 85, Ammonia < 10, Total Protein 6.4, Albumin 3.2, Albumin/Globulin Ratio 1.0L, Thyroid Stimulating Hormone (TSH) 5.780H 05/04/20 09:24: POC Troponin I (Misc) 0.07 05/04/20 09:37: POC Glucose (Misc Panel) 84, POC Sodium (Misc Panel) 134L, POC Potassium (Misc Panel) 3.5, POC Chloride (Misc Panel) 91L, POC Total CO2 (Misc Panel) 28.0H, POC Blood Urea Nitrogen (Misc Panel 17, POC Ionized Calcium (Misc Panel) 4.2L, POC Creatinine (Misc Panel) 0.9, POC Hematocrit (Misc Panel) 37.0L 05/04/20 10:18: Urine Color YELLOW, Urine Appearance CLEAR, Urine pH 7.0, Urine Specific [place] 1.016, Urine Protein NEGATIVE, Urine Glucose (UA) NEGATIVE, Urine Ketones NEGATIVE, Urine Blood NEGATIVE, Urine Nitrite NEGATIVE, Urine Bilirubin NEGATIVE, Urine Urobilinogen 4.0H, Urine Leukocyte Esterase NEGATIVE, Urine WBC (Auto) 1, Urine RBC (Auto) 13H, Urine Hyaline Casts (Auto) 0, Urine Bacteria (Auto) NEGATIVE, Urine Squamous Epithelial Cells 0, Urine Mucus (Auto) SMALL, Urine Sperm (Auto) 05/04/20 12:59: Anion Gap 5L, Glomerular Filtration Rate > 60.0, Calcium Level 8.5L CBC/BMP Laboratory Tests 05/04/20 09:19 05/04/20 12:59 Microbiology Microbiology 05/04/20 Blood Culture, Received Pending 05/04/20 Blood Culture, Received Pending 05/04/20 Respiratory Virus Panel (PCR) (PACO) - Final, Complete 05/04/20 Blood Culture, Received Pending 05/04/20 Blood Culture, Received Pending GME ATTESTATION GME ATTESTATION My faculty preceptor for this patient encounter was physically present during the encounter and was fully available. All aspects of the patient interview, examination, medical decision making process, and medical care plan development were reviewed and approved by the faculty preceptor. The faculty preceptor is aware and concurs with the plan as stated in the body of this note and will attest to such by his/her cosignature. ATTENDING NOTE I, Romi Ferreira, have independently examined this patient and performed my own physical exam, as well as reviewed the documentation and edited where necessary. I have discussed in detail with the resident / student the findings and plan of treatment as documented by the resident / student and edited their note. I agree with their findings and treatment plan and have edited their documentation. I will continue to follow the patient during this hospital stay. Celestino Velásquez DO May 05, 2020 07:44 ROMI FERREIRA MD May 05, 2020 18:40
[2020-05-05 08:02] LABS: HEMATOCRIT 30.3 % (36.0-47.0); HEMOGLOBIN 9.6 g/dl (12.0-15.5); MEAN CORPUSCULAR HEMOGLOBIN 28.9 pg (27.0-33.0); MEAN CORPUSCULAR HGB CONC 31.7 g/dl (32.0-36.5); MEAN CORPUSCULAR VOLUME 91.3 fl (80.0-96.0); PLATELET COUNT, AUTOMATED 164 10^3/uL (150-450); RED BLOOD COUNT 3.32 10^6/uL (4.00-5.40); WHITE BLOOD COUNT 7.4 10^3/uL (4.0-10.0)
[2020-05-05 08:20] LABS: BLOOD UREA NITROGEN 14 MG/DL (7-18); CARBON DIOXIDE LEVEL 30 MEQ/L (21-32); CHLORIDE LEVEL 102 MEQ/L (98-107); CREATININE FOR GFR 0.84 MG/DL (0.55-1.30); GLOMERULAR FILTRATION RATE > 60.0 (>32); GLUCOSE, FASTING 90 MG/DL (70-100); SODIUM LEVEL 137 MEQ/L (136-145)
[2020-05-05] MEDS: FERROUS SULFATE 325MG TAB PO SCH (08:46)
[2020-05-05] MEDS: APIXABAN 2.5 MG TAB (ELIQUIS) PO SCH ×2 (08:46→20:43)
[2020-05-05 08:48] LABS: FERRITIN 160 NG/ML (8-252); IRON (FE) 16 UG/DL (50-170); PERCENT SATURATION 8.8 % (13.2-45.0); TOTAL IRON BINDING CAPACITY 182 UG/DL (250-450)
[2020-05-05] MEDS: cefTRIAXone SOD 1 GM in D5W MINI-BAG PLUS 50 ML IV SCH (10:53)
[2020-05-05 14:00] VITALS: BP 98/53
[2020-05-05] MEDS: ROSUVASTATIN 10 MG TAB (CRESTOR) PO SCH (20:43)
[2020-05-05 22:00] VITALS: BP 107/73
[2020-05-06] MEDS: DOXYCYCLINE HYCLATE 100 MG in D5W MINI-BAG PLUS 100 ML IV SCH ×2 (00:19→11:18)
[2020-05-06] MEDS: LEVOTHYROXINE 75MCG TABLET (0.075MG) PO SCH (05:53)
[2020-05-06 06:00] VITALS: BP 124/92
[2020-05-06 07:17] LABS: HEMOGLOBIN 10.3 g/dl (12.0-15.5); MEAN CORPUSCULAR HEMOGLOBIN 29.1 pg (27.0-33.0); MEAN CORPUSCULAR HGB CONC 32.2 g/dl (32.0-36.5); MEAN CORPUSCULAR VOLUME 90.4 fl (80.0-96.0); PLATELET COUNT, AUTOMATED 198 10^3/uL (150-450); RED BLOOD COUNT 3.54 10^6/uL (4.00-5.40); WHITE BLOOD COUNT 7.8 10^3/uL (4.0-10.0)
--- NOTE | 2020-05-06 07:40 | IPNPDOC ---
Subjective Date Seen The patient was seen on 05/06/20. Subjective Chief Complaint/HPI Pt was seen at bedside this am. No acute complaints overnight. Doing well with PT. Encouraged patient to drink ensure as patient is very thin. Denies CP, SOB, abdominal discomfort, fever, n/v/d. ROS: All 12 points were reviewed. See HPI PHYSICAL EXAM: VITAL SIGNS: Please see below GEN: Cachectic, NAD HEENT: Normocephalic / atraumatic / lips acyanotic /mucus membranes dry/ sclera anicteric CVS: Heart rate irregularly irregular, no tachycardia, m/g/r, 2+ pitting edema in b.l Lower extr, PMI nondisplaced LUNGS: No wheezing, rhonci, or rales heard ABDOMEN: abdomen is scaphoid/there are no masses or lesions / bowel sounds are active/ the abdomen is tympanic on percussion, soft & not tender with palpation MSK/EXTREMITIES: range of motion intact in all 4 extremities, no joint effusions or fractures NEURO: CN 2-12 are grossly intact SKIN: not flushed or jaundice; no clubbing, cyanosis PSYCH: alert and oriented, appropriate mood and affect Assessment /Plan Plan/VTE VTE Prophylaxis Ordered?: Yes Plan #Suspected PNA - Clinically does not appear to have symptoms of pneumonia; no cough, shortness of breath or fevers - Remains hemodynamically stable and afebrile - No leukocytosis - Imaging noted above - Respiratory panel 05/04: Negative - Blood cultures 05/04: No growth at 48 hours - Pro-calcitonin of 0.28 - Will DC ceftriaxone and doxycycline; will de-escalate antibiotic therapy to oral regimen # Failure to thrive 2/2 to age related physical debility - Hx of anorexia- There's no concern for long hx of suspected eating disorder - Pt has a hx of poor nutrition and weakness - Dietary consulted-appreciate recommendations - PT consulted and will evaluation and treat - PFS on board for possible placement #Chronic diastolic CHF/ Pulmonary hypertension - received 1 L of fluids in ER #Chronic Afib - EKG reveals A. fib, consistent with prior EKGs - not on any rate / rhythm control medications - c/w eliquis #DLP - C/W statin #Hx of CVA without any residual - CN 2-12 intact; no weakness on exam - strength 4/5 throughout - Reflexes intact Hx of COPD - No exacerbation at this time - Duonebs scheduled and PRN - titrate O2 saturation between 88-92% #Hypothyroidism: - C/W with levothyroxine DVT ppx: eliquis GI ppx: none IVF: none Diet: 2g Na diet Code status: Full Disposition: - Continue PT and PFS for placement options VS, I&O, 24H, Fishbone Vital Signs/I&O Vital Signs Date Time Temp Pulse Resp B/P (MAP) Pulse Ox O2 Delivery O2 Flow Rate FiO2 05/06/20 06:00 98.4 113 19 124/92 (103) 99 Room Air I&O- Last 24 Hours up to 6 AM 05/06/20 06:00 Intake Total 1820 ml Output Total 860 ml Balance 960 ml Laboratory Data 24H LABS Laboratory Tests 2 05/06/20 06:26: Nucleated Red Blood Cells % (auto) 0.0 CBC/BMP Laboratory Tests 05/06/20 06:26 Microbiology Microbiology 05/04/20 Blood Culture - Preliminary, Resulted No growth after 24 hours . All specim... 05/04/20 Blood Culture - Preliminary, Resulted No growth after 24 hours . All specim... 05/04/20 Respiratory Virus Panel (PCR) (PACO) - Final, Complete 05/04/20 Blood Culture - Preliminary, Resulted No growth after 24 hours . All specim... 05/04/20 Blood Culture - Preliminary, Resulted No growth after 24 hours . All specim... GME ATTESTATION GME ATTESTATION My faculty preceptor for this patient encounter was physically present during t he encounter and was fully available. All aspects of the patient interview, examination, medical decision making process, and medical care plan development were reviewed and approved by the faculty preceptor. The faculty preceptor is aware and concurs with the plan as stated in the body of this note and will attest to such by his/her cosignature. ATTENDING NOTE I, Romi Ferreira, have independently examined this patient and performed my own physical exam, as well as reviewed the documentation and edited where necessary. I have discussed in detail with the resident / student the findings and plan of treatment as documented by the resident / student and edited their note. I agree with their findings and treatment plan and have edited their documentation. I will continue to follow the patient during this hospital stay. Will transition patient ALC status Celestino Velásquez DO May 06, 2020 07:40 ROMI FERREIRA MD May 06, 2020 16:23
[2020-05-06 07:44] LABS: BLOOD UREA NITROGEN 17 MG/DL (7-18); CALCIUM LEVEL 8.3 MG/DL (8.8-10.2); CARBON DIOXIDE LEVEL 27 MEQ/L (21-32); CHLORIDE LEVEL 102 MEQ/L (98-107); CREATININE FOR GFR 0.78 MG/DL (0.55-1.30); GLOMERULAR FILTRATION RATE > 60.0 (>32); GLUCOSE, FASTING 89 MG/DL (70-100); MAGNESIUM LEVEL 2.2 MG/DL (1.8-2.4); POTASSIUM SERUM 3.9 MEQ/L (3.5-5.1); SODIUM LEVEL 136 MEQ/L (136-145)
[2020-05-06] MEDS: ALBUTEROL SULFATE 2.5 MG/0.5 ML INH NEB SOLN INH SCH ×4 (08:13→19:25)
[2020-05-06] MEDS: APIXABAN 2.5 MG TAB (ELIQUIS) PO SCH ×2 (10:26→20:54)
[2020-05-06] MEDS: cefTRIAXone SOD 1 GM in D5W MINI-BAG PLUS 50 ML IV SCH (10:26)
[2020-05-06] MEDS: FERROUS SULFATE 325MG TAB PO SCH (10:26)
[2020-05-06 14:00] VITALS: BP 95/60
[2020-05-06] MEDS: CEFDINIR 300 MG CAP (OMNICEF) PO SCH (20:53)
[2020-05-06] MEDS: ROSUVASTATIN 10 MG TAB (CRESTOR) PO SCH (20:53)
[2020-05-06] MEDS: DOXYCYCLINE HYCLATE 100MG TABLET PO SCH (20:54)
[2020-05-07] MEDS: ALBUTEROL SULFATE 2.5 MG/0.5 ML INH NEB SOLN INH PRN (03:49)
[2020-05-07] MEDS: LEVOTHYROXINE 75MCG TABLET (0.075MG) PO SCH (05:53)
[2020-05-07 06:00] VITALS: BP 109/75
[2020-05-07 06:45] LABS: HEMATOCRIT 31.6 % (36.0-47.0); HEMOGLOBIN 10.1 g/dl (12.0-15.5); MEAN CORPUSCULAR HEMOGLOBIN 28.9 pg (27.0-33.0); MEAN CORPUSCULAR VOLUME 90.3 fl (80.0-96.0); PLATELET COUNT, AUTOMATED 195 10^3/uL (150-450)
[2020-05-07 07:10] LABS: BLOOD UREA NITROGEN 18 MG/DL (7-18); CALCIUM LEVEL 8.3 MG/DL (8.8-10.2); CARBON DIOXIDE LEVEL 26 MEQ/L (21-32); CHLORIDE LEVEL 103 MEQ/L (98-107); CREATININE FOR GFR 0.79 MG/DL (0.55-1.30); GLOMERULAR FILTRATION RATE > 60.0 (>32); GLUCOSE, FASTING 90 MG/DL (70-100); MAGNESIUM LEVEL 2.2 MG/DL (1.8-2.4); SODIUM LEVEL 137 MEQ/L (136-145)
[2020-05-07] MEDS: ALBUTEROL SULFATE 2.5 MG/0.5 ML INH NEB SOLN INH SCH ×4 (07:16→19:59)
[2020-05-07] MEDS: APIXABAN 2.5 MG TAB (ELIQUIS) PO SCH ×2 (09:00→21:02)
[2020-05-07] MEDS: CEFDINIR 300 MG CAP (OMNICEF) PO SCH ×2 (09:00→21:02)
[2020-05-07] MEDS: FERROUS SULFATE 325MG TAB PO SCH (09:00)
[2020-05-07] MEDS: DOXYCYCLINE HYCLATE 100MG TABLET PO SCH ×2 (09:00→21:02)
[2020-05-07] MEDS: TORSEMIDE 20 MG TAB PO SCH (11:00)
[2020-05-07 15:43] VITALS: BP 99/71
[2020-05-07] MEDS: ROSUVASTATIN 10 MG TAB (CRESTOR) PO SCH (21:02)
[2020-05-08] MEDS: ALBUTEROL SULFATE 2.5 MG/0.5 ML INH NEB SOLN INH PRN (01:58)
[2020-05-08 05:36] LABS: HEMATOCRIT 30.7 % (36.0-47.0); HEMOGLOBIN 9.8 g/dl (12.0-15.5); MEAN CORPUSCULAR HEMOGLOBIN 28.7 pg (27.0-33.0); MEAN CORPUSCULAR HGB CONC 31.9 g/dl (32.0-36.5); PLATELET COUNT, AUTOMATED 195 10^3/uL (150-450); RED BLOOD COUNT 3.41 10^6/uL (4.00-5.40); WHITE BLOOD COUNT 6.5 10^3/uL (4.0-10.0)
[2020-05-08] MEDS: LEVOTHYROXINE 75MCG TABLET (0.075MG) PO SCH (05:44)
[2020-05-08 05:55] LABS: BLOOD UREA NITROGEN 20 MG/DL (7-18); CALCIUM LEVEL 8.4 MG/DL (8.8-10.2); CARBON DIOXIDE LEVEL 29 MEQ/L (21-32); CHLORIDE LEVEL 104 MEQ/L (98-107); GLOMERULAR FILTRATION RATE > 60.0 (>32); GLUCOSE, FASTING 85 MG/DL (70-100); MAGNESIUM LEVEL 2.3 MG/DL (1.8-2.4); POTASSIUM SERUM 4.1 MEQ/L (3.5-5.1); SODIUM LEVEL 138 MEQ/L (136-145)
[2020-05-08 06:00] VITALS: BP 102/70
[2020-05-08] MEDS: ALBUTEROL SULFATE 2.5 MG/0.5 ML INH NEB SOLN INH SCH ×4 (07:12→20:19)
[2020-05-08] MEDS: TORSEMIDE 20 MG TAB PO SCH (08:19)
[2020-05-08] MEDS: DOXYCYCLINE HYCLATE 100MG TABLET PO SCH ×2 (08:19→20:31)
[2020-05-08] MEDS: APIXABAN 2.5 MG TAB (ELIQUIS) PO SCH ×2 (08:19→20:30)
[2020-05-08] MEDS: CEFDINIR 300 MG CAP (OMNICEF) PO SCH ×2 (08:19→20:31)
[2020-05-08] MEDS: FERROUS SULFATE 325MG TAB PO SCH (08:19)
[2020-05-08] MEDS: SENOKOT S TAB PO PRN (17:25)
[2020-05-08] MEDS: ROSUVASTATIN 10 MG TAB (CRESTOR) PO SCH (20:31)
[2020-05-09] MEDS: ALBUTEROL SULFATE 2.5 MG/0.5 ML INH NEB SOLN INH PRN (02:27)
[2020-05-09] MEDS: LEVOTHYROXINE 75MCG TABLET (0.075MG) PO SCH (05:35)
[2020-05-09 06:00] VITALS: BP 104/58
[2020-05-09] MEDS: ALBUTEROL SULFATE 2.5 MG/0.5 ML INH NEB SOLN INH SCH ×4 (07:31→19:16)
[2020-05-09 07:45] LABS: HEMATOCRIT 29.2 % (36.0-47.0); HEMOGLOBIN 9.4 g/dl (12.0-15.5); MEAN CORPUSCULAR HEMOGLOBIN 28.7 pg (27.0-33.0); MEAN CORPUSCULAR HGB CONC 32.2 g/dl (32.0-36.5); PLATELET COUNT, AUTOMATED 205 10^3/uL (150-450); RED BLOOD COUNT 3.28 10^6/uL (4.00-5.40); WHITE BLOOD COUNT 6.2 10^3/uL (4.0-10.0)
[2020-05-09 08:03] LABS: CALCIUM LEVEL 8.3 MG/DL (8.8-10.2); CREATININE FOR GFR 0.99 MG/DL (0.55-1.30); GLOMERULAR FILTRATION RATE 56.2 (>32); MAGNESIUM LEVEL 2.2 MG/DL (1.8-2.4); POTASSIUM SERUM 3.8 MEQ/L (3.5-5.1)
[2020-05-09] MEDS: TORSEMIDE 20 MG TAB PO SCH (09:00)
[2020-05-09] MEDS: DOXYCYCLINE HYCLATE 100MG TABLET PO SCH ×2 (09:03→20:18)
[2020-05-09] MEDS: CEFDINIR 300 MG CAP (OMNICEF) PO SCH ×2 (09:03→20:18)
[2020-05-09] MEDS: APIXABAN 2.5 MG TAB (ELIQUIS) PO SCH ×2 (09:03→20:18)
[2020-05-09] MEDS: FERROUS SULFATE 325MG TAB PO SCH (11:20)
[2020-05-09] MEDS: ROSUVASTATIN 10 MG TAB (CRESTOR) PO SCH (20:18)
[2020-05-10] MEDS: ALBUTEROL SULFATE 2.5 MG/0.5 ML INH NEB SOLN INH PRN (01:30)
[2020-05-10] MEDS: LEVOTHYROXINE 75MCG TABLET (0.075MG) PO SCH (05:42)
[2020-05-10 06:00] VITALS: BP 119/69
[2020-05-10 06:01] LABS: HEMOGLOBIN 9.5 g/dl (12.0-15.5); MEAN CORPUSCULAR HEMOGLOBIN 28.6 pg (27.0-33.0); MEAN CORPUSCULAR HGB CONC 31.7 g/dl (32.0-36.5); MEAN CORPUSCULAR VOLUME 90.4 fl (80.0-96.0); PLATELET COUNT, AUTOMATED 203 10^3/uL (150-450); RED BLOOD COUNT 3.32 10^6/uL (4.00-5.40); WHITE BLOOD COUNT 6.3 10^3/uL (4.0-10.0)
[2020-05-10 06:24] LABS: CALCIUM LEVEL 8.6 MG/DL (8.8-10.2); CREATININE FOR GFR 0.97 MG/DL (0.55-1.30); GLOMERULAR FILTRATION RATE 57.6 (>32); MAGNESIUM LEVEL 2.2 MG/DL (1.8-2.4); POTASSIUM SERUM 4.1 MEQ/L (3.5-5.1)
[2020-05-10] MEDS: ALBUTEROL SULFATE 2.5 MG/0.5 ML INH NEB SOLN INH SCH ×4 (07:38→19:22)
[2020-05-10] MEDS: DOXYCYCLINE HYCLATE 100MG TABLET PO SCH ×2 (09:03→21:11)
[2020-05-10] MEDS: APIXABAN 2.5 MG TAB (ELIQUIS) PO SCH ×2 (09:04→21:11)
[2020-05-10] MEDS: CEFDINIR 300 MG CAP (OMNICEF) PO SCH ×2 (09:04→21:11)
[2020-05-10] MEDS: TORSEMIDE 20 MG TAB PO SCH (09:04)
[2020-05-10] MEDS: FERROUS SULFATE 325MG TAB PO SCH (11:57)
[2020-05-10] MEDS: ROSUVASTATIN 10 MG TAB (CRESTOR) PO SCH (21:11)
[2020-05-11] MEDS: ALBUTEROL SULFATE 2.5 MG/0.5 ML INH NEB SOLN INH PRN (02:35)
[2020-05-11] MEDS: LEVOTHYROXINE 75MCG TABLET (0.075MG) PO SCH (05:14)
[2020-05-11 06:00] VITALS: BP 114/62
[2020-05-11 06:05] LABS: HEMATOCRIT 31.4 % (36.0-47.0); HEMOGLOBIN 9.9 g/dl (12.0-15.5); MEAN CORPUSCULAR HEMOGLOBIN 28.4 pg (27.0-33.0); MEAN CORPUSCULAR HGB CONC 31.5 g/dl (32.0-36.5); MEAN CORPUSCULAR VOLUME 90.2 fl (80.0-96.0); PLATELET COUNT, AUTOMATED 219 10^3/uL (150-450); RED BLOOD COUNT 3.48 10^6/uL (4.00-5.40)
[2020-05-11 06:22] LABS: CALCIUM LEVEL 8.7 MG/DL (8.8-10.2); CREATININE FOR GFR 1.14 MG/DL (0.55-1.30); GLOMERULAR FILTRATION RATE 47.8 (>32); MAGNESIUM LEVEL 2.3 MG/DL (1.8-2.4)
[2020-05-11] MEDS: ALBUTEROL SULFATE 2.5 MG/0.5 ML INH NEB SOLN INH SCH ×4 (07:45→19:40)
[2020-05-11] MEDS: TORSEMIDE 20 MG TAB PO SCH (09:00)
[2020-05-11] MEDS: APIXABAN 2.5 MG TAB (ELIQUIS) PO SCH ×2 (09:07→20:34)
[2020-05-11] MEDS: DOXYCYCLINE HYCLATE 100MG TABLET PO SCH ×2 (09:07→20:33)
[2020-05-11] MEDS: CEFDINIR 300 MG CAP (OMNICEF) PO SCH ×2 (09:07→20:34)
[2020-05-11] MEDS: FERROUS SULFATE 325MG TAB PO SCH (11:40)
[2020-05-11] MEDS: ROSUVASTATIN 10 MG TAB (CRESTOR) PO SCH (20:34)
[2020-05-12] MEDS: ALBUTEROL SULFATE 2.5 MG/0.5 ML INH NEB SOLN INH PRN (01:20)
[2020-05-12] MEDS: LEVOTHYROXINE 75MCG TABLET (0.075MG) PO SCH (05:33)
[2020-05-12 06:00] VITALS: BP 116/64
[2020-05-12] MEDS: ALBUTEROL SULFATE 2.5 MG/0.5 ML INH NEB SOLN INH SCH ×4 (07:19→20:17)
[2020-05-12] MEDS: TORSEMIDE 20 MG TAB PO SCH (08:37)
[2020-05-12] MEDS: CEFDINIR 300 MG CAP (OMNICEF) PO SCH (08:37)
[2020-05-12] MEDS: DOXYCYCLINE HYCLATE 100MG TABLET PO SCH (08:37)
[2020-05-12] MEDS: APIXABAN 2.5 MG TAB (ELIQUIS) PO SCH ×2 (08:37→20:06)
[2020-05-12] MEDS: FERROUS SULFATE 325MG TAB PO SCH (10:39)
[2020-05-12] MEDS: ROSUVASTATIN 10 MG TAB (CRESTOR) PO SCH (20:06)
[2020-05-13] MEDS: ALBUTEROL SULFATE 2.5 MG/0.5 ML INH NEB SOLN INH PRN (02:05)
[2020-05-13] MEDS: LEVOTHYROXINE 75MCG TABLET (0.075MG) PO SCH (05:47)
[2020-05-13 06:00] VITALS: BP 106/72
[2020-05-13] MEDS: ALBUTEROL SULFATE 2.5 MG/0.5 ML INH NEB SOLN INH SCH ×4 (07:16→19:37)
[2020-05-13] MEDS: APIXABAN 2.5 MG TAB (ELIQUIS) PO SCH ×2 (08:50→20:03)
[2020-05-13] MEDS: TORSEMIDE 20 MG TAB PO SCH (08:53)
[2020-05-13] MEDS: FERROUS SULFATE 325MG TAB PO SCH (12:24)
[2020-05-13] MEDS: ROSUVASTATIN 10 MG TAB (CRESTOR) PO SCH (20:03)
[2020-05-14] MEDS: ALBUTEROL SULFATE 2.5 MG/0.5 ML INH NEB SOLN INH PRN (02:54)
[2020-05-14] MEDS: LEVOTHYROXINE 75MCG TABLET (0.075MG) PO SCH (05:32)
[2020-05-14 06:00] VITALS: BP 108/72
[2020-05-14] MEDS: ALBUTEROL SULFATE 2.5 MG/0.5 ML INH NEB SOLN INH SCH ×4 (07:06→20:01)
[2020-05-14] MEDS: APIXABAN 2.5 MG TAB (ELIQUIS) PO SCH ×2 (08:16→20:03)
[2020-05-14] MEDS: TORSEMIDE 20 MG TAB PO SCH (08:19)
[2020-05-14 08:20] VITALS: BP 95/57
[2020-05-14] MEDS: FERROUS SULFATE 325MG TAB PO SCH (12:19)
--- NOTE | 2020-05-14 15:08 | IPNPDOC ---
Date Seen The patient was seen on 05/14/20. Progress Note spoke w daughter [phone] work [phone] She wants an update about placement. PFS made aware. VS, I&O, 24H, Fishbone Vital Signs/I&O Vital Signs Date Time Temp Pulse Resp B/P (MAP) Pulse Ox O2 Delivery O2 Flow Rate FiO2 05/14/20 08:20 78 95/57 (70) 05/14/20 06:00 97.9 20 95 Room Air I&O- Last 24 Hours up to 6 AM 05/14/20 06:00 Intake Total 960 ml Output Total 0 ml Balance 960 ml Laboratory Data Microbiology Microbiology 05/04/20 Blood Culture - Final, Complete NO GROWTH AFTER 5 DAYS 05/04/20 Blood Culture - Final, Complete NO GROWTH AFTER 5 DAYS 05/04/20 Respiratory Virus Panel (PCR) (PACO) - Final, Complete 05/04/20 Blood Culture - Final, Complete NO GROWTH AFTER 5 DAYS 05/04/20 Blood Culture - Final, Complete NO GROWTH AFTER 5 DAYS MARCELL GRANT MD May 14, 2020 15:08
[2020-05-14] MEDS: ROSUVASTATIN 10 MG TAB (CRESTOR) PO SCH (20:03)
[2020-05-15] MEDS: ALBUTEROL SULFATE 2.5 MG/0.5 ML INH NEB SOLN INH PRN (03:24)
[2020-05-15] MEDS: LEVOTHYROXINE 75MCG TABLET (0.075MG) PO SCH (05:37)
[2020-05-15 06:00] VITALS: BP 102/64
[2020-05-15] MEDS: ALBUTEROL SULFATE 2.5 MG/0.5 ML INH NEB SOLN INH SCH ×4 (07:11→19:49)
[2020-05-15] MEDS: TORSEMIDE 20 MG TAB PO SCH (08:16)
[2020-05-15] MEDS: APIXABAN 2.5 MG TAB (ELIQUIS) PO SCH ×2 (08:16→20:51)
[2020-05-15] MEDS: FERROUS SULFATE 325MG TAB PO SCH (11:06)
--- NOTE | 2020-05-15 13:56 | IPNPDOC ---
Date Seen The patient was seen on 05/15/20. Progress Note SUBJECTIVE: Patient was seen and examined them, etc. has been reviewed. Patient denies any fever, chills, shortness of breath. She is eating her breakfast at the bedside with no new complaints, anxious to go home but we Placement has not been finalized. Daughter has requested a call regarding discharge plans, PSA, as is being made aware that she needs a full called today to determine where the patient will be placed or whether the insurance is approved placement in rehabilitation. OBJECTIVE PHYSICAL EXAMINATION: VITAL SIGNS: Please see below. GENERAL: Awake, alert, oriented to person, patient is disoriented to time and place, but pleasant and cooperative HEENT: No respiratory distress, able to speak in full sentences. Face is symmetric. Tongue is midline. No JVD, thyromegaly or cervical lymphadenopathy. CARDIOVASCULAR: S1, S2, sinus rhythm, no murmurs, rubs or gallops. RESPIRATORY: Clear to auscultation. , No Wheezing, rales or rhonchi. No adventitious breath sounds. Inspiratory to expiratory ratio is 1-2 ABDOMEN: Positive bowel sounds in 4 quadrants. No rebound, guarding, no hepatosplenomegaly. No abdominal bruit, nondistended, nontender EXTREMITIES: No cyanosis or clubbing LABORATORY DATA, IMAGING STUDIES, MICROBIOLOGY: Please see below. ASSESSMENT: 89-year-old female with history of chronic diastolic heart failure, pulmonary hypertension, failure to thrive due to age related. Physical debility, pneumonia, chronic atrial fibrillation on Eliquis, dyslipidemia, history of CVA without residual, COPD, hypothyroidism, admitted for presumed pneumonia and completed antibiotics Failure to thrive. Pneumonia. Chronic A. fib. Chronic diastolic CHF, pulmonary hypertension. History of CVA without residual. COPD Hypothyroidism. PLAN: Patient was initially treated with ceftriaxone and doxycycline procalcitonin was 0.2. . She remained afebrile. No complaints of shortness of breath or cough, and antibiotics were discontinued. Respiratory panel was negative for occult bed. Blood cultures negative on 05/04/2020 patient currently has no acute medical issues and is awaiting Subacute rehabilitation placement VS, I&O, 24H, Fishbone Vital Signs/I&O Vital Signs Date Time Temp Pulse Resp B/P (MAP) Pulse Ox O2 Delivery O2 Flow Rate FiO2 05/15/20 06:00 97.4 105 20 102/64 (77) 97 Room Air I&O- Last 24 Hours up to 6 AM 05/15/20 06:00 Intake Total 360 ml Output Total 0 ml Balance 360 ml MARCELL GRANT MD May 15, 2020 13:56
[2020-05-15] MEDS: ROSUVASTATIN 10 MG TAB (CRESTOR) PO SCH (20:51)
[2020-05-16] MEDS: ALBUTEROL SULFATE 2.5 MG/0.5 ML INH NEB SOLN INH PRN ×2 (00:59→19:45)
[2020-05-16 06:00] VITALS: BP 106/72
[2020-05-16] MEDS: LEVOTHYROXINE 75MCG TABLET (0.075MG) PO SCH (06:10)
[2020-05-16] MEDS: ALBUTEROL SULFATE 2.5 MG/0.5 ML INH NEB SOLN INH SCH (08:16)
[2020-05-16] MEDS: TORSEMIDE 20 MG TAB PO SCH (10:27)
[2020-05-16] MEDS: APIXABAN 2.5 MG TAB (ELIQUIS) PO SCH ×2 (10:27→20:27)
[2020-05-16] MEDS: FERROUS SULFATE 325MG TAB PO SCH (10:27)
[2020-05-16] MEDS: ROSUVASTATIN 10 MG TAB (CRESTOR) PO SCH (20:27)
[2020-05-17] MEDS: ALBUTEROL SULFATE 2.5 MG/0.5 ML INH NEB SOLN INH PRN ×2 (03:24→19:29)
[2020-05-17 06:00] VITALS: BP 105/72
[2020-05-17] MEDS: LEVOTHYROXINE 75MCG TABLET (0.075MG) PO SCH (06:11)
[2020-05-17] MEDS: TORSEMIDE 20 MG TAB PO SCH (10:21)
[2020-05-17] MEDS: APIXABAN 2.5 MG TAB (ELIQUIS) PO SCH ×2 (10:21→20:43)
[2020-05-17] MEDS: FERROUS SULFATE 325MG TAB PO SCH (10:21)
[2020-05-17] MEDS: ROSUVASTATIN 10 MG TAB (CRESTOR) PO SCH (20:43)
[2020-05-18] MEDS: ALBUTEROL SULFATE 2.5 MG/0.5 ML INH NEB SOLN INH PRN ×4 (00:48→22:58)
[2020-05-18] MEDS: LEVOTHYROXINE 75MCG TABLET (0.075MG) PO SCH (05:48)
[2020-05-18 06:00] VITALS: BP 114/64
[2020-05-18] MEDS: TORSEMIDE 20 MG TAB PO SCH (09:00)
[2020-05-18] MEDS: APIXABAN 2.5 MG TAB (ELIQUIS) PO SCH ×2 (09:23→20:25)
[2020-05-18 09:25] VITALS: BP 109/64
[2020-05-18] MEDS: FERROUS SULFATE 325MG TAB PO SCH (10:41)
[2020-05-18] MEDS ORDERED: MAALOX 30 ML SUSP *UDC PO PRN (15:00)
[2020-05-18] MEDS: ROSUVASTATIN 10 MG TAB (CRESTOR) PO SCH (20:26)
[2020-05-19] MEDS: ALBUTEROL SULFATE 2.5 MG/0.5 ML INH NEB SOLN INH PRN ×2 (03:46→18:36)
[2020-05-19] MEDS: LEVOTHYROXINE 75MCG TABLET (0.075MG) PO SCH ×2 (05:14→05:37)
[2020-05-19 06:00] VITALS: BP 100/63
[2020-05-19] MEDS: FERROUS SULFATE 325MG TAB PO SCH (09:56)
[2020-05-19] MEDS: TORSEMIDE 20 MG TAB PO SCH (09:57)
[2020-05-19] MEDS: APIXABAN 2.5 MG TAB (ELIQUIS) PO SCH ×2 (09:57→20:25)
[2020-05-19] MEDS: ROSUVASTATIN 10 MG TAB (CRESTOR) PO SCH (20:25)
[2020-05-20 06:00] VITALS: BP 104/60
[2020-05-20] MEDS: LEVOTHYROXINE 75MCG TABLET (0.075MG) PO SCH (06:28)
[2020-05-20] MEDS: FERROUS SULFATE 325MG TAB PO SCH (10:37)
[2020-05-20] MEDS: APIXABAN 2.5 MG TAB (ELIQUIS) PO SCH ×2 (10:37→22:11)
[2020-05-20] MEDS: TORSEMIDE 20 MG TAB PO SCH (10:37)
[2020-05-20] MEDS: ROSUVASTATIN 10 MG TAB (CRESTOR) PO SCH (22:11)
[2020-05-20] MEDS: ALBUTEROL SULFATE 2.5 MG/0.5 ML INH NEB SOLN INH PRN (22:29)
[2020-05-21 06:00] VITALS: BP 127/66
[2020-05-21] MEDS: LEVOTHYROXINE 75MCG TABLET (0.075MG) PO SCH (06:20)
[2020-05-21] MEDS: SENOKOT S TAB PO PRN ×2 (10:04→20:56)
[2020-05-21] MEDS: MIRALAX *UNIT DOSE* 17GM PACKET PO PRN (10:04)
[2020-05-21] MEDS: MOM 30ML SUSPENSION UDC PO PRN (10:04)
[2020-05-21] MEDS: TORSEMIDE 20 MG TAB PO SCH (10:05)
[2020-05-21] MEDS: FERROUS SULFATE 325MG TAB PO SCH (10:05)
[2020-05-21] MEDS: APIXABAN 2.5 MG TAB (ELIQUIS) PO SCH ×2 (10:05→20:56)
[2020-05-21] MEDS ORDERED: FLEET ENEMA PR PRN (13:45)
[2020-05-21] MEDS: ROSUVASTATIN 10 MG TAB (CRESTOR) PO SCH (20:56)
[2020-05-22 06:00] VITALS: BP 111/77
[2020-05-22] MEDS: LEVOTHYROXINE 75MCG TABLET (0.075MG) PO SCH (06:11)
[2020-05-22 07:50] VITALS: BP 95/62
[2020-05-22] MEDS: APIXABAN 2.5 MG TAB (ELIQUIS) PO SCH ×2 (07:50→20:03)
[2020-05-22] MEDS: TORSEMIDE 20 MG TAB PO SCH (07:50)
[2020-05-22] MEDS: FERROUS SULFATE 325MG TAB PO SCH (11:26)
--- NOTE | 2020-05-22 18:31 | IPNPDOC ---
Subjective Date Seen The patient was seen on 05/22/20. Subjective Chief Complaint/HPI Patient was seen in the morning. She was filling out her menu when seen. Denies fever/chills, chest pain, dyspnea, abdominal pain, dysuria, or diarrhea. Still pending placement. Constitutional: Denies: Chills, Fever Pulmonary: Denies: Dyspnea Cardiovascular: Denies: Chest Pain Gastrointestinal: Denies: Abdominal Pain Genitourinary: Denies: Dysuria Objective Physical Examination General Exam: Positive: Alert, Cooperative, No Acute Distress Eye Exam: Positive: EOMI; Negative: Sclera icteric ENT Exam: Positive: Atraumatic Neck Exam: Positive: Supple Chest Exam: Positive: Clear to auscultation; Negative: Rales, Rhonchi, Wheezing Heart Exam: Positive: Rate Normal, Irregular Rhythm Abdomen Exam: Positive: Normal bowel sounds, Soft; Negative: Tenderness Extremity Exam: Positive: Edema (bilateral pitting) Skin Exam: Positive: Nl turgor and temperature Psych Exam: Positive: Mood NL Assessment /Plan Assessment Patient is an 89 year old female initially here for pneumonia. Procalcitonin was 0.2. Antibiotics discontinued. She is currently pending placement. Plan/VTE VTE Prophylaxis Ordered?: Yes Plan 1. Failure to thrive. -Pending placement 2. Enterococcus UTI -Start Amoxicillin today -Amoxicillin 500mg TID for 5 days 3. Pneumonia -Procalcitonin 0.2 -antibiotics discontinued 4. Chronic A. fib. -Apixaban 5. Chronic diastolic CHF, pulmonary hypertension. -Torsemide 6. COPD -PRN albuterol 7. Hypothyroidism. -Levothyroxine 8. DVT ppx -On apixaban Dispo: Pending placement. Will need 3 days of Amoxicillin VS, I&O, 24H, Fishbone Vital Signs/I&O Vital Signs Date Time Temp Pulse Resp B/P (MAP) Pulse Ox O2 Delivery O2 Flow Rate FiO2 05/22/20 07:50 79 95/62 (73) 05/22/20 06:00 96.8 18 97 Room Air I&O- Last 24 Hours up to 6 AM 05/22/20 06:00 Intake Total 1420 ml Output Total 1400 ml Balance 20 ml Laboratory Data Microbiology Microbiology 05/20/20 Urine Culture - Final, Complete Enterococcus Faecalis JORDON TAMEZ DO May 22, 2020 18:31
[2020-05-22] MEDS: AMOXICILLIN 500 MG CAP PO SCH (20:03)
[2020-05-22] MEDS: ROSUVASTATIN 10 MG TAB (CRESTOR) PO SCH (20:03)
[2020-05-23] MEDS: LEVOTHYROXINE 75MCG TABLET (0.075MG) PO SCH (05:31)
[2020-05-23 06:00] VITALS: BP 102/62
[2020-05-23] MEDS: APIXABAN 2.5 MG TAB (ELIQUIS) PO SCH ×2 (08:57→21:13)
[2020-05-23] MEDS: AMOXICILLIN 500 MG CAP PO SCH ×3 (08:57→21:13)
[2020-05-23] MEDS: TORSEMIDE 20 MG TAB PO SCH (08:59)
[2020-05-23] MEDS: FERROUS SULFATE 325MG TAB PO SCH (11:17)
[2020-05-23 14:00] VITALS: BP 99/63
[2020-05-23] MEDS: ROSUVASTATIN 10 MG TAB (CRESTOR) PO SCH (21:13)
[2020-05-24] MEDS: ALBUTEROL SULFATE 2.5 MG/0.5 ML INH NEB SOLN INH PRN ×2 (04:08→21:53)
[2020-05-24] MEDS: LEVOTHYROXINE 75MCG TABLET (0.075MG) PO SCH (05:49)
[2020-05-24 06:00] VITALS: BP 102/64
[2020-05-24] MEDS: TORSEMIDE 20 MG TAB PO SCH (09:00)
[2020-05-24] MEDS: AMOXICILLIN 500 MG CAP PO SCH ×3 (09:55→20:19)
[2020-05-24] MEDS: SENOKOT S TAB PO PRN (09:55)
[2020-05-24] MEDS: FERROUS SULFATE 325MG TAB PO SCH (09:56)
[2020-05-24] MEDS: MOM 30ML SUSPENSION UDC PO PRN (09:56)
[2020-05-24] MEDS: APIXABAN 2.5 MG TAB (ELIQUIS) PO SCH ×2 (09:56→20:20)
[2020-05-24] MEDS: MIRALAX *UNIT DOSE* 17GM PACKET PO PRN (09:56)
[2020-05-24] MEDS: ROSUVASTATIN 10 MG TAB (CRESTOR) PO SCH (20:19)
[2020-05-25 06:00] VITALS: BP 114/67
[2020-05-25] MEDS: LEVOTHYROXINE 75MCG TABLET (0.075MG) PO SCH (06:01)
[2020-05-25] MEDS: TORSEMIDE 20 MG TAB PO SCH (09:00)
[2020-05-25] MEDS: MIRALAX *UNIT DOSE* 17GM PACKET PO PRN (09:21)
[2020-05-25] MEDS: SENOKOT S TAB PO PRN (09:21)
[2020-05-25] MEDS: AMOXICILLIN 500 MG CAP PO SCH ×3 (09:22→20:51)
[2020-05-25] MEDS: APIXABAN 2.5 MG TAB (ELIQUIS) PO SCH ×2 (09:22→20:51)
[2020-05-25] MEDS: FERROUS SULFATE 325MG TAB PO SCH (09:22)
[2020-05-25 09:25] VITALS: BP 100/55
[2020-05-25] MEDS: ROSUVASTATIN 10 MG TAB (CRESTOR) PO SCH (20:51)
[2020-05-26] MEDS: ALBUTEROL SULFATE 2.5 MG/0.5 ML INH NEB SOLN INH PRN (03:02)
[2020-05-26] MEDS: LEVOTHYROXINE 75MCG TABLET (0.075MG) PO SCH (05:50)
[2020-05-26 06:00] VITALS: BP 111/60
[2020-05-26] MEDS: AMOXICILLIN 500 MG CAP PO SCH ×3 (10:24→20:58)
[2020-05-26] MEDS: APIXABAN 2.5 MG TAB (ELIQUIS) PO SCH ×2 (10:25→20:58)
[2020-05-26] MEDS: TORSEMIDE 20 MG TAB PO SCH (10:25)
[2020-05-26] MEDS: FERROUS SULFATE 325MG TAB PO SCH (10:25)
[2020-05-26] MEDS: ROSUVASTATIN 10 MG TAB (CRESTOR) PO SCH (20:58)
[2020-05-27] MEDS: LEVOTHYROXINE 75MCG TABLET (0.075MG) PO SCH (05:32)
[2020-05-27 06:00] VITALS: BP 120/78
[2020-05-27] MEDS: TORSEMIDE 20 MG TAB PO SCH (09:00)
[2020-05-27] MEDS: APIXABAN 2.5 MG TAB (ELIQUIS) PO SCH ×2 (09:18→20:29)
[2020-05-27] MEDS: AMOXICILLIN 500 MG CAP PO SCH ×2 (09:18→16:28)
[2020-05-27] MEDS: FERROUS SULFATE 325MG TAB PO SCH (10:20)
[2020-05-27 14:00] VITALS: BP 123/57
[2020-05-27] MEDS: ALBUTEROL SULFATE 2.5 MG/0.5 ML INH NEB SOLN INH PRN (20:03)
[2020-05-27] MEDS: ROSUVASTATIN 10 MG TAB (CRESTOR) PO SCH (20:29)
[2020-05-28] MEDS: ALBUTEROL SULFATE 2.5 MG/0.5 ML INH NEB SOLN INH PRN (03:41)
[2020-05-28] MEDS: LEVOTHYROXINE 75MCG TABLET (0.075MG) PO SCH (05:51)
[2020-05-28 06:00] VITALS: BP 133/69
[2020-05-28] MEDS: TORSEMIDE 20 MG TAB PO SCH (09:00)
[2020-05-28] MEDS: APIXABAN 2.5 MG TAB (ELIQUIS) PO SCH ×2 (10:00→21:31)
[2020-05-28] MEDS: FERROUS SULFATE 325MG TAB PO SCH (10:00)
[2020-05-28] MEDS ORDERED: SENN-52 PO (15:17)
--- NOTE | 2020-05-28 15:42 | DS.PDOC ---
Discharge Summary General Date of Admission May 04, 2020 at 15:20 Date of Discharge May 28, 2020 Discharge Summary DISCHARGE DIAGNOSES: Failure to thrive. Community Acquired Pneumonia. Enterococcus faecalis UTI resistant to tetracycline Chronic A. fib. Chronic diastolic CHF, pulmonary hypertension. History of CVA without residual. COPD Hypothyroidism. COVID-19 NEGATIVE COMPLICATIONS/CHIEF COMPLAINT: Physical Deconditioning Pneumonia. HISTORY OF PRESENT ILLNESS: 89-year-old female with a history of chronic afib on eliquis, hypothyroidism, CVA without any residual hemiparesis, was admitted for weakness x 1 wk and failure to thrive.She denied any CP, SOB, cough, abdominal discomfort, fever, n/v/d. Family requested placement. CXR: right basilar consolidation. She had no fever or chills, but was admitted for pneumonia and failure to thrive, for placement in a intermediate per family request. HOSPITAL COURSE: [facility] Community- acquired PNA - Respiratory panel 05/04: Negative - Blood cultures 05/04: No growth at 48 hours - Pro-calcitonin of 0.28 - s/p ceftriaxone and doxycycline - de-escalated to oral regimen and completed 7days E faecalis UTI - completed amoxicillin. 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 -kept on her home torsemide Chronic Afib -on eliquis, does not require rate control meds DLP -on statin Hx of CVA without any residual - no focal deficits -on eliquis - due to afib Hx of COPD - compensated Hypothyroidism: - on levothyroxine DVT ppx: eliquis GI ppx: none IVF: none Diet: 2g Na diet Code status: DNR/DNI DISCHARGE MEDICATIONS: Please see below. ALLERGIES: Please see below. PHYSICAL EXAMINATION ON DISCHARGE: VITAL SIGNS: Please see below. GENERAL: Awake, alert, oriented to person, patient is disoriented to time and place, but pleasant and cooperative HEENT: No respiratory distress, able to speak in full sentences. Face is symmetric. Tongue is midline. No JVD, thyromegaly or cervical lymphadenopathy. CARDIOVASCULAR: S1, S2, sinus rhythm, no murmurs, rubs or gallops. RESPIRATORY: Clear to auscultation. , No Wheezing, rales or rhonchi. No adventitious breath sounds. Inspiratory to expiratory ratio is 1-2 ABDOMEN: Positive bowel sounds in 4 quadrants. No rebound, guarding, no hepatosplenomegaly. No abdominal bruit, nondistended, nontender EXTREMITIES: No cyanosis or clubbing LABORATORY DATA, IMAGING STUDIES, MICROBIOLOGY: Please see below. PROCEDURE INFORMATION: Exam: XR Chest, 1 View Exam date and time: 05/04/2020 8:40 AM Age: 89 years old Clinical indication: Shortness of breath; Additional info: Weakness TECHNIQUE: Imaging protocol: XR of the chest Views: 1 view. COMPARISON: [facility] PORTABLE CHEST X-RAY 07/20/2019 9:04 PM FINDINGS: Lungs: There is new airspace consolidation medially at the right lung base. Mild atelectasis is present at both lung bases. Pleural space: A small right pleural effusion has developed. The left costophrenic angle is sharp. No pneumothorax is identified. Heart/Mediastinum: The cardiomediastinal silhouette is fairly stable in appearance, with similar cardiomegaly. Bones/joints: Unremarkable. IMPRESSION: Medial right basilar airspace consolidation with small right pleural effusion. Electronically signed by: Luis Miguel Ferrera On 05/04/2020 09:26:23 AM DISCHARGE CONDITION: Stable TIME SPENT ON DISCHARGE: 30 minutes. Vital Signs/I&Os Vital Signs Date Time Temp Pulse Resp B/P (MAP) Pulse Ox O2 Delivery O2 Flow Rate FiO2 05/28/20 06:00 98.0 69 18 133/69 (90) 94 05/27/20 14:00 Room Air I&O- Last 24 Hours up to 6 AM 05/28/20 06:00 Intake Total 690 ml Balance 690 ml Microbiology Microbiology 05/20/20 Urine Culture - Final, Complete Enterococcus Faecalis Discharge Medications Scheduled Apixaban (Eliquis) 2.5 Mg Tablet, 2.5 MG PO BID, (Reported) Ferrous Sulfate (Ferrous Sulfate) 325 Mg Tablet, 325 MG PO DAILY, (Reported) Levothyroxine Sodium (Levoxyl) 75 Mcg Tablet, 75 MCG PO DAILY, (Reported) Rosuvastatin Calcium (Rosuvastatin Calcium) 20 Mg Tablet, 20 MG PO QPM, (Reported) TAKES BEFORE DINNER Torsemide (Torsemide) 20 Mg Tablet, 20 MG PO DAILY, (Reported) Scheduled PRN Albuterol Sulf (Albuterol Sulfate) 2.5 Mg/3 Ml Nebu, 3 ML INH QID PRN for SHORTNESS OF BREATH, (Reported) Albuterol Sulfate (Proair Hfa) 108 Mcg/Act Aer, 2 PUFFS INH QID PRN for SHORTNESS OF BREATH, (Reported) Sennosides/Docusate Sodium (Senna Plus Tablet) 1 Each Tablet, 2 TAB PO BIDP PRN for CONSTIPATION Allergies Coded Allergies: No Known Allergies (Unverified , 07/20/19) MARCELL GRANT MD May 28, 2020 15:35
[2020-05-28] MEDS: ROSUVASTATIN 10 MG TAB (CRESTOR) PO SCH (21:31)
[2020-05-29] MEDS: ALBUTEROL SULFATE 2.5 MG/0.5 ML INH NEB SOLN INH PRN (00:07)
[2020-05-29] MEDS: LEVOTHYROXINE 75MCG TABLET (0.075MG) PO SCH (06:23)
[2020-05-29 06:41] VITALS: BP 136/59
[2020-05-29] MEDS: APIXABAN 2.5 MG TAB (ELIQUIS) PO SCH ×2 (08:51→20:17)
[2020-05-29 08:55] VITALS: BP 96/54
[2020-05-29] MEDS: TORSEMIDE 20 MG TAB PO SCH (08:56)
[2020-05-29] MEDS: FERROUS SULFATE 325MG TAB PO SCH (10:53)
[2020-05-29] MEDS: ROSUVASTATIN 10 MG TAB (CRESTOR) PO SCH (20:17)
[2020-05-30] MEDS: LEVOTHYROXINE 75MCG TABLET (0.075MG) PO SCH (05:34)
[2020-05-30 06:00] VITALS: BP 127/80
[2020-05-30] MEDS: APIXABAN 2.5 MG TAB (ELIQUIS) PO SCH ×2 (08:48→20:12)
[2020-05-30 08:49] VITALS: BP 106/66
[2020-05-30] MEDS: TORSEMIDE 20 MG TAB PO SCH (08:49)
[2020-05-30] MEDS: FERROUS SULFATE 325MG TAB PO SCH (12:08)
[2020-05-30] MEDS: ROSUVASTATIN 10 MG TAB (CRESTOR) PO SCH (20:12)
[2020-05-30] MEDS: ALBUTEROL SULFATE 2.5 MG/0.5 ML INH NEB SOLN INH PRN (21:22)
[2020-05-31] MEDS: LEVOTHYROXINE 75MCG TABLET (0.075MG) PO SCH (06:06)
[2020-05-31 08:49] VITALS: BP 102/56
[2020-05-31] MEDS: APIXABAN 2.5 MG TAB (ELIQUIS) PO SCH (08:49)
[2020-05-31] MEDS: TORSEMIDE 20 MG TAB PO SCH (08:49)
[2020-05-31] MEDS: FERROUS SULFATE 325MG TAB PO SCH (11:06)
== END 2020-05-31 11:08 | DRG 884 ==
LOC: M ED 08:28 → EDBD 08:28 → M ED INP 08:29 → ENRESERV 12:33 → M MSPAV 14:20 → OBSVTOIN 15:20
PROVIDERS: ADMIT Internal Medicine; ATTEND General Practice
DX: R54 Age-related physical debility (principal); I48.20 Chronic atrial fibrillation, unspecified; I50.32 Chronic diastolic (congestive) heart failure; N39.0 Urinary tract infection, site not specified; E03.9 Hypothyroidism, unspecified; Z86.73 Personal history of transient ischemic attack (TIA), and cerebral infarction without residual deficits; R62.7 Adult failure to thrive; J44.9 Chronic obstructive pulmonary disease, unspecified; I27.20 Pulmonary hypertension, unspecified; E78.5 Hyperlipidemia, unspecified; B95.2 Enterococcus as the cause of diseases classified elsewhere; D50.9 Iron deficiency anemia, unspecified; I08.0 Rheumatic disorders of both mitral and aortic valves; Z96.642 Presence of left artificial hip joint; Z98.41 Cataract extraction status, right eye; Z98.42 Cataract extraction status, left eye; Z79.01 Long term (current) use of anticoagulants; Z20.828 Contact with and (suspected) exposure to other viral communicable diseases; Z79.899 Other long term (current) drug therapy

== ENCOUNTER → 2020-06-08 | Outpatient (REF) | payer MEDICARE ==
[~2020-06-08] MED LIST changes: +LEVO75TA34 PO; +SENN-52 PO; +TORS20TA2 PO
[2020-06-08 14:13] LABS: HEMATOCRIT 34.9 % (36.0-47.0); HEMOGLOBIN 10.8 g/dl (12.0-15.5); MEAN CORPUSCULAR HEMOGLOBIN 28.1 pg (27.0-33.0); MEAN CORPUSCULAR HGB CONC 30.9 g/dl (32.0-36.5); MEAN CORPUSCULAR VOLUME 90.9 fl (80.0-96.0); PLATELET COUNT, AUTOMATED 162 10^3/uL (150-450); RED BLOOD COUNT 3.84 10^6/uL (4.00-5.40); WHITE BLOOD COUNT 9.1 10^3/uL (4.0-10.0)
[2020-06-08 14:29] LABS: APPEARANCE, URINE HAZY (CLEAR); BACTERIA, URINE AUTO NEGATIVE (NEGATIVE); BILIRUBIN, URINE AUTO NEGATIVE (NEGATIVE); BLOOD, URINE BLOOD NEGATIVE (NEGATIVE); COLOR, URINE YELLOW (YELLOW); GLUCOSE, URINE (UA) AUTO NEGATIVE (NEGATIVE); KETONE, URINE AUTO NEGATIVE (NEGATIVE); LEUKOCYTE ESTERASE, URINE AUTO TRACE (NEGATIVE); MUCUS, URINE SMALL (NEGATIVE); NITRITE, URINE AUTO NEGATIVE (NEGATIVE); PROTEIN, URINE AUTO NEGATIVE (NEGATIVE); RBC, URINE AUTO 5 /HPF (0-3); SPECIFIC GRAVITY URINE AUTO 1.009 (1.002-1.035); SQUAMOUS EPITHELIAL CELL UR AU 0 /HPF (0-6); UROBILINOGEN, URINE AUTO 0.2 mg/dL (0.0-2.0); WBC, URINE AUTO 5 /HPF (0-3)
[2020-06-08 14:44] LABS: ALBUMIN 3.2 GM/DL (3.2-5.2); BILIRUBIN,TOTAL 0.9 MG/DL (0.2-1.0); CALCIUM LEVEL 8.7 MG/DL (8.8-10.2); CREATININE FOR GFR 1.06 MG/DL (0.55-1.30); POTASSIUM SERUM 3.8 MEQ/L (3.5-5.1); TOTAL PROTEIN 6.5 GM/DL (6.4-8.2)
[2020-06-09 10:58] LABS: THYROID STIMULATING HORMONE 1.49 uIU/ML (0.358-3.740)
== END ==
LOC: SKLAB2 13:34
PROVIDERS: ATTEND Nurse Practitioner Family
DX: E86.0 Dehydration (principal); N18.30 Chronic kidney disease, stage 3 unspecified; E03.9 Hypothyroidism, unspecified; D63.1 Anemia in chronic kidney disease

== ENCOUNTER → 2020-06-12 | Outpatient (REF) ==
[2020-06-12 12:28] LABS: HEMATOCRIT 34.3 % (36.0-47.0); HEMOGLOBIN 10.7 g/dl (12.0-15.5); MEAN CORPUSCULAR HEMOGLOBIN 28.4 pg (27.0-33.0); MEAN CORPUSCULAR HGB CONC 31.2 g/dl (32.0-36.5); PLATELET COUNT, AUTOMATED 218 10^3/uL (150-450); RED BLOOD COUNT 3.77 10^6/uL (4.00-5.40); WHITE BLOOD COUNT 7.2 10^3/uL (4.0-10.0)
== END ==
LOC: SKLAB2 10:27
PROVIDERS: ATTEND Nurse Practitioner Family
DX: R58 Hemorrhage, not elsewhere classified (principal)

== ENCOUNTER → 2020-06-27 | Outpatient (REF) ==
[2020-06-27 09:55] LABS: PERCENT SATURATION 14.8 % (13.2-45.0)
== END ==
LOC: SKLAB2 07:00
PROVIDERS: ATTEND Internal Medicine
DX: D64.9 Anemia, unspecified (principal)

== ENCOUNTER → 2020-06-28 | Outpatient (REF) | payer MEDICARE ==
[~2020-06-28] MED LIST changes: +MIRT-62 PO; -REME15TA PO
== END ==
LOC: SKLAB2 06-27 11:54 → EDSTATUS 07-19 16:20
PROVIDERS: ATTEND Internal Medicine
DX: Z20.818 Contact with and (suspected) exposure to other bacterial communicable diseases (principal)

== ENCOUNTER → 2020-07-12 | Outpatient (REF) | payer MEDICARE | LOC: SKLAB2 08:00 | PROVIDERS: ATTEND Internal Medicine | DX: Z20.828 Contact with and (suspected) exposure to other viral communicable diseases (principal) ==

== ENCOUNTER → 2020-07-19 | Outpatient (REF) | payer MEDICARE | LOC: SKLAB2 07:24 | PROVIDERS: ATTEND Internal Medicine | DX: Z20.828 Contact with and (suspected) exposure to other viral communicable diseases (principal) ==

== ENCOUNTER → 2020-07-26 | Outpatient (REF) | payer MEDICARE | LOC: SKLAB2 11:30 | PROVIDERS: ATTEND Internal Medicine | DX: Z20.828 Contact with and (suspected) exposure to other viral communicable diseases (principal) ==

== ENCOUNTER → 2020-08-02 | Outpatient (REF) | payer MEDICARE | LOC: SKLAB2 08:25 | PROVIDERS: ATTEND Internal Medicine | DX: Z20.828 Contact with and (suspected) exposure to other viral communicable diseases (principal) ==

== ENCOUNTER → 2020-08-02 | Outpatient (CLI) | payer MEDICARE ==
--- NOTE | 2020-08-02 14:01 | REP ---
INDICATION: SWELLING AND REDNESS COMPARISON: None. TECHNIQUE: Tello scale and color Doppler evaluation of the right lower extremity using linear high frequency transducer. FINDINGS: Moderate to significant subcutaneous edema noted and somewhat limiting examination. Ultrasound examination of the right lower extremity deep venous structures from the common femoral vein to the popliteal vein demonstrates normal compressibility flow and wave patterns in response to respiration and augmentation. There is no evidence for deep venous thrombosis. IMPRESSION: No evidence for deep venous thrombosis. <Electronically signed by Virgil Mckinnon > 08/02/20 [id number]
== END ==
LOC: M RAD 13:29
PROVIDERS: ATTEND Internal Medicine
DX: M79.604 Pain in right leg (principal); M79.89 Other specified soft tissue disorders; Z20.828 Contact with and (suspected) exposure to other viral communicable diseases
CPT/HCPCS: 93971; U0003

== ENCOUNTER → 2020-08-07 | Outpatient (REF) | payer MEDICARE ==
--- NOTE | 2020-08-07 15:48 | REP ---
INDICATION: chf. COMPARISON: Comparison chest x-ray May 04, 2020.. TECHNIQUE: Portable AP sitting radiograph. FINDINGS: There is marked cardiomegaly again observed unchanged. There is platelike atelectasis in the right base above a somewhat elevated right hemidiaphragm. There is blunting of the right lateral pleural angle. Pulmonary vasculature is cephalized. No evidence of pulmonary edema. IMPRESSION: CHF pattern with marked cardiomegaly and blunting of the right lateral pleural angle. Pulmonary vascular cephalization. Platelike atelectasis right base. <Electronically signed by Alfredo Hammer > 08/07/20 [id number]
== END ==
LOC: SKLAB2 07-30 07:00
PROVIDERS: ATTEND Internal Medicine
DX: I50.9 Heart failure, unspecified (principal); J98.11 Atelectasis; I28.8 Other diseases of pulmonary vessels

== ENCOUNTER → 2020-08-07 | Outpatient (REF) | payer MEDICARE ==
[2020-08-07 09:33] LABS: HEMATOCRIT 35.5 % (36.0-47.0); HEMOGLOBIN 10.4 g/dl (12.0-15.5); MEAN CORPUSCULAR HEMOGLOBIN 27.2 pg (27.0-33.0); MEAN CORPUSCULAR HGB CONC 29.3 g/dl (32.0-36.5); MEAN CORPUSCULAR VOLUME 92.7 fl (80.0-96.0); PLATELET COUNT, AUTOMATED 161 10^3/uL (150-450); RED BLOOD COUNT 3.83 10^6/uL (4.00-5.40); WHITE BLOOD COUNT 5.7 10^3/uL (4.0-10.0)
[2020-08-07 09:54] LABS: CALCIUM LEVEL 8.5 MG/DL (8.8-10.2); CREATININE FOR GFR 1.68 MG/DL (0.55-1.30); GLOMERULAR FILTRATION RATE 30.5 (>32); POTASSIUM SERUM 3.4 MEQ/L (3.5-5.1)
== END ==
LOC: SKLAB2 00:17
PROVIDERS: ATTEND Internal Medicine
DX: R22.43 Localized swelling, mass and lump, lower limb, bilateral (principal)

== ENCOUNTER → 2020-08-08 | Outpatient (REF) ==
[2020-08-08 08:13] LABS: CREATININE FOR GFR 1.42 MG/DL (0.55-1.30); GLOMERULAR FILTRATION RATE 37.1 (>32); POTASSIUM SERUM 3.9 MEQ/L (3.5-5.1)
== END ==
LOC: SKLAB2 18:58
PROVIDERS: ATTEND Internal Medicine
DX: I50.9 Heart failure, unspecified (principal)

== ENCOUNTER → 2020-08-09 | Outpatient (REF) | payer MEDICARE ==
[2020-08-09 09:09] LABS: CALCIUM LEVEL 8.2 MG/DL (8.8-10.2); CREATININE FOR GFR 1.51 MG/DL (0.55-1.30); GLOMERULAR FILTRATION RATE 34.5 (>32); POTASSIUM SERUM 3.5 MEQ/L (3.5-5.1)
== END ==
LOC: SKLAB2 07:14
PROVIDERS: ATTEND Internal Medicine
DX: Z20.828 Contact with and (suspected) exposure to other viral communicable diseases (principal); I50.9 Heart failure, unspecified
CPT/HCPCS: 36415; 80048; U0003

== ENCOUNTER → 2020-08-10 | Outpatient (REF) | payer MEDICARE ==
[2020-08-10 10:34] LABS: CREATININE FOR GFR 1.63 MG/DL (0.55-1.30); GLOMERULAR FILTRATION RATE 31.6 (>32)
[2020-08-10 10:35] LABS: CALCIUM LEVEL 8.8 MG/DL (8.8-10.2)
== END ==
LOC: SKLAB2 06:20
PROVIDERS: ATTEND Internal Medicine
DX: I50.9 Heart failure, unspecified (principal)

== ENCOUNTER → 2020-08-11 | Outpatient (REF) | payer MEDICARE ==
[2020-08-11 18:18] LABS: CALCIUM LEVEL 8.5 MG/DL (8.8-10.2); CREATININE FOR GFR 1.4 MG/DL (0.55-1.30); GLOMERULAR FILTRATION RATE 37.7 (>32)
== END ==
LOC: SKLAB2 16:26
PROVIDERS: ATTEND Nurse Practitioner Adult Health
DX: E87.6 Hypokalemia (principal)

== ENCOUNTER → 2020-08-14 | Outpatient (REF) | payer MEDICARE ==
[2020-08-14 11:26] LABS: CALCIUM LEVEL 8.8 MG/DL (8.8-10.2); CREATININE FOR GFR 1.46 MG/DL (0.55-1.30); GLOMERULAR FILTRATION RATE 35.9 (>32); POTASSIUM SERUM 3.1 MEQ/L (3.5-5.1)
== END ==
LOC: SKLAB2 12:56
PROVIDERS: ATTEND Internal Medicine
DX: I50.9 Heart failure, unspecified (principal)

== ENCOUNTER → 2020-08-15 | Outpatient (REF) | payer MEDICARE ==
[2020-08-15 11:00] LABS: CALCIUM LEVEL 8.3 MG/DL (8.8-10.2); CREATININE FOR GFR 1.3 MG/DL (0.55-1.30); GLOMERULAR FILTRATION RATE 41.1 (>32); POTASSIUM SERUM 3.6 MEQ/L (3.5-5.1)
== END ==
LOC: SKLAB2 07:00
PROVIDERS: ATTEND Internal Medicine
DX: E87.6 Hypokalemia (principal)

== ENCOUNTER → 2020-08-16 | Outpatient (REF) | payer MEDICARE | LOC: SKLAB2 07:00 | PROVIDERS: ATTEND Internal Medicine | DX: Z11.52 Encounter for screening for COVID-19 (principal) ==

== ENCOUNTER → 2020-08-18 | Outpatient (REF) | payer MEDICARE ==
[2020-08-18 10:27] LABS: CALCIUM LEVEL 8.6 MG/DL (8.8-10.2); CREATININE FOR GFR 1.45 MG/DL (0.55-1.30); GLOMERULAR FILTRATION RATE 36.2 (>32); POTASSIUM SERUM 3.7 MEQ/L (3.5-5.1)
== END ==
LOC: SKLAB2 07:00
PROVIDERS: ATTEND Internal Medicine
DX: I50.9 Heart failure, unspecified (principal)

== ENCOUNTER → 2020-08-21 | Outpatient (REF) | payer MEDICARE ==
[2020-08-21 15:15] LABS: CALCIUM LEVEL 8.8 MG/DL (8.8-10.2); CREATININE FOR GFR 1.71 MG/DL (0.55-1.30); GLOMERULAR FILTRATION RATE 29.9 (>32); POTASSIUM SERUM 3.7 MEQ/L (3.5-5.1)
== END ==
LOC: SKLAB2 12:07
PROVIDERS: ATTEND Internal Medicine
DX: I50.9 Heart failure, unspecified (principal)

== ENCOUNTER → 2020-08-23 | Outpatient (REF) | payer MEDICARE | LOC: SKLAB2 07:00 | PROVIDERS: ATTEND Internal Medicine | DX: Z20.822 Contact with and (suspected) exposure to COVID-19 (principal) ==

== ENCOUNTER → 2020-08-28 | Outpatient (REF) | payer MEDICARE ==
[2020-08-28 10:55] LABS: CALCIUM LEVEL 8.9 MG/DL (8.8-10.2); CREATININE FOR GFR 1.38 MG/DL (0.55-1.30); GLOMERULAR FILTRATION RATE 38.3 (>32); POTASSIUM SERUM 4.1 MEQ/L (3.5-5.1)
== END ==
LOC: SKLAB2 07:00
PROVIDERS: ATTEND Internal Medicine
DX: N18.4 Chronic kidney disease, stage 4 (severe) (principal)

== ENCOUNTER → 2020-08-30 | Outpatient (REF) | payer MEDICARE | LOC: SKLAB2 07:00 | PROVIDERS: ATTEND Internal Medicine | DX: Z20.822 Contact with and (suspected) exposure to COVID-19 (principal) ==